=== PATIENT | male | born 1940 | race Caucasian/White ===

== ENCOUNTER 2017-08-27 09:30 | Inpatient (IN) | payer MEDICARE, BC ==
[2017-08-27 10:04] LABS: ABSOLUTE BASOPHILS # (AUTO) 0.1 10^3/uL (0.0-0.2); ABSOLUTE LYMPHOCYTES (AUTO) 0.5 10^3/uL (0.5-4.7); ABSOLUTE MONOCYTES (AUTO) 1.2 10^3/uL (0.1-1.4); ABSOLUTE NEUT (AUTO) 5.6 10^3/uL (1.7-8.2); BASOPHILS % (AUTO) 1.2 % (0-2); EOSINOPHILS % (AUTO) 0.1 % (0-6); HEMATOCRIT 35.8 % (37.9-51.0); HEMOGLOBIN 10.8 g/dL (13.5-17.0); LYMPHOCYTES % (AUTO) 6.9 % (13-45); MEAN CORPUSCULAR HEMOGLOBIN 24.8 pg (27.0-33.4); MEAN CORPUSCULAR HGB CONC 30.3 g/dL (32.0-36.0); MEAN CORPUSCULAR VOLUME 82 fl (80-97); MONOCYTES % (AUTO) 15.8 % (3-13); PLATELET COUNT 333 10^3/uL (150-450); RED BLOOD COUNT 4.37 10^6/uL (4.35-5.55); RED CELL DISTRIBUTION WIDTH 16.1 % (11.5-14.0); TOTAL CELLS COUNTED % (AUTO) 100 %; WHITE BLOOD COUNT 7.4 10^3/uL (4.0-10.5)
--- NOTE | 2017-08-27 10:07 | ER Document Report ---
ED General - General Stated Complaint: BREATHING PROBLEMS Time Seen by Provider: 08/27/17 09:41 Mode of Arrival: Medic Information source: Patient, Emergency Med Personnel TRAVEL OUTSIDE OF THE [place] IN LAST 30 DAYS: No - HPI Patient complains to provider of: Shortness of breath Onset: This morning Onset/Duration: Sudden Quality of pain: No pain Associated symptoms: Nonproductive cough Exacerbated by: Movement, Walking, Coughing Relieved by: Other - Oxygen Similar symptoms previously: No Recently seen / treated by doctor: No Notes: She states he woke up this morning in his usual state of health and then noticed that he was short of breath worse with ambulation. Patient's called 911 when the firefighters arrived patient's pulse ox was 62% on room air. He did come up to 99% on 100% nonrebreather. Patient denies pain. Medics did call in in route to the hospital. I did talk with them. They stated they gave the patient 3 albuterol to Atrovent and her 25 mg of Solu-Medrol with marked improvement. - Related Data Allergies/Adverse Reactions: No Known Allergies Allergy (Unverified 08/27/17 09:46) Past Medical History - General Information source: Patient, Relative - His is an RN - Social History Smoking Status: Former Smoker Cigarette use (# per day): No Chew tobacco use (# tins/day): No Smoking Education Provided: No Frequency of alcohol use: None Drug Abuse: None Lives with: Family Family History: Reviewed & Not Pertinent Patient has suicidal ideation: No Patient has homicidal ideation: No - Past Medical History Cardiac Medical History: Reports: Hx Hypertension Pulmonary Medical History: Reports: Hx COPD EENT Medical History: Reports: None Neurological Medical History: Reports: None Renal/ Medical History: Reports: Hx Renal Insufficiency Malignancy Medical History: Reports None GI Medical History: Reports: None Musculoskeltal Medical History: Reports None Psychiatric Medical History: Reports: None Past Surgical History: Reports: Hx Abdominal Surgery - Patient has a large scar in his RLQ he cannot recall what for. states, Other - states AAA few years ago Review of Systems - Review of Systems Constitutional: Fever, Weakness EENT: No symptoms reported Cardiovascular: No symptoms reported Respiratory: Cough, Short of breath, Wheezing Gastrointestinal: No symptoms reported Genitourinary: No symptoms reported Male Genitourinary: No symptoms reported Musculoskeletal: No symptoms reported Skin: No symptoms reported Hematologic/Lymphatic: No symptoms reported Neurological/Psychological: No symptoms reported Physical Exam - Vital signs Vitals: Resp Pulse Ox 19 91 L 08/27/17 09:37 08/27/17 09:37 - Notes Notes: PHYSICAL EXAMINATION: GENERAL: Well-appearing, well-nourished and in no acute distress-with some conversational dyspnea HEAD: Atraumatic, normocephalic. EYES: Pupils equal round and reactive to light, extraocular movements intact, sclera anicteric, conjunctiva are normal. ENT: Nares patent, oropharynx clear without exudates. Moist mucous membranes. Edentulous. NECK: Normal range of motion, supple without lymphadenopathy LUNGS: Breath sounds clear to auscultation bilaterally and equal. No wheezes rales or rhonchi. HEART: Regular rate and rhythm without murmurs ABDOMEN: Soft, nontender, nondistended abdomen. No guarding, no rebound. No masses appreciated. Musculoskeletal: Normal range of motion, no pitting or edema. No cyanosis. NEUROLOGICAL: Cranial nerves grossly intact. Normal speech, normal gait. Normal sensory, motor exams PSYCH: Normal mood, normal affect. SKIN: Warm, Dry, normal turgor, no rashes or lesions noted. Course - Re-evaluation Re-evalutation: 08/27/17 10:54 Patient's did present to the emergency department with patient's medications. He is on antihypertensives including clonidine and metoprolol and he takes an aspirin. Patient's states that he always has renal insufficiency. She states they could never used IV dye for CTs due to this. She states patient was a little bit confused yesterday and then he had "full lungs" last night and he awoke this morning with weakness inability to get out of bed cough and shortness of breath. She had a history of a abdominal aortic aneurysm that was surgically fixed. The incision on his right lower quadrant is due to complications of the surgery. Patient does not have a history of DVT or PE he does not use inhalers although he has a history of COPD. Patient has not seen a physician in at least one year probably longer as per the . Mikel medeiros automotive paint technician is going to have the audio visual secretary call over to the last physician he went to try and get some labs and paperwork faxed over. 08/27/17 10:57 Dr. Lyn the radiologists stated pt. has westermark sign and is questioning PE on the right. She has chronic renal insufficiency with a creatinine of 2. I will order VQ scan. 08/27/17 11:02 08/27/17 14:35 The radiologist. She states high probability VQ scan with clots in the posterior right upper lobe and right lower lobe most likely. 08/27/17 14:46pt. has returned from V/Q and he is doing well. He is 96% room air. Lungs sound scant wheezing only. Receive the paperwork for the patient's primary medical doctor, sure how useful would be as it was over a year ago. I did talk to Dr. Marcum and he is admitting the patient to IMCU - Vital Signs Vital signs: Temp Pulse Resp BP Pulse Ox 99.9 F 17 151/62 H 95 08/27/17 09:46 08/27/17 12:01 08/27/17 12:01 08/27/17 12:01 - Laboratory Result Diagrams: 08/27/17 09:45 08/27/17 09:45 Laboratory results interpreted by me: 08/27/17 08/27/17 08/27/17 09:45 09:45 09:45 Hgb 10.8 L Hct 35.8 L MCH 24.8 L MCHC 30.3 L RDW 16.1 H Lymphocytes % 6.9 L Monocytes % 15.8 H APTT 44.5 H Potassium 5.3 H Chloride 95 L BUN 22 H Creatinine 2.11 H Est GFR ( Amer) 37 L Est GFR (Non-Af Amer) 31 L Glucose 149 H POC Glucose Calcium 8.2 L AST 15 L NT-Pro-B Natriuret Pep 08/27/17 08/27/17 09:45 11:21 Hgb Hct MCH MCHC RDW Lymphocytes % Monocytes % APTT Potassium Chloride BUN Creatinine Est GFR ( Amer) Est GFR (Non-Af Amer) Glucose POC Glucose 130 H Calcium AST NT-Pro-B Natriuret Pep 8780 H - Diagnostic Test Radiology reviewed: Image reviewed, Reports reviewed Radiology results interpreted by me: 08/27/17 14:44 CXR: westermark sign r - EKG Interpretation by Me EKG shows normal: Sinus rhythm [place]/QRS: RBBB Critical Care Note - Critical Care Note Total time excluding time spent on procedures (mins): 45 Comments: 45 minutes of critical care time spent in direct contact evaluating and reevaluating the patient, treating symptoms, reviewing labs and studies and speaking with family and consultants excluding any procedures Discharge - Discharge Clinical Impression: Pulmonary embolism, Anemia, COPD (chronic obstructive pulmonary disease), Chronic renal insufficiency Condition: Good Disposition: ADMITTED INPATIENT Admitting Provider: Hospitalist - Dr. Marcum Unit Admitted: [facility]
[2017-08-27 10:11] LABS: INTERNATIONAL RATION (INR) 0.94; PROTHROMBIN TIME 13.3 SEC (11.4-15.4)
[2017-08-27 10:12] LABS: PARTIAL THROMBOPLASTIN TIME 44.5 SEC (23.5-35.8)
--- NOTE | 2017-08-27 10:14 | RADIOLOGY REPORT (SQ) ---
EXAM DESCRIPTION: CHEST SINGLE VIEW COMPLETED DATE/TIME: 08/27/2017 10:02 am REASON FOR STUDY: hypoxia COMPARISON: None. EXAM PARAMETERS: NUMBER OF VIEWS: One view. TECHNIQUE: Single frontal radiographic view of the chest acquired. RADIATION DOSE: NA LIMITATIONS: Portable film, all rotated towards the WHEELER position FINDINGS: LUNGS AND PLEURA: Overall decrease in pulmonary vascularity to the right lung compared to the left. Although this could be artifact from portable technique, this could represent a plaster ma rked spine on the right with decreased pulmonary vascularity related to pulmonary embolus. No acute infiltrates. No pleural effusion. No pneumothorax. MEDIASTINUM AND HILAR STRUCTURES: No masses. Contour normal. HEART AND VASCULAR STRUCTURES: Mild cardiomegaly BONES: No acute findings. HARDWARE: None in the chest. OTHER: No other significant finding. IMPRESSION: No acute infiltrates. Decrease right lung pulmonary vascularity, question acute pulmonary embolus to the right side Results discussed with Dr. Stark TECHNICAL DOCUMENTATION: JOB ID: [id number] [employer]- All Rights Reserved
[2017-08-27 10:24] LABS: ALANINE AMINOTRANSFERASE 21 U/L (21-72); ALBUMIN 4.2 g/dL (3.5-5.0); ALKALINE PHOSPHATASE 63 U/L (38-126); ANION GAP 12 (5-19); ASPARTATE AMINO TRANSFERASE 15 U/L (17-59); BILIRUBIN,DIRECT 0.3 mg/dL (0.0-0.4); BILIRUBIN,TOTAL 0.4 mg/dL (0.2-1.3); BLOOD UREA NITROGEN 22 mg/dL (7-20); CALCIUM 8.2 mg/dL (8.4-10.2); CARBON DIOXIDE 30 mmol/L (22-30); CHLORIDE 95 mmol/L (98-107); GLUCOSE 149 mg/dL (75-110); POTASSIUM 5.3 mmol/L (3.6-5.0); SODIUM 137.3 mmol/L (137-145); TOTAL PROTEIN 7.4 g/dL (6.3-8.2)
[2017-08-27] MEDS ORDERED: IPRATROPIUM/ALBUTEROL 0.5-2.5 MG/3 ML AMPUL NEB ONE (10:30)
[2017-08-27 10:42] LABS: TROPONIN I 0.06 ng/mL
[2017-08-27 11:23] LABS: A TYPE INFLUENZA AG NEGATIVE (NEGATIVE); B INFLUENZA AG NEGATIVE (NEGATIVE)
--- NOTE | 2017-08-27 11:56 | RADIOLOGY REPORT (SQ) ---
EXAM DESCRIPTION: CT HEAD WITHOUT COMPLETED DATE/TIME: 08/27/2017 11:32 am REASON FOR STUDY: ms change COMPARISON: None. TECHNIQUE: Axial images acquired through the brain without intravenous contrast. Images reviewed wi th bone, brain and subdural windows. Images stored on PACS. All CT scanners at this facility use dose modulation, iterative reconstruction, and/or weight based d osing when appropriate to reduce radiation dose to as low as reasonably achievable (ALARA). [facility]: Dose Right [facility]: CareDose [facility]: Dose Right [facility]: Teradose 4D [facility]: [email or web address] RADIATION DOSE: CT Rad equipment meets quality standard of care and radiation dose reduction techniq ues were employed. CTDIvol: 64.6 mGy. DLP: 1809 mGy-cm. mGy. LIMITATIONS: Study is limited somewhat due to motion artifact. FINDINGS: VENTRICLES: Prominent. CEREBRUM: No masses. No hemorrhage. No midline shift. Areas of low density in the white matter mos t likely due to chronic micro-vascular ischemic change. No evidence for acute infarction. CEREBELLUM: No masses. No hemorrhage. No alteration of density. No evidence for acute infarction. EXTRAAXIAL SPACES: Mild age-related involutional change. No fluid collections. No masses. ORBITS AND GLOBE: No intra- or extraconal masses. Normal contour of globe without masses. CALVARIUM: No fracture. PARANASAL SINUSES: There is opacification of the left maxillary antra and an adjacent ethmoid air dawson l. SOFT TISSUES: No mass or hematoma. OTHER: No other significant finding. IMPRESSION: MILD CHRONIC CHANGES OF ATROPHY AND MICROVASCULAR ISCHEMIA. NO ACUTE intracranial PROCE SS. Sinus disease as noted above. EVIDENCE OF ACUTE STROKE: NO. TECHNICAL DOCUMENTATION: JOB ID: [id number] Quality ID # [id number]: Final reports with documentation of one or more dose reduction techniques (e.g., Au tomated exposure control, adjustment of the mA and/or kV according to patient size, use of iterative reconstruction technique) 2010 [employer]- All Rights Reserved
--- NOTE | 2017-08-27 14:41 | RADIOLOGY REPORT (SQ) ---
EXAM DESCRIPTION: NM LUNG VENT/PERF SCAN COMPLETED DATE/TIME: 08/27/2017 2:08 pm REASON FOR STUDY: hypoxic/abn CXR/CRI COMPARISON: AP chest 08/27/2017 RADIONUCLIDE AND DOSE: 5.4 millicuries TC-99m MAA Intravenous 32.6 millicuries TC-99m DTPA Inhaled aerosol After the ventilation portion of the study, patient was injected with 5.4 mCi of technetium 99 M mebr ofenin instead at MAA. An anterior chest and abdomen image was obtained, demonstrating diffuse liver activity. TECHNIQUE: Eight views of the lungs acquired post ventilation of DTPA aerosol. Eight matching views of the lungs acquired following injection of MAA. LIMITATIONS: None. FINDINGS: VENTILATION: There is clumping of MAA in the central airways, and patchy aeration bilatera lly which correlates with clinical history of obstructive lung disease. PERFUSION: Post MAA perfusion images demonstrate decreased perfusion in the right lower lobe, particu larly along the superior segment and posterior basal segments. Small defect in the right upper lobe laterally. Findings are highly suspicious for right-sided pulmonary emboli. Findings discussed with Dr. Stark OTHER: No other significant finding. IMPRESSION: High probability study for right-sided pulmonary emboli. Right upper and lower lobe per fusion defects are present TECHNICAL DOCUMENTATION: JOB ID: [id number] [employer]- All Rights Reserved
[2017-08-27] MEDS ORDERED: NORMAL SALINE 1000 ML 1,000 ML IV ONE (14:49)
[2017-08-27] MEDS ORDERED: ENOXAPARIN SODIUM INJ 100 MG/1 ML DISP.SYRIN SUBCUT SCH (15:00)
[2017-08-27] MEDS ORDERED: ONDANSETRON HCL INJ/PF 4 MG/2 ML SDV IV PRN (15:37)
[2017-08-27] MEDS ORDERED: ONDANSETRON 4 MG TAB.RAPDIS PO PRN (15:37)
[2017-08-27] MEDS ORDERED: ACETAMINOPHEN 325 MG TABLET PO PRN (15:37)
[2017-08-27 15:53] LABS: APPEARANCE,URINE CLEAR; BILIRUBIN,URINE NEGATIVE (NEGATIVE); COLOR,URINE YELLOW; GLUCOSE, URINE NEGATIVE (NEGATIVE); KETONES,URINE NEGATIVE (NEGATIVE); LEUKOCYTE ESTERASE,URINE MODERATE (NEGATIVE); NITRITE,URINE NEGATIVE (NEGATIVE); PROTEIN,URINE 30 mg/dL (NEGATIVE); URINE SPECIFIC GRAVITY 1.008; UROBILINOGEN,URINE NEGATIVE mg/dL (<2.0)
[2017-08-27] MEDS ORDERED: HEPARIN SOD (PORCINE) 1,000 UNIT/ML 10 ML VIAL IV ONE (16:00)
--- NOTE | 2017-08-27 16:10 | PDOC H&P ---
History of Present Illness Admission Date/PCP: 08/27/17 15:09 Patient complains of: Shortness of breath and confusion History of Present Illness: RASHI MC JR is a 76 year old male who has not yet established primary care in the area who presents with symptoms of shortness of breath and confusion. 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 She reports that he had a restless night and then woke up this morning I was unable to get out of bed because of generalized weakness. She noted that he was dusky colored and appeared to be cyanotic. The firemen arrived first and at that time they checked an oxygen saturation and by report it is 62%. They placed him on oxygen and by the time EMS arrived his oxygen saturations were in the normal area on 2 L nasal cannula. Patient also had some wheezing then. Patient however denied have any chest pain. He denies any cough but has noticed some wheezing. He denies any lower extremity edema. Denies any orthopnea or PND. The patient had a VQ scan that showed high probability for pulmonary embolism. The patient is not very active according to the although he does drive he sits in a chair most days and most of the day. Patient is admitted for treatment of a pulmonary embolism. Past Medical History Cardiac Medical History: Reports: Hyperlipidema, Hypertension, Peripheral Vascular Disease - History of aortic aneurysm rupture and repair Pulmonary Medical History: Reports: Chronic Obstructive Pulmonary Disease (COPD) EENT Medical History: Reports: None Neurological Medical History: Reports: Other - Right foot drop after abdominal aortic aneurysm repair Endocrine Medical History: Reports: None Renal/ Medical History: Reports: Chronic Kidney Disease Malignancy Medical History: Reports: None GI Medical History: Reports: None Musculoskeltal Medical History: Reports: None Psychiatric Medical History: Reports: None Hematology: Reports: None Infectious Medical History: Reports: None Past Surgical History Past Surgical History: Reports: Other - states AAA few years ago Social History Information Source: Patient Lives with: Spouse/Significant other Smoking Status: Former Smoker Frequency of Alcohol Use: None Hx Recreational Drug Use: No Drugs: None - Advance Directive Resuscitation Status: Full Code Surrogate healthcare decision maker:: Family History Family History: Hypertension. denies: CAD, DM Parental Family History Reviewed: Yes Children Family History Reviewed: No Sibling(s) Family History Reviewed.: No Medication/Allergy Home Medications: Clonidine HCl [Catapres 0.1 mg Tablet] 0.1 mg PO Q12 08/27/17 Hydralazine HCl [Apresoline 50 mg Tablet] 50 mg PO Q8 08/27/17 Metoprolol Tartrate [Lopressor 50 mg Tablet] 75 mg PO Q12 08/27/17 Nifedipine [Nifedipine ER] 30 mg PO DAILY 08/27/17 Pravastatin Sodium [Pravachol] 20 mg PO QHS 08/27/17 Allergies/Adverse Reactions: No Known Allergies Allergy (Unverified 08/27/17 09:46) Review of Systems Constitutional: ABSENT: chills, fever(s), headache(s), weight gain, weight loss Eyes: ABSENT: visual disturbances Ears: ABSENT: hearing changes Cardiovascular: PRESENT: dyspnea on exertion. ABSENT: chest pain, edema, orthropnea, palpitations Respiratory: PRESENT: cough, dyspnea. ABSENT: hemoptysis, sputum Gastrointestinal: ABSENT: abdominal pain, constipation, diarrhea, hematemesis, hematochezia, nausea, vomiting Genitourinary: ABSENT: dysuria, hematuria Musculoskeletal: ABSENT: joint swelling Integumentary: ABSENT: rash, wounds Neurological: PRESENT: other - Right-sided foot drop Psychiatric: ABSENT: anxiety, depression Endocrine: ABSENT: cold intolerance, heat intolerance, polydipsia, polyuria Hematologic/Lymphatic: ABSENT: easy bleeding, easy bruising Physical Exam Vital Signs: Temp Pulse Resp BP Pulse Ox 99.9 F 17 151/62 H 95 08/27/17 09:46 08/27/17 12:01 08/27/17 12:01 08/27/17 12:01 General appearance: PRESENT: no acute distress, well-developed, well-nourished Head exam: PRESENT: atraumatic, normocephalic Eye exam: PRESENT: conjunctiva pink, EOMI, PERRLA. ABSENT: scleral icterus Ear exam: PRESENT: normal external ear exam Mouth exam: PRESENT: moist, tongue midline Neck exam: ABSENT: carotid bruit, JVD, lymphadenopathy, thyromegaly Respiratory exam: PRESENT: clear to auscultation annelise. ABSENT: rales, rhonchi, wheezes Cardiovascular exam: PRESENT: RRR. ABSENT: diastolic murmur, rubs, systolic murmur Vascular exam: PRESENT: normal capillary refill GI/Abdominal exam: PRESENT: normal bowel sounds, soft. ABSENT: distended, guarding, mass, organolmegaly, rebound, tenderness Rectal exam: PRESENT: deferred Extremities exam: ABSENT: calf tenderness, clubbing, pedal edema Neurological exam: PRESENT: alert, awake, oriented to person, oriented to place , oriented to time, oriented to situation, CN II-XII grossly intact, motor sensory deficit - Right foot drop Psychiatric exam: PRESENT: appropriate affect Skin exam: PRESENT: dry, intact, warm. ABSENT: cyanosis, rash Results Laboratory Results: 08/27/17 15:27 Urine Color YELLOW Urine Appearance CLEAR Urine pH 6.0 Ur Specific [place] 1.008 Urine Protein 30 H Urine Glucose (UA) NEGATIVE Urine Ketones NEGATIVE Urine Blood SMALL H Urine Nitrite NEGATIVE Ur Leukocyte Esterase MODERATE H Urine WBC (Auto) 17 Urine RBC (Auto) 5 Impressions: Chest X-Ray 08/27/17 09:42 IMPRESSION: No acute infiltrates. Decrease right lung pulmonary vascularity, question acute pulmonary embolus to the right side Results discussed with Dr. Stark Lung Scan-VQ NM 08/27/17 11:01 IMPRESSION: High probability study for right-sided pulmonary emboli. Right upper and lower lobe perfusion defects are present Head CT 08/27/17 11:20 IMPRESSION: MILD CHRONIC CHANGES OF ATROPHY AND MICROVASCULAR ISCHEMIA. NO ACUTE intracranial PROCESS. Sinus disease as noted above. EVIDENCE OF ACUTE STROKE: NO. Assessment & Plan - Diagnosis (1) Pulmonary embolism Is this a current diagnosis for this admission?: Yes Plan: The patient reports that he would not be able to afford one of the new oral anticoagulation and request to be put on Coumadin. We will place the patient on a heparin drip while we titrate his Coumadin dose. The patient did have significant hypoxia initially but is doing well now on 2 L nasal cannula. The patient has no obvious source. He does not have any obvious swelling in his legs but he is relatively inactive. No signs or symptoms of any type of malignancy. (2) COPD (chronic obstructive pulmonary disease) Is this a current diagnosis for this admission?: Yes Plan: We will give nebulizers as needed. (3) Anemia Is this a current diagnosis for this admission?: Yes (4) Chronic renal insufficiency Is this a current diagnosis for this admission?: Yes Plan: Patient has stage III chronic renal failure. No evidence for volume overload at this time. (5) Foot drop, right Is this a current diagnosis for this admission?: Yes Plan: This is secondary to a history of abdominal aortic aneurysm rupture requiring emergent surgical repair. This is been stable. - Time Time Spent: 50 to 70 Minutes - Inpatient Certification Medical Necessity: Need Close Monitoring Due to Risk of Patient Decompensation - Plan Summary Plan Summary: We will admit to [facility] as a regular admission as it will take greater than 2 midnights to titrate his Coumadin.
[2017-08-27 16:15] LABS: HEMOGLOBIN 10.8 g/dL (13.5-17.0); MEAN CORPUSCULAR VOLUME 81 fl (80-97); PLATELET COUNT 270 10^3/uL (150-450); RED BLOOD COUNT 4.34 10^6/uL (4.35-5.55); RED CELL DISTRIBUTION WIDTH 15.9 % (11.5-14.0); WHITE BLOOD COUNT 5.9 10^3/uL (4.0-10.5)
[2017-08-27 16:19] LABS: INTERNATIONAL RATION (INR) 0.97; PROTHROMBIN TIME 13.6 SEC (11.4-15.4)
[2017-08-27 16:20] LABS: PARTIAL THROMBOPLASTIN TIME 41.2 SEC (23.5-35.8)
[2017-08-27 16:46] LABS: ABSOLUTE LYMPHOCYTES# (MANUAL) 0.1 10^3/uL (0.5-4.7); ABSOLUTE MONOCYTES # (MANUAL) 0.2 10^3/uL (0.1-1.4); ABSOLUTE NEUTROPHILS# (MANUAL) 5.5 10^3/uL (1.7-8.2); BASOPHILS % (MANUAL) 1 % (0-2); EOSINOPHILS % (MANUAL) 0 % (0-6); LYMPHOCYTES % (MANUAL) 2 % (13-45); MONOCYTES % (MANUAL) 3 % (3-13); SEGMENTED NEUTROPHILS % (MAN) 94 % (42-78); TOTAL CELLS COUNTED 100
[2017-08-27 16:48] LABS: ANISOCYTOSIS 1+; HYPOCHROMASIA 2+; PLATELET COMMENT ADEQUATE; PLATELET LARGE PRESENT; POIKILOCYTOSIS SLIGHT; POLYCHROMASIA 1+; STOMATOCYTES SLIGHT
[2017-08-27 16:52] LABS: CREATINE KINASE MB 1.63 ng/mL (<4.55); TROPONIN I 0.053 ng/mL
[2017-08-27] MEDS: HEPARIN SODIUM,PORCINE/D5W 25,000 UNIT/250 ML RTUINJ IV PRN (17:24)
[2017-08-27] MEDS ORDERED: INFLUENZA ADLT QUAD (36MOS+) 2017-18 VAC 0.5 ML SYR IM PRN (20:27)
[2017-08-27] MEDS ORDERED: FAMOTIDINE 20 MG TABLET PO SCH (22:00)
[2017-08-27 22:40] LABS: CREATINE KINASE MB 2.33 ng/mL (<4.55)
[2017-08-27 22:44] LABS: TROPONIN I 0.041 ng/mL
[2017-08-28] MEDS ORDERED: LORAZEPAM INJ 2 MG/1 ML VIAL ONE (00:52)
[2017-08-28 00:59] LABS: ARTERIAL BLOOD BASE EXCESS 4.4 mmol/L; ARTERIAL BLOOD FIO2 2L; ARTERIAL BLOOD H2CO3 2.11 mmol/L (1.05-1.35); ARTERIAL BLOOD HCO3 32.8 mmol/L (20-26); ARTERIAL BLOOD O2 SATURATION 93.8 % (94-98); ARTERIAL BLOOD PH 7.29 (7.35-7.45); ARTERIAL BLOOD TOTAL CO2 34.9 mmol/L (23-27)
[2017-08-28] MEDS ORDERED: LORAZEPAM INJ 2 MG/1 ML VIAL IM PRN (01:19)
[2017-08-28] MEDS ORDERED: LORAZEPAM INJ 2 MG/1 ML VIAL IM ONE (01:30)
[2017-08-28 01:39] LABS: CREATINE KINASE MB 2.91 ng/mL (<4.55)
[2017-08-28 01:43] LABS: TROPONIN I 0.048 ng/mL
[2017-08-28 01:46] LABS: INTERNATIONAL RATION (INR) 0.92
[2017-08-28 01:47] LABS: PARTIAL THROMBOPLASTIN TIME 42.7 SEC (23.5-35.8)
--- NOTE | 2017-08-28 02:34 | RADIOLOGY REPORT (SQ) ---
EXAM DESCRIPTION: CT HEAD WITHOUT CLINICAL HISTORY: 76 years Male, ams COMPARISON: 08/27/2017. TECHNIQUE: No contrast. This exam was performed according to our departmental dose-optimization program, which includes automated exposure control, adjustment of the mA and/or kV according to patient size and/or use of iterative reconstruction technique. Two FINDINGS: Mild cerebral volume loss, minimal white matter microangiopathy, and atherosclerosis. 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 Soft tissue density occlusion of the left maxillary and a few left ethmoid air cells. No hemorrhage or infarct. No mass, mass effect, or midline shift. Extra-axial structures appear otherwise grossly intact. IMPRESSION: No significant interval change.
--- NOTE | 2017-08-28 02:50 | RADIOLOGY REPORT (SQ) ---
EXAM DESCRIPTION: ABDOMEN 2 VIEWS CLINICAL HISTORY: 76 years, Male, ams COMPARISON: None. NUMBER OF VIEWS:4 LIMITATIONS: None. FINDINGS: Nonspecific gaseous distention of the transverse and right colon with cecum measuring 8.7 cm in diameter. Paucity of bowel gas otherwise. Aortobiiliac graft. Mild osteoarthritis. IMPRESSION: Nonspecific gaseous dilation of the proximal colon.
[2017-08-28] MEDS: WARFARIN SODIUM 5 MG TABLET PO SCH ×2 (04:38→22:45)
[2017-08-28] MEDS: CLONIDINE HCL 0.1 MG TABLET PO SCH ×3 (04:38→22:45)
[2017-08-28] MEDS: METOPROLOL TARTRATE 50 MG TABLET PO SCH ×3 (04:38→22:45)
[2017-08-28] MEDS: HYDRALAZINE HCL 50 MG TABLET PO SCH ×4 (04:38→22:45)
[2017-08-28] MEDS: FAMOTIDINE 20 MG TABLET PO SCH ×2 (04:38→18:15)
[2017-08-28] MEDS: ATORVASTATIN CALCIUM 10 MG TABLET PO SCH ×2 (04:38→22:45)
[2017-08-28 05:56] LABS: HEMATOCRIT 33.2 % (37.9-51.0); HEMOGLOBIN 10.3 g/dL (13.5-17.0); MEAN CORPUSCULAR VOLUME 80 fl (80-97); PLATELET COUNT 279 10^3/uL (150-450); RED BLOOD COUNT 4.12 10^6/uL (4.35-5.55); RED CELL DISTRIBUTION WIDTH 16.1 % (11.5-14.0); WHITE BLOOD COUNT 9.5 10^3/uL (4.0-10.5)
[2017-08-28 06:27] LABS: ANION GAP 8 (5-19); BLOOD UREA NITROGEN 32 mg/dL (7-20); CALCIUM 8.1 mg/dL (8.4-10.2); CARBON DIOXIDE 29 mmol/L (22-30); CHLORIDE 102 mmol/L (98-107); GLUCOSE 128 mg/dL (75-110); SODIUM 138.5 mmol/L (137-145)
[2017-08-28 06:38] LABS: CREATINE KINASE MB 3.82 ng/mL (<4.55); TROPONIN I 0.058 ng/mL
[2017-08-28 07:01] LABS: POTASSIUM 6.4 mmol/L (3.6-5.0)
[2017-08-28 07:13] LABS: ARTERIAL BLOOD BASE EXCESS 5.2 mmol/L; ARTERIAL BLOOD H2CO3 2.23 mmol/L (1.05-1.35); ARTERIAL BLOOD HCO3 33.8 mmol/L (20-26); ARTERIAL BLOOD O2 SATURATION 90.5 % (94-98); ARTERIAL BLOOD PH 7.28 (7.35-7.45); ARTERIAL BLOOD PO2 68.4 mmHg (80-100)
[2017-08-28] MEDS: HEPARIN SOD (PORCINE) 1,000 UNIT/ML 10 ML VIAL IV PRN ×2 (07:15→16:21)
[2017-08-28 07:19] LABS: ARTERIAL BLOOD FIO2 2L
[2017-08-28] MEDS ORDERED: SODIUM POLYSTYRENE SULFONATE 15 GM/60 ML PO ONE (07:23)
[2017-08-28] MEDS: IPRATROPIUM/ALBUTEROL 0.5-2.5 MG/3 ML AMPUL NEB PRN (09:42)
--- NOTE | 2017-08-28 10:03 | PDOC PROGRESS REPORT ---
Subjective Progress Note for:: 08/28/17 Subjective:: Patient is slightly confused this morning. Reason For Visit: PULMONARY EMBOLUS Physical Exam Vital Signs: Temp Pulse Resp BP Pulse Ox 99.6 F 89 13 153/69 H 99 08/28/17 08:07 08/28/17 08:07 08/28/17 08:07 08/28/17 08:07 08/28/17 08:07 Intake & Output 08/27/17 08/28/17 08/29/17 06:59 06:59 06:59 Intake Total 320 Output Total 550 Balance -230 Weight 94.5 kg General appearance: PRESENT: no acute distress Eye exam: PRESENT: conjunctiva pink. ABSENT: scleral icterus Mouth exam: PRESENT: moist, tongue midline Neck exam: ABSENT: JVD Respiratory exam: PRESENT: rhonchi. ABSENT: rales, wheezes Cardiovascular exam: PRESENT: RRR. ABSENT: diastolic murmur, rubs, systolic murmur GI/Abdominal exam: PRESENT: normal bowel sounds, soft. ABSENT: distended, guarding, mass, organolmegaly, rebound, tenderness Extremities exam: ABSENT: calf tenderness, clubbing, pedal edema Neurological exam: PRESENT: alert, awake, oriented to person, oriented to place , oriented to time, oriented to situation, CN II-XII grossly intact. ABSENT: motor sensory deficit Psychiatric exam: PRESENT: agitated Skin exam: PRESENT: dry, intact, warm. ABSENT: cyanosis, rash Results Laboratory Results: 08/28/17 05:47 08/28/17 05:47 08/27/17 08/27/17 08/28/17 15:27 16:00 00:45 WBC 5.9 RBC 4.34 L Hgb 10.8 L Hct 35.0 L MCV 81 MCH 25.0 L MCHC 31.0 L RDW 15.9 H Plt Count 270 Seg Neutrophils % Not Reportable Lymphocytes % Not Reportable Monocytes % Not Reportable Eosinophils % Not Reportable Basophils % Not Reportable Absolute Neutrophils Not Reportable Absolute Lymphocytes Not Reportable Absolute Monocytes Not Reportable Absolute Eosinophils Not Reportable Absolute Basophils Not Reportable Carbonic Acid 2.11 H HCO3/H2CO3 Ratio 15:1 ABG pH 7.29 L ABG pCO2 70.0 H* ABG pO2 79.0 L ABG HCO3 32.8 H ABG O2 Saturation 93.8 L ABG Base Excess 4.4 FiO2 2L Sodium Potassium Chloride Carbon Dioxide Anion Gap BUN Creatinine Est GFR ( Amer) Est GFR (Non-Af Amer) Glucose Calcium Urine Color YELLOW Urine Appearance CLEAR Urine pH 6.0 Ur Specific [place] 1.008 Urine Protein 30 H Urine Glucose (UA) NEGATIVE Urine Ketones NEGATIVE Urine Blood SMALL H Urine Nitrite NEGATIVE Ur Leukocyte Esterase MODERATE H Urine WBC (Auto) 17 Urine RBC (Auto) 5 08/28/17 08/28/17 08/28/17 05:47 05:47 06:30 WBC 9.5 RBC 4.12 L Hgb 10.3 L Hct 33.2 L MCV 80 MCH 25.0 L MCHC 31.0 L RDW 16.1 H Plt Count 279 Seg Neutrophils % Lymphocytes % Monocytes % Eosinophils % Basophils % Absolute Neutrophils Absolute Lymphocytes Absolute Monocytes Absolute Eosinophils Absolute Basophils Carbonic Acid 2.23 H HCO3/H2CO3 Ratio 15:1 ABG pH 7.28 L ABG pCO2 74.0 H* ABG pO2 68.4 L ABG HCO3 33.8 H ABG O2 Saturation 90.5 L ABG Base Excess 5.2 FiO2 2L Sodium 138.5 Potassium 6.4 H* D Chloride 102 Carbon Dioxide 29 Anion Gap 8 BUN 32 H Creatinine 2.03 H Est GFR ( Amer) 39 L Est GFR (Non-Af Amer) 32 L Glucose 128 H Calcium 8.1 L Urine Color Urine Appearance Urine pH Ur Specific [place] Urine Protein Urine Glucose (UA) Urine Ketones Urine Blood Urine Nitrite Ur Leukocyte Esterase Urine WBC (Auto) Urine RBC (Auto) 08/27/17 08/27/17 08/27/17 16:00 16:00 22:00 Creatine Kinase 63 108 CK-MB (CK-2) 1.63 Troponin I 0.053 08/27/17 08/28/17 08/28/17 22:00 00:56 00:56 Creatine Kinase 135 CK-MB (CK-2) 2.33 2.91 Troponin I 0.041 0.048 08/28/17 08/28/17 05:47 05:47 Creatine Kinase 195 H CK-MB (CK-2) 3.82 Troponin I 0.058 Impressions: Chest X-Ray 08/27/17 09:42 IMPRESSION: No acute infiltrates. Decrease right lung pulmonary vascularity, question acute pulmonary embolus to the right side Results discussed with Dr. Stark Lung Scan-VQ NM 08/27/17 11:01 IMPRESSION: High probability study for right-sided pulmonary emboli. Right upper and lower lobe perfusion defects are present Head CT 08/28/17 00:00 IMPRESSION: No significant interval change. Abdomen X-Ray 08/28/17 00:44 IMPRESSION: Nonspecific gaseous dilation of the proximal colon. Assessment & Plan - Diagnosis (1) Pulmonary embolism Is this a current diagnosis for this admission?: Yes Plan: The patient reports that he would not be able to afford one of the new oral anticoagulation and request to be put on Coumadin. Continue on a heparin drip while we titrate his Coumadin dose. The patient did have significant hypoxia initially but is on BiPAP. The patient has no obvious source of clot. He does not have any obvious swelling in his legs but he is relatively inactive. No signs or symptoms of any type of malignancy. (2) COPD (chronic obstructive pulmonary disease) Is this a current diagnosis for this admission?: Yes Plan: We will give nebulizers as needed. He currently is on BiPAP. (3) Anemia Is this a current diagnosis for this admission?: Yes (4) Chronic renal insufficiency Is this a current diagnosis for this admission?: Yes Plan: Patient has stage III chronic renal failure. No evidence for volume overload at this time. (5) Foot drop, right Is this a current diagnosis for this admission?: Yes Plan: This is secondary to a history of abdominal aortic aneurysm rupture requiring emergent surgical repair. This is stable. - Time Time Spent with patient: 25-34 minutes - Inpatient Certification Medical Necessity: Need Close Monitoring Due to Risk of Patient Decompensation
--- NOTE | 2017-08-28 10:24 | EKG REPORT ---
SEVERITY:- ABNORMAL ECG - SINUS RHYTHM RIGHT BUNDLE BRANCH BLOCK : Confirmed by: Padmini Reynolds 28-Aug-2017 10:24:01
[2017-08-28] MEDS: NIFEDIPINE 30 MG TAB.ER.24 PO SCH (10:40)
[2017-08-28] MEDS: HEPARIN SODIUM,PORCINE/D5W 25,000 UNIT/250 ML RTUINJ IV PRN (12:03)
[2017-08-28 13:02] LABS: CREATINE KINASE MB 4.25 ng/mL (<4.55)
[2017-08-28 13:06] LABS: TROPONIN I 0.067 ng/mL
[2017-08-28] MEDS ORDERED: ALPRAZOLAM 0.5 MG TABLET PO PRN (17:41)
[2017-08-28 18:30] LABS: APPEARANCE,URINE SLIGHTLY-CLOUDY; BILIRUBIN,URINE NEGATIVE (NEGATIVE); COLOR,URINE YELLOW; GLUCOSE, URINE NEGATIVE (NEGATIVE); KETONES,URINE NEGATIVE (NEGATIVE); LEUKOCYTE ESTERASE,URINE MODERATE (NEGATIVE); NITRITE,URINE NEGATIVE (NEGATIVE); PROTEIN,URINE 100 mg/dL (NEGATIVE); URINE SPECIFIC GRAVITY 1.015; UROBILINOGEN,URINE NEGATIVE mg/dL (<2.0)
[2017-08-28 19:15] LABS: CREATINE KINASE MB 4.67 ng/mL (<4.55); TROPONIN I 0.067 ng/mL
[2017-08-29] MEDS: HYDRALAZINE HCL 50 MG TABLET PO SCH ×3 (06:03→22:37)
[2017-08-29 07:11] LABS: ANION GAP 6 (5-19); BLOOD UREA NITROGEN 40 mg/dL (7-20); CALCIUM 8.1 mg/dL (8.4-10.2); CARBON DIOXIDE 33 mmol/L (22-30); CHLORIDE 98 mmol/L (98-107); GLUCOSE 119 mg/dL (75-110); POTASSIUM 5.6 mmol/L (3.6-5.0); SODIUM 137.3 mmol/L (137-145)
[2017-08-29] MEDS: IPRATROPIUM/ALBUTEROL 0.5-2.5 MG/3 ML AMPUL NEB PRN (08:07)
[2017-08-29] MEDS: HEPARIN SODIUM,PORCINE/D5W 25,000 UNIT/250 ML RTUINJ IV PRN ×2 (09:11→23:42)
[2017-08-29] MEDS: NIFEDIPINE 30 MG TAB.ER.24 PO SCH (09:16)
[2017-08-29] MEDS: METOPROLOL TARTRATE 50 MG TABLET PO SCH ×2 (09:16→22:37)
[2017-08-29] MEDS: CLONIDINE HCL 0.1 MG TABLET PO SCH ×2 (09:17→22:37)
--- NOTE | 2017-08-29 11:02 | PDOC PROGRESS REPORT ---
Subjective Progress Note for:: 08/29/17 Subjective:: Patient is slightly confused this morning. Reason For Visit: PULMONARY EMBOLUS Physical Exam Vital Signs: Temp Pulse Resp BP Pulse Ox 98.3 F 75 14 138/51 H 91 L 08/29/17 07:49 08/29/17 08:07 08/29/17 08:07 08/29/17 07:49 08/29/17 08:07 Intake & Output 08/28/17 08/29/17 08/30/17 06:59 06:59 06:59 Intake Total 320 1367 Output Total 550 300 Balance -230 1067 Weight 94.5 kg 94.6 kg General appearance: PRESENT: no acute distress Eye exam: PRESENT: conjunctiva pink. ABSENT: scleral icterus Mouth exam: PRESENT: moist, tongue midline Neck exam: ABSENT: JVD Respiratory exam: PRESENT: clear to auscultation annelise. ABSENT: rales, rhonchi, wheezes Cardiovascular exam: PRESENT: RRR. ABSENT: diastolic murmur, rubs, systolic murmur Extremities exam: ABSENT: calf tenderness, clubbing, pedal edema Neurological exam: PRESENT: altered, awake, oriented to person, oriented to place, CN II-XII grossly intact. ABSENT: oriented to time, oriented to situation, motor sensory deficit Psychiatric exam: PRESENT: flat affect Skin exam: PRESENT: dry, intact, warm. ABSENT: cyanosis, rash Results Laboratory Results: 08/28/17 05:47 08/29/17 06:32 08/28/17 08/28/17 08/29/17 11:57 11:57 06:32 Sodium 137.3 Potassium 5.6 H Chloride 98 Carbon Dioxide 33 H Anion Gap 6 BUN 40 H Creatinine 2.01 H Est GFR ( Amer) 39 L Est GFR (Non-Af Amer) 33 L Glucose 119 H Calcium 8.1 L Urine Color YELLOW Urine Appearance SLIGHTLY-CLOUDY Urine pH 6.0 Ur Specific [place] 1.015 Urine Protein 100 H Urine Glucose (UA) NEGATIVE Urine Ketones NEGATIVE Urine Blood SMALL H Urine Nitrite NEGATIVE Ur Leukocyte Esterase MODERATE H Urine WBC (Auto) 38 Urine RBC (Auto) 7 Stool Occult Blood POSITIVE 08/27/17 08/27/17 08/27/17 16:00 16:00 22:00 Creatine Kinase 63 108 CK-MB (CK-2) 1.63 Troponin I 0.053 08/27/17 08/28/17 08/28/17 22:00 00:56 00:56 Creatine Kinase 135 CK-MB (CK-2) 2.33 2.91 Troponin I 0.041 0.048 08/28/17 08/28/17 08/28/17 05:47 05:47 12:25 Creatine Kinase 195 H 229 H CK-MB (CK-2) 3.82 Troponin I 0.058 08/28/17 08/28/17 08/28/17 12:25 17:55 17:55 Creatine Kinase 296 H CK-MB (CK-2) 4.25 4.67 H Troponin I 0.067 0.067 Impressions: Chest X-Ray 08/27/17 09:42 IMPRESSION: No acute infiltrates. Decrease right lung pulmonary vascularity, question acute pulmonary embolus to the right side Results discussed with Dr. Stark Lung Scan-VQ NM 08/27/17 11:01 IMPRESSION: High probability study for right-sided pulmonary emboli. Right upper and lower lobe perfusion defects are present Head CT 08/28/17 00:00 IMPRESSION: No significant interval change. Abdomen X-Ray 08/28/17 00:44 IMPRESSION: Nonspecific gaseous dilation of the proximal colon. Assessment & Plan - Diagnosis (1) Pulmonary embolism Is this a current diagnosis for this admission?: Yes Plan: The patient reports that he would not be able to afford one of the new oral anticoagulation and request to be put on Coumadin. Continue on a heparin drip while we titrate his Coumadin dose. The patient did have significant hypoxia initially but is on BiPAP. The patient has no obvious source of clot. He does not have any obvious swelling in his legs but he is relatively inactive. No signs or symptoms of any type of malignancy. (2) COPD (chronic obstructive pulmonary disease) Is this a current diagnosis for this admission?: Yes Plan: We will give nebulizers as needed. He currently is on BiPAP. (3) Anemia Is this a current diagnosis for this admission?: Yes (4) Chronic renal insufficiency Is this a current diagnosis for this admission?: Yes Plan: Patient has stage III chronic renal failure. No evidence for volume overload at this time. (5) Foot drop, right Is this a current diagnosis for this admission?: Yes Plan: This is secondary to a history of abdominal aortic aneurysm rupture requiring emergent surgical repair. This is stable. (6) Hyperkalemia Is this a current diagnosis for this admission?: Yes - Time Time Spent with patient: 25-34 minutes
[2017-08-29 14:14] LABS: ARTERIAL BLOOD BASE EXCESS 9.2 mmol/L; ARTERIAL BLOOD H2CO3 2.29 mmol/L (1.05-1.35); ARTERIAL BLOOD HCO3 37.6 mmol/L (20-26); ARTERIAL BLOOD O2 SATURATION 96.6 % (94-98); ARTERIAL BLOOD PH 7.31 (7.35-7.45); ARTERIAL BLOOD PO2 98.7 mmHg (80-100)
[2017-08-29 14:15] LABS: ARTERIAL BLOOD FIO2 35%
[2017-08-29 14:16] LABS: ARTERIAL BLOOD PCO2 76.1 mmHg (35-45)
[2017-08-29 17:08] LABS: PROTHROMBIN TIME 13.9 SEC (11.4-15.4)
[2017-08-29] MEDS: FAMOTIDINE 20 MG TABLET PO SCH (17:08)
[2017-08-29] MEDS: ATORVASTATIN CALCIUM 10 MG TABLET PO SCH (22:37)
[2017-08-29] MEDS: WARFARIN SODIUM 5 MG TABLET PO SCH (22:37)
[2017-08-30] MEDS: HYDRALAZINE HCL 50 MG TABLET PO SCH ×3 (06:27→21:12)
[2017-08-30 07:15] LABS: HEMATOCRIT 30.5 % (37.9-51.0); HEMOGLOBIN 9.2 g/dL (13.5-17.0); MEAN CORPUSCULAR HEMOGLOBIN 24.7 pg (27.0-33.4); MEAN CORPUSCULAR HGB CONC 30.3 g/dL (32.0-36.0); MEAN CORPUSCULAR VOLUME 82 fl (80-97); PLATELET COUNT 287 10^3/uL (150-450); RED BLOOD COUNT 3.73 10^6/uL (4.35-5.55); RED CELL DISTRIBUTION WIDTH 16.3 % (11.5-14.0)
[2017-08-30 07:20] LABS: APPEARANCE,URINE SLIGHTLY-CLOUDY; BILIRUBIN,URINE NEGATIVE (NEGATIVE); COLOR,URINE YELLOW; GLUCOSE, URINE NEGATIVE (NEGATIVE); KETONES,URINE NEGATIVE (NEGATIVE); LEUKOCYTE ESTERASE,URINE MODERATE (NEGATIVE); NITRITE,URINE NEGATIVE (NEGATIVE); PROTEIN,URINE NEGATIVE (NEGATIVE); URINE SPECIFIC GRAVITY 1.018; UROBILINOGEN,URINE NEGATIVE mg/dL (<2.0)
[2017-08-30 07:25] LABS: INTERNATIONAL RATION (INR) 0.97; PROTHROMBIN TIME 13.6 SEC (11.4-15.4)
[2017-08-30 07:31] LABS: ANION GAP 9 (5-19); BLOOD UREA NITROGEN 47 mg/dL (7-20); CALCIUM 8.1 mg/dL (8.4-10.2); CARBON DIOXIDE 32 mmol/L (22-30); CHLORIDE 97 mmol/L (98-107); GLUCOSE 100 mg/dL (75-110); POTASSIUM 5.1 mmol/L (3.6-5.0); SODIUM 137.6 mmol/L (137-145)
[2017-08-30] MEDS: NIFEDIPINE 30 MG TAB.ER.24 PO SCH (10:22)
[2017-08-30] MEDS: METOPROLOL TARTRATE 50 MG TABLET PO SCH ×2 (10:22→21:11)
[2017-08-30] MEDS: CLONIDINE HCL 0.1 MG TABLET PO SCH ×2 (10:22→21:12)
--- NOTE | 2017-08-30 12:34 | PDOC PROGRESS REPORT ---
Subjective Progress Note for:: 08/30/17 Subjective:: Patient is less confused. He is on BiPAP. Reason For Visit: PULMONARY EMBOLUS Physical Exam Vital Signs: Temp Pulse Resp BP Pulse Ox 98.3 F 60 10 L 113/50 L 96 08/30/17 04:15 08/30/17 08:18 08/30/17 08:18 08/30/17 07:19 08/30/17 08:18 Intake & Output 08/29/17 08/30/17 08/31/17 06:59 06:59 06:59 Intake Total 1367 1901 Output Total 300 400 Balance 1067 1501 Weight 94.6 kg 94.8 kg General appearance: PRESENT: no acute distress Head exam: PRESENT: atraumatic, normocephalic Eye exam: PRESENT: conjunctiva pink, EOMI, PERRLA. ABSENT: scleral icterus Neck exam: ABSENT: JVD Respiratory exam: PRESENT: clear to auscultation annelise. ABSENT: rales, rhonchi, wheezes Cardiovascular exam: PRESENT: RRR. ABSENT: diastolic murmur, rubs, systolic murmur GI/Abdominal exam: PRESENT: normal bowel sounds, soft. ABSENT: distended, guarding, mass, organolmegaly, rebound, tenderness Extremities exam: ABSENT: calf tenderness, clubbing, pedal edema Neurological exam: PRESENT: alert, awake, oriented to person, oriented to place , CN II-XII grossly intact. ABSENT: oriented to time, oriented to situation, motor sensory deficit Psychiatric exam: PRESENT: appropriate affect Skin exam: PRESENT: dry, intact, warm. ABSENT: cyanosis, rash Results Laboratory Results: 08/30/17 06:30 08/30/17 06:30 08/29/17 08/30/17 08/30/17 13:35 06:30 06:30 WBC 8.0 RBC 3.73 L Hgb 9.2 L Hct 30.5 L MCV 82 MCH 24.7 L MCHC 30.3 L RDW 16.3 H Plt Count 287 Carbonic Acid 2.29 H HCO3/H2CO3 Ratio 16:1 ABG pH 7.31 L ABG pCO2 76.1 H* ABG pO2 98.7 ABG HCO3 37.6 H ABG O2 Saturation 96.6 ABG Base Excess 9.2 FiO2 35% Sodium 137.6 Potassium 5.1 H Chloride 97 L Carbon Dioxide 32 H Anion Gap 9 BUN 47 H Creatinine 2.24 H Est GFR ( Amer) 35 L Est GFR (Non-Af Amer) 29 L Glucose 100 Calcium 8.1 L Urine Color Urine Appearance Urine pH Ur Specific [place] Urine Protein Urine Glucose (UA) Urine Ketones Urine Blood Urine Nitrite Ur Leukocyte Esterase Urine WBC (Auto) Urine RBC (Auto) 08/30/17 07:00 WBC RBC Hgb Hct MCV MCH MCHC RDW Plt Count Carbonic Acid HCO3/H2CO3 Ratio ABG pH ABG pCO2 ABG pO2 ABG HCO3 ABG O2 Saturation ABG Base Excess FiO2 Sodium Potassium Chloride Carbon Dioxide Anion Gap BUN Creatinine Est GFR ( Amer) Est GFR (Non-Af Amer) Glucose Calcium Urine Color YELLOW Urine Appearance SLIGHTLY-CLOUDY Urine pH 5.0 Ur Specific [place] 1.018 Urine Protein NEGATIVE Urine Glucose (UA) NEGATIVE Urine Ketones NEGATIVE Urine Blood NEGATIVE Urine Nitrite NEGATIVE Ur Leukocyte Esterase MODERATE H Urine WBC (Auto) 24 Urine RBC (Auto) 2 08/27/17 08/27/17 08/27/17 16:00 16:00 22:00 Creatine Kinase 63 108 CK-MB (CK-2) 1.63 Troponin I 0.053 08/27/17 08/28/17 08/28/17 22:00 00:56 00:56 Creatine Kinase 135 CK-MB (CK-2) 2.33 2.91 Troponin I 0.041 0.048 08/28/17 08/28/17 08/28/17 05:47 05:47 12:25 Creatine Kinase 195 H 229 H CK-MB (CK-2) 3.82 Troponin I 0.058 08/28/17 08/28/17 08/28/17 12:25 17:55 17:55 Creatine Kinase 296 H CK-MB (CK-2) 4.25 4.67 H Troponin I 0.067 0.067 Impressions: Chest X-Ray 08/27/17 09:42 IMPRESSION: No acute infiltrates. Decrease right lung pulmonary vascularity, question acute pulmonary embolus to the right side Results discussed with Dr. Stark Lung Scan-VQ NM 08/27/17 11:01 IMPRESSION: High probability study for right-sided pulmonary emboli. Right upper and lower lobe perfusion defects are present Head CT 08/28/17 00:00 IMPRESSION: No significant interval change. Abdomen X-Ray 08/28/17 00:44 IMPRESSION: Nonspecific gaseous dilation of the proximal colon. Assessment & Plan - Diagnosis (1) Pulmonary embolism Is this a current diagnosis for this admission?: Yes Plan: The patient reports that he would not be able to afford one of the new oral anticoagulation and request to be put on Coumadin. Continue on a heparin drip while we titrate his Coumadin dose. The patient did have significant hypoxia initially but is on BiPAP. The patient has no obvious source of clot. He does not have any obvious swelling in his legs but he is relatively inactive. No signs or symptoms of any type of malignancy. We will plan on discharge to home when INR is at goal between 2 and 3. The has asked that we consult pulmonary medicine. (2) COPD (chronic obstructive pulmonary disease) Is this a current diagnosis for this admission?: Yes Plan: We will give nebulizers as needed. He currently is on BiPAP. (3) Anemia Is this a current diagnosis for this admission?: Yes (4) Chronic renal insufficiency Is this a current diagnosis for this admission?: Yes Plan: Patient has stage III chronic renal failure. No evidence for volume overload at this time. (5) Foot drop, right Is this a current diagnosis for this admission?: Yes Plan: This is secondary to a history of abdominal aortic aneurysm rupture requiring emergent surgical repair. This is stable. (6) Hyperkalemia Is this a current diagnosis for this admission?: Yes Plan: Secondary to chronic renal failure. Will start scheduled Kayexalate. - Time Time Spent with patient: 25-34 minutes - Inpatient Certification Medical Necessity: Need Close Monitoring Due to Risk of Patient Decompensation
[2017-08-30] MEDS: HEPARIN SODIUM,PORCINE/D5W 25,000 UNIT/250 ML RTUINJ IV PRN (14:49)
[2017-08-30] MEDS: FAMOTIDINE 20 MG TABLET PO SCH (17:19)
[2017-08-30] MEDS: ATORVASTATIN CALCIUM 10 MG TABLET PO SCH (21:10)
[2017-08-30] MEDS: WARFARIN SODIUM 5 MG TABLET PO SCH (21:12)
[2017-08-31 04:49] LABS: APPEARANCE,URINE CLEAR; BILIRUBIN,URINE NEGATIVE (NEGATIVE); COLOR,URINE YELLOW; GLUCOSE, URINE NEGATIVE (NEGATIVE); KETONES,URINE NEGATIVE (NEGATIVE); LEUKOCYTE ESTERASE,URINE LARGE (NEGATIVE); NITRITE,URINE NEGATIVE (NEGATIVE); PROTEIN,URINE NEGATIVE (NEGATIVE); URINE SPECIFIC GRAVITY 1.013; UROBILINOGEN,URINE NEGATIVE mg/dL (<2.0)
[2017-08-31 05:03] LABS: ABSOLUTE BASOPHILS # (AUTO) 0.1 10^3/uL (0.0-0.2); ABSOLUTE LYMPHOCYTES (AUTO) 0.4 10^3/uL (0.5-4.7); ABSOLUTE MONOCYTES (AUTO) 1.2 10^3/uL (0.1-1.4); ABSOLUTE NEUT (AUTO) 5.5 10^3/uL (1.7-8.2); BASOPHILS % (AUTO) 0.7 % (0-2); EOSINOPHILS % (AUTO) 0.3 % (0-6); HEMATOCRIT 28.1 % (37.9-51.0); HEMOGLOBIN 8.7 g/dL (13.5-17.0); LYMPHOCYTES % (AUTO) 5.1 % (13-45); MEAN CORPUSCULAR VOLUME 81 fl (80-97); MONOCYTES % (AUTO) 16.8 % (3-13); PLATELET COUNT 257 10^3/uL (150-450); RED BLOOD COUNT 3.49 10^6/uL (4.35-5.55); RED CELL DISTRIBUTION WIDTH 15.9 % (11.5-14.0); SEGMENTED NEUTROPHILS % (AUTO) 77.1 % (42-78); TOTAL CELLS COUNTED % (AUTO) 100 %; WHITE BLOOD COUNT 7.1 10^3/uL (4.0-10.5)
[2017-08-31 05:20] LABS: ANION GAP 7 (5-19); BLOOD UREA NITROGEN 53 mg/dL (7-20); CALCIUM 7.8 mg/dL (8.4-10.2); CARBON DIOXIDE 34 mmol/L (22-30); CHLORIDE 95 mmol/L (98-107); GLUCOSE 107 mg/dL (75-110); POTASSIUM 5.4 mmol/L (3.6-5.0); SODIUM 135.8 mmol/L (137-145)
[2017-08-31] MEDS: HYDRALAZINE HCL 50 MG TABLET PO SCH ×3 (06:55→21:50)
[2017-08-31] MEDS: HEPARIN SODIUM,PORCINE/D5W 25,000 UNIT/250 ML RTUINJ IV PRN (07:37)
[2017-08-31 08:58] LABS: INTERNATIONAL RATION (INR) 0.97; PROTHROMBIN TIME 13.6 SEC (11.4-15.4)
[2017-08-31] MEDS: CLONIDINE HCL 0.1 MG TABLET PO SCH ×2 (11:08→21:49)
[2017-08-31] MEDS: NIFEDIPINE 30 MG TAB.ER.24 PO SCH (11:09)
[2017-08-31] MEDS: METOPROLOL TARTRATE 50 MG TABLET PO SCH ×2 (11:09→21:49)
[2017-08-31 13:33] LABS: ARTERIAL BLOOD BASE EXCESS 8.3 mmol/L; ARTERIAL BLOOD H2CO3 2.32 mmol/L (1.05-1.35); ARTERIAL BLOOD HCO3 36.6 mmol/L (20-26); ARTERIAL BLOOD O2 SATURATION 96.3 % (94-98); ARTERIAL BLOOD PO2 96.1 mmHg (80-100)
[2017-08-31 13:38] LABS: ARTERIAL BLOOD FIO2 5L
[2017-08-31 16:57] LABS: ARTERIAL BLOOD BASE EXCESS 7.6 mmol/L; ARTERIAL BLOOD FIO2 35%; ARTERIAL BLOOD H2CO3 1.99 mmol/L (1.05-1.35); ARTERIAL BLOOD HCO3 34.8 mmol/L (20-26); ARTERIAL BLOOD O2 SATURATION 94.1 % (94-98); ARTERIAL BLOOD PH 7.34 (7.35-7.45); ARTERIAL BLOOD PO2 76.6 mmHg (80-100); ARTERIAL BLOOD TOTAL CO2 36.8 mmol/L (23-27)
--- NOTE | 2017-08-31 17:02 | PDOC PROGRESS REPORT ---
Subjective Progress Note for:: 08/31/17 Subjective:: no complaints. His is at bedside. She says that he is not himself. He is usually "sharp" mentally. Reason For Visit: RASHI MC JR is a 76 year old male who has not yet established primary care in the area who presented with symptoms of shortness of breath and confusion. 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 She reported that he had a restless night and then woke up on the morning of admission and was unable to get out of bed because of generalized weakness. She noted that he was dusky colored and appeared to be cyanotic. The firemen arrived first and at that time they checked an oxygen saturation and by report it is 62%. They placed him on oxygen and by the time EMS arrived his oxygen saturations were in the normal area on 2 L nasal cannula. Patient also had some wheezing then. Patient denied any chest pain. He denied any cough but noticed some wheezing. He denied any lower extremity edema, orthopnea or PND. The patient had a VQ scan that showed high probability for pulmonary embolism. The patient is not very active according to the . Although he does drive, he sits in a chair most days and most of the day. Patient is admitted for treatment of a pulmonary embolism. Physical Exam Vital Signs: Temp Pulse Resp BP Pulse Ox 98.5 F 83 20 141/69 H 97 08/31/17 11:25 08/31/17 11:25 08/31/17 11:25 08/31/17 11:25 08/31/17 11:25 Intake & Output 08/30/17 08/31/17 09/01/17 06:59 06:59 06:59 Intake Total 1901 1483 237 Output Total 400 575 100 Balance 1501 908 137 Weight 94.8 kg 93.7 kg General appearance: PRESENT: no acute distress, well-developed, well-nourished Head exam: PRESENT: atraumatic, normocephalic Eye exam: PRESENT: EOMI, PERRLA Neck exam: PRESENT: full ROM. ABSENT: JVD Respiratory exam: PRESENT: clear to auscultation annelise, unlabored. ABSENT: accessory muscle use Cardiovascular exam: PRESENT: RRR. ABSENT: diastolic murmur, rubs, systolic murmur GI/Abdominal exam: PRESENT: normal bowel sounds, soft. ABSENT: distended, guarding, mass, organolmegaly, rebound, tenderness Neurological exam: PRESENT: alert, awake, oriented to person, oriented to place , oriented to time, oriented to situation, CN II-XII grossly intact. ABSENT: motor sensory deficit Results Laboratory Results: 08/31/17 04:25 08/31/17 04:25 08/31/17 08/31/17 08/31/17 04:15 04:25 04:25 WBC 7.1 RBC 3.49 L Hgb 8.7 L Hct 28.1 L MCV 81 MCH 25.0 L MCHC 31.0 L RDW 15.9 H Plt Count 257 Seg Neutrophils % 77.1 Lymphocytes % 5.1 L Monocytes % 16.8 H Eosinophils % 0.3 Basophils % 0.7 Absolute Neutrophils 5.5 Absolute Lymphocytes 0.4 L Absolute Monocytes 1.2 Absolute Eosinophils 0.0 Absolute Basophils 0.1 Carbonic Acid HCO3/H2CO3 Ratio ABG pH ABG pCO2 ABG pO2 ABG HCO3 ABG O2 Saturation ABG Base Excess FiO2 Sodium 135.8 L Potassium 5.4 H Chloride 95 L Carbon Dioxide 34 H Anion Gap 7 BUN 53 H Creatinine 2.15 H Est GFR ( Amer) 37 L Est GFR (Non-Af Amer) 30 L Glucose 107 Calcium 7.8 L Urine Color YELLOW Urine Appearance CLEAR Urine pH 6.0 Ur Specific [place] 1.013 Urine Protein NEGATIVE Urine Glucose (UA) NEGATIVE Urine Ketones NEGATIVE Urine Blood NEGATIVE Urine Nitrite NEGATIVE Ur Leukocyte Esterase LARGE H Urine WBC (Auto) 21 Urine RBC (Auto) 1 08/31/17 13:15 WBC RBC Hgb Hct MCV MCH MCHC RDW Plt Count Seg Neutrophils % Lymphocytes % Monocytes % Eosinophils % Basophils % Absolute Neutrophils Absolute Lymphocytes Absolute Monocytes Absolute Eosinophils Absolute Basophils Carbonic Acid 2.32 H HCO3/H2CO3 Ratio 15:1 ABG pH 7.30 L ABG pCO2 77.0 H* ABG pO2 96.1 ABG HCO3 36.6 H ABG O2 Saturation 96.3 ABG Base Excess 8.3 FiO2 5L Sodium Potassium Chloride Carbon Dioxide Anion Gap BUN Creatinine Est GFR ( Amer) Est GFR (Non-Af Amer) Glucose Calcium Urine Color Urine Appearance Urine pH Ur Specific [place] Urine Protein Urine Glucose (UA) Urine Ketones Urine Blood Urine Nitrite Ur Leukocyte Esterase Urine WBC (Auto) Urine RBC (Auto) 08/27/17 08/27/17 08/27/17 16:00 16:00 22:00 Creatine Kinase 63 108 CK-MB (CK-2) 1.63 Troponin I 0.053 08/27/17 08/28/17 08/28/17 22:00 00:56 00:56 Creatine Kinase 135 CK-MB (CK-2) 2.33 2.91 Troponin I 0.041 0.048 08/28/17 08/28/17 08/28/17 05:47 05:47 12:25 Creatine Kinase 195 H 229 H CK-MB (CK-2) 3.82 Troponin I 0.058 08/28/17 08/28/17 08/28/17 12:25 17:55 17:55 Creatine Kinase 296 H CK-MB (CK-2) 4.25 4.67 H Troponin I 0.067 0.067 Impressions: Chest X-Ray 08/27/17 09:42 IMPRESSION: No acute infiltrates. Decrease right lung pulmonary vascularity, question acute pulmonary embolus to the right side Results discussed with Dr. Stark Lung Scan-VQ NM 08/27/17 11:01 IMPRESSION: High probability study for right-sided pulmonary emboli. Right upper and lower lobe perfusion defects are present Head CT 08/28/17 00:00 IMPRESSION: No significant interval change. Abdomen X-Ray 08/28/17 00:44 IMPRESSION: Nonspecific gaseous dilation of the proximal colon. Assessment & Plan - Diagnosis (1) Pulmonary embolism Qualifiers: Pulmonary embolism type: other Chronicity: acute Acute cor pulmonale presence: without acute cor pulmonale Qualified Code(s): I26.99 - Other pulmonary embolism without acute cor pulmonale Is this a current diagnosis for this admission?: Yes Plan: Continue IV heparin with transition to warfarin. Check echocardiogram. (2) Acute respiratory failure Qualifiers: Respiratory failure complication: hypoxia and hypercapnia Qualified Code(s) : J96.01 - Acute respiratory failure with hypoxia; J96.02 - Acute respiratory failure with hypercapnia; J96.02 - Acute respiratory failure with hypercapnia; J96.02 - Acute respiratory failure with hypercapnia Is this a current diagnosis for this admission?: Yes Plan: Continue oxygen and BiPAP. Appreciate pulmonary consult. (3) COPD (chronic obstructive pulmonary disease) Qualifiers: COPD type: COPD with acute exacerbation Qualified Code(s): J44.1 - Chronic obstructive pulmonary disease with (acute) exacerbation Is this a current diagnosis for this admission?: Yes Plan: Continue oxygen, BiPAP, and nebs. Add prednisone 40 mg daily. (4) Hypertension Qualifiers: Hypertension type: essential hypertension Qualified Code(s): I10 - Essential (primary) hypertension Is this a current diagnosis for this admission?: Yes Plan: Blood pressure well controlled. Continue current medications. (5) Chronic kidney disease, stage III (moderate) Is this a current diagnosis for this admission?: Yes Plan: Continue to monitor. Renal function is stable. (6) Anemia Qualifiers: Anemia type: unspecified type Qualified Code(s): D64.9 - Anemia, unspecified Is this a current diagnosis for this admission?: Yes Plan: Hemoglobin dropped 10.8-8.7 over 4 days. Stool was occult blood positive 2017. Check iron studies. Repeat CBC in a.m. repeat occult blood test. - Time Time Spent with patient: 25-34 minutes Medications reviewed and adjusted accordingly: Yes Anticipated discharge: Home - Inpatient Certification Medical Necessity: Failure to Improve With Outpatient Therapy, Significant Comorbidiites Make Outpatient Treatment Too Risky, Need Close Monitoring Due to Risk of Patient Decompensation
[2017-08-31] MEDS ORDERED: PREDNISONE 20 MG TABLET PO ONE (17:30)
[2017-08-31] MEDS: FAMOTIDINE 20 MG TABLET PO SCH (17:49)
[2017-08-31 18:30] LABS: IRON(TIBC) 11.7 ug/dL (49-181)
[2017-08-31 19:36] LABS: FOLATE 7.61 ng/mL (>2.76)
[2017-08-31] MEDS: IPRATROPIUM/ALBUTEROL 0.5-2.5 MG/3 ML AMPUL NEB SCH (19:47)
[2017-08-31] MEDS: ATORVASTATIN CALCIUM 10 MG TABLET PO SCH (21:47)
[2017-08-31] MEDS: QUETIAPINE FUMARATE 25 MG TABLET PO SCH (21:48)
[2017-08-31] MEDS: WARFARIN SODIUM 5 MG TABLET PO SCH (21:48)
[2017-09-01] MEDS: HEPARIN SODIUM,PORCINE/D5W 25,000 UNIT/250 ML RTUINJ IV PRN ×2 (01:56→18:46)
[2017-09-01] MEDS: IPRATROPIUM/ALBUTEROL 0.5-2.5 MG/3 ML AMPUL NEB SCH ×4 (02:05→19:36)
[2017-09-01 05:13] LABS: HEMATOCRIT 26.5 % (37.9-51.0); HEMOGLOBIN 8.3 g/dL (13.5-17.0); MEAN CORPUSCULAR HEMOGLOBIN 25.2 pg (27.0-33.4); MEAN CORPUSCULAR HGB CONC 31.4 g/dL (32.0-36.0); MEAN CORPUSCULAR VOLUME 80 fl (80-97); PLATELET COUNT 247 10^3/uL (150-450); RED CELL DISTRIBUTION WIDTH 15.9 % (11.5-14.0)
[2017-09-01] MEDS: HYDRALAZINE HCL 50 MG TABLET PO SCH ×3 (07:33→21:26)
[2017-09-01 08:35] LABS: INTERNATIONAL RATION (INR) 1.18; PROTHROMBIN TIME 15.8 SEC (11.4-15.4)
[2017-09-01] MEDS: NIFEDIPINE 30 MG TAB.ER.24 PO SCH (09:00)
[2017-09-01] MEDS: PREDNISONE 20 MG TABLET PO SCH (09:00)
[2017-09-01] MEDS: METOPROLOL TARTRATE 50 MG TABLET PO SCH ×2 (09:00→21:26)
[2017-09-01] MEDS: CLONIDINE HCL 0.1 MG TABLET PO SCH ×2 (09:01→21:26)
--- NOTE | 2017-09-01 15:04 | PDOC PROGRESS REPORT ---
Subjective Progress Note for:: 09/01/17 Subjective:: He is feeling better today. According to his , his mentation has improved. Reason For Visit: PULMONARY EMBOLUS Physical Exam Vital Signs: Temp Pulse Resp BP Pulse Ox 98.2 F 63 16 127/61 H 95 09/01/17 12:06 09/01/17 13:35 09/01/17 13:35 09/01/17 12:06 09/01/17 13:35 Pulse Oximeter Continuous Start: 08/31/17 12: 23 Freq: RTQ4 Status: Active Document 09/01/17 13:35 [facility] (Rec: 09/01/17 13:44 [facility] [email or web address]) Pulse Oximetry Assessment Oxygen Saturation (92-100) 95 Oxygen Flow Rate (L/min) 5 Oxygen Delivery Method Nasal Cannula Fraction of Inspired Oxygen (FIO2) 40 Equipment Usage Equipment in Use Continuous SpO2 Machine # N 11 Intake & Output 08/31/17 09/01/17 09/02/17 06:59 06:59 06:59 Intake Total 1483 810 437 Output Total 575 920 500 Balance 908 -110 -63 Weight 93.7 kg 95.5 kg General appearance: PRESENT: no acute distress, obese Head exam: PRESENT: atraumatic, normocephalic Eye exam: PRESENT: EOMI, PERRLA Respiratory exam: PRESENT: prolonged expiratory phas, unlabored, wheezes Cardiovascular exam: PRESENT: RRR. ABSENT: diastolic murmur, rubs, systolic murmur GI/Abdominal exam: PRESENT: normal bowel sounds, soft. ABSENT: distended, guarding, mass, organolmegaly, rebound, tenderness Neurological exam: PRESENT: alert, awake, oriented to person, oriented to place , oriented to time, oriented to situation, CN II-XII grossly intact. ABSENT: motor sensory deficit Psychiatric exam: PRESENT: appropriate affect, normal mood. ABSENT: homicidal ideation, suicidal ideation Results Laboratory Results: 09/01/17 04:17 08/31/17 04:25 08/31/17 08/31/17 08/31/17 16:40 17:55 17:55 WBC RBC Hgb Hct MCV MCH MCHC RDW Plt Count Retic Count (auto) 1.40 Absolute Retic 0.050 Carbonic Acid 1.99 H HCO3/H2CO3 Ratio 17:1 ABG pH 7.34 L ABG pCO2 66.0 H ABG pO2 76.6 L ABG HCO3 34.8 H ABG O2 Saturation 94.1 ABG Base Excess 7.6 FiO2 35% Iron 11.7 L TIBC 361 % Saturation 3 Ferritin 66.00 Vitamin B12 204.0 L Folate 7.61 09/01/17 04:17 WBC 4.0 RBC 3.30 L Hgb 8.3 L Hct 26.5 L MCV 80 MCH 25.2 L MCHC 31.4 L RDW 15.9 H Plt Count 247 Retic Count (auto) Absolute Retic Carbonic Acid HCO3/H2CO3 Ratio ABG pH ABG pCO2 ABG pO2 ABG HCO3 ABG O2 Saturation ABG Base Excess FiO2 Iron TIBC % Saturation Ferritin Vitamin B12 Folate 08/27/17 08/27/17 08/27/17 16:00 16:00 22:00 Creatine Kinase 63 108 CK-MB (CK-2) 1.63 Troponin I 0.053 08/27/17 08/28/17 08/28/17 22:00 00:56 00:56 Creatine Kinase 135 CK-MB (CK-2) 2.33 2.91 Troponin I 0.041 0.048 08/28/17 08/28/17 08/28/17 05:47 05:47 12:25 Creatine Kinase 195 H 229 H CK-MB (CK-2) 3.82 Troponin I 0.058 08/28/17 08/28/17 08/28/17 12:25 17:55 17:55 Creatine Kinase 296 H CK-MB (CK-2) 4.25 4.67 H Troponin I 0.067 0.067 Impressions: Chest X-Ray 08/27/17 09:42 IMPRESSION: No acute infiltrates. Decrease right lung pulmonary vascularity, question acute pulmonary embolus to the right side Results discussed with Dr. Stark Lung Scan-VQ NM 08/27/17 11:01 IMPRESSION: High probability study for right-sided pulmonary emboli. Right upper and lower lobe perfusion defects are present Head CT 08/28/17 00:00 IMPRESSION: No significant interval change. Abdomen X-Ray 08/28/17 00:44 IMPRESSION: Nonspecific gaseous dilation of the proximal colon. Assessment & Plan - Diagnosis (1) Pulmonary embolism Qualifiers: Pulmonary embolism type: other Chronicity: acute Acute cor pulmonale presence: without acute cor pulmonale Qualified Code(s): I26.99 - Other pulmonary embolism without acute cor pulmonale Is this a current diagnosis for this admission?: Yes Plan: Continue IV heparin. I will transition to warfarin after the issue of his iron deficiency anemia, and "occult blood positive" stool is resolved. (2) Acute respiratory failure Qualifiers: Respiratory failure complication: hypoxia and hypercapnia Qualified Code(s) : J96.01 - Acute respiratory failure with hypoxia; J96.02 - Acute respiratory failure with hypercapnia; J96.02 - Acute respiratory failure with hypercapnia; J96.02 - Acute respiratory failure with hypercapnia Is this a current diagnosis for this admission?: Yes Plan: Continue prednisone, oxygen and BiPAP. Appreciate pulmonary consult. (3) COPD (chronic obstructive pulmonary disease) Qualifiers: COPD type: COPD with acute exacerbation Qualified Code(s): J44.1 - Chronic obstructive pulmonary disease with (acute) exacerbation Is this a current diagnosis for this admission?: Yes Plan: Continue oxygen, BiPAP, nebs, and prednisone 40 mg daily. (4) Hypertension Qualifiers: Hypertension type: essential hypertension Qualified Code(s): I10 - Essential (primary) hypertension Is this a current diagnosis for this admission?: Yes Plan: Blood pressure well controlled. Continue current medications. (5) Chronic kidney disease, stage III (moderate) Is this a current diagnosis for this admission?: Yes Plan: Continue to monitor. Renal function is stable. (6) Anemia Qualifiers: Anemia type: iron deficiency Is this a current diagnosis for this admission?: Yes Plan: Hemoglobin dropped 10.8-8.7 over 4 days. Stool was occult blood positive 2017. Start supplemental iron, as well as B12 since he had a mildly low B12 level as well. - Time Time Spent with patient: 15-24 minutes Anticipated discharge: Home - Inpatient Certification Medical Necessity: Significant Comorbidiites Make Outpatient Treatment Too Risky , Need for Nebulizer Therapy and Monitoring of Response
[2017-09-01 17:04] LABS: ARTERIAL BLOOD BASE EXCESS 7.2 mmol/L; ARTERIAL BLOOD H2CO3 1.94 mmol/L (1.05-1.35); ARTERIAL BLOOD HCO3 34.3 mmol/L (20-26); ARTERIAL BLOOD O2 SATURATION 92.2 % (94-98); ARTERIAL BLOOD PCO2 64.6 mmHg (35-45); ARTERIAL BLOOD PH 7.34 (7.35-7.45); ARTERIAL BLOOD PO2 68.6 mmHg (80-100); ARTERIAL BLOOD TOTAL CO2 36.3 mmol/L (23-27)
[2017-09-01 17:06] LABS: ARTERIAL BLOOD FIO2 6L
[2017-09-01 17:18] LABS: ANION GAP 9 (5-19); BLOOD UREA NITROGEN 49 mg/dL (7-20); CALCIUM 8.4 mg/dL (8.4-10.2); CARBON DIOXIDE 32 mmol/L (22-30); CHLORIDE 95 mmol/L (98-107); GLUCOSE 164 mg/dL (75-110); SODIUM 136.3 mmol/L (137-145)
[2017-09-01 17:31] LABS: POTASSIUM 6.4 mmol/L (3.6-5.0)
[2017-09-01] MEDS: FAMOTIDINE 20 MG TABLET PO SCH (17:51)
[2017-09-01] MEDS: SODIUM POLYSTYRENE SULFONATE 15 GM/60 ML PO SCH (18:22)
[2017-09-01] MEDS: QUETIAPINE FUMARATE 25 MG TABLET PO SCH (21:26)
[2017-09-01] MEDS: ATORVASTATIN CALCIUM 10 MG TABLET PO SCH (21:26)
[2017-09-02] MEDS: SODIUM POLYSTYRENE SULFONATE 15 GM/60 ML PO SCH
[2017-09-02] MEDS: IPRATROPIUM/ALBUTEROL 0.5-2.5 MG/3 ML AMPUL NEB SCH ×4 (02:24→19:48)
[2017-09-02 04:05] LABS: APPEARANCE,URINE CLEAR; BILIRUBIN,URINE NEGATIVE (NEGATIVE); COLOR,URINE STRAW; GLUCOSE, URINE NEGATIVE (NEGATIVE); KETONES,URINE NEGATIVE (NEGATIVE); LEUKOCYTE ESTERASE,URINE MODERATE (NEGATIVE); NITRITE,URINE NEGATIVE (NEGATIVE); PROTEIN,URINE NEGATIVE (NEGATIVE); URINE SPECIFIC GRAVITY 1.008; UROBILINOGEN,URINE NEGATIVE mg/dL (<2.0)
[2017-09-02 06:47] LABS: ANION GAP 7 (5-19); BLOOD UREA NITROGEN 44 mg/dL (7-20); CALCIUM 8.3 mg/dL (8.4-10.2); CARBON DIOXIDE 33 mmol/L (22-30); CHLORIDE 98 mmol/L (98-107); GLUCOSE 96 mg/dL (75-110); SODIUM 137.5 mmol/L (137-145)
[2017-09-02] MEDS: HYDRALAZINE HCL 50 MG TABLET PO SCH ×3 (07:14→22:00)
[2017-09-02 07:19] LABS: POTASSIUM 5.5 mmol/L (3.6-5.0)
[2017-09-02] MEDS: HEPARIN SODIUM,PORCINE/D5W 25,000 UNIT/250 ML RTUINJ IV PRN (08:43)
--- NOTE | 2017-09-02 09:51 | XCELERA REPORT ---
[address] [address] Transthoracic Echocardiogram Report Name: RASHI MC JR Age: 76 yrs Gender: Male : 1940 Patient Status: Inpatient Patient Location: [address] [place] [address] Study Date: 09/01/2017 02:18 PM Height: 71 in Weight: 206 lb BSA: 2.1 m2 Procedure: A complete two-dimensional transthoracic echocardiogram was performed (2D, M-mode, spectral and color flow Doppler). The study was technically adequate with some images being suboptimal in quality. Reason For Study: Pulmonary embolism Ordering Physician: SOFI BAKRER Performed By: Myra Ramos Interpretation Summary The left ventricular ejection fraction is normal. There is mild concentric left ventricular hypertrophy. Doppler measurements suggest pseudonormalized left ventricular relaxation, which is associated with grade II/IV or mild to moderate diastolic dysfunction The left ventricle is grossly normal size. Wall motion cannot be accurately commented on, but no definite regional wall motion abnormalities noted. The right ventricle is mild to moderately dilated. The right ventricular systolic function is normal. The left atrium is mildly dilated. The right atrium is mildly dilated. There is no mitral valve stenosis. There is a trace amount of mitral regurgitation There is no aortic valve stenosis No aortic regurgitation is present. There is a trace to mild amount of tricuspid regurgitation Right ventricular systolic pressure is estimated to be elevated at 50- 60mmHg. There is moderate pulmonary hypertension by echo The inferior vena cava appeared normal and decreased < 50% with respiration (RAP 10-15 mmHg) Minimal pericardial effusion. MMode/2D Measurements & Calculations RVDd: 4.7 cm LVIDd: 4.3 cm FS: 38.7 % Ao root diam: 2.8 cm IVSd: 1.5 cm LVIDs: 2.7 cm EDV(Teich): 84.6 ml LVPWd: 1.5 cm ESV(Teich): 25.9 ml Ao root area: 6.2 cm2 EF(Teich): 69.3 % LA dimension: 3.9 cm Doppler Measurements & Calculations MV E max ting: MV P1/2t max ting: Ao V2 max: LV V1 max P.3 cm/sec 151.4 cm/sec 210.4 cm/sec 5.5 mmHg MV A max ting: MV P1/2t: 69.9 msec Ao max PG: LV V1 max: 59.2 cm/sec 17.7 mmHg 117.0 cm/sec MV E/A: 2.5 MVA(P1/2t): 3.1 cm2 MV dec slope: 634.6 cm/sec2 PA V2 max: TR max ting: 113.0 cm/sec 325.8 cm/sec PA max PG: TR max P.5 mmHg 5.1 mmHg Left Ventricle The left ventricle is grossly normal size. There is mild concentric left ventricular hypertrophy. The left ventricular ejection fraction is normal. Doppler measurements suggest pseudonormalized left ventricular relaxation, which is associated with grade II/IV or mild to moderate diastolic dysfunction. Wall motion cannot be accurately commented on, but no definite regional wall motion abnormalities noted. Right Ventricle The right ventricle is mild to moderately dilated. There is normal right ventricular wall thickness. The right ventricular systolic function is normal. Atria The right atrium is mildly dilated. The left atrium is mildly dilated. Interarterial septum not well visualized and not well dopplered. Cannot comment on ASD/PFO presence. Mitral Valve The mitral valve is grossly normal. There is no mitral valve stenosis. There is a trace amount of mitral regurgitation. Aortic Valve The aortic valve is not well visualized secondary to technical limitations. There is no aortic valve stenosis. No aortic regurgitation is present. Tricuspid Valve The tricuspid valve is not well visualized, but is grossly normal. There is no tricuspid stenosis. There is a trace to mild amount of tricuspid regurgitation. There is moderate pulmonary hypertension by echo. Right ventricular systolic pressure is estimated to be elevated at 50-60mmHg. Pulmonic Valve The pulmonic valve is not well visualized. Great Vessels The aortic root is not well visualized. The inferior vena cava appeared normal and decreased < 50% with respiration (RAP 10-15 mmHg). Effusions Minimal pericardial effusion. : SOFI BARKER > Padmini Reynolds
[2017-09-02] MEDS: PREDNISONE 20 MG TABLET PO SCH (10:39)
[2017-09-02] MEDS: CLONIDINE HCL 0.1 MG TABLET PO SCH ×2 (10:39→22:00)
[2017-09-02] MEDS: CYANOCOBALAMIN (VITAMIN B-12) 1,000 MCG TABLET PO SCH (10:40)
[2017-09-02] MEDS: IRON POLYSACCHARIDES COMPLEX 150 MG CAPSULE PO SCH (10:40)
[2017-09-02] MEDS: METOPROLOL TARTRATE 50 MG TABLET PO SCH ×2 (10:41→22:00)
[2017-09-02] MEDS: NIFEDIPINE 30 MG TAB.ER.24 PO SCH (10:41)
[2017-09-02] MEDS: LEVALBUTEROL HCL NEB 1.25 MG/3 ML AMPUL NEB PRN (12:31)
[2017-09-02 13:28] LABS: ARTERIAL BLOOD BASE EXCESS 9.1 mmol/L; ARTERIAL BLOOD FIO2 30%; ARTERIAL BLOOD H2CO3 1.87 mmol/L (1.05-1.35); ARTERIAL BLOOD HCO3 35.6 mmol/L (20-26); ARTERIAL BLOOD O2 SATURATION 97.6 % (94-98); ARTERIAL BLOOD PCO2 62.2 mmHg (35-45); ARTERIAL BLOOD PH 7.38 (7.35-7.45); ARTERIAL BLOOD PO2 106.3 mmHg (80-100); ARTERIAL BLOOD TOTAL CO2 37.5 mmol/L (23-27)
[2017-09-02] MEDS ORDERED: PEG 3350/NA SULF,BICARB,CL/KCL 4000 ML PO ONE (14:00)
--- NOTE | 2017-09-02 14:38 | PDOC PROGRESS REPORT ---
Subjective Progress Note for:: 09/02/17 Subjective:: Mentation has improved daily. Reason For Visit: PULMONARY EMBOLUS Physical Exam Vital Signs: Temp Pulse Resp BP Pulse Ox 97.8 F 70 18 119/48 L 97 09/02/17 12:00 09/02/17 14:00 09/02/17 14:00 09/02/17 12:00 09/02/17 14:00 Pulse Oximeter Continuous Start: 08/31/17 12: 23 Freq: RTQ4 Status: Active Document 09/02/17 13:00 [facility] (Rec: 09/02/17 14:08 [facility] [id number]) Pulse Oximetry Assessment Oxygen Saturation (92-100) 97 Oxygen Delivery Method Bi-pap Fraction of Inspired Oxygen (FIO2) 30 Equipment Usage Equipment in Use Continuous SpO2 Machine # 11 Intake & Output 09/01/17 09/02/17 09/03/17 06:59 06:59 06:59 Intake Total 810 1594 200 Output Total 920 1850 295 Balance -110 -256 -95 Weight 95.5 kg 95.2 kg 95.3 kg General appearance: PRESENT: no acute distress, well-developed, well-nourished Head exam: PRESENT: atraumatic, normocephalic Eye exam: PRESENT: EOMI, PERRLA Respiratory exam: PRESENT: unlabored, wheezes. ABSENT: accessory muscle use Cardiovascular exam: PRESENT: RRR. ABSENT: diastolic murmur, rubs, systolic murmur GI/Abdominal exam: PRESENT: normal bowel sounds, soft. ABSENT: distended, guarding, mass, organolmegaly, rebound, tenderness Extremities exam: PRESENT: full ROM. ABSENT: calf tenderness, clubbing, pedal edema Musculoskeletal exam: PRESENT: ambulatory Neurological exam: PRESENT: alert, awake, oriented to person, oriented to place , oriented to time, oriented to situation, CN II-XII grossly intact. ABSENT: motor sensory deficit Psychiatric exam: PRESENT: appropriate affect, normal mood. ABSENT: homicidal ideation, suicidal ideation Results Laboratory Results: 09/01/17 04:17 09/02/17 05:19 08/31/17 09/01/17 09/01/17 17:55 16:50 16:57 Carbonic Acid 1.94 H HCO3/H2CO3 Ratio 17:1 ABG pH 7.34 L ABG pCO2 64.6 H ABG pO2 68.6 L ABG HCO3 34.3 H ABG O2 Saturation 92.2 L ABG Base Excess 7.2 FiO2 6L Sodium 136.3 L Potassium 6.4 H* Chloride 95 L Carbon Dioxide 32 H Anion Gap 9 BUN 49 H Creatinine 2.02 H Est GFR ( Amer) 39 L Est GFR (Non-Af Amer) 32 L Glucose 164 H Calcium 8.4 Transferrin 246 Urine Color Urine Appearance Urine pH Ur Specific [place] Urine Protein Urine Glucose (UA) Urine Ketones Urine Blood Urine Nitrite Ur Leukocyte Esterase Urine WBC (Auto) Urine RBC (Auto) 09/02/17 09/02/17 09/02/17 03:30 05:19 12:35 Carbonic Acid 1.87 H HCO3/H2CO3 Ratio 19:1 ABG pH 7.38 ABG pCO2 62.2 H ABG pO2 106.3 H ABG HCO3 35.6 H ABG O2 Saturation 97.6 ABG Base Excess 9.1 FiO2 30% Sodium 137.5 Potassium 5.5 H Chloride 98 Carbon Dioxide 33 H Anion Gap 7 BUN 44 H Creatinine 1.91 H Est GFR ( Amer) 42 L Est GFR (Non-Af Amer) 35 L Glucose 96 Calcium 8.3 L Transferrin Urine Color STRAW Urine Appearance CLEAR Urine pH 8.0 Ur Specific [place] 1.008 Urine Protein NEGATIVE Urine Glucose (UA) NEGATIVE Urine Ketones NEGATIVE Urine Blood SMALL H Urine Nitrite NEGATIVE Ur Leukocyte Esterase MODERATE H Urine WBC (Auto) 4 Urine RBC (Auto) 1 08/27/17 08/27/17 08/27/17 16:00 16:00 22:00 Creatine Kinase 63 108 CK-MB (CK-2) 1.63 Troponin I 0.053 08/27/17 08/28/17 08/28/17 22:00 00:56 00:56 Creatine Kinase 135 CK-MB (CK-2) 2.33 2.91 Troponin I 0.041 0.048 08/28/17 08/28/17 08/28/17 05:47 05:47 12:25 Creatine Kinase 195 H 229 H CK-MB (CK-2) 3.82 Troponin I 0.058 08/28/17 08/28/17 08/28/17 12:25 17:55 17:55 Creatine Kinase 296 H CK-MB (CK-2) 4.25 4.67 H Troponin I 0.067 0.067 Impressions: Chest X-Ray 08/27/17 09:42 IMPRESSION: No acute infiltrates. Decrease right lung pulmonary vascularity, question acute pulmonary embolus to the right side Results discussed with Dr. Stark Lung Scan-VQ NM 08/27/17 11:01 IMPRESSION: High probability study for right-sided pulmonary emboli. Right upper and lower lobe perfusion defects are present Head CT 08/28/17 00:00 IMPRESSION: No significant interval change. Abdomen X-Ray 08/28/17 00:44 IMPRESSION: Nonspecific gaseous dilation of the proximal colon. Assessment & Plan - Diagnosis (1) Pulmonary embolism Qualifiers: Pulmonary embolism type: other Chronicity: acute Acute cor pulmonale presence: without acute cor pulmonale Qualified Code(s): I26.99 - Other pulmonary embolism without acute cor pulmonale Is this a current diagnosis for this admission?: Yes Plan: Continue IV heparin. I will transition to warfarin after the issue of his iron deficiency anemia, and "occult blood positive" stool is resolved. I have consulted Dr Yoon for endoscopy. Echo showed pulm hypertension. He has normal LVEF and size. He has mild diastolic dysfunction. (2) Acute respiratory failure Qualifiers: Respiratory failure complication: hypoxia and hypercapnia Qualified Code(s) : J96.01 - Acute respiratory failure with hypoxia; J96.02 - Acute respiratory failure with hypercapnia; J96.02 - Acute respiratory failure with hypercapnia; J96.02 - Acute respiratory failure with hypercapnia Is this a current diagnosis for this admission?: Yes Plan: Continue prednisone, oxygen and BiPAP. Appreciate pulmonary consult. (3) COPD (chronic obstructive pulmonary disease) Qualifiers: COPD type: COPD with acute exacerbation Qualified Code(s): J44.1 - Chronic obstructive pulmonary disease with (acute) exacerbation Is this a current diagnosis for this admission?: Yes Plan: Continue oxygen, BiPAP, nebs, and prednisone 40 mg daily. (4) Hypertension Qualifiers: Hypertension type: essential hypertension Qualified Code(s): I10 - Essential (primary) hypertension Is this a current diagnosis for this admission?: Yes Plan: Blood pressure well controlled. Continue current medications. (5) Chronic kidney disease, stage III (moderate) Is this a current diagnosis for this admission?: Yes Plan: Continue to monitor. Renal function is stable. (6) Anemia Qualifiers: Anemia type: iron deficiency Is this a current diagnosis for this admission?: Yes Plan: Hemoglobin dropped 10.8-8.7 over 4 days. Stool was occult blood positive 2017. Start supplemental iron, as well as B12 since he had a mildly low B12 level as well. Dr Yoon consulted for endoscopy. - Time Time Spent with patient: 15-24 minutes Medications reviewed and adjusted accordingly: Yes Anticipated discharge: Home - Inpatient Certification Based on my medical assessment, after consideration of the patient's comorbidities, presenting symptoms, or acuity I expect that the services needed warrant INPATIENT care.: Yes I certify that my determination is in accordance with my understanding of Medicare's requirements for reasonable and necessary INPATIENT services [42 CFR 412.3e].: Yes Medical Necessity: Need for Nebulizer Therapy and Monitoring of Response, Risk of Complication if Not Cared For in Hospital
[2017-09-02] MEDS ORDERED: SODIUM POLYSTYRENE SULFONATE 15 GM/60 ML PO ONE (15:15)
--- NOTE | 2017-09-02 15:20 | PDOC CONSULTATION ---
Consultation Consult Date: 09/02/17 Attending physician:: PINO LAFLEUR Consult reason:: Heme positive stool. Chronic anemia History of Present Illness Admission Date/PCP: 08/27/17 15:09 History of Present Illness: Patient was admitted through the hospitalist service. Has a pulmonary embolism that requires anticoagulation. Currently on heparin. Noted to have heme positive stools and hemoglobin has been trending down. Has not had previous GI evaluation. Patient denies any colorectal cancer screening in the past. He denies seeing any blood in his stools. Patient apparently has an abdominal aneurysm that has been stented in the past. Due to his worsening renal function he has not been able to get a CT scan or CT angiogram to determine if he has been having a leak. I have been asked to provide GI evaluation. He will need an EGD and colonoscopy prior to starting on long-term anticoagulation. Patient states appetite is normal. No weight loss Patient denies any nausea vomiting, there is no early satiety No family history of colorectal cancer. 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 Endocrine Medical History: Reports: None Renal/ Medical History: Reports: Chronic Kidney Disease Malignancy Medical History: Reports: None GI Medical History: Reports: None Musculoskeltal Medical History: Reports: None Psychiatric Medical History: Reports: None Denies: Depression Hematology: Reports: None Infectious Medical History: Reports: None Past Surgical History Past Surgical History: Reports: Other - states AAA few years ago Social History Lives with: Spouse/Significant other Smoking Status: Former Smoker Frequency of Alcohol Use: None Hx Recreational Drug Use: No Drugs: None - Advance Directive Resuscitation Status: Full Code Family History Family History: Hypertension. denies: CAD, DM Parental Family History Reviewed: Yes Children Family History Reviewed: Unknown Sibling(s) Family History Reviewed.: Unknown Medication/Allergy Home Medications: Clonidine HCl [Catapres 0.1 mg Tablet] 0.1 mg PO Q12 08/27/17 Hydralazine HCl [Apresoline 50 mg Tablet] 50 mg PO Q8 08/27/17 Metoprolol Tartrate [Lopressor 50 mg Tablet] 75 mg PO Q12 08/27/17 Nifedipine [Nifedipine ER] 30 mg PO DAILY 08/27/17 Pravastatin Sodium [Pravachol] 20 mg PO QHS 08/27/17 Allergies/Adverse Reactions: No Known Allergies Allergy (Unverified 08/27/17 09:46) Review of Systems Constitutional: ABSENT: fever(s), headache(s), night sweats, weakness Eyes: ABSENT: visual disturbances Ears: ABSENT: hearing changes Nose, Mouth, and Throat: ABSENT: mouth pain, sore throat Cardiovascular: ABSENT: edema, orthropnea Respiratory: ABSENT: dyspnea, hemoptysis Gastrointestinal: ABSENT: diarrhea, dysphagia, heartburn, melena Genitourinary: ABSENT: dysuria, hematuria Musculoskeletal: ABSENT: deformity Integumentary: ABSENT: lesions, pruritus Neurological: ABSENT: syncope, tingling, tremor(s), vertigo Endocrine: ABSENT: polydipsia, polyphagia, polyuria Hematologic/Lymphatic: ABSENT: easy bruising Physical Exam Vital Signs: Temp Pulse Resp BP Pulse Ox 97.8 F 70 18 119/48 L 97 09/02/17 12:00 09/02/17 14:00 09/02/17 14:00 09/02/17 12:00 09/02/17 14:00 Pulse Oximeter Continuous Start: 08/31/17 12: 23 Freq: RTQ4 Status: Active Document 09/02/17 13:00 [facility] (Rec: 09/02/17 14:08 [facility] [id number]) Pulse Oximetry Assessment Oxygen Saturation (92-100) 97 Oxygen Delivery Method Bi-pap Fraction of Inspired Oxygen (FIO2) 30 Equipment Usage Equipment in Use Continuous SpO2 Machine # 11 Intake & Output 09/01/17 09/02/17 09/03/17 06:59 06:59 06:59 Intake Total 810 1594 200 Output Total 920 1850 295 Balance -110 -256 -95 Weight 95.5 kg 95.2 kg 95.3 kg General appearance: PRESENT: no acute distress, well-developed, well-nourished Head exam: PRESENT: atraumatic, normocephalic Eye exam: PRESENT: EOMI, PERRLA. ABSENT: nystagmus, periorbital swelling, scleral icterus Mouth exam: PRESENT: moist Throat exam: ABSENT: tonsillar exudate, tonsillogmegaly Neck exam: ABSENT: meningismus, tenderness, thyromegaly Respiratory exam: PRESENT: symmetrical, unlabored. ABSENT: tachypnea Cardiovascular exam: PRESENT: RRR, +S1, +S2 GI/Abdominal exam: PRESENT: soft. ABSENT: rebound, rigid, tenderness Extremities exam: ABSENT: joint swelling Musculoskeletal exam: PRESENT: full ROM Neurological exam: PRESENT: alert, awake, oriented to time, oriented to situation, CN II-XII grossly intact Psychiatric exam: PRESENT: appropriate affect Focused psych exam: ABSENT: restlessness Skin exam: PRESENT: normal color. ABSENT: mottled, pallor, urticaria, vesicles Results Laboratory Results: 09/01/17 04:17 09/02/17 05:19 08/31/17 09/01/17 09/01/17 17:55 16:50 16:57 Carbonic Acid 1.94 H HCO3/H2CO3 Ratio 17:1 ABG pH 7.34 L ABG pCO2 64.6 H ABG pO2 68.6 L ABG HCO3 34.3 H ABG O2 Saturation 92.2 L ABG Base Excess 7.2 FiO2 6L Sodium 136.3 L Potassium 6.4 H* Chloride 95 L Carbon Dioxide 32 H Anion Gap 9 BUN 49 H Creatinine 2.02 H Est GFR ( Amer) 39 L Est GFR (Non-Af Amer) 32 L Glucose 164 H Calcium 8.4 Transferrin 246 Urine Color Urine Appearance Urine pH Ur Specific [place] Urine Protein Urine Glucose (UA) Urine Ketones Urine Blood Urine Nitrite Ur Leukocyte Esterase Urine WBC (Auto) Urine RBC (Auto) 09/02/17 09/02/17 09/02/17 03:30 05:19 12:35 Carbonic Acid 1.87 H HCO3/H2CO3 Ratio 19:1 ABG pH 7.38 ABG pCO2 62.2 H ABG pO2 106.3 H ABG HCO3 35.6 H ABG O2 Saturation 97.6 ABG Base Excess 9.1 FiO2 30% Sodium 137.5 Potassium 5.5 H Chloride 98 Carbon Dioxide 33 H Anion Gap 7 BUN 44 H Creatinine 1.91 H Est GFR ( Amer) 42 L Est GFR (Non-Af Amer) 35 L Glucose 96 Calcium 8.3 L Transferrin Urine Color STRAW Urine Appearance CLEAR Urine pH 8.0 Ur Specific [place] 1.008 Urine Protein NEGATIVE Urine Glucose (UA) NEGATIVE Urine Ketones NEGATIVE Urine Blood SMALL H Urine Nitrite NEGATIVE Ur Leukocyte Esterase MODERATE H Urine WBC (Auto) 4 Urine RBC (Auto) 1 08/27/17 08/27/17 08/27/17 16:00 16:00 22:00 Creatine Kinase 63 108 CK-MB (CK-2) 1.63 Troponin I 0.053 08/27/17 08/28/17 08/28/17 22:00 00:56 00:56 Creatine Kinase 135 CK-MB (CK-2) 2.33 2.91 Troponin I 0.041 0.048 08/28/17 08/28/17 08/28/17 05:47 05:47 12:25 Creatine Kinase 195 H 229 H CK-MB (CK-2) 3.82 Troponin I 0.058 08/28/17 08/28/17 08/28/17 12:25 17:55 17:55 Creatine Kinase 296 H CK-MB (CK-2) 4.25 4.67 H Troponin I 0.067 0.067 Impressions: Chest X-Ray 08/27/17 09:42 IMPRESSION: No acute infiltrates. Decrease right lung pulmonary vascularity, question acute pulmonary embolus to the right side Results discussed with Dr. Stark Lung Scan-[facility] 08/27/17 11:01 IMPRESSION: High probability study for right-sided pulmonary emboli. Right upper and lower lobe perfusion defects are present Head CT 08/28/17 00:00 IMPRESSION: No significant interval change. Abdomen X-Ray 08/28/17 00:44 IMPRESSION: Nonspecific gaseous dilation of the proximal colon. Assessment & Plan - Diagnosis (1) Occult blood in stools Plan: Patient needs long-term anticoagulation use. Noted to have heme positive stools. Could have potential bleeding lesion. We will need EGD and colonoscopy. He has not had a screening colonoscopy as well. Risk benefits alternatives of the procedure including risks of bleeding, perforation requiring surgery are explained to the patient in detail and informed consent was obtained. We will stop his heparin between 6 and 8 hours prior to his procedure. (2) Anemia Qualifiers: Anemia type: iron deficiency Is this a current diagnosis for this admission?: Yes Plan: May be due to underlying we will need to be worked up. GI workup in progress. Further recommendations to follow. - Time Time Spent: 50 to 70 Minutes
--- NOTE | 2017-09-02 15:49 | PDOC CONSULTATION ---
Consultation Consult Date: 08/31/17 Attending physician:: TOMMY MARRERO Consult reason:: New onset of dyspnea History of Present Illness Admission Date/PCP: 08/27/17 15:09 History of Present Illness: All information from hospital records and spouse as patient is significantly confused And lethargic at this time.76-year-old male presented at home to spouse with confusion and dyspnea first responders arrived he had a profoundly decreased SaO2 60% they apply 2 L oxygen and apparently his saturations normalized he had a cough that was nonproductive and there was no hemoptysis his PPD status is unknown he has had no history of chronic lung disease as a child or adolescent he admits to exposure to passive smoke as a child as well as an adult. He has not smoked in the last 8 years but smoked one half packs a day for 40 years. He denies excessive significant exposure to potential respiratory toxins. No pets no recent travel no reported angina-like chest pain sleeps on 2 pillows rare PND rare nocturnal cough no edema she has not witnessed any apneas but states that he is restless when he sleeps has nocturia 1-2 times per night and rarely demonstrates excessive daytime somnolence 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 Endocrine Medical History: Reports: None Renal/ Medical History: Reports: Chronic Kidney Disease Malignancy Medical History: Reports: None GI Medical History: Reports: None Musculoskeltal Medical History: Reports: None Skin Medical History: Denies: Eczema, Psoriasis Psychiatric Medical History: Reports: Dementia, Depression, General Anxiety Disorder Traumatic Medical History: Denies: Traumatic Brain Injury Hematology: Reports: None Denies: Sickle Cell Disease Infectious Medical History: Reports: None Denies: Hepatitis B, Hepatitis C Past Surgical History Past Surgical History: Reports: Other - states AAA few years ago Social History Information Source: Relative, [facility] Records Lives with: Spouse/Significant other Smoking Status: Former Smoker Cigarettes Packs Per Day: 2 Passive smoke exposure as: Both Frequency of Alcohol Use: None Hx Recreational Drug Use: No Drugs: None Hx Prescription Drug Abuse: No Do you have pets?: No Have you had any respiratory illnesses as a child?: No Have you been exposed to any sick contacts recently?: No Have you had any recent respiratory illnesses?: No Have you travelled outside of [place] in the past 12 months?: Yes - Advance Directive Resuscitation Status: Full Code Family History Family History: Hypertension. denies: CAD, DM Parental Family History Reviewed: Yes Children Family History Reviewed: Yes Sibling(s) Family History Reviewed.: Yes Medication/Allergy Home Medications: Clonidine HCl [Catapres 0.1 mg Tablet] 0.1 mg PO Q12 08/27/17 Hydralazine HCl [Apresoline 50 mg Tablet] 50 mg PO Q8 08/27/17 Metoprolol Tartrate [Lopressor 50 mg Tablet] 75 mg PO Q12 08/27/17 Nifedipine [Nifedipine ER] 30 mg PO DAILY 08/27/17 Pravastatin Sodium [Pravachol] 20 mg PO QHS 08/27/17 Allergies/Adverse Reactions: No Known Allergies Allergy (Unverified 08/27/17 09:46) Review of Systems ROS unobtainable: Other - info per spouse Constitutional: PRESENT: weakness. ABSENT: night sweats, weight gain, weight loss Ears: ABSENT: hearing changes Nose, Mouth, and Throat: ABSENT: mouth pain, sore throat Cardiovascular: PRESENT: dyspnea on exertion, orthropnea. ABSENT: palpitations Gastrointestinal: ABSENT: abdominal pain, diarrhea, dysphagia, heartburn, hematemesis, hematochezia, melena Genitourinary: ABSENT: hematuria Musculoskeletal: ABSENT: deformity, joint swelling Integumentary: ABSENT: pruritus, rash Neurological: PRESENT: abnormal gait, abnormal movements, abnormal speech, confusion Endocrine: ABSENT: menstrual abnormalities Hematologic/Lymphatic: ABSENT: easy bleeding, easy bruising Allergic/Immunologic: ABSENT: seasonal rhinorrhea Physical Exam Vital Signs: Temp Pulse Resp BP Pulse Ox 98.8 F 77 18 121/55 L 94 08/31/17 07:35 08/31/17 08:14 08/31/17 08:14 08/31/17 07:35 08/31/17 08:14 Intake & Output 08/30/17 08/31/17 09/01/17 06:59 06:59 06:59 Intake Total 1901 1483 Output Total 400 575 Balance 1501 908 Weight 94.8 kg 93.7 kg General appearance: PRESENT: no acute distress, disheveled, obese, severe distress, well-developed. ABSENT: cooperative, mild distress, morbidly obese Head exam: PRESENT: atraumatic, normocephalic Eye exam: PRESENT: conjunctiva pale, EOMI. ABSENT: conjunctival injection, conjunctiva pink, nystagmus, periorbital swelling, scleral icterus Mouth exam: PRESENT: dry mucosa, neck supple, tongue midline. ABSENT: laceration, moist Neck exam: ABSENT: carotid bruit, JVD, lymphadenopathy, thyromegaly, tracheal deviation, tracheostomy Respiratory exam: PRESENT: decreased breath sounds, prolonged expiratory phas, rales, rhonchi, symmetrical, unlabored, wheezes. ABSENT: accessory muscle use, chest wall tenderness, clear to auscultation annelise, retraction, stridor Cardiovascular exam: PRESENT: RRR, +S1, +S2 Pulses: PRESENT: normal radial pulses GI/Abdominal exam: PRESENT: diminished bowel sounds, soft Gentrourinary exam: PRESENT: indwelling catheter Extremities exam: ABSENT: clubbing, joint swelling Musculoskeletal exam: ABSENT: deformity, dislocation Neurological exam: PRESENT: oriented to place Skin exam: PRESENT: dry, warm Results Laboratory Results: 08/31/17 04:25 08/31/17 04:25 08/31/17 08/31/17 08/31/17 04:15 04:25 04:25 WBC 7.1 RBC 3.49 L Hgb 8.7 L Hct 28.1 L MCV 81 MCH 25.0 L MCHC 31.0 L RDW 15.9 H Plt Count 257 Seg Neutrophils % 77.1 Lymphocytes % 5.1 L Monocytes % 16.8 H Eosinophils % 0.3 Basophils % 0.7 Absolute Neutrophils 5.5 Absolute Lymphocytes 0.4 L Absolute Monocytes 1.2 Absolute Eosinophils 0.0 Absolute Basophils 0.1 Sodium 135.8 L Potassium 5.4 H Chloride 95 L Carbon Dioxide 34 H Anion Gap 7 BUN 53 H Creatinine 2.15 H Est GFR ( Amer) 37 L Est GFR (Non-Af Amer) 30 L Glucose 107 Calcium 7.8 L Urine Color YELLOW Urine Appearance CLEAR Urine pH 6.0 Ur Specific [place] 1.013 Urine Protein NEGATIVE Urine Glucose (UA) NEGATIVE Urine Ketones NEGATIVE Urine Blood NEGATIVE Urine Nitrite NEGATIVE Ur Leukocyte Esterase LARGE H Urine WBC (Auto) 21 Urine RBC (Auto) 1 01/08/27/17 08/27/17 16:00 16:00 22:00 Creatine Kinase 63 108 CK-MB (CK-2) 1.63 Troponin I 0.053 08/27/17 08/28/17 08/28/17 22:00 00:56 00:56 Creatine Kinase 135 CK-MB (CK-2) 2.33 2.91 Troponin I 0.041 0.048 08/28/17 08/28/17 08/28/17 05:47 05:47 12:25 Creatine Kinase 195 H 229 H CK-MB (CK-2) 3.82 Troponin I 0.058 08/28/17 08/28/17 08/28/17 12:25 17:55 17:55 Creatine Kinase 296 H CK-MB (CK-2) 4.25 4.67 H Troponin I 0.067 0.067 Impressions: Chest X-Ray 08/27/17 09:42 IMPRESSION: No acute infiltrates. Decrease right lung pulmonary vascularity, question acute pulmonary embolus to the right side Results discussed with Dr. Stark Lung Scan[facility] 08/27/17 11:01 IMPRESSION: High probability study for right-sided pulmonary emboli. Right upper and lower lobe perfusion defects are present Head CT 08/28/17 00:00 IMPRESSION: No significant interval change. Abdomen X-Ray 08/28/17 00:44 IMPRESSION: Nonspecific gaseous dilation of the proximal colon. Assessment & Plan - Diagnosis (1) COPD (chronic obstructive pulmonary disease) Qualifiers: COPD type: COPD with acute exacerbation Qualified Code(s): J44.1 - Chronic obstructive pulmonary disease with (acute) exacerbation Is this a current diagnosis for this admission?: Yes Plan: Generic Name Dose Route Start Last Admin Trade Name Freq PRN Reason Stop Dose Admin Prednisone 40 mg 09/01/17 10:00 09/02/17 10:39 Deltasone 20 Mg Tablet PO 10/01/17 09:59 40 mg DAILY RUDY Albuterol/Ipratropium 3 ml 08/31/17 20:00 09/02/17 14:01 Duoneb 3 Ml Ampul NEB 09/30/17 19:59 3 ml RTQ6 RUDY Levalbuterol HCl 1.25 mg 09/02/17 11:21 09/02/17 12:31 Xopenex Neb 1.25 Mg/3 Ml Ampul NEB 10/02/17 11:20 1.25 mg RTQ4HP PRN Labs- All tests 24 hr 08/28/17 08/29/17 08/31/17 06:30 13:35 13:15 ABG pH 7.28 L 7.31 L 7.30 L ABG pCO2 74.0 H* 76.1 H* 77.0 H* ABG pO2 68.4 L 98.7 96.1 FiO2 2L 35% 5L (2) Chronic kidney disease, stage III (moderate) Is this a current diagnosis for this admission?: Yes Plan: Makes CTA prohibitive at this time (3) Hypertension Qualifiers: Hypertension type: essential hypertension Qualified Code(s): I10 - Essential (primary) hypertension Is this a current diagnosis for this admission?: Yes Plan: Stable at this time (4) Pulmonary embolism Qualifiers: Pulmonary embolism type: other Chronicity: acute Acute cor pulmonale presence: without acute cor pulmonale Qualified Code(s): I26.99 - Other pulmonary embolism without acute cor pulmonale Is this a current diagnosis for this admission?: Yes Plan: Anticoagulation in progress
[2017-09-02] MEDS: FAMOTIDINE 20 MG TABLET PO SCH (17:21)
[2017-09-02] MEDS ORDERED: SODIUM POLYSTYRENE SULFONATE 15 GM/60 ML PO SCH (22:00)
[2017-09-02] MEDS: ATORVASTATIN CALCIUM 10 MG TABLET PO SCH (22:00)
[2017-09-03] MEDS: HEPARIN SODIUM,PORCINE/D5W 25,000 UNIT/250 ML RTUINJ IV PRN (00:47)
[2017-09-03] MEDS: IPRATROPIUM/ALBUTEROL 0.5-2.5 MG/3 ML AMPUL NEB SCH ×3 (01:44→13:38)
[2017-09-03 05:19] LABS: HEMATOCRIT 27.6 % (37.9-51.0); HEMOGLOBIN 8.5 g/dL (13.5-17.0); MEAN CORPUSCULAR HEMOGLOBIN 24.5 pg (27.0-33.4); MEAN CORPUSCULAR HGB CONC 30.9 g/dL (32.0-36.0); MEAN CORPUSCULAR VOLUME 79 fl (80-97); PLATELET COUNT 273 10^3/uL (150-450); RED BLOOD COUNT 3.49 10^6/uL (4.35-5.55); RED CELL DISTRIBUTION WIDTH 15.6 % (11.5-14.0); WHITE BLOOD COUNT 6.1 10^3/uL (4.0-10.5)
[2017-09-03 05:43] LABS: ANION GAP 6 (5-19); BLOOD UREA NITROGEN 35 mg/dL (7-20); CALCIUM 7.9 mg/dL (8.4-10.2); CARBON DIOXIDE 37 mmol/L (22-30); CHLORIDE 98 mmol/L (98-107); GLUCOSE 100 mg/dL (75-110); SODIUM 140.6 mmol/L (137-145)
[2017-09-03 05:50] LABS: POTASSIUM 4.1 mmol/L (3.6-5.0)
[2017-09-03] MEDS: HYDRALAZINE HCL 50 MG TABLET PO SCH ×3 (06:03→22:26)
[2017-09-03 10:38] LABS: INTERNATIONAL RATION (INR) 1.42; PROTHROMBIN TIME 18.2 SEC (11.4-15.4)
[2017-09-03] MEDS ORDERED: ONDANSETRON HCL INJ/PF 4 MG/2 ML SDV ONE (11:21)
[2017-09-03] MEDS ORDERED: NALOXONE HCL INJ/PF 0.4 MG/1 ML SDV ONE (11:21)
[2017-09-03] MEDS ORDERED: DIPHENHYDRAMINE HCL 50 MG/ML VIAL ONE (11:21)
[2017-09-03] MEDS ORDERED: MIDAZOLAM 2 MG/2 ML INJ ONE (11:22)
[2017-09-03] MEDS ORDERED: GLUCAGON,HUMAN RECOMB 1 MG INJ ONE (11:23)
[2017-09-03] MEDS ORDERED: FLUMAZENIL INJ 0.5 MG/5 ML VIAL ONE (11:23)
[2017-09-03] MEDS ORDERED: EPINEPHRINE INJ 1 MG/10 ML DISP.SYRIN ONE (11:23)
[2017-09-03] MEDS: MIDAZOLAM 2 MG/2 ML INJ ONE ×3 (12:06→12:14)
[2017-09-03] MEDS: FENTANYL CITRATE INJ/PF 100 MCG/2 ML AMPUL ONE ×2 (12:08→12:12)
--- NOTE | 2017-09-03 12:48 | Operative Report ---
Operative Report DATE OF SURGERY: 09/03/17 Operative Report: The risks, benefits and alternatives of the procedure including risks of bleeding, perforation requiring surgery are explained to the patient in detail and informed consent is obtained. Patient is taken to the endoscopy suite and placed in the left, lateral decubital position. Timeout was called. Conscious sedation medications are provided. A rectal examination is done which did not reveal any masses, tears or fissures. An Olympus videoscope was inserted into the patient's rectum. The scope was then carefully advanced all the way to the cecum. The cecum was identified by the usual anatomical landmarks including the ileocecal valve as well as the appendiceal office. Photodocumentation is obtained. Prep is reasonably good. The scope was then sequentially pulled back via the various segments of the colon including the ascending colon, hepatic flexure, transverse colon, splenic flexure, descending colon finding the rectosigmoid portions of the colon. Retroflexion maneuvers performed. There are some areas where there is some liquid fecal material these areas were irrigated and suction. The risks benefits and alternatives of the procedure explained to the patient in detail and informed consent is obtained.A GIF Olympus video scope was inserted into the patient's mouth and hypopharynx, the esophagus is identified intubated and insufflated, the scope was then advanced through the esophagus stomach and duodenum, retroflexion maneuver is done ,the esophagus stomach and first and second portions of the duodenum examined PREOPERATIVE DIAGNOSIS: Heme positive stool POSTOPERATIVE DIAGNOSIS: A total of 4 polyps: One in the cecum was removed via snare polypectomy, one in the ascending colon that was ablated in situ, another the hepatic flexure that was removed via snare polypectomy and the last in the transverse colon is also removed via snare polypectomy. Diverticulosis. Internal hemorrhoids. Esophageal nodule status post biopsy. Mayen's esophagus. Gastritis status post biopsy rule out Helicobacter pylori OPERATION: Colonoscopy with snare polypectomy. EGD with biopsy SURGEON: PINO LAFLEUR ANESTHESIA: Moderate Sedation - 4 mg of Versed, 50 mics of fentanyl. Conscious sedation monitoring time 30 minutes. TISSUE REMOVED OR ALTERED: As noted above. COMPLICATIONS: None. ESTIMATED BLOOD LOSS: None. INTRAOPERATIVE FINDINGS: As noted above. PROCEDURE: Patient tolerated procedure well. No immediate postprocedure comp occasions are noted. Resume regular diet. Resume regular activity level. We will wait on pathology. Likely 3-5 year surveillance. May need ablation if patient biopsy does come back showing Mayen's esophagus. Keep on heparin for right now. We will be started at 1800 hrs. Likely could be on long-term anticoagulation with Coumadin in the next 1-2 days.
--- NOTE | 2017-09-03 14:14 | PROGRESS NOTE E ---
Progress Note NAME: RASHI MC : 1940 AGE: 76Y DATE: 09/03/2017 ROOM: 309 SUBJECTIVE: The patient has just returned from endoscopy. The patient states that he feels tremendously better in comparison to yesterday. He denies any nausea, vomiting, diarrhea. No dizziness, chest pain, just shortness of breath which he feels is his baseline. Patient has been afebrile, blood pressure has been in a good range. The patient denies any melena or hematochezia, and the patient does not voice any other concerns at this time. REVIEW OF SYSTEMS: The rest of the review of systems is negative. MEDICATIONS: Medications have been reviewed. OBJECTIVE: GENERAL: The patient is a 76-year-old male who is awake, alert, and oriented to person, place, time, and situation. He is verbal, conversational, does not appear to be in any acute distress. VITAL SIGNS: As follows: Temperature is 98.0, pulse 83, respirations 19, blood pressure 140/46, oxygen saturation is 100% on 3 L nasal cannula. SKIN: Warm and dry. No rash, not diaphoretic. HEENT: Pupils are equal, round, and reactive to light and accommodation. Conjunctiva is pink. There is no evidence of JVP. CARDIOVASCULAR: Heart is regular. There is no murmur or rub. CHEST: The patient does have some expiratory wheezes noted in upper lung craig. ABDOMEN: Soft, nontender, nondistended. EXTREMITIES: No clubbing, cyanosis, edema. PSYCHIATRIC: Appropriate affect. Pleasant mood. DIAGNOSTICS: Lab values are as follows. Hematology obtained on 09/03/2017: WBCs are 6.1, hemoglobin is 8.5, hematocrit is 27.6, platelet count is 273,000. Chemistry obtained on 09/03/2017: Sodium is 140, potassium 4.1, chloride is 98, carbon dioxide 37, BUN 35, creatinine is 1.59, glucose 100, calcium is 7.9. IMPRESSION AND PLAN: 1. PULMONARY EMBOLISM. Will resume the patient's IV heparin. The patient has been cleared to start Coumadin within the next 24 to 48 hours as per Gastroenterology as the patient did not have any evidence of overt stigmata. Most likely the patient's anemias are B12 and iron deficiency in etiology. Will follow. 2. ACUTE ON CHRONIC HYPOXEMIC RESPIRATORY FAILURE. Will continue prednisone, oxygen and follow. 3. CHRONIC OBSTRUCTIVE PULMONARY DISEASE EXACERBATION. The patient appears to be much improved. Will transition to oral steroids. 4. HYPERTENSION. The patient's blood pressure has been in an excellent range. I am concerned as the patient is on 3 different debby agents. I did discuss this with the patient and given his daytime sleepiness will wean the patient from clonidine. 5. IRON DEFICIENCY AND B12 DEFICIENCY ANEMIA. The patient may have some GI losses; however, nothing was found on endoscopy. Will repeat CBC in the a.m. If this remains relatively stable will proceed with resuming Coumadin in the morning. 6. CHRONIC KIDNEY DISEASE, STAGE 3. The patient's creatinine appears to be at baseline. DISPOSITION: THE PATIENT IS A FULL CODE. Pending the patient's symptomatology and diagnostic findings, will re-evaluate in the a.m. Time spent on this followup, including assessment/plan, physical examination, patient education, review of systems and family meeting, is 35 minutes. DICTATING PHYSICIAN: GONZÁLEZ PRIETO [id number] [id number] ID: [id number] JOB#: [id number] ACCT: [id number] cc: > MTDD
[2017-09-03] MEDS ORDERED: PREDNISONE 20 MG TABLET PO ONE (14:15)
[2017-09-03] MEDS: NIFEDIPINE 30 MG TAB.ER.24 PO SCH (14:26)
[2017-09-03] MEDS: CYANOCOBALAMIN (VITAMIN B-12) 1,000 MCG TABLET PO SCH (14:27)
[2017-09-03] MEDS: METOPROLOL TARTRATE 50 MG TABLET PO SCH ×2 (14:27→22:26)
[2017-09-03] MEDS: IRON POLYSACCHARIDES COMPLEX 150 MG CAPSULE PO SCH (14:28)
[2017-09-03] MEDS: FAMOTIDINE 20 MG TABLET PO SCH (17:01)
[2017-09-03] MEDS: ATORVASTATIN CALCIUM 10 MG TABLET PO SCH (22:26)
[2017-09-04 05:36] LABS: HEMOGLOBIN 8.9 g/dL (13.5-17.0); MEAN CORPUSCULAR HEMOGLOBIN 24.7 pg (27.0-33.4); MEAN CORPUSCULAR HGB CONC 30.7 g/dL (32.0-36.0); MEAN CORPUSCULAR VOLUME 80 fl (80-97); PLATELET COUNT 302 10^3/uL (150-450); RED BLOOD COUNT 3.61 10^6/uL (4.35-5.55); RED CELL DISTRIBUTION WIDTH 15.7 % (11.5-14.0); WHITE BLOOD COUNT 7.6 10^3/uL (4.0-10.5)
[2017-09-04 05:56] LABS: ANION GAP 7 (5-19); BLOOD UREA NITROGEN 34 mg/dL (7-20); CALCIUM 8.6 mg/dL (8.4-10.2); CARBON DIOXIDE 34 mmol/L (22-30); CHLORIDE 101 mmol/L (98-107); GLUCOSE 100 mg/dL (75-110); IRON 31.3 ug/dL (49-181); POTASSIUM 5.3 mmol/L (3.6-5.0); SODIUM 142.3 mmol/L (137-145)
[2017-09-04] MEDS: HYDRALAZINE HCL 50 MG TABLET PO SCH ×3 (06:24→21:34)
[2017-09-04 09:48] LABS: INTERNATIONAL RATION (INR) 1.15; PROTHROMBIN TIME 15.5 SEC (11.4-15.4)
[2017-09-04] MEDS: NIFEDIPINE 30 MG TAB.ER.24 PO SCH (10:31)
[2017-09-04] MEDS: METOPROLOL TARTRATE 50 MG TABLET PO SCH ×2 (10:32→21:34)
[2017-09-04] MEDS: CYANOCOBALAMIN (VITAMIN B-12) 1,000 MCG TABLET PO SCH (10:32)
[2017-09-04] MEDS: PREDNISONE 20 MG TABLET PO SCH (10:32)
[2017-09-04] MEDS: IRON POLYSACCHARIDES COMPLEX 150 MG CAPSULE PO SCH (10:32)
[2017-09-04] MEDS ORDERED: ENOXAPARIN SODIUM INJ 100 MG/1 ML DISP.SYRIN SUBCUT ONE (11:00)
--- NOTE | 2017-09-04 14:59 | PROGRESS NOTE E ---
Progress Note NAME: RASHI MC : 1940 AGE: 76Y DATE: 09/04/2017 ROOM: 309 SUBJECTIVE: The patient is currently lying in bed. The patient states that he is feeling even better in comparison to yesterday. The patient states he feels almost back to his old self. He denies any nausea, vomiting, diarrhea. No dizziness, chest pain. No fevers, chills. The patient has been afebrile. His blood pressures have been in a good range. The patient denies any melena, hematochezia, and the patient does not voice any other concerns at this time. REVIEW OF SYSTEMS: Rest of review of systems is negative. MEDICATIONS: Medications have been reviewed. OBJECTIVE: GENERAL: The patient is a 76-year-old male who is awake, alert and oriented to person, place, time and situation. He is verbal and conversational and does not appear to be in any acute distress. VITAL SIGNS FOLLOWS: Temperature is 98.5. Pulse 84. Respirations 20. Blood pressure is 131/44. Oxygen saturation 97% on 5 L nasal cannula. SKIN: Warm and dry. No rash. He is not diaphoretic. HEENT: Pupils equal, round and reactive to light and accommodation. Conjunctivae are pink. NECK: There is no evidence of JVD. CARDIOVASCULAR SYSTEM: Heart is regular. No rub. CHEST: Some fine expiratory wheezes. Symmetrical. Unlabored. ABDOMEN: Soft. Nontender. Nondistended. BACK: No CVA tenderness or sacral edema. EXTREMITIES: No clubbing, cyanosis, edema. PSYCHIATRIC: Appropriate affect. Pleasant mood. DIAGNOSTICS: Lab values are as follows. Hematology obtained on 09/04/2017: WBCs are 7.6; hemoglobin is 8.9; hematocrit is 29.0; platelet count is 302,000. Chemistry obtained on 09/04/2017: Sodium is 142, potassium 5.3, chloride is 101, carbon dioxide 34. BUN 34, creatinine is 1.69, glucose is 100. Calcium is 8.6. Magnesium is 1.8. Iron is 31.3. IMPRESSION AND PLAN: 1. PULMONARY EMBOLISM. The patient will be started on weight-dosed Lovenox. Will have the patient reweighed and will also start Coumadin this evening. Will obtain hemoglobin and INR in the a.m. Feel most likely the patient's anemia is related to B12 and iron deficiency probably from dietary etiology. Will follow. 2. [id number]-AW-[id number] HYPOXEMIC RESPIRATORY FAILURE. Will wean the patient's prednisone and oxygen and follow. 3. CHRONIC OBSTRUCTIVE PULMONARY DISEASE EXACERBATION. The patient overall feels much improved. 4. HYPERTENSION. The patient has had excellent blood pressure control since stopping his clonidine. 5. CHRONIC KIDNEY DISEASE STAGE 3. The patient's creatinine appears to be at baseline. DISPOSITION: The patient is a FULL CODE. Pending patient's symptomatology and diagnostic findings, will reevaluate in the a.m. TIME SPENT: Time spent on this followup including assessment, plan, physical examination, patient education, review of records, family meeting is 25 minutes. DICTATING PHYSICIAN: GONZÁLEZ PRIETO NP [id number] PHY#: [id number] ID: [id number] JOB#: [id number] ACCT: [id number] cc: >
[2017-09-04] MEDS: LEVALBUTEROL HCL NEB 1.25 MG/3 ML AMPUL NEB PRN (16:30)
[2017-09-04] MEDS: FAMOTIDINE 20 MG TABLET PO SCH (17:25)
[2017-09-04] MEDS: ENOXAPARIN SODIUM INJ 100 MG/1 ML DISP.SYRIN SUBCUT SCH (21:34)
[2017-09-04] MEDS: ATORVASTATIN CALCIUM 10 MG TABLET PO SCH (21:34)
[2017-09-05] MEDS: HYDRALAZINE HCL 50 MG TABLET PO SCH ×3 (05:48→22:36)
[2017-09-05 06:35] LABS: INTERNATIONAL RATION (INR) 1.02; PROTHROMBIN TIME 14.1 SEC (11.4-15.4)
[2017-09-05 06:49] LABS: ANION GAP 6 (5-19); BLOOD UREA NITROGEN 35 mg/dL (7-20); CARBON DIOXIDE 32 mmol/L (22-30); CHLORIDE 100 mmol/L (98-107); GLUCOSE 76 mg/dL (75-110); POTASSIUM 5.2 mmol/L (3.6-5.0); SODIUM 138.2 mmol/L (137-145)
[2017-09-05] MEDS: LEVALBUTEROL HCL NEB 1.25 MG/3 ML AMPUL NEB PRN (09:18)
[2017-09-05] MEDS: IRON POLYSACCHARIDES COMPLEX 150 MG CAPSULE PO SCH (09:34)
[2017-09-05] MEDS: PREDNISONE 20 MG TABLET PO SCH (09:34)
[2017-09-05] MEDS: CYANOCOBALAMIN (VITAMIN B-12) 1,000 MCG TABLET PO SCH (09:34)
[2017-09-05] MEDS: NIFEDIPINE 30 MG TAB.ER.24 PO SCH (09:34)
[2017-09-05] MEDS: METOPROLOL TARTRATE 50 MG TABLET PO SCH ×2 (09:35→22:36)
[2017-09-05] MEDS: ENOXAPARIN SODIUM INJ 100 MG/1 ML DISP.SYRIN SUBCUT SCH ×2 (09:35→22:36)
--- NOTE | 2017-09-05 14:34 | PROGRESS NOTE E ---
Progress Note NAME: RASHI MC : 1940 AGE: 76Y DATE: 09/05/2017 ROOM: 309 SUBJECTIVE: The patient is currently lying in bed. His is present at the bedside, active in the patient's care. Denies any nausea, vomiting, diarrhea. The patient did participate in therapy; however, he was quite short of breath. The patient is now oxygenating on 5L nasal cannula. The patient was not on oxygen upon admission. The patient appears to have improvement in his wheezing, but no shortness of breath while at rest. Patient denies any melena or hematochezia. No nausea, vomiting or diarrhea. No dizziness, chest pain. No fevers or chills. Patient has been afebrile. His blood pressures have been in a good range, and the patient does not voice any other concerns at this time. REVIEW OF SYSTEMS: The rest of the review of systems is negative. MEDICATIONS: Reviewed. OBJECTIVE: GENERAL: The patient is a 76-year-old male, who is awake, alert and oriented to person, place, time and situation. He is verbal and conversational. Does not appear to be in any acute distress. VITAL SIGNS: Temperature is 98.0, pulse 61, respirations 20, blood pressure is 124/55. Oxygen saturation is 94% on 4L nasal cannula. SKIN: Warm and dry. No rashes. He is not diaphoretic. HEENT: Pupils are reactive. No evidence of JVP. Mucous membranes are moist. CVS: Heart is regular. There is no rub. CHEST: Diminished, symmetrical, unlabored. Wheezing has improved. ABDOMEN: Soft, nontender, nondistended. EXTREMITIES: No clubbing, cyanosis, edema. PSYCHIATRIC: Appropriate affect, pleasant mood. DIAGNOSTICS: Lab values are as follows: Hematology obtained on 09/04/2017: WBC are 7.6, hemoglobin 7.9, hematocrit 39.0, platelet count 302,000. Chemistry obtained on 09/05/2017: Sodium is 138, potassium 5.2, chloride is 100, carbon dioxide 32, BUN 35, creatinine 1.62. Glucose 76, calcium is 9.0. IMPRESSION AND PLAN: 1. Pulmonary emboli. The patient has been started on weight dose Lovenox and had no evidence of rebleed. The patient's CBC actually improved. Will continue Lovenox and start the patient on Coumadin this evening, and repeat INR in the a.m. The patient's anemia most likely is related to B12 and iron deficiency, probably from dietary etiology. Will follow. 2. Acute on chronic hypoxemic respiratory failure. Will wean the patient's prednisone again and aggressively wean oxygen with pulmonary toilet and follow. 3. Chronic obstructive pulmonary disease. The patient overall feels much improved. 4. Hypertension. The patient has had excellent blood pressure control since stopping the clonidine. 5. Chronic kidney disease, stage III to IV. The patient's creatinine appears to be at baseline. DISPOSITION: The patient is a FULL CODE. Pending patient's symptomatology and diagnostic findings, we will reevaluate in the a.m. Time spent on this followup, including assessment, plan, physical examination, patient education, review of records and family meeting is 35 minutes. DICTATING PHYSICIAN: GONZÁLEZ PRIETO NP [id number] PHY#: [id number] ID: [id number] JOB#: [id number] ACCT: [id number] cc: >
[2017-09-05] MEDS: FAMOTIDINE 20 MG TABLET PO SCH (17:34)
[2017-09-05] MEDS: ATORVASTATIN CALCIUM 10 MG TABLET PO SCH (22:36)
[2017-09-05] MEDS: WARFARIN SODIUM 7.5 MG TABLET PO SCH (22:36)
[2017-09-06 04:58] LABS: HEMATOCRIT 30.2 % (37.9-51.0); HEMOGLOBIN 9.1 g/dL (13.5-17.0); MEAN CORPUSCULAR HEMOGLOBIN 24.2 pg (27.0-33.4); MEAN CORPUSCULAR HGB CONC 30.3 g/dL (32.0-36.0); MEAN CORPUSCULAR VOLUME 80 fl (80-97); PLATELET COUNT 345 10^3/uL (150-450); RED BLOOD COUNT 3.77 10^6/uL (4.35-5.55); RED CELL DISTRIBUTION WIDTH 16.2 % (11.5-14.0); WHITE BLOOD COUNT 9.2 10^3/uL (4.0-10.5)
[2017-09-06 05:01] LABS: INTERNATIONAL RATION (INR) 0.97; PROTHROMBIN TIME 13.6 SEC (11.4-15.4)
[2017-09-06 05:13] LABS: ANION GAP 9 (5-19); BLOOD UREA NITROGEN 33 mg/dL (7-20); CALCIUM 9.3 mg/dL (8.4-10.2); CARBON DIOXIDE 29 mmol/L (22-30); CHLORIDE 100 mmol/L (98-107); GLUCOSE 81 mg/dL (75-110); POTASSIUM 5.5 mmol/L (3.6-5.0); SODIUM 137.5 mmol/L (137-145)
[2017-09-06] MEDS: HYDRALAZINE HCL 50 MG TABLET PO SCH ×3 (05:28→21:57)
[2017-09-06] MEDS: ENOXAPARIN SODIUM INJ 100 MG/1 ML DISP.SYRIN SUBCUT SCH ×2 (10:39→21:57)
[2017-09-06] MEDS: IRON POLYSACCHARIDES COMPLEX 150 MG CAPSULE PO SCH (10:39)
[2017-09-06] MEDS: METOPROLOL TARTRATE 50 MG TABLET PO SCH ×2 (10:39→21:56)
[2017-09-06] MEDS: PREDNISONE 20 MG TABLET PO SCH (10:40)
[2017-09-06] MEDS: CYANOCOBALAMIN (VITAMIN B-12) 1,000 MCG TABLET PO SCH (10:40)
[2017-09-06] MEDS: NIFEDIPINE 30 MG TAB.ER.24 PO SCH (10:40)
--- NOTE | 2017-09-06 11:46 | PDOC PROGRESS REPORT ---
Subjective Progress Note for:: 09/06/17 Subjective:: The patient is resting in his bed and states that he feels quite well this morning. He states he has not felt this good in a long time. He denies fever chills. He has had no further episodes of chest pain. He is not short of breath. He is requiring oxygen however. He does not have a cough. No nausea, vomiting or diarrhea. He is tolerating his diet and has had no abdominal pain. No urinary complaints. Reason For Visit: PULMONARY EMBOLUS Physical Exam Vital Signs: Temp Pulse Resp BP Pulse Ox 97.6 F 71 20 149/62 H 95 09/06/17 08:05 09/06/17 08:05 09/06/17 08:05 09/06/17 08:05 09/06/17 09:52 Pulse Oximeter Continuous Start: 08/31/17 12: 23 Freq: RTQ4 Status: Complete Document 09/03/17 07:56 HCR (Rec: 09/03/17 10:38 HCR [email or web address]) Pulse Oximetry Assessment Equipment Usage Equipment Discontinued Continuous SpO2 Machine # 11 Intake & Output 09/05/17 09/06/17 09/07/17 06:59 06:59 06:59 Intake Total 2079 1357 Output Total 1275 2100 Balance 804 -743 General appearance: PRESENT: no acute distress, well-developed, well-nourished, other - He is receiving oxygen via nasal cannula Head exam: PRESENT: atraumatic, normocephalic Mouth exam: PRESENT: moist, tongue midline Respiratory exam: PRESENT: clear to auscultation annelise. ABSENT: rales, rhonchi, wheezes Cardiovascular exam: PRESENT: RRR. ABSENT: diastolic murmur, rubs, systolic murmur GI/Abdominal exam: PRESENT: normal bowel sounds, soft. ABSENT: distended, guarding, mass, organolmegaly, rebound, tenderness Rectal exam: PRESENT: deferred Extremities exam: PRESENT: full ROM. ABSENT: calf tenderness, clubbing, pedal edema Neurological exam: PRESENT: alert, awake, oriented to person, oriented to place , oriented to time, oriented to situation, CN II-XII grossly intact. ABSENT: motor sensory deficit Psychiatric exam: PRESENT: appropriate affect, normal mood. ABSENT: homicidal ideation, suicidal ideation Skin exam: PRESENT: dry, intact, warm. ABSENT: cyanosis, rash Results Laboratory Results: 09/06/17 04:34 09/06/17 04:34 09/06/17 09/06/17 04:34 04:34 WBC 9.2 RBC 3.77 L Hgb 9.1 L Hct 30.2 L MCV 80 MCH 24.2 L MCHC 30.3 L RDW 16.2 H Plt Count 345 Sodium 137.5 Potassium 5.5 H Chloride 100 Carbon Dioxide 29 Anion Gap 9 BUN 33 H Creatinine 1.59 H Est GFR ( Amer) 52 L Est GFR (Non-Af Amer) 43 L Glucose 81 Calcium 9.3 Magnesium 1.5 L 08/27/17 08/27/17 08/27/17 16:00 16:00 22:00 Creatine Kinase 63 108 CK-MB (CK-2) 1.63 Troponin I 0.053 08/27/17 08/28/17 08/28/17 22:00 00:56 00:56 Creatine Kinase 135 CK-MB (CK-2) 2.33 2.91 Troponin I 0.041 0.048 08/28/17 08/28/17 08/28/17 05:47 05:47 12:25 Creatine Kinase 195 H 229 H CK-MB (CK-2) 3.82 Troponin I 0.058 08/28/17 08/28/17 08/28/17 12:25 17:55 17:55 Creatine Kinase 296 H CK-MB (CK-2) 4.25 4.67 H Troponin I 0.067 0.067 Impressions: Chest X-Ray 08/27/17 09:42 IMPRESSION: No acute infiltrates. Decrease right lung pulmonary vascularity, question acute pulmonary embolus to the right side Results discussed with Dr. Stark Lung Scan-[facility] 08/27/17 11:01 IMPRESSION: High probability study for right-sided pulmonary emboli. Right upper and lower lobe perfusion defects are present Head CT 08/28/17 00:00 IMPRESSION: No significant interval change. Abdomen X-Ray 08/28/17 00:44 IMPRESSION: Nonspecific gaseous dilation of the proximal colon. Assessment & Plan - Diagnosis (1) Acute respiratory failure with hypoxia Is this a current diagnosis for this admission?: Yes Plan: Secondary to pulmonary embolus. Currently he is on Lovenox while his INR is getting therapeutic. His Coumadin was just started yesterday. (2) Pulmonary embolism Qualifiers: Pulmonary embolism type: other Chronicity: acute Acute cor pulmonale presence: without acute cor pulmonale Qualified Code(s): I26.99 - Other pulmonary embolism without acute cor pulmonale Is this a current diagnosis for this admission?: Yes Plan: He is currently being bridged with Lovenox and has been started on Coumadin. (3) Occult blood in stools Is this a current diagnosis for this admission?: Yes Plan: He was evaluated by GI prior to starting anticoagulation. He had a colonoscopy and endoscopy performed. He had evidence of Mayen's esophagus as well as gastritis. He had multiple colon polyps which were removed. He will follow-up with Dr. Yoon as an outpatient (4) Acute on chronic renal failure Qualifiers: Chronic kidney disease stage: stage 3 (moderate) Is this a current diagnosis for this admission?: Yes Plan: I believe he is back to his baseline at this point. (5) COPD (chronic obstructive pulmonary disease) Qualifiers: COPD type: COPD with acute exacerbation Qualified Code(s): J44.1 - Chronic obstructive pulmonary disease with (acute) exacerbation Is this a current diagnosis for this admission?: Yes Plan: No evidence of exacerbation (6) Hypertension Qualifiers: Hypertension type: essential hypertension Qualified Code(s): I10 - Essential (primary) hypertension Is this a current diagnosis for this admission?: Yes Plan: Continue current regimen (7) Anemia Qualifiers: Anemia type: iron deficiency Is this a current diagnosis for this admission?: Yes Plan: He will follow-up with gastroenterology as an outpatient. His hemoglobin is stable (8) Hyperkalemia Is this a current diagnosis for this admission?: Yes Plan: Likely secondary to acute renal failure. Resolved. - Time Time Spent with patient: 25-34 minutes - Inpatient Certification Medical Necessity: Other - Inpatient hospitalization remains necessary. Overall the patient is greatly improved. We would like to wean him off of oxygen prior to going home. Timing of disposition will be determined by his clinical course. Also I would like to keep him in the hospital for another day to make sure he does not develop any bleeding issues.
--- NOTE | 2017-09-06 13:16 | PDOC PROGRESS REPORT ---
Subjective Progress Note for:: 09/06/17 Subjective:: I was called by Dr Grover today, patient had undergone EGD and colonoscopy late last week has Mayen's esophagus with a focus of HGD( high grade dysplasia) patient also had colonoscopy with multiple polyps removed no malignancy patient will need surveillance in 3 years for his polyps however he will need ablation and repeat biopsies are some point pathology has confirmed with 2 pathologists will speak with patient he could get it done while he is here, Reason For Visit: PULMONARY EMBOLUS Physical Exam Vital Signs: Temp Pulse Resp BP Pulse Ox 97.6 F 71 20 149/62 H 95 09/06/17 08:05 09/06/17 08:05 09/06/17 08:05 09/06/17 08:05 09/06/17 09:52 Pulse Oximeter Continuous Start: 08/31/17 12: 23 Freq: RTQ4 Status: Complete Document 09/03/17 07:56 HCR (Rec: 09/03/17 10:38 HCR [email or web address]) Pulse Oximetry Assessment Equipment Usage Equipment Discontinued Continuous SpO2 Machine # 11 Intake & Output 09/05/17 09/06/17 09/07/17 06:59 06:59 06:59 Intake Total 2079 1357 Output Total 1275 2100 Balance 804 -743 General appearance: PRESENT: no acute distress, well-developed, well-nourished Head exam: PRESENT: atraumatic, normocephalic Eye exam: PRESENT: EOMI, PERRLA. ABSENT: nystagmus, periorbital swelling, scleral icterus Mouth exam: PRESENT: moist, neck supple Throat exam: ABSENT: tonsillar exudate, tonsillogmegaly Neck exam: ABSENT: meningismus, tenderness, thyromegaly Respiratory exam: PRESENT: symmetrical, unlabored. ABSENT: tachypnea, wheezes Cardiovascular exam: PRESENT: RRR, +S1, +S2 GI/Abdominal exam: PRESENT: soft. ABSENT: rebound, rigid, tenderness Extremities exam: ABSENT: joint swelling, pedal edema Musculoskeletal exam: PRESENT: full ROM Neurological exam: PRESENT: alert, awake, oriented to time, oriented to situation, CN II-XII grossly intact Skin exam: PRESENT: normal color. ABSENT: mottled, pallor, urticaria, vesicles Results Laboratory Results: 09/06/17 04:34 09/06/17 04:34 09/06/17 09/06/17 04:34 04:34 WBC 9.2 RBC 3.77 L Hgb 9.1 L Hct 30.2 L MCV 80 MCH 24.2 L MCHC 30.3 L RDW 16.2 H Plt Count 345 Sodium 137.5 Potassium 5.5 H Chloride 100 Carbon Dioxide 29 Anion Gap 9 BUN 33 H Creatinine 1.59 H Est GFR ( Amer) 52 L Est GFR (Non-Af Amer) 43 L Glucose 81 Calcium 9.3 Magnesium 1.5 L 08/27/17 08/27/17 08/27/17 16:00 16:00 22:00 Creatine Kinase 63 108 CK-MB (CK-2) 1.63 Troponin I 0.053 08/27/17 08/28/17 08/28/17 22:00 00:56 00:56 Creatine Kinase 135 CK-MB (CK-2) 2.33 2.91 Troponin I 0.041 0.048 08/28/17 08/28/17 08/28/17 05:47 05:47 12:25 Creatine Kinase 195 H 229 H CK-MB (CK-2) 3.82 Troponin I 0.058 08/28/17 08/28/17 08/28/17 12:25 17:55 17:55 Creatine Kinase 296 H CK-MB (CK-2) 4.25 4.67 H Troponin I 0.067 0.067 Impressions: Chest X-Ray 08/27/17 09:42 IMPRESSION: No acute infiltrates. Decrease right lung pulmonary vascularity, question acute pulmonary embolus to the right side Results discussed with Dr. Stark Lung Scan[facility] 08/27/17 11:01 IMPRESSION: High probability study for right-sided pulmonary emboli. Right upper and lower lobe perfusion defects are present Head CT 08/28/17 00:00 IMPRESSION: No significant interval change. Abdomen X-Ray 08/28/17 00:44 IMPRESSION: Nonspecific gaseous dilation of the proximal colon. 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
[2017-09-06 15:01] LABS: APPEARANCE,URINE SLIGHTLY-CLOUDY; BILIRUBIN,URINE NEGATIVE (NEGATIVE); COLOR,URINE YELLOW; GLUCOSE, URINE NEGATIVE (NEGATIVE); KETONES,URINE NEGATIVE (NEGATIVE); LEUKOCYTE ESTERASE,URINE MODERATE (NEGATIVE); NITRITE,URINE NEGATIVE (NEGATIVE); PROTEIN,URINE NEGATIVE (NEGATIVE); URINE SPECIFIC GRAVITY 1.011; UROBILINOGEN,URINE NEGATIVE mg/dL (<2.0)
[2017-09-06] MEDS: FAMOTIDINE 20 MG TABLET PO SCH (17:31)
[2017-09-06] MEDS: WARFARIN SODIUM 7.5 MG TABLET PO SCH (21:56)
[2017-09-06] MEDS: ATORVASTATIN CALCIUM 10 MG TABLET PO SCH (21:56)
[2017-09-07 05:03] LABS: INTERNATIONAL RATION (INR) 1.07; PROTHROMBIN TIME 14.7 SEC (11.4-15.4)
[2017-09-07 05:14] LABS: ANION GAP 9 (5-19); BLOOD UREA NITROGEN 30 mg/dL (7-20); CALCIUM 8.7 mg/dL (8.4-10.2); CARBON DIOXIDE 33 mmol/L (22-30); CHLORIDE 99 mmol/L (98-107); GLUCOSE 78 mg/dL (75-110); POTASSIUM 5.6 mmol/L (3.6-5.0); SODIUM 141.1 mmol/L (137-145)
[2017-09-07] MEDS: HYDRALAZINE HCL 50 MG TABLET PO SCH ×3 (05:32→21:56)
[2017-09-07] MEDS: PREDNISONE 20 MG TABLET PO SCH (10:09)
[2017-09-07] MEDS: METOPROLOL TARTRATE 50 MG TABLET PO SCH ×2 (10:09→21:56)
[2017-09-07] MEDS: NIFEDIPINE 30 MG TAB.ER.24 PO SCH (10:10)
[2017-09-07] MEDS: ENOXAPARIN SODIUM INJ 100 MG/1 ML DISP.SYRIN SUBCUT SCH ×2 (10:11→21:57)
[2017-09-07] MEDS: CYANOCOBALAMIN (VITAMIN B-12) 1,000 MCG TABLET PO SCH (10:11)
[2017-09-07] MEDS: IRON POLYSACCHARIDES COMPLEX 150 MG CAPSULE PO SCH (10:11)
--- NOTE | 2017-09-07 11:39 | PDOC DISCHARGE SUMMARY ---
General - Admit/Disc Date/PCP Admission Date/Primary Care Provider: 08/27/17 15:09 filing machine operator is being assigned discharge Mix Crusher Operator: Dr. Yoon Tire Maker: Dr. Hathaway Discharge Date: 09/07/17 - Discharge Diagnosis (1) Acute respiratory failure with hypoxia Is this a current diagnosis for this admission?: Yes Summary: Secondary to pulmonary embolism. His oxygen levels have not improved and he is being set up with oxygen therapy as an outpatient. According to the patient's he has had multiple hospitalizations for respiratory failure and apparently has been borderline hypoxic for some time. (2) Pulmonary embolism Is this a current diagnosis for this admission?: Yes Summary: Heme positive stool and his due to his concerns for bleeding he has been started on Coumadin. He will be discharged home with a Lovenox bridge. He will need to follow-up with his new primary care provider at the end of the week , preferably September 10 to have his INR rechecked. (3) Occult blood in stools Is this a current diagnosis for this admission?: Yes Summary: He had an upper and lower endoscopy performed. He was found to have evidence of Mayen's esophagus and the recommendation is for an ablation to be performed. GI o perform the ablation during this hospitalization however the patient wants to do it as an outpatient. We are going to set him up with an appointment with Dr. Yoon next week (4) Acute on chronic renal failure Is this a current diagnosis for this admission?: Yes Summary: Somewhat improved. He will follow-up with his new primary care provider next week. (5) COPD (chronic obstructive pulmonary disease) Is this a current diagnosis for this admission?: Yes Summary: The patient has been borderline hypoxic for quite some time. His need for oxygen at this point is more likely due to progression of his COPD rather than his pulmonary embolus. He will be set up with oxygen therapy at discharge and we will have him follow-up with Dr. Hathaway as an outpatient. (6) Hypertension Is this a current diagnosis for this admission?: Yes Summary: Stable (7) Anemia Is this a current diagnosis for this admission?: Yes Summary: Likely due to slow GI blood losses. (8) Hyperkalemia Is this a current diagnosis for this admission?: Yes Summary: His level is still above normal. Due to the fact that we are discharging him from the hospital today at his insistence, I will give him a dose of Kayexalate prior to discharge. - Additional Information Resuscitation Status: Full Code Discharge Diet: Regular Discharge Activity: Activity As Tolerated, Balance Activity w/Rest, Slowly Increase Activity Prescriptions: Warfarin Sodium [Coumadin 7.5 mg Tablet] 7.5 mg PO QHS #30 tablet Cyanocobalamin (Vitamin B-12) [Vitamin B-12 1000 mcg Tablet] 1,000 mcg PO DAILY #30 tablet Enoxaparin Sodium [Lovenox Inj 100 mg/1 ml Disp.syrin] 95 mg SUBCUT Q12 #14 disp.syrin Iron Polysaccharides Complex [Nu-Iron 150 Capsule] 150 mg PO DAILY #30 capsule Metoprolol Tartrate [Lopressor 50 mg Tablet] 100 mg PO Q12 #60 tablet Prednisone [Deltasone 20 mg Tablet] 20 mg PO DAILY #3 tablet Home Medications: Hydralazine HCl [Apresoline 50 mg Tablet] 50 mg PO Q8 08/27/17 Nifedipine [Nifedipine ER] 30 mg PO DAILY 08/27/17 Pravastatin Sodium [Pravachol] 20 mg PO QHS 08/27/17 Cyanocobalamin (Vitamin B-12) [Vitamin B-12 1000 mcg Tablet] 1,000 mcg PO DAILY #30 tablet 09/07/17 Enoxaparin Sodium [Lovenox Inj 100 mg/1 ml Disp.syrin] 95 mg SUBCUT Q12 #14 disp.syrin 09/07/17 Famotidine [Pepcid 20 mg Tablet] 20 mg PO QPM tablet 09/07/17 Iron Polysaccharides Complex [Nu-Iron 150 Capsule] 150 mg PO DAILY #30 capsule 09/07/17 Metoprolol Tartrate [Lopressor 50 mg Tablet] 100 mg PO Q12 #60 tablet 09/07/17 Prednisone [Deltasone 20 mg Tablet] 20 mg PO DAILY #3 tablet 09/07/17 Warfarin Sodium [Coumadin 7.5 mg Tablet] 7.5 mg PO QHS #30 tablet 09/07/17 History of Present Illness History of Present Illness: RASHI MC JR is a 76 year old male who presented to the emergency room with shortness of breath. Hospital Course Hospital Course: The patient is a 76-year-old male who is not yet established primary care in this area. He presented to the emergency room with increased shortness of breath. His is a retired nurse and takes excellent care of him at home but he is not very compliant with his medical doctors. At the time of admission the patient was quite hypoxic with O2 saturations of 62%. He arrived in the emergency room via EMS. The patient did have a VQ scan which revealed a high probability for pulmonary embolism. He was found to have a microcytic anemia and his stool tested positive for occult blood. Due to the need for anticoagulation for his pulmonary embolism the GI service was consulted. He underwent a colonoscopy and endoscopy during this hospitalization. He had 4 polyps removed from his colon. He also was noted to have diverticulosis and internal hemorrhoids. He had an esophageal nodule that was biopsied and evidence of Mayen's esophagitis. I was notified by the GI service yesterday that the patient needs to have an ablation for his Mayen's esophagitis and offered to do it during this hospitalization. I have discussed this at length with the patient and his and he does not want to have this done in the hospital and he states that he will follow-up with Dr. Yoon as an outpatient for the procedure. On the day of discharge the patient's INR is not yet therapeutic. He will be sent home with a Lovenox bridge which his can administer at home. Our discharge planners will set him up with a new primary care provider. I would like for him to have an INR on September 09, 2017 with a follow-up appointment next week. Of note he was also seen by pulmonology who thinks that he may have underlying obstructive sleep apnea. We are making him an appointment to follow-up with Dr. Hathaway as well. At this point maximum hospital benefit has been reached. The patient will be discharged home today in stable condition. Physical Exam Vital Signs: Temp Pulse Resp BP Pulse Ox 98.2 F 69 19 155/71 H 91 L 09/07/17 08:12 09/07/17 08:12 09/07/17 08:12 09/07/17 08:12 09/07/17 08:12 Pulse Oximeter Continuous Start: 08/31/17 12: 23 Freq: RTQ4 Status: Complete Document 09/03/17 07:56 HCR (Rec: 09/03/17 10:38 HCR [email or web address]) Pulse Oximetry Assessment Equipment Usage Equipment Discontinued Continuous SpO2 Machine # 11 Intake & Output 09/06/17 09/07/17 09/08/17 06:59 06:59 06:59 Intake Total 1357 1467 Output Total 2100 1500 Balance -743 -33 General appearance: PRESENT: no acute distress, well-developed, well-nourished Head exam: PRESENT: atraumatic, normocephalic Mouth exam: PRESENT: moist, tongue midline Respiratory exam: PRESENT: clear to auscultation annelise, decreased breath sounds Cardiovascular exam: PRESENT: RRR. ABSENT: diastolic murmur, rubs, systolic murmur GI/Abdominal exam: PRESENT: normal bowel sounds, soft. ABSENT: distended, guarding, mass, organolmegaly, rebound, tenderness Rectal exam: PRESENT: deferred Extremities exam: PRESENT: full ROM. ABSENT: calf tenderness, clubbing, pedal edema Neurological exam: PRESENT: alert, awake, oriented to person, oriented to place , oriented to time, oriented to situation, CN II-XII grossly intact. ABSENT: motor sensory deficit Psychiatric exam: PRESENT: appropriate affect, normal mood. ABSENT: homicidal ideation, suicidal ideation Skin exam: PRESENT: dry, intact, warm. ABSENT: cyanosis, rash Results Laboratory Results: 09/06/17 04:34 09/07/17 04:13 09/06/17 09/07/17 14:15 04:13 Sodium 141.1 Potassium 5.6 H Chloride 99 Carbon Dioxide 33 H Anion Gap 9 BUN 30 H Creatinine 1.75 H Est GFR ( Amer) 46 L Est GFR (Non-Af Amer) 38 L Glucose 78 Calcium 8.7 Magnesium 1.6 Urine Color YELLOW Urine Appearance SLIGHTLY-CLOUDY Urine pH 8.0 Ur Specific [place] 1.011 Urine Protein NEGATIVE Urine Glucose (UA) NEGATIVE Urine Ketones NEGATIVE Urine Blood NEGATIVE Urine Nitrite NEGATIVE Ur Leukocyte Esterase MODERATE H Urine WBC (Auto) 24 Urine RBC (Auto) 3 08/27/17 08/27/17 08/27/17 16:00 16:00 22:00 Creatine Kinase 63 108 CK-MB (CK-2) 1.63 Troponin I 0.053 08/27/17 08/28/17 08/28/17 22:00 00:56 00:56 Creatine Kinase 135 CK-MB (CK-2) 2.33 2.91 Troponin I 0.041 0.048 08/28/17 08/28/17 08/28/17 05:47 05:47 12:25 Creatine Kinase 195 H 229 H CK-MB (CK-2) 3.82 Troponin I 0.058 08/28/17 08/28/17 08/28/17 12:25 17:55 17:55 Creatine Kinase 296 H CK-MB (CK-2) 4.25 4.67 H Troponin I 0.067 0.067 Impressions: Chest X-Ray 08/27/17 09:42 IMPRESSION: No acute infiltrates. Decrease right lung pulmonary vascularity, question acute pulmonary embolus to the right side Results discussed with Dr. Stark Lung Scan-VQ NM 08/27/17 11:01 IMPRESSION: High probability study for right-sided pulmonary emboli. Right upper and lower lobe perfusion defects are present Head CT 08/28/17 00:00 IMPRESSION: No significant interval change. Abdomen X-Ray 08/28/17 00:44 IMPRESSION: Nonspecific gaseous dilation of the proximal colon. Qualifiers PATEINT BEING DISCHARGED WITH ANY OF THE FOLLOWING DIAGNOSIS?: No Plan Discharge Plan: He will be discharged home today in stable condition as soon as oxygen therapy point has been set up an appropriate outpatient follow-up. Time Spent: Greater than 30 Minutes
[2017-09-07] MEDS ORDERED: SODIUM POLYSTYRENE SULFONATE 15 GM/60 ML PO ONE (12:00)
--- NOTE | 2017-09-07 13:11 | PDOC PROGRESS REPORT ---
Subjective Progress Note for:: 09/07/17 Subjective:: I am much better now Reason For Visit: PULMONARY EMBOLUS Physical Exam Vital Signs: Temp Pulse Resp BP Pulse Ox 98.2 F 57 L 19 155/71 H 92 09/07/17 08:12 09/07/17 11:44 09/07/17 08:12 09/07/17 08:12 09/07/17 11:44 Pulse Oximeter Continuous Start: 08/31/17 12: 23 Freq: RTQ4 Status: Complete Document 09/03/17 07:56 HCR (Rec: 09/03/17 10:38 HCR [email or web address]) Pulse Oximetry Assessment Equipment Usage Equipment Discontinued Continuous SpO2 Machine # 11 Intake & Output 09/06/17 09/07/17 09/08/17 06:59 06:59 06:59 Intake Total 1357 1467 Output Total 2100 1500 Balance -743 -33 General appearance: PRESENT: no acute distress, cooperative, disheveled, well- developed, well-nourished. ABSENT: mild distress, morbidly obese, severe distress Head exam: PRESENT: atraumatic, normocephalic Eye exam: PRESENT: conjunctiva pale, EOMI. ABSENT: nystagmus Mouth exam: PRESENT: dry mucosa, neck supple, tongue midline Neck exam: ABSENT: carotid bruit, JVD, lymphadenopathy, thyromegaly, tracheal deviation, tracheostomy Respiratory exam: PRESENT: decreased breath sounds, prolonged expiratory phas, rales, rhonchi, symmetrical, unlabored. ABSENT: accessory muscle use, chest wall tenderness, clear to auscultation annelise, crackles, retraction, stridor, tachypnea Cardiovascular exam: PRESENT: RRR, +S1, +S2 Pulses: PRESENT: normal radial pulses GI/Abdominal exam: PRESENT: diminished bowel sounds, soft Extremities exam: ABSENT: clubbing, joint swelling Musculoskeletal exam: ABSENT: deformity, dislocation Neurological exam: PRESENT: awake, oriented to person, oriented to place Skin exam: PRESENT: dry, warm Results Laboratory Results: 09/06/17 04:34 09/07/17 04:13 09/06/17 09/07/17 14:15 04:13 Sodium 141.1 Potassium 5.6 H Chloride 99 Carbon Dioxide 33 H Anion Gap 9 BUN 30 H Creatinine 1.75 H Est GFR ( Amer) 46 L Est GFR (Non-Af Amer) 38 L Glucose 78 Calcium 8.7 Magnesium 1.6 Urine Color YELLOW Urine Appearance SLIGHTLY-CLOUDY Urine pH 8.0 Ur Specific [place] 1.011 Urine Protein NEGATIVE Urine Glucose (UA) NEGATIVE Urine Ketones NEGATIVE Urine Blood NEGATIVE Urine Nitrite NEGATIVE Ur Leukocyte Esterase MODERATE H Urine WBC (Auto) 24 Urine RBC (Auto) 3 08/27/17 08/27/17 08/27/17 16:00 16:00 22:00 Creatine Kinase 63 108 CK-MB (CK-2) 1.63 Troponin I 0.053 08/27/17 08/28/17 08/28/17 22:00 00:56 00:56 Creatine Kinase 135 CK-MB (CK-2) 2.33 2.91 Troponin I 0.041 0.048 08/28/17 08/28/17 08/28/17 05:47 05:47 12:25 Creatine Kinase 195 H 229 H CK-MB (CK-2) 3.82 Troponin I 0.058 08/28/17 08/28/17 08/28/17 12:25 17:55 17:55 Creatine Kinase 296 H CK-MB (CK-2) 4.25 4.67 H Troponin I 0.067 0.067 Impressions: Chest X-Ray 08/27/17 09:42 IMPRESSION: No acute infiltrates. Decrease right lung pulmonary vascularity, question acute pulmonary embolus to the right side Results discussed with Dr. Stark Lung Scan-VQ NM 08/27/17 11:01 IMPRESSION: High probability study for right-sided pulmonary emboli. Right upper and lower lobe perfusion defects are present Head CT 08/28/17 00:00 IMPRESSION: No significant interval change. Abdomen X-Ray 08/28/17 00:44 IMPRESSION: Nonspecific gaseous dilation of the proximal colon. Assessment & Plan - Diagnosis (1) COPD (chronic obstructive pulmonary disease) Qualifiers: COPD type: COPD with acute exacerbation Qualified Code(s): J44.1 - Chronic obstructive pulmonary disease with (acute) exacerbation Is this a current diagnosis for this admission?: Yes Plan: The above patient has failed BiPAP. This patient would benefit from noninvasive mechanical ventilation via the trilogy AVAPS/AE and faster responding AVAPS rates. The trilogy is able to provide a target tidal volume and also adjusting the EPAP pressures to maintain a patent airway as well as an oral backup rate this machine will help improve PaCO2 levels. The severity of the patient's condition will lead to future hospitalizations and readmissions as well as life-threatening situations without the use of this device trilogy home vent needed for hypercapnic respiratory failure. [facility] or [facility] [place] to follow for trilogy set up. (2) Chronic kidney disease, stage III (moderate) Is this a current diagnosis for this admission?: Yes (3) Hypertension Qualifiers: Hypertension type: essential hypertension Qualified Code(s): I10 - Essential (primary) hypertension Is this a current diagnosis for this admission?: Yes Plan: Stable at this time (4) Pulmonary embolism Qualifiers: Pulmonary embolism type: other Chronicity: acute Acute cor pulmonale presence: without acute cor pulmonale Qualified Code(s): I26.99 - Other pulmonary embolism without acute cor pulmonale Is this a current diagnosis for this admission?: Yes
--- NOTE | 2017-09-07 13:17 | PDOC PROGRESS REPORT ---
Subjective Progress Note for:: 09/01/17 Subjective:: Very lethargic and confused Reason For Visit: PULMONARY EMBOLUS Physical Exam Vital Signs: Temp Pulse Resp BP Pulse Ox 97.8 F 70 18 119/48 L 97 09/02/17 12:00 09/02/17 14:00 09/02/17 14:00 09/02/17 12:00 09/02/17 14:00 Pulse Oximeter Continuous Start: 08/31/17 12: 23 Freq: RTQ4 Status: Active Document 09/02/17 13:00 [facility] (Rec: 09/02/17 14:08 J [email or web address]) Pulse Oximetry Assessment Oxygen Saturation (92-100) 97 Oxygen Delivery Method Bi-pap Fraction of Inspired Oxygen (FIO2) 30 Equipment Usage Equipment in Use Continuous SpO2 Machine # 11 Intake & Output 09/01/17 09/02/17 09/03/17 06:59 06:59 06:59 Intake Total 810 1594 200 Output Total 920 1850 295 Balance -110 -256 -95 Weight 95.5 kg 95.2 kg 95.3 kg General appearance: PRESENT: no acute distress, disheveled, well-developed. ABSENT: cooperative, mild distress, morbidly obese, obese, severe distress Head exam: PRESENT: atraumatic, normocephalic Eye exam: PRESENT: conjunctiva pale, EOMI. ABSENT: conjunctival injection, conjunctiva pink Mouth exam: PRESENT: dry mucosa, neck supple, tongue midline Neck exam: ABSENT: carotid bruit, JVD, lymphadenopathy, thyromegaly, tracheal deviation, tracheostomy Respiratory exam: PRESENT: crackles, decreased breath sounds, prolonged expiratory phas, rhonchi, symmetrical. ABSENT: accessory muscle use, chest wall tenderness, clear to auscultation annelise, rales, retraction, stridor Cardiovascular exam: PRESENT: RRR, +S1, +S2 Pulses: PRESENT: normal radial pulses GI/Abdominal exam: PRESENT: diminished bowel sounds, soft Extremities exam: PRESENT: clubbing. ABSENT: joint swelling Musculoskeletal exam: ABSENT: ambulatory, deformity, dislocation Neurological exam: PRESENT: awake, oriented to person, oriented to place Skin exam: PRESENT: dry, warm Results Laboratory Results: 09/01/17 04:17 09/02/17 05:19 08/31/17 09/01/17 09/01/17 17:55 16:50 16:57 Carbonic Acid 1.94 H HCO3/H2CO3 Ratio 17:1 ABG pH 7.34 L ABG pCO2 64.6 H ABG pO2 68.6 L ABG HCO3 34.3 H ABG O2 Saturation 92.2 L ABG Base Excess 7.2 FiO2 6L Sodium 136.3 L Potassium 6.4 H* Chloride 95 L Carbon Dioxide 32 H Anion Gap 9 BUN 49 H Creatinine 2.02 H Est GFR ( Amer) 39 L Est GFR (Non-Af Amer) 32 L Glucose 164 H Calcium 8.4 Transferrin 246 Urine Color Urine Appearance Urine pH Ur Specific [place] Urine Protein Urine Glucose (UA) Urine Ketones Urine Blood Urine Nitrite Ur Leukocyte Esterase Urine WBC (Auto) Urine RBC (Auto) 09/02/17 09/02/17 09/02/17 03:30 05:19 12:35 Carbonic Acid 1.87 H HCO3/H2CO3 Ratio 19:1 ABG pH 7.38 ABG pCO2 62.2 H ABG pO2 106.3 H ABG HCO3 35.6 H ABG O2 Saturation 97.6 ABG Base Excess 9.1 FiO2 30% Sodium 137.5 Potassium 5.5 H Chloride 98 Carbon Dioxide 33 H Anion Gap 7 BUN 44 H Creatinine 1.91 H Est GFR ( Amer) 42 L Est GFR (Non-Af Amer) 35 L Glucose 96 Calcium 8.3 L Transferrin Urine Color STRAW Urine Appearance CLEAR Urine pH 8.0 Ur Specific [place] 1.008 Urine Protein NEGATIVE Urine Glucose (UA) NEGATIVE Urine Ketones NEGATIVE Urine Blood SMALL H Urine Nitrite NEGATIVE Ur Leukocyte Esterase MODERATE H Urine WBC (Auto) 4 Urine RBC (Auto) 1 08/27/17 08/27/17 08/27/17 16:00 16:00 22:00 Creatine Kinase 63 108 CK-MB (CK-2) 1.63 Troponin I 0.053 08/27/17 08/28/17 08/28/17 22:00 00:56 00:56 Creatine Kinase 135 CK-MB (CK-2) 2.33 2.91 Troponin I 0.041 0.048 08/28/17 08/28/17 08/28/17 05:47 05:47 12:25 Creatine Kinase 195 H 229 H CK-MB (CK-2) 3.82 Troponin I 0.058 08/28/17 08/28/17 08/28/17 12:25 17:55 17:55 Creatine Kinase 296 H CK-MB (CK-2) 4.25 4.67 H Troponin I 0.067 0.067 Impressions: Chest X-Ray 08/27/17 09:42 IMPRESSION: No acute infiltrates. Decrease right lung pulmonary vascularity, question acute pulmonary embolus to the right side Results discussed with Dr. Stark Lung Scan-VQ NM 08/27/17 11:01 IMPRESSION: High probability study for right-sided pulmonary emboli. Right upper and lower lobe perfusion defects are present Head CT 08/28/17 00:00 IMPRESSION: No significant interval change. Abdomen X-Ray 08/28/17 00:44 IMPRESSION: Nonspecific gaseous dilation of the proximal colon. Assessment & Plan - Diagnosis (1) COPD (chronic obstructive pulmonary disease) Qualifiers: COPD type: COPD with acute exacerbation Qualified Code(s): J44.1 - Chronic obstructive pulmonary disease with (acute) exacerbation Is this a current diagnosis for this admission?: Yes Plan: Unchanged (2) Chronic kidney disease, stage III (moderate) Is this a current diagnosis for this admission?: Yes Plan: Makes CTA prohibitive at this time (3) Hypertension Qualifiers: Hypertension type: essential hypertension Qualified Code(s): I10 - Essential (primary) hypertension Is this a current diagnosis for this admission?: Yes Plan: Stable at this time (4) Pulmonary embolism Qualifiers: Pulmonary embolism type: other Chronicity: acute Acute cor pulmonale presence: without acute cor pulmonale Qualified Code(s): I26.99 - Other pulmonary embolism without acute cor pulmonale Is this a current diagnosis for this admission?: Yes Plan: Anticoagulation in progress
--- NOTE | 2017-09-07 13:46 | PDOC PROGRESS REPORT ---
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 would benefit from ablation patient does not want to have procedure done while he is an inpatient spoke to him about procedure, time it takes, goals to achieve and it would hold up his discharge patient refuses and wants to do as an outpatient he was made aware of the need to withhold his anticoagulation and at risk for further clots and potential embolism states does not want to proceed is not present for discussion Reason For Visit: PULMONARY EMBOLUS Physical Exam Vital Signs: Temp Pulse Resp BP Pulse Ox 98.2 F 57 L 19 155/71 H 92 09/07/17 08:12 09/07/17 11:44 09/07/17 08:12 09/07/17 08:12 09/07/17 11:44 Pulse Oximeter Continuous Start: 08/31/17 12: 23 Freq: RTQ4 Status: Complete Document 09/03/17 07:56 HCR (Rec: 09/03/17 10:38 HCR [email or web address]) Pulse Oximetry Assessment Equipment Usage Equipment Discontinued Continuous SpO2 Machine # 11 Intake & Output 09/06/17 09/07/17 09/08/17 06:59 06:59 06:59 Intake Total 1357 1467 Output Total 2100 1500 Balance -743 -33 General appearance: PRESENT: no acute distress, well-developed, well-nourished Head exam: PRESENT: atraumatic, normocephalic Eye exam: PRESENT: EOMI, PERRLA. ABSENT: nystagmus, periorbital swelling, scleral icterus Mouth exam: PRESENT: moist, neck supple Throat exam: ABSENT: tonsillar exudate, tonsillogmegaly Neck exam: ABSENT: meningismus, tenderness, thyromegaly Respiratory exam: PRESENT: symmetrical, unlabored. ABSENT: tachypnea, wheezes Cardiovascular exam: PRESENT: RRR, +S1, +S2 GI/Abdominal exam: PRESENT: soft. ABSENT: rebound, rigid, tenderness Extremities exam: ABSENT: joint swelling Neurological exam: PRESENT: alert, oriented to time, oriented to situation, CN II-XII grossly intact Psychiatric exam: PRESENT: appropriate affect Focused psych exam: ABSENT: restlessness Skin exam: PRESENT: normal color. ABSENT: mottled, pallor, petechiae, urticaria , vesicles Results Laboratory Results: 09/06/17 04:34 09/07/17 04:13 09/06/17 09/07/17 14:15 04:13 Sodium 141.1 Potassium 5.6 H Chloride 99 Carbon Dioxide 33 H Anion Gap 9 BUN 30 H Creatinine 1.75 H Est GFR ( Amer) 46 L Est GFR (Non-Af Amer) 38 L Glucose 78 Calcium 8.7 Magnesium 1.6 Urine Color YELLOW Urine Appearance SLIGHTLY-CLOUDY Urine pH 8.0 Ur Specific [place] 1.011 Urine Protein NEGATIVE Urine Glucose (UA) NEGATIVE Urine Ketones NEGATIVE Urine Blood NEGATIVE Urine Nitrite NEGATIVE Ur Leukocyte Esterase MODERATE H Urine WBC (Auto) 24 Urine RBC (Auto) 3 08/27/17 08/27/17 08/27/17 16:00 16:00 22:00 Creatine Kinase 63 108 CK-MB (CK-2) 1.63 Troponin I 0.053 08/27/17 08/28/17 08/28/17 22:00 00:56 00:56 Creatine Kinase 135 CK-MB (CK-2) 2.33 2.91 Troponin I 0.041 0.048 08/28/17 08/28/17 08/28/17 05:47 05:47 12:25 Creatine Kinase 195 H 229 H CK-MB (CK-2) 3.82 Troponin I 0.058 08/28/17 08/28/17 08/28/17 12:25 17:55 17:55 Creatine Kinase 296 H CK-MB (CK-2) 4.25 4.67 H Troponin I 0.067 0.067 Impressions: Chest X-Ray 08/27/17 09:42 IMPRESSION: No acute infiltrates. Decrease right lung pulmonary vascularity, question acute pulmonary embolus to the right side Results discussed with Dr. Stark Lung Scan-VQ MD 08/27/17 11:01 IMPRESSION: High probability study for right-sided pulmonary emboli. Right upper and lower lobe perfusion defects are present Head CT 08/28/17 00:00 IMPRESSION: No significant interval change. Abdomen X-Ray 08/28/17 00:44 IMPRESSION: Nonspecific gaseous dilation of the proximal colon. Assessment & Plan - Diagnosis (1) Occult blood in stools Is this a current diagnosis for this admission?: Yes (2) Anemia Qualifiers: Anemia type: iron deficiency Is this a current diagnosis for this admission?: Yes (3) Adenomatous colon polyp Plan: surveillance in 3 years, sooner if having problems (4) Mayen's esophagus with dysplasia Plan: needs ablation with HALO, if progresses then possible surgical esophagectomy which is high risk and ? if candidate with present medical issues Risks of progression to esophageal cancer explained ablation procedure explained would not hold up his discharge patient not willing to proceed and wants to do it as an outpatient risk of further embolism explained since anticoagulation will need to be discontinued on a temporary basis patient prefers to wait not present for discussion
--- NOTE | 2017-09-07 13:51 | PDOC PROGRESS REPORT ---
Subjective Progress Note for:: 09/02/17 Subjective:: Feeling a little better Reason For Visit: PULMONARY EMBOLUS Physical Exam Vital Signs: Temp Pulse Resp BP Pulse Ox 97.8 F 70 18 119/48 L 97 09/02/17 12:00 09/02/17 14:00 09/02/17 14:00 09/02/17 12:00 09/02/17 14:00 Pulse Oximeter Continuous Start: 08/31/17 12: 23 Freq: RTQ4 Status: Active Document 09/02/17 13:00 JDR (Rec: 09/02/17 14:08 JDR [email or web address]) Pulse Oximetry Assessment Oxygen Saturation (92-100) 97 Oxygen Delivery Method Bi-pap Fraction of Inspired Oxygen (FIO2) 30 Equipment Usage Equipment in Use Continuous SpO2 Machine # 11 Intake & Output 09/01/17 09/02/17 09/03/17 06:59 06:59 06:59 Intake Total 810 1594 200 Output Total 920 1850 295 Balance -110 -256 -95 Weight 95.5 kg 95.2 kg 95.3 kg General appearance: PRESENT: no acute distress, disheveled, well-developed. ABSENT: mild distress, morbidly obese, severe distress Head exam: PRESENT: atraumatic, normocephalic Eye exam: PRESENT: conjunctiva pale, EOMI. ABSENT: nystagmus Mouth exam: PRESENT: dry mucosa, neck supple, tongue midline Neck exam: ABSENT: carotid bruit, JVD, lymphadenopathy, thyromegaly, tracheal deviation, tracheostomy Respiratory exam: PRESENT: decreased breath sounds, prolonged expiratory phas, rales, rhonchi, symmetrical, unlabored. ABSENT: accessory muscle use, chest wall tenderness, clear to auscultation annelise, crackles, retraction, stridor, tachypnea Cardiovascular exam: PRESENT: RRR, +S1, +S2 Pulses: PRESENT: normal radial pulses GI/Abdominal exam: PRESENT: diminished bowel sounds, soft Extremities exam: ABSENT: calf tenderness, clubbing, joint swelling Musculoskeletal exam: ABSENT: deformity, dislocation Neurological exam: PRESENT: awake Psychiatric exam: PRESENT: flat affect Skin exam: PRESENT: dry, warm Results Laboratory Results: 09/01/17 04:17 09/02/17 05:19 08/31/17 09/01/17 09/01/17 17:55 16:50 16:57 Carbonic Acid 1.94 H HCO3/H2CO3 Ratio 17:1 ABG pH 7.34 L ABG pCO2 64.6 H ABG pO2 68.6 L ABG HCO3 34.3 H ABG O2 Saturation 92.2 L ABG Base Excess 7.2 FiO2 6L Sodium 136.3 L Potassium 6.4 H* Chloride 95 L Carbon Dioxide 32 H Anion Gap 9 BUN 49 H Creatinine 2.02 H Est GFR ( Amer) 39 L Est GFR (Non-Af Amer) 32 L Glucose 164 H Calcium 8.4 Transferrin 246 Urine Color Urine Appearance Urine pH Ur Specific [place] Urine Protein Urine Glucose (UA) Urine Ketones Urine Blood Urine Nitrite Ur Leukocyte Esterase Urine WBC (Auto) Urine RBC (Auto) 09/02/17 09/02/17 09/02/17 03:30 05:19 12:35 Carbonic Acid 1.87 H HCO3/H2CO3 Ratio 19:1 ABG pH 7.38 ABG pCO2 62.2 H ABG pO2 106.3 H ABG HCO3 35.6 H ABG O2 Saturation 97.6 ABG Base Excess 9.1 FiO2 30% Sodium 137.5 Potassium 5.5 H Chloride 98 Carbon Dioxide 33 H Anion Gap 7 BUN 44 H Creatinine 1.91 H Est GFR ( Amer) 42 L Est GFR (Non-Af Amer) 35 L Glucose 96 Calcium 8.3 L Transferrin Urine Color STRAW Urine Appearance CLEAR Urine pH 8.0 Ur Specific [place] 1.008 Urine Protein NEGATIVE Urine Glucose (UA) NEGATIVE Urine Ketones NEGATIVE Urine Blood SMALL H Urine Nitrite NEGATIVE Ur Leukocyte Esterase MODERATE H Urine WBC (Auto) 4 Urine RBC (Auto) 1 08/27/17 08/27/17 08/27/17 16:00 16:00 22:00 Creatine Kinase 63 108 CK-MB (CK-2) 1.63 Troponin I 0.053 08/27/17 08/28/17 08/28/17 22:00 00:56 00:56 Creatine Kinase 135 CK-MB (CK-2) 2.33 2.91 Troponin I 0.041 0.048 08/28/17 08/28/17 08/28/17 05:47 05:47 12:25 Creatine Kinase 195 H 229 H CK-MB (CK-2) 3.82 Troponin I 0.058 08/28/17 08/28/1718 12:25 17:55 17:55 Creatine Kinase 296 H CK-MB (CK-2) 4.25 4.67 H Troponin I 0.067 0.067 Impressions: Chest X-Ray 08/27/17 09:42 IMPRESSION: No acute infiltrates. Decrease right lung pulmonary vascularity, question acute pulmonary embolus to the right side Results discussed with Dr. Stark Lung Scan-VQ NM 08/27/17 11:01 IMPRESSION: High probability study for right-sided pulmonary emboli. Right upper and lower lobe perfusion defects are present Head CT 08/28/17 00:00 IMPRESSION: No significant interval change. Abdomen X-Ray 08/28/17 00:44 IMPRESSION: Nonspecific gaseous dilation of the proximal colon. Assessment & Plan - Diagnosis (1) COPD (chronic obstructive pulmonary disease) Qualifiers: COPD type: COPD with acute exacerbation Qualified Code(s): J44.1 - Chronic obstructive pulmonary disease with (acute) exacerbation Is this a current diagnosis for this admission?: Yes Plan: Continues to improve (2) Chronic kidney disease, stage III (moderate) Is this a current diagnosis for this admission?: Yes Plan: Makes CTA prohibitive at this time (3) Hypertension Qualifiers: Hypertension type: essential hypertension Qualified Code(s): I10 - Essential (primary) hypertension Is this a current diagnosis for this admission?: Yes Plan: Stable at this time (4) Pulmonary embolism Qualifiers: Pulmonary embolism type: other Chronicity: acute Acute cor pulmonale presence: without acute cor pulmonale Qualified Code(s): I26.99 - Other pulmonary embolism without acute cor pulmonale Is this a current diagnosis for this admission?: Yes Plan: not Anticoagulated high probability V/Q
[2017-09-07] MEDS: LEVALBUTEROL HCL NEB 1.25 MG/3 ML AMPUL NEB PRN (14:29)
[2017-09-07] MEDS ORDERED: DEXTROSE 50%-WATER 25 GM/50 ML DISP.SYRIN IV PRN ×2 (16:06)
[2017-09-07] MEDS ORDERED: DEXTROSE 40% GEL 15 GM TUBE PO PRN ×2 (16:06)
[2017-09-07] MEDS ORDERED: GLUCAGON,HUMAN RECOMB 1 MG INJ SUBCUT PRN (16:06)
[2017-09-07] MEDS: FAMOTIDINE 20 MG TABLET PO SCH (17:40)
[2017-09-07] MEDS: ATORVASTATIN CALCIUM 10 MG TABLET PO SCH (21:56)
[2017-09-07] MEDS: WARFARIN SODIUM 7.5 MG TABLET PO SCH (21:56)
[2017-09-08] MEDS: HYDRALAZINE HCL 50 MG TABLET PO SCH ×3 (05:03→22:49)
[2017-09-08] MEDS: NIFEDIPINE 30 MG TAB.ER.24 PO SCH (09:22)
[2017-09-08] MEDS: CYANOCOBALAMIN (VITAMIN B-12) 1,000 MCG TABLET PO SCH (09:25)
[2017-09-08] MEDS: IRON POLYSACCHARIDES COMPLEX 150 MG CAPSULE PO SCH (09:25)
[2017-09-08] MEDS: METOPROLOL TARTRATE 50 MG TABLET PO SCH ×2 (09:25→22:49)
[2017-09-08] MEDS: PREDNISONE 20 MG TABLET PO SCH (09:25)
[2017-09-08] MEDS ORDERED: ONDANSETRON HCL INJ/PF 4 MG/2 ML SDV ONE (10:09)
[2017-09-08] MEDS ORDERED: DIPHENHYDRAMINE HCL 50 MG/ML VIAL ONE (10:09)
[2017-09-08] MEDS ORDERED: NALOXONE HCL INJ/PF 0.4 MG/1 ML SDV ONE (10:10)
[2017-09-08] MEDS ORDERED: FLUMAZENIL INJ 0.5 MG/5 ML VIAL ONE (10:11)
[2017-09-08] MEDS ORDERED: GLUCAGON,HUMAN RECOMB 1 MG INJ ONE (10:11)
[2017-09-08] MEDS ORDERED: EPINEPHRINE INJ 1 MG/10 ML DISP.SYRIN ONE (10:11)
[2017-09-08] MEDS: MIDAZOLAM 2 MG/2 ML INJ ONE ×2 (11:12→11:18)
[2017-09-08] MEDS: FENTANYL CITRATE INJ/PF 100 MCG/2 ML AMPUL ONE ×2 (11:14→11:16)
--- NOTE | 2017-09-08 11:47 | Operative Report ---
Operative Report DATE OF SURGERY: 09/08/17 PREOPERATIVE DIAGNOSIS: Mayen's esophagus POSTOPERATIVE DIAGNOSIS: Mayen's esophagus, area of biopsy there was previously done shows a focus of high-grade dysplasia. Patient had ablation done of the area. There is a residual small ulcer at the site of biopsy does not actively bleeding. OPERATION: Colonoscopy with snare polypectomy. EGD with biopsy SURGEON: PINO LAFLEUR ANESTHESIA: Moderate Sedation - 3 mg of Versed, 50 mics of fentanyl. Conscious sedation monitoring time 30 minutes. TISSUE REMOVED OR ALTERED: As noted above. COMPLICATIONS: None. ESTIMATED BLOOD LOSS: None. INTRAOPERATIVE FINDINGS: As noted above. PROCEDURE: Patient tolerated procedure well. No immediate postprocedure complications are noted. Patient is sent back to his room in good condition. Resume regular diet Resume previous activity level Watch for any bleeding since patient is receiving Coumadin Keep on PPI. Even as an outpatient in the absence of symptoms. We will need follow-up EGD in 4-6 months to reevaluate the area perhaps repeat ablation needs to be done Patient is instructed to call if any symptoms of dysphagia or difficulty swallowing. Instructions were provided to the .
[2017-09-08] MEDS: ENOXAPARIN SODIUM INJ 100 MG/1 ML DISP.SYRIN SUBCUT SCH ×2 (12:33→22:49)
--- NOTE | 2017-09-08 15:28 | PROGRESS NOTE E ---
Progress Note NAME: RASHI MC : 1940 AGE: 76Y DATE: 09/08/2017 ROOM: 309 SUBJECTIVE: This patient was seen and evaluated on rounds this morning. He is laying in bed quietly with no complaints. He is awaiting further evaluation of his GI symptoms. In fact, there is a colonoscopy as well as EGD planned today. This was supposed to have been done as outpatient, but it appears patient decided to wait and have this done. He otherwise denies any complaints. OBJECTIVE: GENERAL: Fairly *comfortable gentleman in no distress. He is awake, alert, oriented x3. VITAL SIGNS: A blood pressure of 121/76, pulse of 66. He is afebrile. HEENT: Head is normocephalic and atraumatic. LUNGS: Clear to auscultation HEART: S1, S2. Regular rate and rhythm. ABDOMEN: Soft, nontender with normoactive bowel sounds. There is no organomegaly. EXTREMITIES: No edema. CENTRAL NERVOUS SYSTEM: Exam is grossly intact. Patient is awake, alert, and oriented to name and place. DIAGNOSTIC DATA: White count of 9.2, H and H of 9.1 and 30.2. Sodium is 141, potassium is 5.6, creatinine of 1.7, BUN of 30, CO2 of 33. INR of 1.07. ASSESSMENT AND PLAN: 1. 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 Patient is status post EGD today. He did have a snare polypectomy with colonoscopy done today as well as EGD with biopsy. Results will be followed. 2. ACUTE RESPIRATORY FAILURE WITH HYPOXIA SECONDARY TO PULMONARY EMBOLISM. Patient had been on Lovenox as well as Coumadin and it appears, from what I understand, the wants this to be continued. This will be restarted today. 3. PULMONARY EMBOLISM. Currently on Lovenox and Coumadin. 4. ACUTE ON CHRONIC RENAL FAILURE, SOMEWHAT IMPROVED. Follow up with PCP. 5. COPD WITH CHRONIC RESPIRATORY FAILURE. He is going to be discharged home with oxygen. 6. HYPERTENSION, BENIGN, ESSENTIAL, UNSTABLE. 7. ANEMIA, LIKELY DUE TO OCCULT GI LOSS. Hemoglobin is stable. 8. HYPERKALEMIA. Although his kidney function is abnormal, it is unclear that that will explain his persistent hyperkalemia. I reviewed his medications and I really did not see anything that may cause this. At this point, I will go ahead and give him another dose of Kayexalate and will recheck in a.m. 9. Patient will be monitored. It appears the plan now is to continue Lovenox bridge with Coumadin until it is therapeutic, and so he will need to stay in the hospital, especially after having his snare polypectomy today. DICTATING PHYSICIAN: COTY JORGE M.D. [id number] PHY#: [id number] ID: [id number] JOB#: [id number] ACCT: [id number] cc: > MTDD
[2017-09-08] MEDS ORDERED: SODIUM POLYSTYRENE SULFONATE 15 GM/60 ML PO ONE (16:00)
[2017-09-08] MEDS: FAMOTIDINE 20 MG TABLET PO SCH (17:30)
[2017-09-08] MEDS: WARFARIN SODIUM 7.5 MG TABLET PO SCH (22:49)
[2017-09-08] MEDS: ATORVASTATIN CALCIUM 10 MG TABLET PO SCH (22:49)
[2017-09-08] MEDS: ZOLPIDEM TARTRATE 5 MG TABLET PO SCH (23:09)
[2017-09-09 05:13] LABS: HEMATOCRIT 31.7 % (37.9-51.0); HEMOGLOBIN 9.7 g/dL (13.5-17.0); MEAN CORPUSCULAR HEMOGLOBIN 24.2 pg (27.0-33.4); MEAN CORPUSCULAR HGB CONC 30.5 g/dL (32.0-36.0); MEAN CORPUSCULAR VOLUME 80 fl (80-97); PLATELET COUNT 335 10^3/uL (150-450); RED BLOOD COUNT 3.99 10^6/uL (4.35-5.55); WHITE BLOOD COUNT 10.8 10^3/uL (4.0-10.5)
[2017-09-09 05:17] LABS: ANION GAP 6 (5-19); BLOOD UREA NITROGEN 39 mg/dL (7-20); CALCIUM 8.4 mg/dL (8.4-10.2); CARBON DIOXIDE 33 mmol/L (22-30); CHLORIDE 101 mmol/L (98-107); GLUCOSE 85 mg/dL (75-110); POTASSIUM 4.1 mmol/L (3.6-5.0); SODIUM 140.4 mmol/L (137-145)
[2017-09-09 05:32] LABS: ABSOLUTE LYMPHOCYTES# (MANUAL) 0.8 10^3/uL (0.5-4.7); ABSOLUTE NEUTROPHILS# (MANUAL) 9.1 10^3/uL (1.7-8.2); ANISOCYTOSIS 1+; BASOPHILS % (MANUAL) 0 % (0-2); EOSINOPHILS % (MANUAL) 0 % (0-6); LYMPHOCYTES % (MANUAL) 7 % (13-45); MONOCYTES % (MANUAL) 9 % (3-13); PLATELET COMMENT ADEQUATE; SEGMENTED NEUTROPHILS % (MAN) 84 % (42-78); TOTAL CELLS COUNTED 100; TOXIC VACUOLATION PRESENT
[2017-09-09] MEDS: HYDRALAZINE HCL 50 MG TABLET PO SCH ×3 (05:52→21:14)
[2017-09-09 08:58] LABS: INTERNATIONAL RATION (INR) 1.53; PROTHROMBIN TIME 19.3 SEC (11.4-15.4)
[2017-09-09 09:00] LABS: PARTIAL THROMBOPLASTIN TIME 48.5 SEC (23.5-35.8)
[2017-09-09] MEDS: CYANOCOBALAMIN (VITAMIN B-12) 1,000 MCG TABLET PO SCH (10:41)
[2017-09-09] MEDS: IRON POLYSACCHARIDES COMPLEX 150 MG CAPSULE PO SCH (10:41)
[2017-09-09] MEDS: METOPROLOL TARTRATE 50 MG TABLET PO SCH ×2 (10:42→21:14)
[2017-09-09] MEDS: NIFEDIPINE 30 MG TAB.ER.24 PO SCH (10:42)
[2017-09-09] MEDS: ENOXAPARIN SODIUM INJ 100 MG/1 ML DISP.SYRIN SUBCUT SCH ×2 (10:43→21:14)
[2017-09-09] MEDS: PREDNISONE 20 MG TABLET PO SCH (10:43)
--- NOTE | 2017-09-09 12:56 | PDOC PROGRESS REPORT ---
Subjective Progress Note for:: 09/09/17 Subjective:: patient underwent EGD yesterday with ablation the site at which the biopsy was taken to show the high grade dysplasia is now slightly ulcerated, the rest of the Mayen's treated I had spoken to the patient's at some point as outpatient will need follow with repeat ablation he can resume his anticoagulation to goal will need PPI on discharge, carafate can be started, if needed , can give for about 1 week at best Reason For Visit: PULMONARY EMBOLUS Physical Exam Vital Signs: Temp Pulse Resp BP Pulse Ox 97.7 F 70 12 135/65 H 91 L 09/09/17 12:31 09/09/17 12:31 09/09/17 12:31 09/09/17 12:31 09/09/17 12:31 Pulse Oximeter Continuous Start: 08/31/17 12: 23 Freq: RTQ4 Status: Complete Document 09/03/17 07:56 HCR (Rec: 09/03/17 10:38 HCR [email or web address]) Pulse Oximetry Assessment Equipment Usage Equipment Discontinued Continuous SpO2 Machine # 11 Intake & Output 09/08/17 09/09/17 09/10/17 06:59 06:59 06:59 Intake Total 1051 959 Output Total 1350 625 Balance -299 334 General appearance: PRESENT: no acute distress, well-developed, well-nourished Head exam: PRESENT: atraumatic, normocephalic Eye exam: PRESENT: EOMI, PERRLA. ABSENT: nystagmus, periorbital swelling, scleral icterus Mouth exam: PRESENT: moist, neck supple Throat exam: ABSENT: tonsillar exudate, tonsillogmegaly Neck exam: ABSENT: meningismus, tenderness, thyromegaly Respiratory exam: PRESENT: symmetrical, unlabored. ABSENT: tachypnea, wheezes Cardiovascular exam: PRESENT: RRR, +S1, +S2 GI/Abdominal exam: PRESENT: soft. ABSENT: rebound, rigid, tenderness Extremities exam: ABSENT: joint swelling Musculoskeletal exam: PRESENT: full ROM Neurological exam: PRESENT: alert, awake, oriented to situation, CN II-XII grossly intact Skin exam: PRESENT: normal color. ABSENT: mottled, pallor, petechiae, urticaria , vesicles Results Laboratory Results: 09/09/17 04:20 09/09/17 04:20 09/08/17 09/09/17 09/09/17 20:30 04:20 04:20 WBC 10.8 H RBC 3.99 L Hgb 9.7 L Hct 31.7 L MCV 80 MCH 24.2 L MCHC 30.5 L RDW 16.0 H Plt Count 335 Seg Neutrophils % Not Reportable Lymphocytes % Not Reportable Monocytes % Not Reportable Eosinophils % Not Reportable Basophils % Not Reportable Absolute Neutrophils Not Reportable Absolute Lymphocytes Not Reportable Absolute Monocytes Not Reportable Absolute Eosinophils Not Reportable Absolute Basophils Not Reportable Sodium 140.4 Potassium 4.1 Chloride 101 Carbon Dioxide 33 H Anion Gap 6 BUN 39 H Creatinine 1.80 H Est GFR ( Amer) 45 L Est GFR (Non-Af Amer) 37 L Glucose 85 Calcium 8.4 Stool Occult Blood NEGATIVE 08/27/17 08/27/17 08/27/17 16:00 16:00 22:00 Creatine Kinase 63 108 CK-MB (CK-2) 1.63 Troponin I 0.053 08/27/17 08/28/17 08/28/17 22:00 00:56 00:56 Creatine Kinase 135 CK-MB (CK-2) 2.33 2.91 Troponin I 0.041 0.048 08/28/17 08/28/17 08/28/17 05:47 05:47 12:25 Creatine Kinase 195 H 229 H CK-MB (CK-2) 3.82 Troponin I 0.058 08/28/17 08/28/17 08/28/17 12:25 17:55 17:55 Creatine Kinase 296 H CK-MB (CK-2) 4.25 4.67 H Troponin I 0.067 0.067 Impressions: Chest X-Ray 08/27/17 09:42 IMPRESSION: No acute infiltrates. Decrease right lung pulmonary vascularity, question acute pulmonary embolus to the right side Results discussed with Dr. Stark Lung Scan-VQ [place] 08/27/17 11:01 IMPRESSION: High probability study for right-sided pulmonary emboli. Right upper and lower lobe perfusion defects are present Head CT 08/28/17 00:00 IMPRESSION: No significant interval change. Abdomen X-Ray 08/28/17 00:44 IMPRESSION: Nonspecific gaseous dilation of the proximal colon. Assessment & Plan - Diagnosis (1) Occult blood in stools Is this a current diagnosis for this admission?: Yes (2) Anemia Qualifiers: Anemia type: iron deficiency Is this a current diagnosis for this admission?: Yes (4) Mayen's esophagus with dysplasia Plan: follow up EGD with repeat biopsy at previous site of HGD and to assess for need of further treatment since an ulcerated area cannot be ablated due to increased risk of bleeding, will allow area to heal and reassess at next EGD - Time Time Spent with patient: 15-24 minutes
--- NOTE | 2017-09-09 16:06 | PDOC PROGRESS REPORT ---
Subjective Progress Note for:: 09/09/17 Subjective:: Patient had EGD and colonoscopy done on September 08 which showed Mayen's esophagus and some areas of dysplasia. He also had a snare polypectomy with colonoscopy done today. There was no area of active bleeding. Patient reports feeling better today. His is by his bedside and we discussed his anticoagulation regimen. The who will be preferred if he could get on the newer anticoagulants however there is a cost issue and at this point I have involved the home health care case manager to see what we can do and see if the medications can be procured free of charge. If this is still then patient will be discharged on 1 of his medications otherwise will continue with the current Coumadin plan. Reason For Visit: PULMONARY EMBOLUS Physical Exam Vital Signs: Temp Pulse Resp BP Pulse Ox 97.7 F 70 12 135/65 H 91 L 09/09/17 12:31 09/09/17 12:31 09/09/17 12:31 09/09/17 12:31 09/09/17 12:31 Pulse Oximeter Continuous Start: 08/31/17 12: 23 Freq: RTQ4 Status: Complete Document 09/03/17 07:56 HCR (Rec: 09/03/17 10:38 HCR [email or web address]) Pulse Oximetry Assessment Equipment Usage Equipment Discontinued Continuous SpO2 Machine # 11 Intake & Output 09/08/17 09/09/17 09/10/17 06:59 06:59 06:59 Intake Total 1051 959 237 Output Total 1350 625 200 Balance -299 334 37 General appearance: PRESENT: no acute distress, well-developed, well-nourished Head exam: PRESENT: atraumatic, normocephalic Eye exam: PRESENT: conjunctiva pink, EOMI, PERRLA. ABSENT: scleral icterus Ear exam: PRESENT: normal external ear exam Mouth exam: PRESENT: moist, tongue midline Neck exam: ABSENT: carotid bruit, JVD, lymphadenopathy, thyromegaly Respiratory exam: PRESENT: clear to auscultation annelise. ABSENT: rales, rhonchi, wheezes Cardiovascular exam: PRESENT: RRR. ABSENT: diastolic murmur, rubs, systolic murmur Pulses: PRESENT: normal dorsalis pedis pul Vascular exam: PRESENT: normal capillary refill GI/Abdominal exam: PRESENT: normal bowel sounds, soft. ABSENT: distended, guarding, mass, organolmegaly, rebound, tenderness Rectal exam: PRESENT: deferred Extremities exam: PRESENT: full ROM. ABSENT: calf tenderness, clubbing, pedal edema Neurological exam: PRESENT: alert, awake, oriented to person, oriented to place , oriented to time, oriented to situation, CN II-XII grossly intact. ABSENT: motor sensory deficit Psychiatric exam: PRESENT: appropriate affect, normal mood. ABSENT: homicidal ideation, suicidal ideation Skin exam: PRESENT: dry, intact, warm. ABSENT: cyanosis, rash Results Laboratory Results: 09/09/17 04:20 09/09/17 04:20 09/08/17 09/09/17 09/09/17 20:30 04:20 04:20 WBC 10.8 H RBC 3.99 L Hgb 9.7 L Hct 31.7 L MCV 80 MCH 24.2 L MCHC 30.5 L RDW 16.0 H Plt Count 335 Seg Neutrophils % Not Reportable Lymphocytes % Not Reportable Monocytes % Not Reportable Eosinophils % Not Reportable Basophils % Not Reportable Absolute Neutrophils Not Reportable Absolute Lymphocytes Not Reportable Absolute Monocytes Not Reportable Absolute Eosinophils Not Reportable Absolute Basophils Not Reportable Sodium 140.4 Potassium 4.1 Chloride 101 Carbon Dioxide 33 H Anion Gap 6 BUN 39 H Creatinine 1.80 H Est GFR ( Amer) 45 L Est GFR (Non-Af Amer) 37 L Glucose 85 Calcium 8.4 Stool Occult Blood NEGATIVE 08/27/17 08/27/17 08/27/17 16:00 16:00 22:00 Creatine Kinase 63 108 CK-MB (CK-2) 1.63 Troponin I 0.053 08/27/17 08/28/17 08/28/17 22:00 00:56 00:56 Creatine Kinase 135 CK-MB (CK-2) 2.33 2.91 Troponin I 0.041 0.048 08/28/17 08/28/17 08/28/17 05:47 05:47 12:25 Creatine Kinase 195 H 229 H CK-MB (CK-2) 3.82 Troponin I 0.058 08/28/17 08/28/17 08/28/17 12:25 17:55 17:55 Creatine Kinase 296 H CK-MB (CK-2) 4.25 4.67 H Troponin I 0.067 0.067 Impressions: Chest X-Ray 08/27/17 09:42 IMPRESSION: No acute infiltrates. Decrease right lung pulmonary vascularity, question acute pulmonary embolus to the right side Results discussed with Dr. Stark Lung Scan-VQ [place] 08/27/17 11:01 IMPRESSION: High probability study for right-sided pulmonary emboli. Right upper and lower lobe perfusion defects are present Head CT 08/28/17 00:00 IMPRESSION: No significant interval change. Abdomen X-Ray 08/28/17 00:44 IMPRESSION: Nonspecific gaseous dilation of the proximal colon. Assessment & Plan - Time Time Spent with patient: 25-34 minutes Medications reviewed and adjusted accordingly: Yes Anticipated discharge: Home Within: within 48 hours - Inpatient Certification Medical Necessity: Need Close Monitoring Due to Risk of Patient Decompensation - Plan Summary Plan Summary: Assessment and plan This is currently being treated during this admission. 1. Acute respiratory failure with hypoxia secondary to pulmonary embolism. He will be discharged home on oxygen. 2. Pulmonary embolism currently on Lovenox and Coumadin. INR is 1.53 today. See plans above regarding anticoagulation. 3. 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 Acute on chronic kidney disease improved. Follow-up with PCP. 5. COPD with chronic respiratory failure for home oxygen on discharge #6 hypertension benign essential, stable 7. Anemia likely due to chronic blood loss. Hemoglobin is stable 8. Hyperkalemia
[2017-09-09] MEDS: FAMOTIDINE 20 MG TABLET PO SCH (17:23)
[2017-09-09] MEDS: WARFARIN SODIUM 7.5 MG TABLET PO SCH (21:14)
[2017-09-09] MEDS: ATORVASTATIN CALCIUM 10 MG TABLET PO SCH (21:14)
[2017-09-09] MEDS: ZOLPIDEM TARTRATE 5 MG TABLET PO SCH (21:14)
[2017-09-10 05:12] LABS: INTERNATIONAL RATION (INR) 1.66; PROTHROMBIN TIME 20.6 SEC (11.4-15.4)
[2017-09-10 05:13] LABS: PARTIAL THROMBOPLASTIN TIME 67.7 SEC (23.5-35.8)
[2017-09-10] MEDS: HYDRALAZINE HCL 50 MG TABLET PO SCH ×2 (06:58→13:57)
[2017-09-10] MEDS: ENOXAPARIN SODIUM INJ 100 MG/1 ML DISP.SYRIN SUBCUT SCH (09:46)
[2017-09-10] MEDS: IRON POLYSACCHARIDES COMPLEX 150 MG CAPSULE PO SCH (09:51)
[2017-09-10] MEDS: PREDNISONE 20 MG TABLET PO SCH (09:52)
[2017-09-10] MEDS: CYANOCOBALAMIN (VITAMIN B-12) 1,000 MCG TABLET PO SCH (09:52)
[2017-09-10] MEDS: METOPROLOL TARTRATE 50 MG TABLET PO SCH (09:52)
[2017-09-10] MEDS: NIFEDIPINE 30 MG TAB.ER.24 PO SCH (09:56)
[2017-09-10 16:43] VITALS: BP 136/60
[2017-09-10] MEDS: FAMOTIDINE 20 MG TABLET PO SCH (17:36)
[2017-09-10] MEDS ORDERED: APIXABAN 5 MG TABLET PO SCH (18:00)
[2017-09-10] MEDS ORDERED: METOPROLOL TARTRATE 100 MG TABLET PO SCH (22:00)
--- NOTE | 2017-09-12 08:19 | PDOC DISCHARGE SUMMARY ---
General - Admit/Disc Date/PCP Admission Date/Primary Care Provider: 08/27/17 15:09 Discharge Date: 09/10/17 - Discharge Diagnosis (1) Pulmonary embolism Is this a current diagnosis for this admission?: Yes (2) Acute respiratory failure with hypoxia Is this a current diagnosis for this admission?: Yes (3) Mayen's esophagus with dysplasia Is this a current diagnosis for this admission?: Yes (4) COPD (chronic obstructive pulmonary disease) Is this a current diagnosis for this admission?: Yes (5) Hypertension Is this a current diagnosis for this admission?: Yes (6) Anemia Is this a current diagnosis for this admission?: Yes (7) Occult blood in stools Is this a current diagnosis for this admission?: Yes - Additional Information Resuscitation Status: Full Code Discharge Diet: Regular Discharge Activity: Activity As Tolerated, Balance Activity w/Rest, Slowly Increase Activity Prescriptions: Apixaban [Eliquis] 5 mg PO Q12 #60 tablet Apixaban [Eliquis 5 mg Tablet] 10 mg PO BID #14 tablet Cyanocobalamin (Vitamin B-12) [Vitamin B-12 1000 mcg Tablet] 1,000 mcg PO DAILY #30 tablet Enoxaparin Sodium [Lovenox Inj 100 mg/1 ml Disp.syrin] 95 mg SUBCUT Q12 #14 disp.syrin Iron Polysaccharides Complex [Nu-Iron 150 Capsule] 150 mg PO DAILY #30 capsule Metoprolol Tartrate [Lopressor 50 mg Tablet] 100 mg PO Q12 #60 tablet Prednisone [Deltasone 20 mg Tablet] 20 mg PO DAILY #3 tablet Home Medications: Hydralazine HCl [Apresoline 50 mg Tablet] 50 mg PO Q8 08/27/17 Nifedipine [Nifedipine ER] 30 mg PO DAILY 08/27/17 Pravastatin Sodium [Pravachol] 20 mg PO QHS 08/27/17 Cyanocobalamin (Vitamin B-12) [Vitamin B-12 1000 mcg Tablet] 1,000 mcg PO DAILY #30 tablet 09/07/17 Enoxaparin Sodium [Lovenox Inj 100 mg/1 ml Disp.syrin] 95 mg SUBCUT Q12 #14 disp.syrin 09/07/17 Famotidine [Pepcid 20 mg Tablet] 20 mg PO QPM tablet 09/07/17 Iron Polysaccharides Complex [Nu-Iron 150 Capsule] 150 mg PO DAILY #30 capsule 09/07/17 Metoprolol Tartrate [Lopressor 50 mg Tablet] 100 mg PO Q12 #60 tablet 09/07/17 Prednisone [Deltasone 20 mg Tablet] 20 mg PO DAILY #3 tablet 09/07/17 Apixaban [Eliquis 5 mg Tablet] 10 mg PO BID #14 tablet 09/10/17 Apixaban [Eliquis] 5 mg PO Q12 #60 tablet 09/10/17 Metoprolol Tartrate [Lopressor 100 mg Tablet] 100 mg PO Q12 tablet 09/10/17 History of Present Illness History of Present Illness: RASHI MC JR is a 76 year old male who presented to the hospital with shortness of breath Hospital Course Hospital Course: Please see the Discharge Summary dictated on 09/07. Patient subsequently had EGD done which showed a Barretts esophagus with high grade dysplasia. Biopsy was performed. Colonoscopy showed a polyp and he had snare polypectomy done. He is to follow up with GI in 4-6months for further evaluation and management. Patient was being treated with Lovenox and Coumadin however we were able to procure Eliquis for him at minimal cost so he was switched over to Eliquis and discharged home on this as well as on Oxygen. Physical Exam Vital Signs: Temp Pulse Resp BP Pulse Ox 98.2 F 59 L 12 136/60 H 92 09/10/17 16:34 09/10/17 16:34 09/10/17 16:34 09/10/17 16:34 09/10/17 16:34 Pulse Oximeter Continuous Start: 08/31/17 12: 23 Freq: RTQ4 Status: Complete Document 09/03/17 07:56 HCR (Rec: 09/03/17 10:38 HCR [email or web address]) Pulse Oximetry Assessment Equipment Usage Equipment Discontinued Continuous SpO2 Machine # 11 Intake & Output 09/09/17 09/10/17 09/11/17 06:59 06:59 06:59 Intake Total 959 987 237 Output Total 489 550 300 Balance 334 437 -63 General appearance: PRESENT: no acute distress, well-developed Head exam: PRESENT: atraumatic, normocephalic Eye exam: PRESENT: conjunctiva pink, EOMI, PERRLA. ABSENT: scleral icterus Ear exam: PRESENT: normal external ear exam Mouth exam: PRESENT: moist, tongue midline Neck exam: ABSENT: carotid bruit, JVD, lymphadenopathy, thyromegaly Respiratory exam: PRESENT: clear to auscultation annelise. ABSENT: rales, rhonchi, wheezes Cardiovascular exam: PRESENT: RRR. ABSENT: diastolic murmur, rubs, systolic murmur Pulses: PRESENT: normal dorsalis pedis pul Vascular exam: PRESENT: normal capillary refill GI/Abdominal exam: PRESENT: normal bowel sounds, soft. ABSENT: distended, guarding, mass, organolmegaly, rebound, tenderness Rectal exam: PRESENT: deferred Extremities exam: PRESENT: full ROM. ABSENT: calf tenderness, clubbing, pedal edema Neurological exam: PRESENT: alert, awake, oriented to person, oriented to place , oriented to time, oriented to situation, CN II-XII grossly intact. ABSENT: motor sensory deficit Psychiatric exam: PRESENT: appropriate affect, normal mood. ABSENT: homicidal ideation, suicidal ideation Skin exam: PRESENT: dry, intact, warm. ABSENT: cyanosis, rash Results Laboratory Results: 09/09/17 04:20 09/09/17 04:20 09/06/17 14:15 Clean Catch Midstream Urine Culture - Final Proteus Mirabilis Enterococcus Faecalis(Group D) 08/27/17 08/27/17 08/27/17 16:00 16:00 22:00 Creatine Kinase 63 108 CK-MB (CK-2) 1.63 Troponin I 0.053 08/27/17 08/28/17 08/28/17 22:00 00:56 00:56 Creatine Kinase 135 CK-MB (CK-2) 2.33 2.91 Troponin I 0.041 0.048 08/28/17 08/28/17 08/28/17 05:47 05:47 12:25 Creatine Kinase 195 H 229 H CK-MB (CK-2) 3.82 Troponin I 0.058 08/28/17 08/28/17 08/28/17 12:25 17:55 17:55 Creatine Kinase 296 H CK-MB (CK-2) 4.25 4.67 H Troponin I 0.067 0.067 Impressions: Chest X-Ray 08/27/17 09:42 IMPRESSION: No acute infiltrates. Decrease right lung pulmonary vascularity, question acute pulmonary embolus to the right side Results discussed with Dr. Stark Lung Scan-VQ NM 08/27/17 11:01 IMPRESSION: High probability study for right-sided pulmonary emboli. Right upper and lower lobe perfusion defects are present Head CT 08/28/17 00:00 IMPRESSION: No significant interval change. Abdomen X-Ray 08/28/17 00:44 IMPRESSION: Nonspecific gaseous dilation of the proximal colon. Qualifiers PATEINT BEING DISCHARGED WITH ANY OF THE FOLLOWING DIAGNOSIS?: No Plan Discharge Plan: Home with Oxygen. Educated on Anticoagulant side and adverse effects. Time Spent: Greater than 30 Minutes
--- NOTE | 2017-10-02 18:56 | PDOC PROGRESS REPORT ---
Subjective Progress Note for:: 09/06/17 Subjective:: Feeling better Reason For Visit: PULMONARY EMBOLUS Physical Exam Vital Signs: Temp Pulse Resp BP Pulse Ox 97.6 F 66 12 122/57 L 91 L 09/09/17 09:43 09/09/17 09:43 09/09/17 09:43 09/09/17 09:43 09/09/17 09:43 Pulse Oximeter Continuous Start: 08/31/17 12: 23 Freq: RTQ4 Status: Complete Document 09/03/17 07:56 HCR (Rec: 09/03/17 10:38 HCR [email or web address]) Pulse Oximetry Assessment Equipment Usage Equipment Discontinued Continuous SpO2 Machine # 11 Intake & Output 09/08/17 09/09/17 09/10/17 06:59 06:59 06:59 Intake Total 1051 959 Output Total 1350 625 Balance -299 334 General appearance: PRESENT: no acute distress, cooperative, disheveled, well- developed Head exam: PRESENT: atraumatic, normocephalic Eye exam: PRESENT: conjunctiva pale, EOMI. ABSENT: nystagmus, periorbital swelling, scleral icterus Mouth exam: PRESENT: dry mucosa, neck supple, tongue midline Neck exam: ABSENT: carotid bruit, JVD, lymphadenopathy, thyromegaly, tracheal deviation, tracheostomy Respiratory exam: PRESENT: decreased breath sounds, prolonged expiratory phas, rhonchi, unlabored. ABSENT: rales, retraction, stridor, symmetrical, tachypnea , wheezes Cardiovascular exam: PRESENT: RRR, +S1, +S2 Pulses: PRESENT: normal radial pulses GI/Abdominal exam: PRESENT: diminished bowel sounds, soft Extremities exam: ABSENT: calf tenderness, clubbing Musculoskeletal exam: ABSENT: deformity, dislocation Neurological exam: PRESENT: awake Skin exam: PRESENT: dry, warm Results Laboratory Results: 09/09/17 04:20 09/09/17 04:20 09/08/17 09/09/17 09/09/17 20:30 04:20 04:20 WBC 10.8 H RBC 3.99 L Hgb 9.7 L Hct 31.7 L MCV 80 MCH 24.2 L MCHC 30.5 L RDW 16.0 H Plt Count 335 Seg Neutrophils % Not Reportable Lymphocytes % Not Reportable Monocytes % Not Reportable Eosinophils % Not Reportable Basophils % Not Reportable Absolute Neutrophils Not Reportable Absolute Lymphocytes Not Reportable Absolute Monocytes Not Reportable Absolute Eosinophils Not Reportable Absolute Basophils Not Reportable Sodium 140.4 Potassium 4.1 Chloride 101 Carbon Dioxide 33 H Anion Gap 6 BUN 39 H Creatinine 1.80 H Est GFR ( Amer) 45 L Est GFR (Non-Af Amer) 37 L Glucose 85 Calcium 8.4 Stool Occult Blood NEGATIVE 08/27/17 08/27/17 08/27/17 16:00 16:00 22:00 Creatine Kinase 63 108 CK-MB (CK-2) 1.63 Troponin I 0.053 08/27/17 08/28/17 08/28/17 22:00 00:56 00:56 Creatine Kinase 135 CK-MB (CK-2) 2.33 2.91 Troponin I 0.041 0.048 08/28/17 08/28/17 08/28/17 05:47 05:47 12:25 Creatine Kinase 195 H 229 H CK-MB (CK-2) 3.82 Troponin I 0.058 08/28/17 08/28/17 08/28/17 12:25 17:55 17:55 Creatine Kinase 296 H CK-MB (CK-2) 4.25 4.67 H Troponin I 0.067 0.067 Impressions: Chest X-Ray 08/27/17 09:42 IMPRESSION: No acute infiltrates. Decrease right lung pulmonary vascularity, question acute pulmonary embolus to the right side Results discussed with Dr. Stark Lung Scan-VQ NM 08/27/17 11:01 IMPRESSION: High probability study for right-sided pulmonary emboli. Right upper and lower lobe perfusion defects are present Head CT 08/28/17 00:00 IMPRESSION: No significant interval change. Abdomen X-Ray 08/28/17 00:44 IMPRESSION: Nonspecific gaseous dilation of the proximal colon. Assessment & Plan - Diagnosis (1) COPD (chronic obstructive pulmonary disease) Qualifiers: COPD type: COPD with acute exacerbation Qualified Code(s): J44.1 - Chronic obstructive pulmonary disease with (acute) exacerbation Is this a current diagnosis for this admission?: Yes Plan: Continues to improve (2) Chronic kidney disease, stage III (moderate) Is this a current diagnosis for this admission?: Yes Plan: Makes CTA prohibitive at this time (3) Hypertension Qualifiers: Hypertension type: essential hypertension Qualified Code(s): I10 - Essential (primary) hypertension Is this a current diagnosis for this admission?: Yes Plan: Stable at this time (4) Pulmonary embolism Qualifiers: Pulmonary embolism type: other Chronicity: acute Acute cor pulmonale presence: without acute cor pulmonale Qualified Code(s): I26.99 - Other pulmonary embolism without acute cor pulmonale Is this a current diagnosis for this admission?: Yes Plan: not Anticoagulated high probability V/Q
--- NOTE | 2017-10-02 18:58 | PDOC PROGRESS REPORT ---
Subjective Progress Note for:: 09/09/17 Subjective:: ok now Reason For Visit: PULMONARY EMBOLUS Physical Exam Vital Signs: Temp Pulse Resp BP Pulse Ox 97.6 F 66 12 122/57 L 91 L 09/09/17 09:43 09/09/17 09:43 09/09/17 09:43 09/09/17 09:43 09/09/17 09:43 Pulse Oximeter Continuous Start: 08/31/17 12: 23 Freq: RTQ4 Status: Complete Document 09/03/17 07:56 HCR (Rec: 09/03/17 10:38 HCR [email or web address]) Pulse Oximetry Assessment Equipment Usage Equipment Discontinued Continuous SpO2 Machine # 11 Intake & Output 09/08/17 09/09/17 09/10/17 06:59 06:59 06:59 Intake Total 1051 959 Output Total 1350 625 Balance -299 334 General appearance: PRESENT: no acute distress, cooperative, disheveled. ABSENT : mild distress, severe distress, well-developed Head exam: PRESENT: atraumatic, normocephalic Eye exam: PRESENT: conjunctiva pale, EOMI. ABSENT: nystagmus, periorbital swelling, scleral icterus Mouth exam: PRESENT: dry mucosa, neck supple, tongue midline Neck exam: ABSENT: carotid bruit, JVD, lymphadenopathy, thyromegaly, tracheal deviation, tracheostomy Respiratory exam: PRESENT: decreased breath sounds, prolonged expiratory phas, rhonchi, symmetrical, unlabored. ABSENT: rales, retraction, stridor, tachypnea Cardiovascular exam: PRESENT: RRR, +S1, +S2 Pulses: PRESENT: normal radial pulses GI/Abdominal exam: PRESENT: diminished bowel sounds, soft Extremities exam: ABSENT: calf tenderness, clubbing Musculoskeletal exam: ABSENT: deformity, dislocation Neurological exam: PRESENT: awake Skin exam: PRESENT: dry, warm Results Laboratory Results: 09/09/17 04:20 09/09/17 04:20 09/08/17 09/09/17 09/09/17 20:30 04:20 04:20 WBC 10.8 H RBC 3.99 L Hgb 9.7 L Hct 31.7 L MCV 80 MCH 24.2 L MCHC 30.5 L RDW 16.0 H Plt Count 335 Seg Neutrophils % Not Reportable Lymphocytes % Not Reportable Monocytes % Not Reportable Eosinophils % Not Reportable Basophils % Not Reportable Absolute Neutrophils Not Reportable Absolute Lymphocytes Not Reportable Absolute Monocytes Not Reportable Absolute Eosinophils Not Reportable Absolute Basophils Not Reportable Sodium 140.4 Potassium 4.1 Chloride 101 Carbon Dioxide 33 H Anion Gap 6 BUN 39 H Creatinine 1.80 H Est GFR ( Amer) 45 L Est GFR (Non-Af Amer) 37 L Glucose 85 Calcium 8.4 Stool Occult Blood NEGATIVE 08/27/17 08/27/17 08/27/17 16:00 16:00 22:00 Creatine Kinase 63 108 CK-MB (CK-2) 1.63 Troponin I 0.053 08/27/17 08/28/17 08/28/17 22:00 00:56 00:56 Creatine Kinase 135 CK-MB (CK-2) 2.33 2.91 Troponin I 0.041 0.048 08/28/17 08/28/17 08/28/17 05:47 05:47 12:25 Creatine Kinase 195 H 229 H CK-MB (CK-2) 3.82 Troponin I 0.058 08/28/17 08/28/17 08/28/17 12:25 17:55 17:55 Creatine Kinase 296 H CK-MB (CK-2) 4.25 4.67 H Troponin I 0.067 0.067 Impressions: Chest X-Ray 08/27/17 09:42 IMPRESSION: No acute infiltrates. Decrease right lung pulmonary vascularity, question acute pulmonary embolus to the right side Results discussed with Dr. Stark Lung Scan-VQ NM 08/27/17 11:01 IMPRESSION: High probability study for right-sided pulmonary emboli. Right upper and lower lobe perfusion defects are present Head CT 08/28/17 00:00 IMPRESSION: No significant interval change. Abdomen X-Ray 08/28/17 00:44 IMPRESSION: Nonspecific gaseous dilation of the proximal colon. Assessment & Plan - Diagnosis (1) COPD (chronic obstructive pulmonary disease) Qualifiers: COPD type: COPD with acute exacerbation Qualified Code(s): J44.1 - Chronic obstructive pulmonary disease with (acute) exacerbation Is this a current diagnosis for this admission?: Yes Plan: Continues to improve (2) Chronic kidney disease, stage III (moderate) Is this a current diagnosis for this admission?: Yes Plan: Makes CTA prohibitive at this time (3) Hypertension Qualifiers: Hypertension type: essential hypertension Qualified Code(s): I10 - Essential (primary) hypertension Is this a current diagnosis for this admission?: Yes Plan: Stable at this time (4) Pulmonary embolism Qualifiers: Pulmonary embolism type: other Chronicity: acute Acute cor pulmonale presence: without acute cor pulmonale Qualified Code(s): I26.99 - Other pulmonary embolism without acute cor pulmonale Is this a current diagnosis for this admission?: Yes Plan: high probability V/Q
== END 2017-09-10 18:52 | disposition home or self-care (01) | DRG 175 ==
LOC: ER 09:30 → EH 15:09 → 3N 18:59
PROVIDERS: ADMIT Internal Medicine; ATTEND Internal Medicine
PROC: 0D5K8ZZ Destruction of Ascending Colon, Via Natural or Artificial Opening Endoscopic (ICD-10-PCS; 2017-09-03)
PROC: 0DD58ZX Extraction of Esophagus, Via Natural or Artificial Opening Endoscopic, Diagnostic (ICD-10-PCS; 2017-09-03)
PROC: 0DD68ZX Extraction of Stomach, Via Natural or Artificial Opening Endoscopic, Diagnostic (ICD-10-PCS; 2017-09-03)
PROC: 0DBH8ZX Excision of Cecum, Via Natural or Artificial Opening Endoscopic, Diagnostic (ICD-10-PCS; principal; 2017-09-03 12:00)
PROC: 0DBL8ZX Excision of Transverse Colon, Via Natural or Artificial Opening Endoscopic, Diagnostic (ICD-10-PCS; 2017-09-03 12:00)
PROC: 0D558ZZ Destruction of Esophagus, Via Natural or Artificial Opening Endoscopic (ICD-10-PCS; 2017-09-07)
DX: I26.99 Other pulmonary embolism without acute cor pulmonale (principal); J96.21 Acute and chronic respiratory failure with hypoxia; J96.22 Acute and chronic respiratory failure with hypercapnia; J44.1 Chronic obstructive pulmonary disease with (acute) exacerbation; N17.9 Acute kidney failure, unspecified; K63.5 Polyp of colon; K57.30 Diverticulosis of large intestine without perforation or abscess without bleeding; K64.8 Other hemorrhoids; K22.711 Barrett's esophagus with high grade dysplasia; E87.5 Hyperkalemia; K29.70 Gastritis, unspecified, without bleeding; D64.9 Anemia, unspecified; I12.9 Hypertensive chronic kidney disease with stage 1 through stage 4 chronic kidney disease, or unspecified chronic kidney disease; N18.3 Chronic kidney disease, stage 3 (moderate); D50.9 Iron deficiency anemia, unspecified; M21.371 Foot drop, right foot; F41.1 Generalized anxiety disorder; Z87.891 Personal history of nicotine dependence
CPT/HCPCS: 36415; 36600; 43239; 43270; 45385; 70450; 71045; 74019; 78582; 80048; 80053; 81001; 82272; 82550; 82553; 82607; 82728; 82746; 82803; 82962; 83540; 83550; 83735; 83880; 84466; 84484; 85025; 85027; 85045; 85610; 85730; 87040; 87086; 87088; 87186; 87804; 88305; 88342; 93005; 93010; 93306; 94640; 94660; 94667; 94762; 94799; 99291; A9540; A9567; G8978-GP; G8979-GP; J0171; J1200; J1610; J1644; J1650; J2060; J2250; J2310; J2405; J3010; J3490; J7030; J7512; J7620; Q9969; S0119

== ENCOUNTER → 2017-09-24 | Outpatient (CLI) | payer MEDICARE, BC ==
[2017-09-24 12:57] LABS: ANION GAP 10 (5-19); BLOOD UREA NITROGEN 17 mg/dL (7-20); CALCIUM 8.5 mg/dL (8.4-10.2); CARBON DIOXIDE 29 mmol/L (22-30); CHLORIDE 99 mmol/L (98-107); GLUCOSE 93 mg/dL (75-110); POTASSIUM 5.5 mmol/L (3.6-5.0); SODIUM 137.8 mmol/L (137-145)
== END ==
LOC: OD 11:49
PROVIDERS: ATTEND Family Medicine
DX: E87.5 Hyperkalemia (principal)
CPT/HCPCS: 36415; 80048

== ENCOUNTER 2017-10-21 10:20 | Inpatient (IN) | payer MEDICARE, BC ==
[2017-10-21] MEDS ORDERED: HYDROCODONE/ACETAMINOPHEN 5-325 MG TABLET PO ONE (10:38)
--- NOTE | 2017-10-21 10:41 | ER Document Report ---
ED Medical Screen (RME) - General Chief Complaint: Fall Stated Complaint: FALL/ANKLE PAIN Time Seen by Provider: 10/21/17 10:34 Mode of Arrival: Wheelchair Information source: Patient, Relative Notes: 77-year-old male history of PEs on Eliquis with right-sided foot drop presents after rolling out of bed injuring himself. Patient notes left ankle pain from fall, bilateral edema, and hypoxemia. pt on 2L nc at home, satting now 885 , admits ot generalized weakness I have greeted and performed a rapid initial assessment of this patient. A comprehensive ED assessment and evaluation of the patient, analysis of test results and completion of the medical decision making process will be conducted by additional ED providers. PHYSICAL EXAMINATION: GENERAL: elderly male mild distress HEAD: Atraumatic, normocephalic. EYES: Pupils equal round extraocular movements intact, conjunctiva are normal. ENT: Nares patent NECK: Normal range of motion LUNGS: on O2 Musculoskeletal: tenderness on palpation left ankle NEUROLOGICAL: Normal speech PSYCH: Normal mood, normal affect. SKIN: bilateral peripheral edema . TRAVEL OUTSIDE OF THE [place] IN LAST 30 DAYS: No - Related Data Allergies/Adverse Reactions: No Known Allergies Allergy (Verified 10/21/17 10:36) Past Medical History - Past Medical History Cardiac Medical History: Reports: Hx Hypercholesterolemia, Hx Hypertension, Hx Peripheral Vascular Disease - History of aortic aneurysm rupture and repair Pulmonary Medical History: Reports: Hx COPD Neurological Medical History: Denies: Hx Seizures Renal/ Medical History: Reports: Hx Renal Insufficiency. Denies: Hx Peritoneal Dialysis Skin Medical History: Denies Hx Eczema, Denies Hx Psoriasis Psychiatric Medical History: Reports: Hx Dementia, Hx Depression Traumatic Medical History: Denies: Hx Traumatic Brain Injury Past Surgical History: Reports: Hx Abdominal Surgery - Patient has a large scar in his RLQ he cannot recall what for. states, Other - states AAA few years ago - Immunizations History of Influenza Vaccine for 05/2017 - 10/2017 Season: No Physical Exam - Vital signs Vitals: Temp Pulse Resp BP Pulse Ox 98.2 F 63 21 H 134/71 H 88 L 10/21/17 10:28 10/21/17 10:28 10/21/17 10:28 10/21/17 10:28 10/21/17 10:28 Course - Vital Signs Vital signs: Temp Pulse Resp BP Pulse Ox 98.2 F 63 21 H 134/71 H 88 L 10/21/17 10:28 10/21/17 10:28 10/21/17 10:28 10/21/17 10:28 10/21/17 10:28
--- NOTE | 2017-10-21 11:24 | RADIOLOGY REPORT (SQ) ---
EXAM DESCRIPTION: ANKLE LEFT COMPLETE COMPLETED DATE/TIME: 10/21/2017 11:14 am REASON FOR STUDY: fall COMPARISON: None. NUMBER OF VIEWS: Three views. TECHNIQUE: AP, lateral, and oblique radiographic images acquired of the left ankle. LIMITATIONS: None. FINDINGS: MINERALIZATION: Normal. BONES: No acute fracture or dislocation. No worrisome bone lesions. JOINTS: No effusions. SOFT TISSUES: Lateral soft tissue swelling. No foreign body. OTHER: No other significant finding. IMPRESSION: SOFT TISSUE SWELLING. NO ACUTE BONY FINDINGS. TECHNICAL DOCUMENTATION: JOB ID: [id number] [employer]- All Rights Reserved Reading location - IP/workstation name: [email or web address]
--- NOTE | 2017-10-21 11:25 | RADIOLOGY REPORT (SQ) ---
EXAM DESCRIPTION: CHEST SINGLE VIEW COMPLETED DATE/TIME: 10/21/2017 11:14 am REASON FOR STUDY: peripheral edema, hypoxemia COMPARISON: 08/27/2017. EXAM PARAMETERS: NUMBER OF VIEWS: One view. TECHNIQUE: Single frontal radiographic view of the chest acquired. RADIATION DOSE: NA LIMITATIONS: None. FINDINGS: LUNGS AND PLEURA: Patchy densities in the left lung with dense consolidation in the left m id lung. MEDIASTINUM AND HILAR STRUCTURES: No masses. Contour normal. HEART AND VASCULAR STRUCTURES: Heart normal in size. Normal vasculature. BONES: No acute findings. HARDWARE: None in the chest. OTHER: No other significant finding. IMPRESSION: DENSE CONSOLIDATION IN THE LEFT MID LUNG, MOST LIKELY DUE TO PNEUMONIA. CANNOT COMPLETE LY EXCLUDE POSSIBLE UNDERLYING MASS, ALTHOUGH NO MASS PRESENT ON THE PRIOR CHEST X-RAY. TECHNICAL DOCUMENTATION: JOB ID: [id number] [employer]- All Rights Reserved Reading location - IP/workstation name: [email or web address]
[2017-10-21 12:46] LABS: VENOUS BLOOD HCO3 26.1 mmol/L (20-32); VENOUS BLOOD PCO2 56.9 mmHg (35-63); VENOUS BLOOD PH 7.28 (7.30-7.42)
[2017-10-21 12:57] LABS: HEMATOCRIT 29.1 % (37.9-51.0); HEMOGLOBIN 8.8 g/dL (13.5-17.0); MEAN CORPUSCULAR HEMOGLOBIN 23.8 pg (27.0-33.4); MEAN CORPUSCULAR HGB CONC 30.4 g/dL (32.0-36.0); MEAN CORPUSCULAR VOLUME 78 fl (80-97); PLATELET COUNT 283 10^3/uL (150-450); RED BLOOD COUNT 3.72 10^6/uL (4.35-5.55); RED CELL DISTRIBUTION WIDTH 17.4 % (11.5-14.0); WHITE BLOOD COUNT 9.6 10^3/uL (4.0-10.5)
[2017-10-21 13:05] LABS: ALANINE AMINOTRANSFERASE 26 U/L (21-72); ALBUMIN 3.7 g/dL (3.5-5.0); ALKALINE PHOSPHATASE 66 U/L (38-126); ANION GAP 11 (5-19); ASPARTATE AMINO TRANSFERASE 17 U/L (17-59); BILIRUBIN,DIRECT 0.5 mg/dL (0.0-0.4); BILIRUBIN,TOTAL 0.5 mg/dL (0.2-1.3); BLOOD UREA NITROGEN 30 mg/dL (7-20); CALCIUM 8.3 mg/dL (8.4-10.2); CARBON DIOXIDE 25 mmol/L (22-30); CHLORIDE 100 mmol/L (98-107); CREATINE KINASE 156 U/L (55-170); GLUCOSE 94 mg/dL (75-110); SODIUM 135.7 mmol/L (137-145)
[2017-10-21 13:13] LABS: CREATINE KINASE MB 2.17 ng/mL (<4.55); TROPONIN I 0.031 ng/mL
--- NOTE | 2017-10-21 13:25 | ER Document Report ---
ED General - General Chief Complaint: Fall Stated Complaint: FALL/ANKLE PAIN Time Seen by Provider: 10/21/17 10:34 Mode of Arrival: Wheelchair Notes: Med list: Pro Air inhaler, Eliquis 5 mg, D3 supplement, metoprolol 100 mg twice daily baby aspirin, clonidine 0.1 mg tablets twice daily,. Omeprazole, hydralazine 50 mg 3 times daily, nifedipine 30 mg pravastatin, Lipitor Patient is a 77-year-old male who presents emergency department the chief complaint of hypoxia. His states that he fell Wednesday morning and get out of bed and then admits to ankle pain progressing throughout the day. She states when she looked at his ankles she noticed that his ankles were swollen but is not normal for him. She states that his O2 sats at home have been in the 80s over the past week. She otherwise denies any productive cough but admits to shortness of breath. Denies any fevers or chills. Patient is on Eliquis for PE that was diagnosed in August of this year. Past medical history significant for pulmonary embolism on Eliquis, COPD on home 2 L, ruptured aortic aneurysm in 2007 with a associated right foot drop due to injury, previous sepsis, chronic kidney disease stage III, hypertension, hyperlipidemia Past surgical history significant for aortic aneurysm repair, previous surgical debridement of abscess Social history significant for former tobacco user, denies any alcohol or drug use. TRAVEL OUTSIDE OF THE [place] IN LAST 30 DAYS: No - Related Data Allergies/Adverse Reactions: No Known Allergies Allergy (Verified 10/21/17 10:36) Past Medical History - General Information source: Patient, Relative - Social History Smoking Status: Unknown if Ever Smoked Family History: Hypertension. denies: CAD, DM Patient has suicidal ideation: No Patient has homicidal ideation: No - Past Medical History Cardiac Medical History: Reports: Hx Hypercholesterolemia, Hx Hypertension, Hx Peripheral Vascular Disease - History of aortic aneurysm rupture and repair Pulmonary Medical History: Reports: Hx COPD Neurological Medical History: Denies: Hx Seizures Renal/ Medical History: Reports: Hx Renal Insufficiency. Denies: Hx Peritoneal Dialysis Skin Medical History: Denies Hx Eczema, Denies Hx Psoriasis Psychiatric Medical History: Reports: Hx Dementia, Hx Depression Traumatic Medical History: Denies: Hx Traumatic Brain Injury Past Surgical History: Reports: Hx Abdominal Surgery - Patient has a large scar in his RLQ he cannot recall what for. states, Hx Cardiac Surgery - AAA repair-(stent), Other - states AAA few years ago Review of Systems - Review of Systems Notes: REVIEW OF SYSTEMS: CONSTITUTIONAL : Denies fever, chills, or sweats. Denies recent illness. EENT: Denies eye, ear, throat, or mouth pain or symptoms. Denies nasal or sinus congestion or discharge. Denies throat, tongue, or mouth swelling or difficulty swallowing. CARDIOVASCULAR: Denies chest pain. Denies palpitations or racing or irregular heart beat. Denies ankle edema. RESPIRATORY: See hpi GASTROINTESTINAL: Denies abdominal pain or distention. Denies nausea, vomiting , or diarrhea. Denies blood in vomitus, stools, or per rectum. Denies black, tarry stools. Denies constipation. GENITOURINARY: Denies difficulty urinating, painful urination, burning, frequency, blood in urine, or discharge. FEMALE GENITOURINARY: Denies vaginal bleeding, heavy or abnormal periods, irregular periods. Denies vaginal discharge or odor. MUSCULOSKELETAL: left ankle pain with ambulation and swelling. Denies any muscle spasms, difficulty walking, extremity pain SKIN: Denies rash, lesions or sores. HEMATOLOGIC : Denies easy bruising or bleeding. LYMPHATIC: lower extremity edema. Denies swollen, enlarged glands. NEUROLOGICAL: Denies confusion or altered mental status. Denies passing out or loss of consciousness. Denies dizziness or lightheadedness. Denies headache. Denies weakness or paralysis or loss of use of either side. Denies problems with gait or speech. Denies sensory loss, numbness, or tingling. Denies seizures. PSYCHIATRIC: Denies anxiety or stress. Denies depression, suicidal ideation, or homicidal ideation. ALL OTHER SYSTEMS REVIEWED AND NEGATIVE. Dictation was performed using [employer] voice recognition software Physical Exam - Vital signs Vitals: Temp Pulse Resp BP Pulse Ox 98.2 F 63 21 H 134/71 H 88 L 10/21/17 10:28 10/21/17 10:28 10/21/17 10:28 10/21/17 10:10/21/17 10:28 - Notes Notes: PHYSICAL EXAM GENERAL: Alert, interacts well. HEAD: Normocephalic, atraumatic. EYES: Pupils equal, round, and reactive to light. Extraocular movements intact. ENT: Oral mucosa moist, tongue midline. NECK: Full range of motion. Supple. Trachea midline. LUNGS: Diffuse wheezes noted throughout without rales or rhonchi no respiratory distress. HEART: Regular rate and rhythm. No murmurs, gallops, or rubs. ABDOMEN: Soft, nondistended, nontender. No guarding, rebound, or rigidity.. Bowel sounds present in all 4 quadrants. EXTREMITIES: Moves all 4 extremities spontaneously. 1+ pitting edema bilateral lower extremities. Left lateral ankle swelling with mild ecchymosis. Full range of motion., radial and dorsalis pedis pulses 2/4 bilaterally. No cyanosis. NEUROLOGICAL: Alert and oriented x4. Normal speech. PSYCH: Normal affect, normal mood. SKIN: Warm, dry, normal turgor. No rashes or lesions noted. Course - Re-evaluation Re-evalutation: 10/21/17 14:17 patient is a 77-year-old male is hemodynamically stable, no acute distress and afebrile. Sats around 88-94% on home 2 L. Comes up when patient is reminded to breathe through his nose. Chest x-ray with concerns for developing pneumonia. Potassium is elevated at 6.0 and elevation in BNP. no EKG changes. potassium treated with kayexalate, albuterol, and calcium. Reviewed with Dr. Vyas who agrees to admit patient for pneumonia and will see in department. - Vital Signs Vital signs: Temp Pulse Resp BP Pulse Ox 98.2 F 63 25 H 111/47 L 92 10/21/17 10:28 10/21/17 10:28 10/21/17 17:00 10/21/17 15:02 10/21/17 17:00 - Laboratory Result Diagrams: 10/21/17 12:28 10/21/17 15:55 Laboratory results interpreted by me: 10/21/17 10/21/17 10/21/17 12:28 12:28 12:28 RBC 3.72 L Hgb 8.8 L Hct 29.1 L MCV 78 L MCH 23.8 L MCHC 30.4 L RDW 17.4 H Seg Neuts % (Manual) 83 H Lymphocytes % (Manual) 1 L Monocytes % (Manual) 14 H Abs Lymphs (Manual) 0.1 L VBG pH Sodium 135.7 L Potassium 6.0 H* BUN 30 H Creatinine 1.96 H Est GFR ( Amer) 41 L Est GFR (Non-Af Amer) 34 L Calcium 8.3 L Direct Bilirubin 0.5 H NT-Pro-B Natriuret Pep 11184 H 10/21/17 12:28 RBC Hgb Hct MCV MCH MCHC RDW Seg Neuts % (Manual) Lymphocytes % (Manual) Monocytes % (Manual) Abs Lymphs (Manual) VBG pH 7.28 L Sodium Potassium BUN Creatinine Est GFR ( Amer) Est GFR (Non-Af Amer) Calcium Direct Bilirubin NT-Pro-B Natriuret Pep - Diagnostic Test Radiology reviewed: Image reviewed, Reports reviewed - EKG Interpretation by Me EKG shows normal: Sinus rhythm Rate: Normal Rhythm: NSR When compared to previous EKG there are: No significant change Discharge - Discharge Clinical Impression: Chronic kidney disease, stage III (moderate), Ankle injury, Pneumonia Condition: Good Disposition: ADMITTED INPATIENT Admitting Provider: Vyas Unit Admitted: Telemetry
[2017-10-21 13:38] LABS: EOSINOPHILS % (MANUAL) 1 % (0-6); TOTAL CELLS COUNTED 100
[2017-10-21 13:46] LABS: ANISOCYTOSIS 1+; HYPOCHROMASIA SLIGHT; POLYCHROMASIA SLIGHT; TOXIC GRANULATION SLIGHT; TOXIC VACUOLATION PRESENT
[2017-10-21 13:47] LABS: SCHISTOCYTES SLIGHT
[2017-10-21] MEDS ORDERED: SODIUM POLYSTYRENE SULFONATE 15 GM/60 ML PO ONE (13:51)
[2017-10-21] MEDS ORDERED: ALBUTEROL SULFATE 0.083% NEB 2.5 MG/3 ML AMPUL NEB ONE (13:51)
[2017-10-21 13:53] LABS: ABSOLUTE LYMPHOCYTES# (MANUAL) 0.1 10^3/uL (0.5-4.7); ABSOLUTE MONOCYTES # (MANUAL) 1.3 10^3/uL (0.1-1.4); BASOPHILS % (MANUAL) 1 % (0-2); LYMPHOCYTES % (MANUAL) 1 % (13-45); MONOCYTES % (MANUAL) 14 % (3-13); SEGMENTED NEUTROPHILS % (MAN) 83 % (42-78)
[2017-10-21] MEDS ORDERED: SORBITOL 70% SOLUTION 30 ML UDC PO ONE (13:53)
[2017-10-21 13:54] LABS: OVALOCYTES SLIGHT; POIKILOCYTOSIS SLIGHT; STOMATOCYTES SLIGHT
[2017-10-21 13:55] LABS: PLATELET COMMENT ADEQUATE
--- NOTE | 2017-10-21 13:58 | EKG REPORT ---
SEVERITY:- ABNORMAL ECG - SINUS RHYTHM RIGHT BUNDLE BRANCH BLOCK : Confirmed by: Jace Johns MD 21-Oct-2017 13:57:13
[2017-10-21] MEDS ORDERED: 1/2 NORMAL SALINE 500 ML IV ONE (14:16)
--- NOTE | 2017-10-21 14:44 | RADIOLOGY REPORT (SQ) ---
EXAM DESCRIPTION: CT CHEST WITHOUT COMPLETED DATE/TIME: 10/21/2017 2:25 pm REASON FOR STUDY: left lobar infiltrate COMPARISON: Radiograph 10/21/2017, 08/27/2017 TECHNIQUE: CT scan performed of the chest without intravenous contrast. Images reviewed with lung, soft tissue and bone windows. Reconstructed coronal and sagittal MPR images reviewed. All images st ored on PACS. All CT scanners at this facility use dose modulation, iterative reconstruction, and/or weight based d osing when appropriate to reduce radiation dose to as low as reasonably achievable (ALARA). [facility]: Dose Right [facility]: CareDose [facility]: Dose Right [facility]: Teradose 4D [facility]: Smart HeadMix RADIATION DOSE: CT Rad equipment meets quality standard of care and radiation dose reduction techniq ues were employed. CTDIvol: 15.7 mGy. DLP: 641 mGy-cm. mGy. LIMITATIONS: No technical limitations. FINDINGS: LUNGS AND PLEURA: Centrilobular emphysematous changes are present in the upper lobes predo minantly. There is a small left pleural effusion. There is a band of atelectasis seen in the left u pper lobe. Dense infiltrate is present in the lingula. A less well-defined small area of infiltrate is seen in the left lower lobe laterally on image 38. Limited area posterior consolidation versus a telectasis is present in the left lower lobe posteriorly. Ground-glass infiltrates are present in th e superior aspect of the right lower lobe posteriorly. HILAR AND MEDIASTINAL STRUCTURES: There are some nonspecific mediastinal nodes likely reactive. HEART AND VASCULAR STRUCTURES: No aneurysm. No pericardial effusion. UPPER ABDOMEN: An aortic stent is present. THYROID AND OTHER SOFT TISSUES: No masses. No adenopathy. BONES: No significant finding. HARDWARE: None in the chest. OTHER: No other significant findings. IMPRESSION: 1. Multicentric pneumonia on the left, most prominently involving the anterior left upp er lobe and lingula, but also involving the left lower lobe. Follow-up after treatment. 2. Small left pleural effusion. 3. Centrilobular emphysematous changes. 4. Linear atelectasis in the left upper lobe. TECHNICAL DOCUMENTATION: JOB ID: [id number] Quality ID # [id number]: Final reports with documentation of one or more dose reduction techniques (e.g., Au tomated exposure control, adjustment of the mA and/or kV according to patient size, use of iterative reconstruction technique) 2010 [employer]- All Rights Reserved Reading location - IP/workstation name: [email or web address]
[2017-10-21] MEDS ORDERED: CEFEPIME 2 GM/D5W RTU 2 GM/50 ML RTUPB IV ONE ×2 (15:39→19:30)
[2017-10-21] MEDS ORDERED: LEVOFLOXACIN 750 MG/D5W RTU 750 MG/150 ML RTUPB IV ONE (15:39)
[2017-10-21] MEDS ORDERED: CALCIUM GLUCONATE 1000 MG/10 ML INJ IV ONE (16:27)
[2017-10-21 16:48] LABS: CREATINE KINASE MB 2.11 ng/mL (<4.55)
[2017-10-21 16:56] LABS: TROPONIN I 0.039 ng/mL
[2017-10-21 18:17] LABS: ALANINE AMINOTRANSFERASE 19 U/L (21-72); ALBUMIN 3.8 g/dL (3.5-5.0); ALKALINE PHOSPHATASE 64 U/L (38-126); ANION GAP 11 (5-19); ASPARTATE AMINO TRANSFERASE 17 U/L (17-59); BILIRUBIN,DIRECT 0.2 mg/dL (0.0-0.4); BILIRUBIN,TOTAL 0.4 mg/dL (0.2-1.3); BLOOD UREA NITROGEN 31 mg/dL (7-20); CALCIUM 8.6 mg/dL (8.4-10.2); CARBON DIOXIDE 29 mmol/L (22-30); CHLORIDE 98 mmol/L (98-107); GLUCOSE 144 mg/dL (75-110); POTASSIUM 5.1 mmol/L (3.6-5.0); SODIUM 137.9 mmol/L (137-145); TOTAL PROTEIN 6.9 g/dL (6.3-8.2)
[2017-10-21] MEDS: IPRATROPIUM/ALBUTEROL 0.5-2.5 MG/3 ML AMPUL NEB SCH (19:32)
--- NOTE | 2017-10-21 20:22 | PDOC H&P ---
History of Present Illness Admission Date/PCP: KENIA MAJOR MD Patient complains of: Fall complaining of left ankle pain and hypoxia History of Present Illness: RASHI MC JR is a 77 year old male This is a 77-year-old male recently came to the practice who from the [place] and recently admitting in the hospital for the pulmonary embolism and Mayen esophagus and patient seen by Dr. Hathaway and Dr. Yoon and a discharge for the last month pretty much came to the emergency department because of the patient' s fall from the bed and patient was complaining of left ankle painIn the emergency department patient's left ankle with some soft tissue swelling but no fracture but patient was not hypoxic with 88% on 2 L nasal cannula which patient usually run at home 2 L about 90% and other than that patient does not have any symptoms but the patient's chest x-ray is questionable mass with a CT of the chest so the multifocal pneumoniaAnd the patient NT BNP was elevated Patient's potassium is also 6.0 and patient's creatinine is 1.96 patient used to see a nephrology at [facility] and currently have appointment to see her Dr. Martin next week Patient's currently denied any cough no congestion's no chest pain Patient's denied any short of breath Past Medical History Cardiac Medical History: Reports: Hyperlipidema, Hypertension, Peripheral Vascular Disease - History of aortic aneurysm rupture and repair Pulmonary Medical History: Reports: Chronic Obstructive Pulmonary Disease (COPD) Neurological Medical History: Denies: Seizures Renal/ Medical History: Reports: Chronic Kidney Disease GI Medical History: Reports: Gastroesophageal Reflux Disease Musculoskeletal History Note: Patient had a right foot drop status post AAA repair Skin Medical History: Denies: Eczema, Psoriasis Psychiatric Medical History: Reports: Dementia, Depression Traumatic Medical History: Denies: Traumatic Brain Injury Hematology: Denies: Sickle Cell Disease Past Surgical History Past Surgical History: Reports: Vascular Surgery, Other - states AAA few years ago Social History Smoking Status: Unknown if Ever Smoked Frequency of Alcohol Use: None Hx Recreational Drug Use: No Drugs: None Hx Prescription Drug Abuse: No Family History Family History: Hypertension. denies: CAD, DM Parental Family History Reviewed: Yes Children Family History Reviewed: Yes Sibling(s) Family History Reviewed.: Yes Medication/Allergy Home Medications: Hydralazine HCl [Apresoline 50 mg Tablet] 50 mg PO Q8 08/27/17 Nifedipine [Nifedipine ER] 30 mg PO DAILY 08/27/17 Pravastatin Sodium [Pravachol] 20 mg PO QHS 08/27/17 Cyanocobalamin (Vitamin B-12) [Vitamin B-12 1000 mcg Tablet] 1,000 mcg PO DAILY #30 tablet 09/07/17 Enoxaparin Sodium [Lovenox Inj 100 mg/1 ml Disp.syrin] 95 mg SUBCUT Q12 #14 disp.syrin 09/07/17 Famotidine [Pepcid 20 mg Tablet] 20 mg PO QPM tablet 09/07/17 Iron Polysaccharides Complex [Nu-Iron 150 Capsule] 150 mg PO DAILY #30 capsule 09/07/17 Metoprolol Tartrate [Lopressor 50 mg Tablet] 100 mg PO Q12 #60 tablet 09/07/17 Prednisone [Deltasone 20 mg Tablet] 20 mg PO DAILY #3 tablet 09/07/17 Apixaban [Eliquis 5 mg Tablet] 10 mg PO BID #14 tablet 09/10/17 Apixaban [Eliquis] 5 mg PO Q12 #60 tablet 09/10/17 Metoprolol Tartrate [Lopressor 100 mg Tablet] 100 mg PO Q12 tablet 09/10/17 Allergies/Adverse Reactions: No Known Allergies Allergy (Verified 10/21/17 10:36) Review of Systems Constitutional: PRESENT: weakness. ABSENT: chills, fever(s), headache(s), weight gain, weight loss Eyes: ABSENT: visual disturbances Ears: ABSENT: hearing changes Cardiovascular: ABSENT: chest pain, dyspnea on exertion, edema, orthropnea, palpitations Respiratory: ABSENT: cough, hemoptysis Gastrointestinal: ABSENT: abdominal pain, constipation, diarrhea, hematemesis, hematochezia, nausea, vomiting Genitourinary: ABSENT: dysuria, hematuria Musculoskeletal: ABSENT: joint swelling Integumentary: ABSENT: rash, wounds Neurological: ABSENT: abnormal gait, abnormal speech, confusion, dizziness, focal weakness, syncope Psychiatric: ABSENT: anxiety, depression, homidical ideation, suicidal ideation Endocrine: ABSENT: cold intolerance, heat intolerance, menstrual abnormalities, polydipsia, polyuria Hematologic/Lymphatic: ABSENT: easy bleeding, easy bruising, lymphadenopathy Physical Exam Vital Signs: Temp Pulse Resp BP Pulse Ox 98.2 F 63 17 136/58 H 91 L 10/21/17 10:28 10/21/17 10:28 10/21/17 14:37 10/21/17 14:37 10/21/17 14:37 Intake & Output 10/20/17 10/21/17 10/22/17 06:59 06:59 06:59 Weight 96 kg General appearance: PRESENT: no acute distress, well-developed, well-nourished Head exam: PRESENT: atraumatic, normocephalic Eye exam: PRESENT: conjunctiva pink, EOMI, PERRLA. ABSENT: scleral icterus Ear exam: PRESENT: normal external ear exam Mouth exam: PRESENT: moist, tongue midline Neck exam: PRESENT: full ROM. ABSENT: carotid bruit, JVD, lymphadenopathy, thyromegaly Respiratory exam: PRESENT: clear to auscultation annelise Cardiovascular exam: PRESENT: RRR. ABSENT: diastolic murmur, rubs, systolic murmur Pulses: PRESENT: normal dorsalis pedis pul, +2 pedal pulses bilateral Vascular exam: PRESENT: normal capillary refill GI/Abdominal exam: PRESENT: normal bowel sounds, soft. ABSENT: distended, guarding, mass, organolmegaly, rebound, tenderness Rectal exam: PRESENT: deferred Extremities exam: PRESENT: pedal edema Additional comments: Right-sided foot drop Neurological exam: PRESENT: alert, awake, oriented to person, oriented to place , oriented to time, oriented to situation. ABSENT: motor sensory deficit Psychiatric exam: PRESENT: appropriate affect, normal mood. ABSENT: homicidal ideation, suicidal ideation Skin exam: PRESENT: dry, intact, warm. ABSENT: cyanosis, rash Results Laboratory Results: 10/21/17 12:28 10/21/17 12:28 10/21/17 10/21/17 10/21/17 12:28 12:28 12:28 WBC 9.6 RBC 3.72 L Hgb 8.8 L Hct 29.1 L MCV 78 L MCH 23.8 L MCHC 30.4 L RDW 17.4 H Plt Count 283 Seg Neutrophils % Not Reportable Lymphocytes % Not Reportable Monocytes % Not Reportable Eosinophils % Not Reportable Basophils % Not Reportable Absolute Neutrophils Not Reportable Absolute Lymphocytes Not Reportable Absolute Monocytes Not Reportable Absolute Eosinophils Not Reportable Absolute Basophils Not Reportable VBG pH 7.28 L VBG pCO2 56.9 VBG HCO3 26.1 VBG Base Excess -1.0 Sodium 135.7 L Potassium 6.0 H* Chloride 100 Carbon Dioxide 25 Anion Gap 11 BUN 30 H Creatinine 1.96 H Est GFR ( Amer) 41 L Est GFR (Non-Af Amer) 34 L Glucose 94 Lactic Acid Calcium 8.3 L Total Bilirubin 0.5 AST 17 ALT 26 Alkaline Phosphatase 66 Total Protein 7.0 Albumin 3.7 10/21/17 14:50 WBC RBC Hgb Hct MCV MCH MCHC RDW Plt Count Seg Neutrophils % Lymphocytes % Monocytes % Eosinophils % Basophils % Absolute Neutrophils Absolute Lymphocytes Absolute Monocytes Absolute Eosinophils Absolute Basophils VBG pH VBG pCO2 VBG HCO3 VBG Base Excess Sodium Potassium Chloride Carbon Dioxide Anion Gap BUN Creatinine Est GFR ( Amer) Est GFR (Non-Af Amer) Glucose Lactic Acid 1.0 Calcium Total Bilirubin AST ALT Alkaline Phosphatase Total Protein Albumin 10/21/17 10/21/17 12:28 12:28 Creatine Kinase 156 CK-MB (CK-2) 2.17 Troponin I 0.031 NT-Pro-B Natriuret Pep 45812 H Impressions: Ankle X-Ray 10/21/17 10:37 IMPRESSION: SOFT TISSUE SWELLING. NO ACUTE BONY FINDINGS. Chest X-Ray 10/21/17 10:37 IMPRESSION: DENSE CONSOLIDATION IN THE LEFT MID LUNG, MOST LIKELY DUE TO PNEUMONIA. CANNOT COMPLETELY EXCLUDE POSSIBLE UNDERLYING MASS, ALTHOUGH NO MASS PRESENT ON THE PRIOR CHEST X-RAY. Chest CT 10/21/17 14:09 IMPRESSION: 1. Multicentric pneumonia on the left, most prominently involving the anterior left upper lobe and lingula, but also involving the left lower lobe. Follow-up after treatment. 2. Small left pleural effusion. 3. Centrilobular emphysematous changes. 4. Linear atelectasis in the left upper lobe. Assessment & Plan - Diagnosis (1) Multifocal pneumonia Is this a current diagnosis for this admission?: Yes Plan: Start the patient on IV cefepime and Levaquin (2) Acute on chronic renal failure Qualifiers: Chronic kidney disease stage: stage 3 (moderate) Is this a current diagnosis for this admission?: Yes Plan: We will check the ultrasound of the kidney and a check the urine culture and consult the nephrology while the patient have appointment to see her Dr. Martin next week (3) Acute respiratory failure with hypoxia Is this a current diagnosis for this admission?: Yes Plan: Due to the most likely the pneumonia (4) Mayen's esophagus with dysplasia Is this a current diagnosis for this admission?: Yes Plan: Patient have a recently endoscopy done by Dr. Yoon currently on a PPI (5) COPD (chronic obstructive pulmonary disease) Qualifiers: COPD type: COPD with acute exacerbation Qualified Code(s): J44.1 - Chronic obstructive pulmonary disease with (acute) exacerbation Is this a current diagnosis for this admission?: Yes Plan: Continues to nebulizer treatment (6) Foot drop, right Is this a current diagnosis for this admission?: Yes Plan: This post AAA surgery (7) Hyperkalemia Is this a current diagnosis for this admission?: Yes Plan: Given some Kayexalate and repeat the potassium loss potassium diet (8) Hypertension Qualifiers: Hypertension type: essential hypertension Qualified Code(s): I10 - Essential (primary) hypertension Is this a current diagnosis for this admission?: Yes Plan: Currently stable (9) Pulmonary embolism Qualifiers: Pulmonary embolism type: other Chronicity: acute Acute cor pulmonale presence: without acute cor pulmonale Qualified Code(s): I26.99 - Other pulmonary embolism without acute cor pulmonale Is this a current diagnosis for this admission?: Yes Plan: Continues to Eliquis (10) Abdominal aortic aneurysm Qualifiers: Presence of rupture: without rupture Qualified Code(s): I71.4 - Abdominal aortic aneurysm, without rupture Plan: s/p repair (11) Elevated brain natriuretic peptide (BNP) level Is this a current diagnosis for this admission?: Yes Plan: Rule out underlying diastolic congestive heart failure due to the chronic kidney disease will order the echocardiogram - Time Time Spent: 30 to 50 Minutes Medications reviewed and adjusted accordingly: Yes Anticipated discharge: Home - Inpatient Certification Medical Necessity: Need Close Monitoring Due to Risk of Patient Decompensation, Need for IV Antibiotics Post Hospital Care: D/C Medical Billing Associate Documentation - Plan Summary Plan Summary: Admit the patient in the IMCU start the patient on IV antibiotic order the echocardiogram consult the nephrology and continues to monitor the patient
[2017-10-21] MEDS: FUROSEMIDE INJ/PF 20 MG/2 ML SDV IV SCH (20:24)
[2017-10-21] MEDS ORDERED: HEPARIN SOD (PORCINE) 5,000 UNIT/ML 1 ML SYRINGE SUBCUT SCH (22:00)
[2017-10-21] MEDS: DOCUSATE SODIUM 100 MG CAPSULE PO SCH (22:00)
[2017-10-21] MEDS ORDERED: CEFEPIME 1 GM/D5W RTU 1 GM/50 ML RTUPB IV SCH (22:00)
[2017-10-21] MEDS: HYDRALAZINE HCL 50 MG TABLET PO SCH (22:00)
[2017-10-21] MEDS: METOPROLOL TARTRATE 100 MG TABLET PO SCH (22:24)
[2017-10-21] MEDS: APIXABAN 5 MG TABLET PO SCH (22:25)
[2017-10-21 23:01] LABS: CREATINE KINASE MB 2.22 ng/mL (<4.55); TROPONIN I 0.033 ng/mL
[2017-10-22 05:03] LABS: HEMATOCRIT 26.7 % (37.9-51.0); HEMOGLOBIN 8.1 g/dL (13.5-17.0); MEAN CORPUSCULAR HEMOGLOBIN 24.1 pg (27.0-33.4); MEAN CORPUSCULAR HGB CONC 30.5 g/dL (32.0-36.0); MEAN CORPUSCULAR VOLUME 79 fl (80-97); PLATELET COUNT 295 10^3/uL (150-450); RED BLOOD COUNT 3.38 10^6/uL (4.35-5.55); RED CELL DISTRIBUTION WIDTH 17.1 % (11.5-14.0)
[2017-10-22 05:25] LABS: ANION GAP 10 (5-19); BLOOD UREA NITROGEN 33 mg/dL (7-20); CALCIUM 8.2 mg/dL (8.4-10.2); CARBON DIOXIDE 30 mmol/L (22-30); CHLORIDE 99 mmol/L (98-107); GLUCOSE 98 mg/dL (75-110); POTASSIUM 5.1 mmol/L (3.6-5.0); SODIUM 139.1 mmol/L (137-145)
[2017-10-22 05:31] LABS: CREATINE KINASE MB 2.04 ng/mL (<4.55)
[2017-10-22 05:35] LABS: TROPONIN I 0.049 ng/mL
[2017-10-22 05:46] LABS: ABSOLUTE LYMPHOCYTES# (MANUAL) 0.5 10^3/uL (0.5-4.7); ABSOLUTE MONOCYTES # (MANUAL) 1.2 10^3/uL (0.1-1.4); ABSOLUTE NEUTROPHILS# (MANUAL) 7.3 10^3/uL (1.7-8.2); BAND NEUTROPHILS % (MANUAL) 9 % (3-5); BASOPHILS % (MANUAL) 0 % (0-2); EOSINOPHILS % (MANUAL) 0 % (0-6); LYMPHOCYTES % (MANUAL) 6 % (13-45); MONOCYTES % (MANUAL) 13 % (3-13); TOTAL CELLS COUNTED 100
[2017-10-22 05:47] LABS: PLATELET COMMENT ADEQUATE
[2017-10-22] MEDS: HYDRALAZINE HCL 50 MG TABLET PO SCH ×3 (05:48→23:19)
[2017-10-22] MEDS: LANSOPRAZOLE 30 MG TAB.RAP.DR PO SCH (05:48)
[2017-10-22 05:49] LABS: ANISOCYTOSIS 1+; HYPOCHROMASIA 1+; POIKILOCYTOSIS 1+; STOMATOCYTES 1+
[2017-10-22] MEDS: CEFEPIME 1 GM/D5W RTU 1 GM/50 ML RTUPB IV SCH ×2 (05:49→20:58)
[2017-10-22 05:54] LABS: SEGMENTED NEUTROPHILS % (MAN) 72 % (42-78)
[2017-10-22] MEDS: IPRATROPIUM/ALBUTEROL 0.5-2.5 MG/3 ML AMPUL NEB SCH ×3 (08:40→19:54)
[2017-10-22 10:11] LABS: ARTERIAL BLOOD BASE EXCESS 3.6 mmol/L; ARTERIAL BLOOD H2CO3 2.21 mmol/L (1.05-1.35); ARTERIAL BLOOD HCO3 32.3 mmol/L (20-26); ARTERIAL BLOOD O2 SATURATION 93.3 % (94-98); ARTERIAL BLOOD PH 7.26 (7.35-7.45); ARTERIAL BLOOD PO2 78.7 mmHg (80-100); ARTERIAL BLOOD TOTAL CO2 34.6 mmol/L (23-27)
[2017-10-22 10:12] LABS: ARTERIAL BLOOD FIO2 3L
[2017-10-22 10:14] LABS: ARTERIAL BLOOD PCO2 73.4 mmHg (35-45)
[2017-10-22] MEDS: METOPROLOL TARTRATE 100 MG TABLET PO SCH ×2 (10:34→23:19)
[2017-10-22] MEDS: APIXABAN 5 MG TABLET PO SCH (10:35)
[2017-10-22] MEDS: DOCUSATE SODIUM 100 MG CAPSULE PO SCH ×2 (10:35→23:18)
[2017-10-22] MEDS: LEVOFLOXACIN 250 MG/D5W RTU 250 MG/50 ML RTUPB IV SCH (10:35)
--- NOTE | 2017-10-22 11:36 | PDOC PROGRESS REPORT ---
Subjective Progress Note for:: 10/22/17 Subjective:: Patient is currently doing fair Patient's denied any chest pain any shortness of the breath As per discussed with Dr. Hathaway's presents to possible pneumonia Echocardiogram done in the last month will get the report Reason For Visit: PNEUMONIA,HYPOXIA Physical Exam Vital Signs: Temp Pulse Resp BP Pulse Ox 98.7 F 83 18 156/95 H 96 10/21/17 22:28 10/22/17 08:40 10/22/17 08:40 10/22/17 08:01 10/22/17 08:40 Intake & Output 10/21/17 10/22/17 10/23/17 06:59 06:59 06:59 Output Total 150 Balance -150 General appearance: PRESENT: no acute distress, well-developed, well-nourished Head exam: PRESENT: atraumatic, normocephalic Eye exam: PRESENT: conjunctiva pink, EOMI, PERRLA. ABSENT: scleral icterus Ear exam: PRESENT: normal external ear exam Mouth exam: PRESENT: moist, tongue midline Neck exam: PRESENT: full ROM. ABSENT: carotid bruit, JVD, lymphadenopathy, thyromegaly Respiratory exam: PRESENT: decreased breath sounds Cardiovascular exam: PRESENT: RRR. ABSENT: diastolic murmur, rubs, systolic murmur Pulses: PRESENT: normal dorsalis pedis pul, +2 pedal pulses bilateral Vascular exam: PRESENT: normal capillary refill GI/Abdominal exam: PRESENT: normal bowel sounds, soft. ABSENT: distended, guarding, mass, organolmegaly, rebound, tenderness Rectal exam: PRESENT: deferred Extremities exam: ABSENT: pedal edema Additional comments: Right-sided foot drop Neurological exam: PRESENT: alert, awake, oriented to person, oriented to place. ABSENT: motor sensory deficit Psychiatric exam: PRESENT: appropriate affect, normal mood. ABSENT: homicidal ideation, suicidal ideation Skin exam: PRESENT: dry, intact, warm. ABSENT: cyanosis, rash Results Laboratory Results: 10/22/17 04:40 10/22/17 04:40 10/21/17 10/22/17 10/22/17 15:55 04:40 04:40 WBC 9.0 RBC 3.38 L Hgb 8.1 L Hct 26.7 L MCV 79 L MCH 24.1 L MCHC 30.5 L RDW 17.1 H Plt Count 295 Seg Neutrophils % Not Reportable Lymphocytes % Not Reportable Monocytes % Not Reportable Eosinophils % Not Reportable Basophils % Not Reportable Absolute Neutrophils Not Reportable Absolute Lymphocytes Not Reportable Absolute Monocytes Not Reportable Absolute Eosinophils Not Reportable Absolute Basophils Not Reportable Carbonic Acid HCO3/H2CO3 Ratio ABG pH ABG pCO2 ABG pO2 ABG HCO3 ABG O2 Saturation ABG Base Excess FiO2 Sodium 137.9 139.1 Potassium 5.1 H 5.1 H Chloride 98 99 Carbon Dioxide 29 30 Anion Gap 11 10 BUN 31 H 33 H Creatinine 2.07 H 2.01 H Est GFR ( Amer) 38 L 39 L Est GFR (Non-Af Amer) 31 L 33 L Glucose 144 H 98 Calcium 8.6 8.2 L Magnesium 2.8 H Total Bilirubin 0.4 AST 17 ALT 19 L Alkaline Phosphatase 64 Total Protein 6.9 Albumin 3.8 10/22/17 09:47 WBC RBC Hgb Hct MCV MCH MCHC RDW Plt Count Seg Neutrophils % Lymphocytes % Monocytes % Eosinophils % Basophils % Absolute Neutrophils Absolute Lymphocytes Absolute Monocytes Absolute Eosinophils Absolute Basophils Carbonic Acid 2.21 H HCO3/H2CO3 Ratio 14:1 ABG pH 7.26 L ABG pCO2 73.4 H* ABG pO2 78.7 L ABG HCO3 32.3 H ABG O2 Saturation 93.3 L ABG Base Excess 3.6 FiO2 3L Sodium Potassium Chloride Carbon Dioxide Anion Gap BUN Creatinine Est GFR ( Amer) Est GFR (Non-Af Amer) Glucose Calcium Magnesium Total Bilirubin AST ALT Alkaline Phosphatase Total Protein Albumin 10/21/17 10/21/17 10/21/17 15:55 15:55 22:24 Creatine Kinase 138 155 CK-MB (CK-2) 2.11 Troponin I 0.039 NT-Pro-B Natriuret Pep 10/21/17 10/22/17 10/22/17 22:24 04:40 04:40 Creatine Kinase 163 CK-MB (CK-2) 2.22 2.04 Troponin I 0.033 0.049 NT-Pro-B Natriuret Pep 10/22/17 04:40 Creatine Kinase CK-MB (CK-2) Troponin I NT-Pro-B Natriuret Pep 9840 H Impressions: Ankle X-Ray 10/21/17 10:37 IMPRESSION: SOFT TISSUE SWELLING. NO ACUTE BONY FINDINGS. Chest X-Ray 10/21/17 10:37 IMPRESSION: DENSE CONSOLIDATION IN THE LEFT MID LUNG, MOST LIKELY DUE TO PNEUMONIA. CANNOT COMPLETELY EXCLUDE POSSIBLE UNDERLYING MASS, ALTHOUGH NO MASS PRESENT ON THE PRIOR CHEST X-RAY. Chest CT 10/21/17 14:09 IMPRESSION: 1. Multicentric pneumonia on the left, most prominently involving the anterior left upper lobe and lingula, but also involving the left lower lobe. Follow-up after treatment. 2. Small left pleural effusion. 3. Centrilobular emphysematous changes. 4. Linear atelectasis in the left upper lobe. Assessment & Plan - Diagnosis (1) Multifocal pneumonia Is this a current diagnosis for this admission?: Yes Plan: Start the patient on IV cefepime and Levaquin (2) Acute on chronic renal failure Qualifiers: Chronic kidney disease stage: stage 3 (moderate) Is this a current diagnosis for this admission?: Yes Plan: Since potassium is five-point when we give her 1 more dose of Kayexalate (3) Acute respiratory failure with hypoxia Is this a current diagnosis for this admission?: Yes Plan: Due to the most likely the pneumoniaAnd follow with the Dr. Hathaway (4) Mayen's esophagus with dysplasia Is this a current diagnosis for this admission?: Yes Plan: Patient have a recently endoscopy done by Dr. Yoon currently on a PPI (5) COPD (chronic obstructive pulmonary disease) Qualifiers: COPD type: COPD with acute exacerbation Qualified Code(s): J44.1 - Chronic obstructive pulmonary disease with (acute) exacerbation Is this a current diagnosis for this admission?: Yes Plan: Continues to nebulizer treatment (6) Foot drop, right Is this a current diagnosis for this admission?: Yes Plan: This post AAA surgery (7) Hyperkalemia Is this a current diagnosis for this admission?: Yes Plan: 1 dose of Kayexalate (8) Hypertension Qualifiers: Hypertension type: essential hypertension Qualified Code(s): I10 - Essential (primary) hypertension Is this a current diagnosis for this admission?: Yes Plan: Currently stable (9) Pulmonary embolism Qualifiers: Pulmonary embolism type: other Chronicity: acute Acute cor pulmonale presence: without acute cor pulmonale Qualified Code(s): I26.99 - Other pulmonary embolism without acute cor pulmonale Is this a current diagnosis for this admission?: Yes Plan: Continues to Eliquis (10) Abdominal aortic aneurysm Qualifiers: Presence of rupture: without rupture Qualified Code(s): I71.4 - Abdominal aortic aneurysm, without rupture Plan: s/p repair (11) Elevated brain natriuretic peptide (BNP) level Is this a current diagnosis for this admission?: Yes Plan: Get the echo report - Time Time Spent with patient: 15-24 minutes Medications reviewed and adjusted accordingly: Yes Anticipated discharge: Home Within: Other - Inpatient Certification Medical Necessity: Need Close Monitoring Due to Risk of Patient Decompensation, Need for IV Antibiotics Post Hospital Care: D/C Tack Cleaner Documentation - Plan Summary Plan Summary: IV antibiotics continues to follow with the Dr. Hathaway
[2017-10-22] MEDS ORDERED: SODIUM POLYSTYRENE SULFONATE 15 GM/60 ML PO ONE (14:00)
--- NOTE | 2017-10-22 14:09 | PDOC CONSULTATION ---
Consultation Consult Date: 10/22/17 Consult reason:: hyperkalemia/ckd History of Present Illness Admission Date/PCP: 10/21/17 15:54 KENIA VYAS MD History of Present Illness: RASHI MC JR is a 77 year old male with history of CKD, hypertension, and hyperkalemia. He recently came switched to Dr. Vyas's practice from a practice in [place]. A month ago he was admitted into the hospital for the pulmonary embolism and Mayen esophagus. Patient was seen by Dr. Hathaway and Dr. Yoon and a discharge on anticoagulation therapy and oxygen. He came to the emergency department yesterday because of the patient fell from the bed while sleeping. He was complaining of left ankle pain. An x-ray was done and showed no fracture. In the ER the patient had an O2 sat of 88% on 2 L nasal cannula which patient usually run at home 2 L about 90%. Other than that patient does not have any symptoms but the patient's chest x-ray does have a questionable mass. A CT of the chest shows multifocal pneumonia and the patient NT BNP was elevated Patient's potassium is also 6.0 and patient's creatinine is 1.96 patient used to see a nephrology at [place] and currently have appointment to be seen in Dr. Martin office next week Patient's currently denied any cough no congestion's no chest pain Patient's denied any short of breath, fevers or chills. Past Medical History Cardiac Medical History: Reports: Hyperlipidemia, Peripheral Vascular Disease - History of aortic aneurysm rupture and repair Pulmonary Medical History: Reports: Chronic Obstructive Pulmonary Disease (COPD) Neurological Medical History: Denies: Seizures GI Medical History: Reports: Gastroesophageal Reflux Disease Skin Medical History: Denies: Eczema, Psoriasis Psychiatric Medical History: Reports: Dementia, Depression Traumatic Medical History: Denies: Traumatic Brain Injury Past Surgical History Past Surgical History: Reports: Vascular Surgery, Other - states AAA few years ago Social History Smoking Status: Unknown if Ever Smoked Frequency of Alcohol Use: None Hx Recreational Drug Use: No Drugs: None Hx Prescription Drug Abuse: No Family History Parental Family History Reviewed: No Children Family History Reviewed: NA Sibling(s) Family History Reviewed.: NA Medication/Allergy Home Medications: Apixaban [Eliquis 5 mg Tablet] 5 mg PO Q12 10/21/17 Hydralazine HCl [Apresoline 50 mg Tablet] 50 mg PO Q8 10/21/17 Metoprolol Tartrate [Lopressor 100 mg Tablet] 100 mg PO Q12 10/21/17 Pravastatin Sodium [Pravachol] 20 mg PO DAILY 10/21/17 Allergies/Adverse Reactions: No Known Allergies Allergy (Verified 10/21/17 10:36) Review of Systems Constitutional: ABSENT: chills, fever(s), weakness Nose, Mouth, and Throat: ABSENT: headache(s) Cardiovascular: PRESENT: edema. ABSENT: chest pain, dyspnea on exertion, orthropnea, palpitations Respiratory: ABSENT: cough, dyspnea, sputum Gastrointestinal: ABSENT: abdominal pain, constipation, diarrhea, nausea, vomiting Genitourinary: ABSENT: difficulty urinating, dysuria, hematuria Musculoskeletal: PRESENT: joint swelling. ABSENT: muscle weakness Neurological: ABSENT: confusion, dizziness, numbness, weakness Psychiatric: ABSENT: anxiety, depression Physical Exam Vital Signs: Temp Pulse Resp BP Pulse Ox 98.7 F 83 18 156/95 H 96 10/21/17 22:28 10/22/17 08:40 10/22/17 08:40 10/22/17 08:01 10/22/17 08:40 Intake & Output 10/21/17 10/22/17 10/23/17 06:59 06:59 06:59 Output Total 150 Balance -150 General appearance: PRESENT: no acute distress, well-developed, well-nourished Eye exam: PRESENT: PERRLA. ABSENT: scleral icterus Mouth exam: PRESENT: moist, neck supple Neck exam: PRESENT: full ROM. ABSENT: JVD Respiratory exam: PRESENT: clear to auscultation annelise, rhonchi. ABSENT: crackles , rales, wheezes Cardiovascular exam: PRESENT: RRR, +S1, +S2 GI/Abdominal exam: PRESENT: normal bowel sounds, soft. ABSENT: ascites, guarding, renal bruit, tenderness Extremities exam: PRESENT: pedal edema, +1 edema. ABSENT: tenderness Musculoskeletal exam: ABSENT: deformity, full ROM, normal inspection, tenderness Neurological exam: PRESENT: alert, awake, oriented to person, oriented to place , oriented to time, oriented to situation Skin exam: PRESENT: dry, intact, warm. ABSENT: cyanosis Results Laboratory Results: 10/22/17 04:40 10/22/17 04:40 03/10/22/17 10/22/17 15:55 04:40 04:40 WBC 9.0 RBC 3.38 L Hgb 8.1 L Hct 26.7 L MCV 79 L MCH 24.1 L MCHC 30.5 L RDW 17.1 H Plt Count 295 Seg Neutrophils % Not Reportable Lymphocytes % Not Reportable Monocytes % Not Reportable Eosinophils % Not Reportable Basophils % Not Reportable Absolute Neutrophils Not Reportable Absolute Lymphocytes Not Reportable Absolute Monocytes Not Reportable Absolute Eosinophils Not Reportable Absolute Basophils Not Reportable Carbonic Acid HCO3/H2CO3 Ratio ABG pH ABG pCO2 ABG pO2 ABG HCO3 ABG O2 Saturation ABG Base Excess FiO2 Sodium 137.9 139.1 Potassium 5.1 H 5.1 H Chloride 98 99 Carbon Dioxide 29 30 Anion Gap 11 10 BUN 31 H 33 H Creatinine 2.07 H 2.01 H Est GFR ( Amer) 38 L 39 L Est GFR (Non-Af Amer) 31 L 33 L Glucose 144 H 98 Calcium 8.6 8.2 L Magnesium 2.8 H Total Bilirubin 0.4 AST 17 ALT 19 L Alkaline Phosphatase 64 Total Protein 6.9 Albumin 3.8 10/22/17 09:47 WBC RBC Hgb Hct MCV MCH MCHC RDW Plt Count Seg Neutrophils % Lymphocytes % Monocytes % Eosinophils % Basophils % Absolute Neutrophils Absolute Lymphocytes Absolute Monocytes Absolute Eosinophils Absolute Basophils Carbonic Acid 2.21 H HCO3/H2CO3 Ratio 14:1 ABG pH 7.26 L ABG pCO2 73.4 H* ABG pO2 78.7 L ABG HCO3 32.3 H ABG O2 Saturation 93.3 L ABG Base Excess 3.6 FiO2 3L Sodium Potassium Chloride Carbon Dioxide Anion Gap BUN Creatinine Est GFR ( Amer) Est GFR (Non-Af Amer) Glucose Calcium Magnesium Total Bilirubin AST ALT Alkaline Phosphatase Total Protein Albumin 10/21/17 10/21/17 10/21/17 15:55 15:55 22:24 Creatine Kinase 138 155 CK-MB (CK-2) 2.11 Troponin I 0.039 NT-Pro-B Natriuret Pep 10/21/17 10/22/17 10/22/17 22:24 04:40 04:40 Creatine Kinase 163 CK-MB (CK-2) 2.22 2.04 Troponin I 0.033 0.049 NT-Pro-B Natriuret Pep 10/22/17 04:40 Creatine Kinase CK-MB (CK-2) Troponin I NT-Pro-B Natriuret Pep 9840 H Impressions: Ankle X-Ray 10/21/17 10:37 IMPRESSION: SOFT TISSUE SWELLING. NO ACUTE BONY FINDINGS. Chest X-Ray 10/21/17 10:37 IMPRESSION: DENSE CONSOLIDATION IN THE LEFT MID LUNG, MOST LIKELY DUE TO PNEUMONIA. CANNOT COMPLETELY EXCLUDE POSSIBLE UNDERLYING MASS, ALTHOUGH NO MASS PRESENT ON THE PRIOR CHEST X-RAY. Chest CT 10/21/17 14:09 IMPRESSION: 1. Multicentric pneumonia on the left, most prominently involving the anterior left upper lobe and lingula, but also involving the left lower lobe. Follow-up after treatment. 2. Small left pleural effusion. 3. Centrilobular emphysematous changes. 4. Linear atelectasis in the left upper lobe. Assessment & Plan - Diagnosis (1) Multifocal pneumonia Is this a current diagnosis for this admission?: Yes Plan: currently on levofloxcin and cefepime (2) Acute on chronic renal failure Qualifiers: Chronic kidney disease stage: stage 3 (moderate) Is this a current diagnosis for this admission?: Yes Plan: unknown baseline, according to the about two years ago he was CKD 2 and then did not have it checked until 6 months ago. Since then it has been elevated up. Underlining kidney disease is from hypertension. Currently other factors affecting it are pneumonia and antibiotic use, along with the extra fluid that he is retaining. Will look to order an ultrasound, continue on current lasix dose and follow up with labs. (3) Chronic kidney disease, stage III (moderate) Plan: unknown baseline, according to the about two years ago he was CKD 2 and then did not have it checked until 6 months ago. Since then it has been elevated up. Underlining kidney disease is from hypertension. Currently other factors affecting it are pneumonia and antibiotic use, along with the extra fluid that he is retaining. (4) Hyperkalemia Is this a current diagnosis for this admission?: Yes Plan: metoprolol could be adding to the elevation of the potassium. Discussed with him and his about being on a low potassium diet. Will bring him a low potassium diet packet from Dr. Martin' office. Recommend switching from metoprolol if potassium remains elevated over the weekend. (5) Anemia Qualifiers: Anemia type: iron deficiency Plan: will look to order anemia labs (6) COPD (chronic obstructive pulmonary disease) Qualifiers: COPD type: COPD with acute exacerbation Qualified Code(s): J44.1 - Chronic obstructive pulmonary disease with (acute) exacerbation Is this a current diagnosis for this admission?: Yes Plan: currently oxygen, awaiting pulmonologies consultation (7) Hypertension Qualifiers: Hypertension type: essential hypertension Qualified Code(s): I10 - Essential (primary) hypertension Is this a current diagnosis for this admission?: Yes Plan: looks to be mostly controlled (8) Pulmonary embolism Qualifiers: Pulmonary embolism type: other Chronicity: acute Acute cor pulmonale presence: without acute cor pulmonale Qualified Code(s): I26.99 - Other pulmonary embolism without acute cor pulmonale Is this a current diagnosis for this admission?: Yes Plan: currently on anticoagulation therapy. (9) Mayen's esophagus with dysplasia Is this a current diagnosis for this admission?: Yes Plan: on PPI - Notes Notes: Patients case and care plan was discussed with Dr. Martin
[2017-10-22] MEDS: FUROSEMIDE INJ/PF 20 MG/2 ML SDV IV SCH (20:58)
[2017-10-22] MEDS: ATORVASTATIN CALCIUM 10 MG TABLET PO SCH (23:19)
[2017-10-23] MEDS: APIXABAN 5 MG TABLET PO SCH ×3 (00:30→21:51)
[2017-10-23] MEDS: LANSOPRAZOLE 30 MG TAB.RAP.DR PO SCH (05:53)
[2017-10-23] MEDS: CEFEPIME 1 GM/D5W RTU 1 GM/50 ML RTUPB IV SCH ×2 (05:53→17:16)
[2017-10-23] MEDS: HYDRALAZINE HCL 50 MG TABLET PO SCH ×3 (05:53→21:51)
[2017-10-23 06:08] LABS: HEMATOCRIT 25.2 % (37.9-51.0); MEAN CORPUSCULAR HEMOGLOBIN 24.1 pg (27.0-33.4); MEAN CORPUSCULAR HGB CONC 30.8 g/dL (32.0-36.0); MEAN CORPUSCULAR VOLUME 78 fl (80-97); PLATELET COUNT 296 10^3/uL (150-450); RED BLOOD COUNT 3.22 10^6/uL (4.35-5.55); RED CELL DISTRIBUTION WIDTH 17.1 % (11.5-14.0); WHITE BLOOD COUNT 7.7 10^3/uL (4.0-10.5)
[2017-10-23 06:33] LABS: ANION GAP 9 (5-19); BLOOD UREA NITROGEN 35 mg/dL (7-20); CALCIUM 8.3 mg/dL (8.4-10.2); CARBON DIOXIDE 34 mmol/L (22-30); CHLORIDE 96 mmol/L (98-107); GLUCOSE 102 mg/dL (75-110); POTASSIUM 4.8 mmol/L (3.6-5.0)
[2017-10-23 06:36] LABS: ABSOLUTE LYMPHOCYTES# (MANUAL) 0.8 10^3/uL (0.5-4.7); ABSOLUTE MONOCYTES # (MANUAL) 0.6 10^3/uL (0.1-1.4); BAND NEUTROPHILS % (MANUAL) 4 % (3-5); BASOPHILS % (MANUAL) 0 % (0-2); EOSINOPHILS % (MANUAL) 3 % (0-6); SEGMENTED NEUTROPHILS % (MAN) 74 % (42-78); TOTAL CELLS COUNTED 100
[2017-10-23 06:37] LABS: ANISOCYTOSIS 1+; LYMPHOCYTES % (MANUAL) 8 % (13-45); MONOCYTES % (MANUAL) 11 % (3-13); POLYCHROMASIA SLIGHT; TOXIC GRANULATION SLIGHT; TOXIC VACUOLATION PRESENT
[2017-10-23 07:01] LABS: HEMOGLOBIN 7.8 g/dL (13.5-17.0)
[2017-10-23 07:05] LABS: PLATELET COMMENT ADEQUATE
[2017-10-23] MEDS: IPRATROPIUM/ALBUTEROL 0.5-2.5 MG/3 ML AMPUL NEB SCH ×3 (07:48→20:00)
--- NOTE | 2017-10-23 07:50 | RADIOLOGY REPORT (SQ) ---
EXAM DESCRIPTION: U/S RETROPERITON (RENAL/AORTA) CLINICAL HISTORY: 77 years, Male, Acute on chronic renal failure COMPARISON: None. LIMITATIONS: None. FINDINGS: 10.3 cm right kidney with a 5.3 cm likely benign cyst not definitively characterized. 8.0 cm left kidney is mildly echogenic suggesting chronic medical renal disease. Bilateral urinary jet flow not visualized, nonspecific. Urinary bladder is otherwise unremarkable. IMPRESSION: No acute findings.
--- NOTE | 2017-10-23 08:55 | RADIOLOGY REPORT (SQ) ---
EXAM DESCRIPTION: CHEST SINGLE VIEW COMPLETED DATE/TIME: 10/23/2017 7:57 am REASON FOR STUDY: resp failure COMPARISON: 10/21/2017 NUMBER OF VIEWS: One view. TECHNIQUE: Single frontal radiographic image of the chest acquired. LIMITATIONS: None. FINDINGS: LUNGS AND PLEURA: Left upper and lower lobe pneumonia with improved aeration. No large ef fusions. MEDIASTINUM AND HEART: Stable heart size and mediastinal structures. BONY STRUCTURES: No acute findings. HARDWARE: None. OTHER: No other significant finding. IMPRESSION: Improving pneumonia. TECHNICAL DOCUMENTATION: JOB ID: [id number] Reading location - IP/workstation name: [email or web address]
[2017-10-23] MEDS: METOPROLOL TARTRATE 100 MG TABLET PO SCH ×2 (10:37→21:51)
[2017-10-23] MEDS: DOCUSATE SODIUM 100 MG CAPSULE PO SCH ×2 (10:37→21:51)
[2017-10-23] MEDS: LEVOFLOXACIN 250 MG/D5W RTU 250 MG/50 ML RTUPB IV SCH (10:37)
[2017-10-23 10:44] LABS: ARTERIAL BLOOD BASE EXCESS 6.3 mmol/L; ARTERIAL BLOOD H2CO3 1.83 mmol/L (1.05-1.35); ARTERIAL BLOOD O2 SATURATION 79.2 % (94-98); ARTERIAL BLOOD PCO2 60.8 mmHg (35-45); ARTERIAL BLOOD PH 7.35 (7.35-7.45); ARTERIAL BLOOD PO2 46.5 mmHg (80-100); ARTERIAL BLOOD TOTAL CO2 34.8 mmol/L (23-27)
[2017-10-23 10:45] LABS: ARTERIAL BLOOD FIO2 36%
[2017-10-23] MEDS ORDERED: NORMAL SALINE 250 ML IV PRN ×2 (15:14)
--- NOTE | 2017-10-23 15:14 | PDOC PROGRESS REPORT ---
Subjective Progress Note for:: 10/23/17 Subjective:: Patient denied any chest pain. There is persistent difficulty with breathing and need for nasal cannula supplemental oxygen support. No fever or chills. No nausea, vomiting, abdominal pain, or constipation. Reason For Visit: PNEUMONIA,HYPOXIA Physical Exam Vital Signs: Temp Pulse Resp BP Pulse Ox 98.5 F 64 18 123/47 L 93 10/23/17 11:14 10/23/17 14:05 10/23/17 14:05 10/23/17 11:14 10/23/17 14:05 Intake & Output 10/22/17 10/23/17 10/24/17 06:59 06:59 06:59 Intake Total 1000 Output Total 150 650 Balance -150 350 Weight 95.6 kg General appearance: PRESENT: mild distress Head exam: PRESENT: atraumatic, normocephalic Eye exam: PRESENT: conjunctiva pink, EOMI, PERRLA. ABSENT: scleral icterus Mouth exam: PRESENT: moist Respiratory exam: PRESENT: clear to auscultation annelise, decreased breath sounds - at lung bases Cardiovascular exam: PRESENT: RRR. ABSENT: diastolic murmur, rubs, systolic murmur GI/Abdominal exam: PRESENT: normal bowel sounds, soft. ABSENT: distended, guarding, mass, organolmegaly, rebound, tenderness Extremities exam: ABSENT: pedal edema Musculoskeletal exam: PRESENT: normal inspection Neurological exam: PRESENT: alert, awake, oriented to person, oriented to place , oriented to time, oriented to situation, CN II-XII grossly intact. ABSENT: motor sensory deficit Psychiatric exam: PRESENT: appropriate affect, normal mood. ABSENT: homicidal ideation, suicidal ideation Skin exam: PRESENT: dry, intact, warm. ABSENT: cyanosis, rash Results Laboratory Results: 10/23/17 05:00 10/23/17 05:00 10/23/17 10/23/17 10/23/17 05:00 05:00 10:16 WBC 7.7 RBC 3.22 L Hgb 7.8 L Hct 25.2 L MCV 78 L MCH 24.1 L MCHC 30.8 L RDW 17.1 H Plt Count 296 Seg Neutrophils % Not Reportable Lymphocytes % Not Reportable Monocytes % Not Reportable Eosinophils % Not Reportable Basophils % Not Reportable Absolute Neutrophils Not Reportable Absolute Lymphocytes Not Reportable Absolute Monocytes Not Reportable Absolute Eosinophils Not Reportable Absolute Basophils Not Reportable Carbonic Acid 1.83 H HCO3/H2CO3 Ratio 18:1 ABG pH 7.35 ABG pCO2 60.8 H ABG pO2 46.5 L ABG HCO3 33.0 H ABG O2 Saturation 79.2 L ABG Base Excess 6.3 FiO2 36% Sodium 139.0 Potassium 4.8 Chloride 96 L Carbon Dioxide 34 H Anion Gap 9 BUN 35 H Creatinine 2.00 H Est GFR ( Amer) 40 L Est GFR (Non-Af Amer) 33 L Glucose 102 Calcium 8.3 L Magnesium 2.6 H 10/21/17 18:44 Clean Catch Midstream Urine Culture - Final Mixed Urogenital Charmaine 10/21/17 10/21/17 10/21/17 15:55 15:55 22:24 Creatine Kinase 138 155 CK-MB (CK-2) 2.11 Troponin I 0.039 NT-Pro-B Natriuret Pep 10/21/17 10/22/17 10/22/17 22:24 04:40 04:40 Creatine Kinase 163 CK-MB (CK-2) 2.22 2.04 Troponin I 0.033 0.049 NT-Pro-B Natriuret Pep 10/22/17 10/23/17 04:40 05:00 Creatine Kinase CK-MB (CK-2) Troponin I NT-Pro-B Natriuret Pep 9840 H 8240 H Impressions: Ankle X-Ray 10/21/17 10:37 IMPRESSION: SOFT TISSUE SWELLING. NO ACUTE BONY FINDINGS. Chest CT 10/21/17 14:09 IMPRESSION: 1. Multicentric pneumonia on the left, most prominently involving the anterior left upper lobe and lingula, but also involving the left lower lobe. Follow-up after treatment. 2. Small left pleural effusion. 3. Centrilobular emphysematous changes. 4. Linear atelectasis in the left upper lobe. Renal Ultrasound 10/22/17 13:15 IMPRESSION: No acute findings. Chest X-Ray 10/23/17 06:00 IMPRESSION: Improving pneumonia. Assessment & Plan - Diagnosis (1) Lobar pneumonia, unspecified organism Is this a current diagnosis for this admission?: Yes Plan: Continue IV Cefepime and Levofloxacin coverage. See covering attending physician orders. (2) Acute and chronic respiratory failure with hypercapnia Is this a current diagnosis for this admission?: Yes Plan: See covering attending physician orders. Patient will remain on BiPAP support while sleeping. (3) Acute and chronic respiratory failure with hypoxia Is this a current diagnosis for this admission?: Yes Plan: Patient will remain on supplemental oxygen support. (4) COPD (chronic obstructive pulmonary disease) Qualifiers: COPD type: COPD with acute exacerbation Qualified Code(s): J44.1 - Chronic obstructive pulmonary disease with (acute) exacerbation Is this a current diagnosis for this admission?: Yes Plan: See covering attending physician orders. (5) Anemia of chronic disease Is this a current diagnosis for this admission?: Yes Plan: See covering attending physician orders. - Time Time Spent with patient: 25-34 minutes Medications reviewed and adjusted accordingly: Yes Anticipated discharge: SNF Within: Other - Inpatient Certification Based on my medical assessment, after consideration of the patient's comorbidities, presenting symptoms, or acuity I expect that the services needed warrant INPATIENT care.: Yes I certify that my determination is in accordance with my understanding of Medicare's requirements for reasonable and necessary INPATIENT services [42 CFR 412.3e].: Yes Medical Necessity: Need Close Monitoring Due to Risk of Patient Decompensation, Need For IV Fluids, Need For Continuous Telemetry Monitoring, Need for Nebulizer Therapy and Monitoring of Response, Need for IV Antibiotics, Risk of Complication if Not Cared For in Hospital Post Hospital Care: D/C Cutter Grind Tool Technician Documentation - Plan Summary Plan Summary: See covering attending physician orders.
[2017-10-23] MEDS: ATORVASTATIN CALCIUM 10 MG TABLET PO SCH (21:51)
[2017-10-24 02:29] LABS: ABSOLUTE EOSINOPHILS # (AUTO) 0.1 10^3/uL (0.0-0.6); ABSOLUTE LYMPHOCYTES (AUTO) 0.4 10^3/uL (0.5-4.7); ABSOLUTE MONOCYTES (AUTO) 1.2 10^3/uL (0.1-1.4); ABSOLUTE NEUT (AUTO) 5.9 10^3/uL (1.7-8.2); BASOPHILS % (AUTO) 0.1 % (0-2); EOSINOPHILS % (AUTO) 1.3 % (0-6); HEMATOCRIT 28.8 % (37.9-51.0); HEMOGLOBIN 9.1 g/dL (13.5-17.0); LYMPHOCYTES % (AUTO) 5.7 % (13-45); MEAN CORPUSCULAR HGB CONC 31.7 g/dL (32.0-36.0); MEAN CORPUSCULAR VOLUME 79 fl (80-97); PLATELET COUNT 311 10^3/uL (150-450); RED BLOOD COUNT 3.65 10^6/uL (4.35-5.55); RED CELL DISTRIBUTION WIDTH 16.6 % (11.5-14.0); SEGMENTED NEUTROPHILS % (AUTO) 76.9 % (42-78); TOTAL CELLS COUNTED % (AUTO) 100 %; WHITE BLOOD COUNT 7.7 10^3/uL (4.0-10.5)
[2017-10-24 03:07] LABS: ALANINE AMINOTRANSFERASE 31 U/L (21-72); ALBUMIN 3.1 g/dL (3.5-5.0); ALKALINE PHOSPHATASE 64 U/L (38-126); ANION GAP 10 (5-19); ASPARTATE AMINO TRANSFERASE 42 U/L (17-59); BILIRUBIN,DIRECT 0.3 mg/dL (0.0-0.4); BILIRUBIN,TOTAL 0.7 mg/dL (0.2-1.3); BLOOD UREA NITROGEN 37 mg/dL (7-20); CALCIUM 8.2 mg/dL (8.4-10.2); CARBON DIOXIDE 31 mmol/L (22-30); CHLORIDE 99 mmol/L (98-107); GLUCOSE 98 mg/dL (75-110); POTASSIUM 4.7 mmol/L (3.6-5.0); SODIUM 139.7 mmol/L (137-145); TOTAL PROTEIN 5.7 g/dL (6.3-8.2)
[2017-10-24] MEDS: LANSOPRAZOLE 30 MG TAB.RAP.DR PO SCH (06:18)
[2017-10-24] MEDS: HYDRALAZINE HCL 50 MG TABLET PO SCH ×3 (06:18→22:32)
[2017-10-24] MEDS: CEFEPIME 1 GM/D5W RTU 1 GM/50 ML RTUPB IV SCH ×2 (06:18→18:23)
[2017-10-24] MEDS: IPRATROPIUM/ALBUTEROL 0.5-2.5 MG/3 ML AMPUL NEB SCH ×3 (07:40→20:26)
[2017-10-24] MEDS: LEVOFLOXACIN 250 MG/D5W RTU 250 MG/50 ML RTUPB IV SCH (10:23)
[2017-10-24] MEDS: DOCUSATE SODIUM 100 MG CAPSULE PO SCH ×2 (10:23→22:35)
[2017-10-24] MEDS: METOPROLOL TARTRATE 100 MG TABLET PO SCH ×2 (10:23→22:33)
[2017-10-24] MEDS: APIXABAN 5 MG TABLET PO SCH ×2 (10:23→22:34)
--- NOTE | 2017-10-24 16:11 | PDOC PROGRESS REPORT ---
Subjective Progress Note for:: 10/24/17 Subjective:: Patient denied any chest pain. Remain on oxygen supplementation. No fever or chills. No nausea, vomiting, abdominal pain, or constipation. Reason For Visit: PNEUMONIA,HYPOXIA Physical Exam Vital Signs: Temp Pulse Resp BP Pulse Ox 98.2 F 99 18 130/61 H 97 10/24/17 11:24 10/24/17 14:05 10/24/17 14:05 10/24/17 11:24 10/24/17 14:05 Intake & Output 10/23/17 10/24/17 10/25/17 06:59 06:59 06:59 Intake Total 1000 1575 Output Total 650 750 Balance 350 825 Weight 95.6 kg 94.3 kg Physical Exam: General appearance: PRESENT: mild distress Head exam: PRESENT: atraumatic, normocephalic Eye exam: PRESENT: conjunctiva pink, EOMI, PERRLA. ABSENT: scleral icterus Mouth exam: PRESENT: moist Respiratory exam: PRESENT: clear to auscultation annelise, decreased breath sounds - at lung bases Cardiovascular exam: PRESENT: RRR. ABSENT: diastolic murmur, rubs, systolic murmur GI/Abdominal exam: PRESENT: normal bowel sounds, soft. ABSENT: distended, guarding, mass, organomegaly, rebound, tenderness Extremities exam: ABSENT: pedal edema Musculoskeletal exam: PRESENT: normal inspection Neurological exam: PRESENT: alert, awake, oriented to person, oriented to place , oriented to time, oriented to situation, CN II-XII grossly intact. ABSENT: motor sensory deficit Psychiatric exam: PRESENT: appropriate affect, normal mood. ABSENT: homicidal ideation, suicidal ideation Skin exam: PRESENT: dry, intact, warm. ABSENT: cyanosis, rash Results Laboratory Results: 10/24/17 02:16 10/24/17 02:16 10/23/17 10/24/17 10/24/17 15:52 02:16 02:16 WBC RBC Hgb Hct MCV MCH MCHC RDW Plt Count Seg Neutrophils % Lymphocytes % Monocytes % Eosinophils % Basophils % Absolute Neutrophils Absolute Lymphocytes Absolute Monocytes Absolute Eosinophils Absolute Basophils Sodium 139.7 Potassium 4.7 Chloride 99 Carbon Dioxide 31 H Anion Gap 10 BUN 37 H Creatinine 1.81 H Est GFR ( Amer) 44 L Est GFR (Non-Af Amer) 37 L Glucose 98 Calcium 8.2 L Magnesium 2.4 H Total Bilirubin 0.7 AST 42 ALT 31 Alkaline Phosphatase 64 Total Protein 5.7 L Albumin 3.1 L Blood Type A POSITIVE Antibody Screen NEGATIVE 10/24/17 02:16 WBC 7.7 RBC 3.65 L Hgb 9.1 L Hct 28.8 L MCV 79 L MCH 25.0 L MCHC 31.7 L RDW 16.6 H Plt Count 311 Seg Neutrophils % 76.9 Lymphocytes % 5.7 L Monocytes % 16.0 H Eosinophils % 1.3 Basophils % 0.1 Absolute Neutrophils 5.9 Absolute Lymphocytes 0.4 L Absolute Monocytes 1.2 Absolute Eosinophils 0.1 Absolute Basophils 0.0 Sodium Potassium Chloride Carbon Dioxide Anion Gap BUN Creatinine Est GFR ( Amer) Est GFR (Non-Af Amer) Glucose Calcium Magnesium Total Bilirubin AST ALT Alkaline Phosphatase Total Protein Albumin Blood Type Antibody Screen 10/21/17 18:44 Clean Catch Midstream Urine Culture - Final Mixed Urogenital Charmaine 10/21/17 10/21/17 10/21/17 15:55 15:55 22:24 Creatine Kinase 138 155 CK-MB (CK-2) 2.11 Troponin I 0.039 NT-Pro-B Natriuret Pep 10/21/17 10/22/17 10/22/17 22:24 04:40 04:40 Creatine Kinase 163 CK-MB (CK-2) 2.22 2.04 Troponin I 0.033 0.049 NT-Pro-B Natriuret Pep 10/22/17 10/23/17 10/24/17 04:40 05:00 02:16 Creatine Kinase CK-MB (CK-2) Troponin I NT-Pro-B Natriuret Pep 9840 H 8240 H 6040 H Impressions: Ankle X-Ray 10/21/17 10:37 IMPRESSION: SOFT TISSUE SWELLING. NO ACUTE BONY FINDINGS. Chest CT 10/21/17 14:09 IMPRESSION: 1. Multicentric pneumonia on the left, most prominently involving the anterior left upper lobe and lingula, but also involving the left lower lobe. Follow-up after treatment. 2. Small left pleural effusion. 3. Centrilobular emphysematous changes. 4. Linear atelectasis in the left upper lobe. Renal Ultrasound 10/22/17 13:15 IMPRESSION: No acute findings. Chest X-Ray 10/23/17 06:00 IMPRESSION: Improving pneumonia. Assessment & Plan - Diagnosis (1) Lobar pneumonia, unspecified organism Is this a current diagnosis for this admission?: Yes (2) Acute and chronic respiratory failure with hypercapnia Is this a current diagnosis for this admission?: Yes (3) Acute and chronic respiratory failure with hypoxia Is this a current diagnosis for this admission?: Yes (4) COPD (chronic obstructive pulmonary disease) Qualifiers: COPD type: COPD with acute exacerbation Qualified Code(s): J44.1 - Chronic obstructive pulmonary disease with (acute) exacerbation Is this a current diagnosis for this admission?: Yes (5) Anemia of chronic disease Is this a current diagnosis for this admission?: Yes - Time Time Spent with patient: 25-34 minutes Medications reviewed and adjusted accordingly: Yes Anticipated discharge: SNF - short term rehabilitation - Inpatient Certification Based on my medical assessment, after consideration of the patient's comorbidities, presenting symptoms, or acuity I expect that the services needed warrant INPATIENT care.: Yes I certify that my determination is in accordance with my understanding of Medicare's requirements for reasonable and necessary INPATIENT services [42 CFR 412.3e].: Yes Medical Necessity: Need Close Monitoring Due to Risk of Patient Decompensation, Need For Continuous Telemetry Monitoring, Need for Nebulizer Therapy and Monitoring of Response, Risk of Complication if Not Cared For in Hospital Post Hospital Care: D/C or Transfer Summary - Plan Summary Plan Summary: Continue current medication management. Possible benefit from short term rehabilitation.
[2017-10-24] MEDS: ATORVASTATIN CALCIUM 10 MG TABLET PO SCH (22:33)
[2017-10-25] MEDS: LANSOPRAZOLE 30 MG TAB.RAP.DR PO SCH (06:20)
[2017-10-25] MEDS: HYDRALAZINE HCL 50 MG TABLET PO SCH ×3 (06:20→22:30)
[2017-10-25] MEDS: CEFEPIME 1 GM/D5W RTU 1 GM/50 ML RTUPB IV SCH ×2 (06:21→17:03)
[2017-10-25] MEDS: IPRATROPIUM/ALBUTEROL 0.5-2.5 MG/3 ML AMPUL NEB SCH ×3 (08:17→19:56)
[2017-10-25] MEDS: METOPROLOL TARTRATE 100 MG TABLET PO SCH ×2 (10:05→22:29)
[2017-10-25] MEDS: APIXABAN 5 MG TABLET PO SCH ×2 (10:05→22:30)
[2017-10-25] MEDS: DOCUSATE SODIUM 100 MG CAPSULE PO SCH ×2 (10:06→22:30)
[2017-10-25] MEDS: LEVOFLOXACIN 250 MG/D5W RTU 250 MG/50 ML RTUPB IV SCH (10:07)
--- NOTE | 2017-10-25 13:50 | PDOC PROGRESS REPORT ---
Subjective Progress Note for:: 10/25/17 Subjective:: Patient is currently doing same patients did not use the BiPAP last night and patient little bit more confused this morning Patient otherwise denied any chest pain denied any shortness of the breath Patient's is on the bedside discussed with the patient's current conditions Reason For Visit: PNEUMONIA,HYPOXIA Physical Exam Vital Signs: Temp Pulse Resp BP Pulse Ox 98.3 F 70 17 142/58 H 92 10/25/17 11:24 10/25/17 11:24 10/25/17 11:24 10/25/17 11:24 10/25/17 11:24 Intake & Output 10/24/17 10/25/17 10/26/17 06:59 06:59 06:59 Intake Total 1575 1042 Output Total 750 1150 Balance 825 -108 Weight 94.3 kg 94.3 kg General appearance: PRESENT: no acute distress Eye exam: PRESENT: PERRLA Mouth exam: PRESENT: neck supple Respiratory exam: PRESENT: decreased breath sounds Cardiovascular exam: PRESENT: +S1, +S2 GI/Abdominal exam: PRESENT: normal bowel sounds, soft Neurological exam: PRESENT: alert, awake, oriented to person Psychiatric exam: PRESENT: anxious Results Laboratory Results: 10/24/17 02:16 10/24/17 02:16 10/21/17 10/21/17 10/21/17 15:55 15:55 22:24 Creatine Kinase 138 155 CK-MB (CK-2) 2.11 Troponin I 0.039 NT-Pro-B Natriuret Pep 10/21/17 10/22/17 10/22/17 22:24 04:40 04:40 Creatine Kinase 163 CK-MB (CK-2) 2.22 2.04 Troponin I 0.033 0.049 NT-Pro-B Natriuret Pep 10/22/17 10/23/17 10/24/17 04:40 05:00 02:16 Creatine Kinase CK-MB (CK-2) Troponin I NT-Pro-B Natriuret Pep 9840 H 8240 H 6040 H Impressions: Ankle X-Ray 10/21/17 10:37 IMPRESSION: SOFT TISSUE SWELLING. NO ACUTE BONY FINDINGS. Chest CT 10/21/17 14:09 IMPRESSION: 1. Multicentric pneumonia on the left, most prominently involving the anterior left upper lobe and lingula, but also involving the left lower lobe. Follow-up after treatment. 2. Small left pleural effusion. 3. Centrilobular emphysematous changes. 4. Linear atelectasis in the left upper lobe. Renal Ultrasound 10/22/17 13:15 IMPRESSION: No acute findings. Chest X-Ray 10/23/17 06:00 IMPRESSION: Improving pneumonia. Assessment & Plan - Diagnosis (1) Multifocal pneumonia Is this a current diagnosis for this admission?: Yes Plan: Start the patient on IV cefepime and Levaquin (2) Acute on chronic renal failure Qualifiers: Chronic kidney disease stage: stage 3 (moderate) Is this a current diagnosis for this admission?: Yes Plan: Since potassium is five-point when we give her 1 more dose of Kayexalate (3) Acute respiratory failure with hypoxia Is this a current diagnosis for this admission?: Yes Plan: Due to the most likely the pneumoniaAnd follow with the Dr. Hathaway (4) Mayen's esophagus with dysplasia Is this a current diagnosis for this admission?: Yes Plan: Patient have a recently endoscopy done by Dr. Yoon currently on a PPI (5) COPD (chronic obstructive pulmonary disease) Qualifiers: COPD type: COPD with acute exacerbation Qualified Code(s): J44.1 - Chronic obstructive pulmonary disease with (acute) exacerbation Is this a current diagnosis for this admission?: Yes Plan: Continues to nebulizer treatment (6) Foot drop, right Is this a current diagnosis for this admission?: Yes (7) Hyperkalemia Is this a current diagnosis for this admission?: Yes (8) Hypertension Qualifiers: Hypertension type: essential hypertension Qualified Code(s): I10 - Essential (primary) hypertension Is this a current diagnosis for this admission?: Yes Plan: Currently stable (9) Pulmonary embolism Qualifiers: Pulmonary embolism type: other Chronicity: acute Acute cor pulmonale presence: without acute cor pulmonale Qualified Code(s): I26.99 - Other pulmonary embolism without acute cor pulmonale Is this a current diagnosis for this admission?: Yes Plan: Continues to Eliquis (10) Abdominal aortic aneurysm Qualifiers: Presence of rupture: without rupture Qualified Code(s): I71.4 - Abdominal aortic aneurysm, without rupture (11) Elevated brain natriuretic peptide (BNP) level Is this a current diagnosis for this admission?: Yes Plan: Patient echocardiogram so some diastolic dysfunctions - Time Time Spent with patient: 15-24 minutes Medications reviewed and adjusted accordingly: Yes Anticipated discharge: Other Within: Other - Inpatient Certification Medical Necessity: Need Close Monitoring Due to Risk of Patient Decompensation, Need for IV Antibiotics Post Hospital Care: D/C Residential Plumber Documentation - Plan Summary Plan Summary: Continues to current medications discussed with the regarding the patient' s current condition with the multiple comorbidity
[2017-10-25 13:51] LABS: ARTERIAL BLOOD BASE EXCESS 4.9 mmol/L; ARTERIAL BLOOD HCO3 30.5 mmol/L (20-26); ARTERIAL BLOOD O2 SATURATION 95.1 % (94-98); ARTERIAL BLOOD PCO2 49.9 mmHg (35-45); ARTERIAL BLOOD PO2 75.9 mmHg (80-100)
[2017-10-25 13:52] LABS: ARTERIAL BLOOD FIO2 35%
--- NOTE | 2017-10-25 15:10 | RADIOLOGY REPORT (SQ) ---
EXAM DESCRIPTION: CHEST PA/LAT COMPLETED DATE/TIME: 10/25/2017 2:59 pm REASON FOR STUDY: Pneumonia COMPARISON: 09/25/2017 09/23/2017 EXAM PARAMETERS: NUMBER OF VIEWS: two views TECHNIQUE: Digital Frontal and Lateral radiographic views of the chest acquired. RADIATION DOSE: NA LIMITATIONS: none FINDINGS: LUNGS AND PLEURA: Persistent infiltrates is seen the left mid lung. There is not appear t o be significant change compared to the study of 10/23/2017 PE MEDIASTINUM AND HILAR STRUCTURES: No masses or contour abnormalities. HEART AND VASCULAR STRUCTURES: Heart size is borderline. No evidence of failure. BONES: No acute findings. HARDWARE: None in the chest. OTHER: No other significant finding. IMPRESSION: Borderline cardiomegaly without failure. Persist pneumonia in the left lung with no sig nificant interval change. TECHNICAL DOCUMENTATION: JOB ID: [id number] [email or web address] Rights Reserved Reading location - IP/workstation name: [email or web address]
[2017-10-25] MEDS: ATORVASTATIN CALCIUM 10 MG TABLET PO SCH (22:30)
[2017-10-26 05:38] LABS: ABSOLUTE RETICS # 0.057 10^6/uL (0.028-0.122); HEMOGLOBIN 9.2 g/dL (13.5-17.0); MEAN CORPUSCULAR HEMOGLOBIN 24.6 pg (27.0-33.4); MEAN CORPUSCULAR HGB CONC 30.8 g/dL (32.0-36.0); MEAN CORPUSCULAR VOLUME 80 fl (80-97); PLATELET COUNT 368 10^3/uL (150-450); RED BLOOD COUNT 3.76 10^6/uL (4.35-5.55); RED CELL DISTRIBUTION WIDTH 17.4 % (11.5-14.0); RETICULOCYTE COUNT (AUTO) 1.51 % (0.66-2.85); WHITE BLOOD COUNT 7.3 10^3/uL (4.0-10.5)
[2017-10-26 06:16] LABS: ANION GAP 9 (5-19); BLOOD UREA NITROGEN 35 mg/dL (7-20); CALCIUM 8.6 mg/dL (8.4-10.2); CARBON DIOXIDE 31 mmol/L (22-30); CHLORIDE 102 mmol/L (98-107); GLUCOSE 87 mg/dL (75-110); POTASSIUM 5.2 mmol/L (3.6-5.0); SODIUM 141.6 mmol/L (137-145)
[2017-10-26 06:17] LABS: ABSOLUTE LYMPHOCYTES# (MANUAL) 0.8 10^3/uL (0.5-4.7); ABSOLUTE MONOCYTES # (MANUAL) 0.9 10^3/uL (0.1-1.4); ABSOLUTE NEUTROPHILS# (MANUAL) 5.4 10^3/uL (1.7-8.2); BAND NEUTROPHILS % (MANUAL) 6 % (3-5); BASOPHILS % (MANUAL) 2 % (0-2); EOSINOPHILS % (MANUAL) 1 % (0-6); LYMPHOCYTES % (MANUAL) 11 % (13-45); MONOCYTES % (MANUAL) 12 % (3-13); SEGMENTED NEUTROPHILS % (MAN) 68 % (42-78); TOTAL CELLS COUNTED 100
[2017-10-26 06:20] LABS: ANISOCYTOSIS 1+; OVALOCYTES SLIGHT; POIKILOCYTOSIS SLIGHT
[2017-10-26 06:21] LABS: PLATELET COMMENT ADEQUATE; PLATELET LARGE PRESENT
[2017-10-26] MEDS: LANSOPRAZOLE 30 MG TAB.RAP.DR PO SCH (06:25)
[2017-10-26] MEDS: CEFEPIME 1 GM/D5W RTU 1 GM/50 ML RTUPB IV SCH ×2 (06:25→18:21)
[2017-10-26] MEDS: HYDRALAZINE HCL 50 MG TABLET PO SCH ×3 (06:25→21:35)
[2017-10-26 07:23] LABS: FOLATE 8.55 ng/mL (>2.76)
[2017-10-26] MEDS: IPRATROPIUM/ALBUTEROL 0.5-2.5 MG/3 ML AMPUL NEB SCH ×3 (08:53→19:40)
[2017-10-26] MEDS ORDERED: SODIUM POLYSTYRENE SULFONATE 15 GM/60 ML PO ONE (09:00)
[2017-10-26] MEDS: LEVOFLOXACIN 250 MG TABLET PO SCH (10:36)
[2017-10-26] MEDS: APIXABAN 5 MG TABLET PO SCH ×2 (10:36→21:35)
[2017-10-26] MEDS: DOCUSATE SODIUM 100 MG CAPSULE PO SCH ×2 (10:37→21:34)
[2017-10-26] MEDS: CYANOCOBALAMIN (VITAMIN B-12) INJ 1000 MCG/1 ML VIAL IM SCH (10:37)
[2017-10-26] MEDS: GUAIFENESIN 600 MG TABLET.SA PO SCH ×2 (10:37→21:35)
[2017-10-26] MEDS: METOPROLOL TARTRATE 100 MG TABLET PO SCH ×2 (10:37→21:35)
--- NOTE | 2017-10-26 10:37 | PDOC PROGRESS REPORT ---
Subjective Progress Note for:: 10/26/17 Subjective:: Patient is feeling much better this morning more alert awake And use the BiPAP last night No chest pain no shortness of breath Reason For Visit: PNEUMONIA,HYPOXIA Physical Exam Vital Signs: Temp Pulse Resp BP Pulse Ox 97.6 F 76 18 127/49 H 92 10/26/17 07:30 10/26/17 07:30 10/26/17 07:30 10/26/17 07:30 10/26/17 07:30 Pulse Oximeter Continuous Start: 10/25/17 13: 03 Freq: RTQ4 Status: Active Document 10/26/17 04:25 SFL (Rec: 10/26/17 05:35 SFL [email or web address]) Pulse Oximetry Assessment Oxygen Saturation (92-100) 92 Oxygen Delivery Method AVAP Fraction of Inspired Oxygen (FIO2) 30 Equipment Usage Equipment in Use Continuous SpO2 Machine # 3 Intake & Output 10/25/17 10/26/17 10/27/17 06:59 06:59 06:59 Intake Total 1042 162 Output Total 1150 300 Balance -108 -138 Weight 94.3 kg 91.9 kg General appearance: PRESENT: no acute distress, well-developed, well-nourished Head exam: PRESENT: atraumatic, normocephalic Eye exam: PRESENT: conjunctiva pink, EOMI, PERRLA. ABSENT: scleral icterus Ear exam: PRESENT: normal external ear exam Mouth exam: PRESENT: moist, tongue midline Neck exam: PRESENT: full ROM. ABSENT: carotid bruit, JVD, lymphadenopathy, thyromegaly Respiratory exam: PRESENT: clear to auscultation annelise Cardiovascular exam: PRESENT: RRR. ABSENT: diastolic murmur, rubs, systolic murmur Pulses: PRESENT: normal dorsalis pedis pul, +2 pedal pulses bilateral Vascular exam: PRESENT: normal capillary refill GI/Abdominal exam: PRESENT: normal bowel sounds, soft. ABSENT: distended, guarding, mass, organolmegaly, rebound, tenderness Rectal exam: PRESENT: deferred Extremities exam: ABSENT: pedal edema Neurological exam: PRESENT: alert, awake, oriented to person, oriented to place , oriented to time, oriented to situation. ABSENT: motor sensory deficit Psychiatric exam: PRESENT: appropriate affect, normal mood. ABSENT: homicidal ideation, suicidal ideation Skin exam: PRESENT: dry, intact, warm. ABSENT: cyanosis, rash Results Laboratory Results: 10/26/17 05:14 10/26/17 05:14 10/25/17 10/26/17 10/26/17 13:37 05:14 05:14 WBC 7.3 RBC 3.76 L Hgb 9.2 L Hct 30.0 L MCV 80 MCH 24.6 L MCHC 30.8 L RDW 17.4 H Plt Count 368 Seg Neutrophils % Not Reportable Lymphocytes % Not Reportable Monocytes % Not Reportable Eosinophils % Not Reportable Basophils % Not Reportable Absolute Neutrophils Not Reportable Absolute Lymphocytes Not Reportable Absolute Monocytes Not Reportable Absolute Eosinophils Not Reportable Absolute Basophils Not Reportable Retic Count (auto) 1.51 Absolute Retic 0.057 Carbonic Acid 1.50 H HCO3/H2CO3 Ratio 20:1 ABG pH 7.40 ABG pCO2 49.9 H ABG pO2 75.9 L ABG HCO3 30.5 H ABG O2 Saturation 95.1 ABG Base Excess 4.9 FiO2 35% Sodium 141.6 Potassium 5.2 H Chloride 102 Carbon Dioxide 31 H Anion Gap 9 BUN 35 H Creatinine 1.61 H Est GFR ( Amer) 51 L Est GFR (Non-Af Amer) 42 L Glucose 87 Calcium 8.6 Iron 17.0 L TIBC 291 % Saturation 6 Ferritin 151.00 Vitamin B12 208.0 L Folate 8.55 TSH 10/26/17 05:14 WBC RBC Hgb Hct MCV MCH MCHC RDW Plt Count Seg Neutrophils % Lymphocytes % Monocytes % Eosinophils % Basophils % Absolute Neutrophils Absolute Lymphocytes Absolute Monocytes Absolute Eosinophils Absolute Basophils Retic Count (auto) Absolute Retic Carbonic Acid HCO3/H2CO3 Ratio ABG pH ABG pCO2 ABG pO2 ABG HCO3 ABG O2 Saturation ABG Base Excess FiO2 Sodium Potassium Chloride Carbon Dioxide Anion Gap BUN Creatinine Est GFR ( Amer) Est GFR (Non-Af Amer) Glucose Calcium Iron TIBC % Saturation Ferritin Vitamin B12 Folate TSH 1.46 10/21/17 10/21/17 10/21/17 15:55 15:55 22:24 Creatine Kinase 138 155 CK-MB (CK-2) 2.11 Troponin I 0.039 NT-Pro-B Natriuret Pep 10/21/17 10/22/17 10/22/17 22:24 04:40 04:40 Creatine Kinase 163 CK-MB (CK-2) 2.22 2.04 Troponin I 0.033 0.049 NT-Pro-B Natriuret Pep 10/22/17 10/23/17 10/24/17 04:40 05:00 02:16 Creatine Kinase CK-MB (CK-2) Troponin I NT-Pro-B Natriuret Pep 9840 H 8240 H 6040 H Impressions: Ankle X-Ray 10/21/17 10:37 IMPRESSION: SOFT TISSUE SWELLING. NO ACUTE BONY FINDINGS. Chest CT 10/21/17 14:09 IMPRESSION: 1. Multicentric pneumonia on the left, most prominently involving the anterior left upper lobe and lingula, but also involving the left lower lobe. Follow-up after treatment. 2. Small left pleural effusion. 3. Centrilobular emphysematous changes. 4. Linear atelectasis in the left upper lobe. Renal Ultrasound 10/22/17 13:15 IMPRESSION: No acute findings. Chest X-Ray 10/25/17 00:00 IMPRESSION: Borderline cardiomegaly without failure. Persist pneumonia in the left lung with no significant interval change. Assessment & Plan - Diagnosis (1) Multifocal pneumonia Is this a current diagnosis for this admission?: Yes Plan: Start the patient on IV cefepime and Levaquin (2) Acute on chronic renal failure Qualifiers: Chronic kidney disease stage: stage 3 (moderate) Is this a current diagnosis for this admission?: Yes Plan: Since potassium is five-point when we give her 1 more dose of Kayexalate (3) Acute respiratory failure with hypoxia Is this a current diagnosis for this admission?: Yes Plan: Due to the most likely the pneumoniaAnd follow with the Dr. Hathaway (4) Mayen's esophagus with dysplasia Is this a current diagnosis for this admission?: Yes Plan: Patient have a recently endoscopy done by Dr. Yoon currently on a PPI (5) COPD (chronic obstructive pulmonary disease) Qualifiers: COPD type: COPD with acute exacerbation Qualified Code(s): J44.1 - Chronic obstructive pulmonary disease with (acute) exacerbation Is this a current diagnosis for this admission?: Yes Plan: Continues to nebulizer treatment (6) Foot drop, right Is this a current diagnosis for this admission?: Yes Plan: This post AAA surgery (7) Hyperkalemia Is this a current diagnosis for this admission?: Yes Plan: 1 dose of Kayexalate (8) Hypertension Qualifiers: Hypertension type: essential hypertension Qualified Code(s): I10 - Essential (primary) hypertension Is this a current diagnosis for this admission?: Yes Plan: Currently stable (9) Pulmonary embolism Qualifiers: Pulmonary embolism type: other Chronicity: acute Acute cor pulmonale presence: without acute cor pulmonale Qualified Code(s): I26.99 - Other pulmonary embolism without acute cor pulmonale Is this a current diagnosis for this admission?: Yes Plan: Continues to Eliquis (10) Abdominal aortic aneurysm Qualifiers: Presence of rupture: without rupture Qualified Code(s): I71.4 - Abdominal aortic aneurysm, without rupture Plan: s/p repair (11) Elevated brain natriuretic peptide (BNP) level Is this a current diagnosis for this admission?: Yes Plan: Currently all stable - Time Time Spent with patient: 15-24 minutes Medications reviewed and adjusted accordingly: Yes Anticipated discharge: Other Within: Other - Inpatient Certification Medical Necessity: Need Close Monitoring Due to Risk of Patient Decompensation, Need for IV Antibiotics Post Hospital Care: D/C Digital Account Director Documentation - Plan Summary Plan Summary: Give her 1 dose of Kayexalate continues to current medications
[2017-10-26] MEDS ORDERED: FERUMOXYTOL 510 MG in NORMAL SALINE 100 ML IV ONE (11:00)
--- NOTE | 2017-10-26 13:16 | PDOC PROGRESS REPORT ---
Subjective Progress Note for:: 10/26/17 Reason For Visit: patient seen today .He is doing better. Still coughing and has dyspnea with exertion. Denies any fever , chills, chest pains. Denies orthostasis. In bed all he time. labs and meds were reviewed with him. Physical Exam Vital Signs: Temp Pulse Resp BP Pulse Ox 97.8 F 73 18 132/53 H 90 L 10/26/17 11:31 10/26/17 11:31 10/26/17 11:31 10/26/17 11:31 10/26/17 12:00 Pulse Oximeter Continuous Start: 10/25/17 13: 03 Freq: RTQ4 Status: Active Document 10/26/17 12:00 CW (Rec: 10/26/17 12:32 CW [email or web address]) Pulse Oximetry Assessment Oxygen Saturation (92-100) 90 Oxygen Flow Rate (L/min) 2 Oxygen Delivery Method Nasal Cannula Equipment Usage Equipment in Use Continuous SpO2 Machine # 3 Intake & Output 10/25/17 10/26/17 10/27/17 06:59 06:59 06:59 Intake Total 1042 162 Output Total 1150 300 Balance -108 -138 Weight 94.3 kg 91.9 kg General appearance: PRESENT: no acute distress Respiratory exam: PRESENT: clear to auscultation annelise, crackles, decreased breath sounds, rhonchi - few scattered Cardiovascular exam: PRESENT: RRR, +S1, +S2 GI/Abdominal exam: PRESENT: normal bowel sounds, soft. ABSENT: ascites, guarding, renal bruit, tenderness Extremities exam: ABSENT: pedal edema Neurological exam: PRESENT: awake, oriented to person Psychiatric exam: PRESENT: appropriate affect Skin exam: ABSENT: erythema, mottled Results Laboratory Results: 10/26/17 05:14 10/26/17 05:14 10/25/17 10/26/17 10/26/17 13:37 05:14 05:14 WBC 7.3 RBC 3.76 L Hgb 9.2 L Hct 30.0 L MCV 80 MCH 24.6 L MCHC 30.8 L RDW 17.4 H Plt Count 368 Seg Neutrophils % Not Reportable Lymphocytes % Not Reportable Monocytes % Not Reportable Eosinophils % Not Reportable Basophils % Not Reportable Absolute Neutrophils Not Reportable Absolute Lymphocytes Not Reportable Absolute Monocytes Not Reportable Absolute Eosinophils Not Reportable Absolute Basophils Not Reportable Retic Count (auto) 1.51 Absolute Retic 0.057 Carbonic Acid 1.50 H HCO3/H2CO3 Ratio 20:1 ABG pH 7.40 ABG pCO2 49.9 H ABG pO2 75.9 L ABG HCO3 30.5 H ABG O2 Saturation 95.1 ABG Base Excess 4.9 FiO2 35% Sodium 141.6 Potassium 5.2 H Chloride 102 Carbon Dioxide 31 H Anion Gap 9 BUN 35 H Creatinine 1.61 H Est GFR ( Amer) 51 L Est GFR (Non-Af Amer) 42 L Glucose 87 Calcium 8.6 Iron 17.0 L TIBC 291 % Saturation 6 Ferritin 151.00 Vitamin B12 208.0 L Folate 8.55 TSH 10/26/17 05:14 WBC RBC Hgb Hct MCV MCH MCHC RDW Plt Count Seg Neutrophils % Lymphocytes % Monocytes % Eosinophils % Basophils % Absolute Neutrophils Absolute Lymphocytes Absolute Monocytes Absolute Eosinophils Absolute Basophils Retic Count (auto) Absolute Retic Carbonic Acid HCO3/H2CO3 Ratio ABG pH ABG pCO2 ABG pO2 ABG HCO3 ABG O2 Saturation ABG Base Excess FiO2 Sodium Potassium Chloride Carbon Dioxide Anion Gap BUN Creatinine Est GFR ( Amer) Est GFR (Non-Af Amer) Glucose Calcium Iron TIBC % Saturation Ferritin Vitamin B12 Folate TSH 1.46 10/21/17 10/21/17 10/21/17 15:55 15:55 22:24 Creatine Kinase 138 155 CK-MB (CK-2) 2.11 Troponin I 0.039 NT-Pro-B Natriuret Pep 10/21/17 10/22/17 10/22/17 22:24 04:40 04:40 Creatine Kinase 163 CK-MB (CK-2) 2.22 2.04 Troponin I 0.033 0.049 NT-Pro-B Natriuret Pep 10/22/17 10/23/17 10/24/17 04:40 05:00 02:16 Creatine Kinase CK-MB (CK-2) Troponin I NT-Pro-B Natriuret Pep 9840 H 8240 H 6040 H Impressions: Ankle X-Ray 10/21/17 10:37 IMPRESSION: SOFT TISSUE SWELLING. NO ACUTE BONY FINDINGS. Chest CT 10/21/17 14:09 IMPRESSION: 1. Multicentric pneumonia on the left, most prominently involving the anterior left upper lobe and lingula, but also involving the left lower lobe. Follow-up after treatment. 2. Small left pleural effusion. 3. Centrilobular emphysematous changes. 4. Linear atelectasis in the left upper lobe. Renal Ultrasound 10/22/17 13:15 IMPRESSION: No acute findings. Chest X-Ray 10/25/17 00:00 IMPRESSION: Borderline cardiomegaly without failure. Persist pneumonia in the left lung with no significant interval change. Assessment & Plan - Diagnosis (1) Acute and chronic respiratory failure with hypercapnia Is this a current diagnosis for this admission?: Yes Plan: Initial decompensation of kidney functions secondary to ATN from sepsis and possible dehydration. Now improving on current measures. (2) Chronic kidney disease, stage III (moderate) Plan: Stable now. (3) Multifocal pneumonia Is this a current diagnosis for this admission?: Yes Plan: On appropriate antibiotics. Suggest additional treatments including chest toiletting , mucomyst nebs and will order. (4) Acute on chronic renal failure Qualifiers: Chronic kidney disease stage: stage 3 (moderate) Is this a current diagnosis for this admission?: Yes (5) Iron deficiency anemia Plan: Order IV iron. Besides this he also has B12 def and replacements ordered. I believe both of these replacement is going to make him feel much better and speedier recovery. I discussed IV iron and its potential adverse effects including anaphylaxis and he is willing to proceed. He may need further eval of iron deficiency and could be done as OP. (7) Mayen's esophagus with dysplasia Is this a current diagnosis for this admission?: Yes Plan: b 12 replacements . (8) COPD (chronic obstructive pulmonary disease) Qualifiers: COPD type: COPD with acute exacerbation Qualified Code(s): J44.1 - Chronic obstructive pulmonary disease with (acute) exacerbation Is this a current diagnosis for this admission?: Yes Plan: Chronic Co2 retainer. Query other additional etiologies. ? Last Echo. (9) Hypertension Qualifiers: Hypertension type: essential hypertension Qualified Code(s): I10 - Essential (primary) hypertension Is this a current diagnosis for this admission?: Yes
[2017-10-26 14:03] LABS: APPEARANCE,URINE CLOUDY; BILIRUBIN,URINE NEGATIVE (NEGATIVE); COLOR,URINE YELLOW; GLUCOSE, URINE NEGATIVE (NEGATIVE); KETONES,URINE NEGATIVE (NEGATIVE); LEUKOCYTE ESTERASE,URINE MODERATE (NEGATIVE); NITRITE,URINE NEGATIVE (NEGATIVE); PROTEIN,URINE 100 mg/dL (NEGATIVE); URINE SPECIFIC GRAVITY 1.017; UROBILINOGEN,URINE NEGATIVE mg/dL (<2.0)
[2017-10-26] MEDS: ATORVASTATIN CALCIUM 10 MG TABLET PO SCH (21:35)
[2017-10-27] MEDS: LANSOPRAZOLE 30 MG TAB.RAP.DR PO SCH (05:25)
[2017-10-27] MEDS: HYDRALAZINE HCL 50 MG TABLET PO SCH ×3 (05:25→21:39)
[2017-10-27] MEDS: CEFEPIME 1 GM/D5W RTU 1 GM/50 ML RTUPB IV SCH ×2 (05:26→18:37)
[2017-10-27 07:08] LABS: TRANSFERRIN 189 mg/dL (200-370)
[2017-10-27 07:13] LABS: ABSOLUTE BASOPHILS # (AUTO) 0.1 10^3/uL (0.0-0.2); ABSOLUTE EOSINOPHILS # (AUTO) 0.2 10^3/uL (0.0-0.6); ABSOLUTE LYMPHOCYTES (AUTO) 0.4 10^3/uL (0.5-4.7); ABSOLUTE MONOCYTES (AUTO) 1.1 10^3/uL (0.1-1.4); ABSOLUTE NEUT (AUTO) 4.8 10^3/uL (1.7-8.2); BASOPHILS % (AUTO) 0.9 % (0-2); EOSINOPHILS % (AUTO) 2.9 % (0-6); HEMATOCRIT 29.7 % (37.9-51.0); HEMOGLOBIN 9.2 g/dL (13.5-17.0); LYMPHOCYTES % (AUTO) 6.5 % (13-45); MEAN CORPUSCULAR HEMOGLOBIN 24.6 pg (27.0-33.4); MEAN CORPUSCULAR VOLUME 79 fl (80-97); MONOCYTES % (AUTO) 16.4 % (3-13); PLATELET COUNT 339 10^3/uL (150-450); RED BLOOD COUNT 3.75 10^6/uL (4.35-5.55); RED CELL DISTRIBUTION WIDTH 17.4 % (11.5-14.0); SEGMENTED NEUTROPHILS % (AUTO) 73.3 % (42-78); TOTAL CELLS COUNTED % (AUTO) 100 %; WHITE BLOOD COUNT 6.5 10^3/uL (4.0-10.5)
[2017-10-27 07:42] LABS: ANION GAP 7 (5-19); BLOOD UREA NITROGEN 31 mg/dL (7-20); CALCIUM 8.5 mg/dL (8.4-10.2); CARBON DIOXIDE 31 mmol/L (22-30); CHLORIDE 100 mmol/L (98-107); GLUCOSE 89 mg/dL (75-110); POTASSIUM 5.1 mmol/L (3.6-5.0)
[2017-10-27] MEDS: IPRATROPIUM/ALBUTEROL 0.5-2.5 MG/3 ML AMPUL NEB SCH ×3 (07:51→20:07)
--- NOTE | 2017-10-27 08:51 | PDOC PROGRESS REPORT ---
Subjective Progress Note for:: 10/27/17 Subjective:: Patient is currently doing much better Patient's denied any chest pain denied any shortness of the breath No other events happens overnight Reason For Visit: PNEUMONIA,HYPOXIA Physical Exam Vital Signs: Temp Pulse Resp BP Pulse Ox 98.2 F 77 16 123/45 L 93 10/27/17 03:16 10/27/17 07:51 10/27/17 07:51 10/27/17 03:16 10/27/17 07:51 Pulse Oximeter Continuous Start: 10/25/17 13: 03 Freq: RTQ4 Status: Active Document 10/27/17 07:51 TPO (Rec: 10/27/17 08:07 TPO [email or web address]) Pulse Oximetry Assessment Oxygen Saturation (92-100) 93 Oxygen Flow Rate (L/min) 2 Oxygen Delivery Method Nasal Cannula Fraction of Inspired Oxygen (FIO2) 28 Equipment Usage Equipment Standby Continuous SpO2 Machine # 3 Intake & Output 10/26/17 10/27/17 10/28/17 06:59 06:59 06:59 Intake Total 162 991 Output Total 300 575 Balance -138 416 Weight 91.9 kg 96.5 kg General appearance: PRESENT: no acute distress, well-developed, well-nourished Head exam: PRESENT: atraumatic, normocephalic Eye exam: PRESENT: conjunctiva pink, EOMI, PERRLA. ABSENT: scleral icterus Ear exam: PRESENT: normal external ear exam Mouth exam: PRESENT: moist, tongue midline Neck exam: PRESENT: full ROM. ABSENT: carotid bruit, JVD, lymphadenopathy, thyromegaly Respiratory exam: PRESENT: clear to auscultation annelise Cardiovascular exam: PRESENT: RRR. ABSENT: diastolic murmur, rubs, systolic murmur Pulses: PRESENT: normal dorsalis pedis pul, +2 pedal pulses bilateral Vascular exam: PRESENT: normal capillary refill GI/Abdominal exam: PRESENT: normal bowel sounds, soft. ABSENT: distended, guarding, mass, organolmegaly, rebound, tenderness Rectal exam: PRESENT: deferred Extremities exam: ABSENT: pedal edema Neurological exam: PRESENT: alert, awake, oriented to person, oriented to place , oriented to time, oriented to situation. ABSENT: motor sensory deficit Psychiatric exam: PRESENT: appropriate affect, normal mood. ABSENT: homicidal ideation, suicidal ideation Skin exam: PRESENT: dry, intact, warm. ABSENT: cyanosis, rash Results Laboratory Results: 10/27/17 06:18 10/27/17 06:18 10/26/17 10/26/17 10/27/17 05:14 11:23 06:18 WBC RBC Hgb Hct MCV MCH MCHC RDW Plt Count Seg Neutrophils % Lymphocytes % Monocytes % Eosinophils % Basophils % Absolute Neutrophils Absolute Lymphocytes Absolute Monocytes Absolute Eosinophils Absolute Basophils Sodium 138.0 Potassium 5.1 H Chloride 100 Carbon Dioxide 31 H Anion Gap 7 BUN 31 H Creatinine 1.51 H Est GFR ( Amer) 55 L Est GFR (Non-Af Amer) 45 L Glucose 89 Calcium 8.5 Transferrin 189 L Urine Color YELLOW Urine Appearance CLOUDY Urine pH 6.0 Ur Specific [place] 1.017 Urine Protein 100 H Urine Glucose (UA) NEGATIVE Urine Ketones NEGATIVE Urine Blood SMALL H Urine Nitrite NEGATIVE Ur Leukocyte Esterase MODERATE H Urine WBC (Auto) 15 Urine RBC (Auto) 9 10/27/17 06:18 WBC 6.5 RBC 3.75 L Hgb 9.2 L Hct 29.7 L MCV 79 L MCH 24.6 L MCHC 31.0 L RDW 17.4 H Plt Count 339 Seg Neutrophils % 73.3 Lymphocytes % 6.5 L Monocytes % 16.4 H Eosinophils % 2.9 Basophils % 0.9 Absolute Neutrophils 4.8 Absolute Lymphocytes 0.4 L Absolute Monocytes 1.1 Absolute Eosinophils 0.2 Absolute Basophils 0.1 Sodium Potassium Chloride Carbon Dioxide Anion Gap BUN Creatinine Est GFR ( Amer) Est GFR (Non-Af Amer) Glucose Calcium Transferrin Urine Color Urine Appearance Urine pH Ur Specific [place] Urine Protein Urine Glucose (UA) Urine Ketones Urine Blood Urine Nitrite Ur Leukocyte Esterase Urine WBC (Auto) Urine RBC (Auto) 10/21/17 15:55 Blood Blood Culture - Final NO GROWTH IN 5 DAYS 10/21/17 16:07 Blood Blood Culture - Final NO GROWTH IN 5 DAYS 10/21/17 10/21/17 10/21/17 15:55 15:55 22:24 Creatine Kinase 138 155 CK-MB (CK-2) 2.11 Troponin I 0.039 NT-Pro-B Natriuret Pep 10/21/17 10/22/17 10/22/17 22:24 04:40 04:40 Creatine Kinase 163 CK-MB (CK-2) 2.22 2.04 Troponin I 0.033 0.049 NT-Pro-B Natriuret Pep 10/22/17 10/23/17 10/24/17 04:40 05:00 02:16 Creatine Kinase CK-MB (CK-2) Troponin I NT-Pro-B Natriuret Pep 9840 H 8240 H 6040 H Impressions: Ankle X-Ray 10/21/17 10:37 IMPRESSION: SOFT TISSUE SWELLING. NO ACUTE BONY FINDINGS. Chest CT 10/21/17 14:09 IMPRESSION: 1. Multicentric pneumonia on the left, most prominently involving the anterior left upper lobe and lingula, but also involving the left lower lobe. Follow-up after treatment. 2. Small left pleural effusion. 3. Centrilobular emphysematous changes. 4. Linear atelectasis in the left upper lobe. Renal Ultrasound 10/22/17 13:15 IMPRESSION: No acute findings. Chest X-Ray 10/25/17 00:00 IMPRESSION: Borderline cardiomegaly without failure. Persist pneumonia in the left lung with no significant interval change. Assessment & Plan - Diagnosis (1) Multifocal pneumonia Is this a current diagnosis for this admission?: Yes Plan: Start the patient on IV cefepime and Levaquin (2) Acute on chronic renal failure Qualifiers: Chronic kidney disease stage: stage 3 (moderate) Is this a current diagnosis for this admission?: Yes Plan: Since potassium is five-point when we give her 1 more dose of Kayexalate (3) Acute respiratory failure with hypoxia Is this a current diagnosis for this admission?: Yes Plan: Due to the most likely the pneumoniaAnd follow with the Dr. Hathaway (4) Mayen's esophagus with dysplasia Is this a current diagnosis for this admission?: Yes Plan: Patient have a recently endoscopy done by Dr. Yoon currently on a PPI (5) COPD (chronic obstructive pulmonary disease) Qualifiers: COPD type: COPD with acute exacerbation Qualified Code(s): J44.1 - Chronic obstructive pulmonary disease with (acute) exacerbation Is this a current diagnosis for this admission?: Yes Plan: Continues to nebulizer treatment (6) Foot drop, right Is this a current diagnosis for this admission?: Yes Plan: This post AAA surgery (7) Hyperkalemia Is this a current diagnosis for this admission?: Yes Plan: 1 dose of Kayexalate (8) Hypertension Qualifiers: Hypertension type: essential hypertension Qualified Code(s): I10 - Essential (primary) hypertension Is this a current diagnosis for this admission?: Yes Plan: Currently stable (9) Pulmonary embolism Qualifiers: Pulmonary embolism type: other Chronicity: acute Acute cor pulmonale presence: without acute cor pulmonale Qualified Code(s): I26.99 - Other pulmonary embolism without acute cor pulmonale Is this a current diagnosis for this admission?: Yes Plan: Continues to Eliquis (10) Abdominal aortic aneurysm Qualifiers: Presence of rupture: without rupture Qualified Code(s): I71.4 - Abdominal aortic aneurysm, without rupture Plan: s/p repair (11) Elevated brain natriuretic peptide (BNP) level Is this a current diagnosis for this admission?: Yes Plan: Currently all stable - Time Time Spent with patient: 15-24 minutes Medications reviewed and adjusted accordingly: Yes Anticipated discharge: Other Within: Other - Inpatient Certification Medical Necessity: Need Close Monitoring Due to Risk of Patient Decompensation Post Hospital Care: D/C [facility] Documentation - Plan Summary Plan Summary: Continues to current medication
[2017-10-27] MEDS: DOCUSATE SODIUM 100 MG CAPSULE PO SCH ×2 (09:25→21:40)
[2017-10-27] MEDS: GUAIFENESIN 600 MG TABLET.SA PO SCH ×2 (09:25→21:40)
[2017-10-27] MEDS: METOPROLOL TARTRATE 100 MG TABLET PO SCH ×2 (09:26→21:43)
[2017-10-27] MEDS: APIXABAN 5 MG TABLET PO SCH ×2 (09:26→21:38)
[2017-10-27] MEDS: LEVOFLOXACIN 250 MG TABLET PO SCH (09:26)
[2017-10-27] MEDS: CYANOCOBALAMIN (VITAMIN B-12) INJ 1000 MCG/1 ML VIAL IM SCH (09:26)
[2017-10-27] MEDS ORDERED: SODIUM POLYSTYRENE SULFONATE 15 GM/60 ML PO ONE (13:15)
--- NOTE | 2017-10-27 15:37 | PDOC PROGRESS REPORT ---
Subjective Progress Note for:: 10/27/17 Subjective:: Patient was seen laying in his bed comfortably. At the time he denied chest pain , SOB, fevers, chills. He does still have a cough with minor amount of sputum production. Labs and vitals were reviewed with the patient. Reason For Visit: PNEUMONIA,HYPOXIA Physical Exam Vital Signs: Temp Pulse Resp BP Pulse Ox 98.4 F 71 18 138/58 H 95 10/27/17 11:22 10/27/17 13:12 10/27/17 13:12 10/27/17 11:22 10/27/17 13:12 Pulse Oximeter Continuous Start: 10/25/17 13: 03 Freq: RTQ4 Status: Active Document 10/27/17 12:39 TPO (Rec: 10/27/17 12:40 TPO [email or web address]) Pulse Oximetry Assessment Oxygen Saturation (92-100) 2 Oxygen Flow Rate (L/min) 28 Oxygen Delivery Method Nasal Cannula Fraction of Inspired Oxygen (FIO2) 93 Equipment Usage Equipment in Use Continuous SpO2 Machine # 3 Intake & Output 10/26/17 10/27/17 10/28/17 06:59 06:59 06:59 Intake Total 162 991 Output Total 300 575 Balance -138 416 Weight 91.9 kg 96.5 kg General appearance: PRESENT: no acute distress, well-developed, well-nourished Mouth exam: PRESENT: moist, neck supple Neck exam: PRESENT: full ROM. ABSENT: JVD, tracheal deviation Respiratory exam: PRESENT: clear to auscultation annelise. ABSENT: accessory muscle use, crackles, rales, rhonchi, wheezes Cardiovascular exam: PRESENT: RRR, +S1, +S2 GI/Abdominal exam: PRESENT: normal bowel sounds, soft. ABSENT: ascites, guarding, renal bruit, tenderness Extremities exam: PRESENT: pedal edema - -trace+. ABSENT: tenderness Musculoskeletal exam: PRESENT: normal inspection. ABSENT: tenderness Neurological exam: PRESENT: alert, awake, oriented to person, oriented to place , oriented to time, oriented to situation Skin exam: PRESENT: dry, intact, warm. ABSENT: cyanosis Results Laboratory Results: 10/27/17 06:18 10/27/17 06:18 10/26/17 10/27/17 10/27/17 05:14 06:18 06:18 WBC 6.5 RBC 3.75 L Hgb 9.2 L Hct 29.7 L MCV 79 L MCH 24.6 L MCHC 31.0 L RDW 17.4 H Plt Count 339 Seg Neutrophils % 73.3 Lymphocytes % 6.5 L Monocytes % 16.4 H Eosinophils % 2.9 Basophils % 0.9 Absolute Neutrophils 4.8 Absolute Lymphocytes 0.4 L Absolute Monocytes 1.1 Absolute Eosinophils 0.2 Absolute Basophils 0.1 Sodium 138.0 Potassium 5.1 H Chloride 100 Carbon Dioxide 31 H Anion Gap 7 BUN 31 H Creatinine 1.51 H Est GFR ( Amer) 55 L Est GFR (Non-Af Amer) 45 L Glucose 89 Calcium 8.5 Transferrin 189 L 10/21/17 15:55 Blood Blood Culture - Final NO GROWTH IN 5 DAYS 10/21/17 16:07 Blood Blood Culture - Final NO GROWTH IN 5 DAYS 10/21/17 10/21/17 10/21/17 15:55 15:55 22:24 Creatine Kinase 138 155 CK-MB (CK-2) 2.11 Troponin I 0.039 NT-Pro-B Natriuret Pep 10/21/17 10/22/17 10/22/17 22:24 04:40 04:40 Creatine Kinase 163 CK-MB (CK-2) 2.22 2.04 Troponin I 0.033 0.049 NT-Pro-B Natriuret Pep 10/22/17 10/23/17 10/24/17 04:40 05:00 02:16 Creatine Kinase CK-MB (CK-2) Troponin I NT-Pro-B Natriuret Pep 9840 H 8240 H 6040 H Impressions: Ankle X-Ray 10/21/17 10:37 IMPRESSION: SOFT TISSUE SWELLING. NO ACUTE BONY FINDINGS. Chest CT 10/21/17 14:09 IMPRESSION: 1. Multicentric pneumonia on the left, most prominently involving the anterior left upper lobe and lingula, but also involving the left lower lobe. Follow-up after treatment. 2. Small left pleural effusion. 3. Centrilobular emphysematous changes. 4. Linear atelectasis in the left upper lobe. Renal Ultrasound 10/22/17 13:15 IMPRESSION: No acute findings. Chest X-Ray 10/25/17 00:00 IMPRESSION: Borderline cardiomegaly without failure. Persist pneumonia in the left lung with no significant interval change. Assessment & Plan - Diagnosis (1) Multifocal pneumonia Is this a current diagnosis for this admission?: Yes Plan: currently on levofloxcin and cefepime, looks to be improving (2) Acute on chronic renal failure Qualifiers: Chronic kidney disease stage: stage 3 (moderate) Is this a current diagnosis for this admission?: Yes Plan: looks to be at baseline at this time. (3) Chronic kidney disease, stage III (moderate) Plan: at baseline of 1.5. (4) Hyperkalemia Is this a current diagnosis for this admission?: Yes Plan: currently still slightly elevated above normal. Discussed with him a low potassium diet (5) Anemia Qualifiers: Anemia type: iron deficiency Plan: received IV feraheme yesterday. Will look to see if hemoglobin starts to trend up tomorrow. (6) COPD (chronic obstructive pulmonary disease) Qualifiers: COPD type: COPD with acute exacerbation Qualified Code(s): J44.1 - Chronic obstructive pulmonary disease with (acute) exacerbation Is this a current diagnosis for this admission?: Yes (7) Hypertension Qualifiers: Hypertension type: essential hypertension Qualified Code(s): I10 - Essential (primary) hypertension Is this a current diagnosis for this admission?: Yes Plan: controlled (8) Pulmonary embolism Qualifiers: Pulmonary embolism type: other Chronicity: acute Acute cor pulmonale presence: without acute cor pulmonale Qualified Code(s): I26.99 - Other pulmonary embolism without acute cor pulmonale Is this a current diagnosis for this admission?: Yes Plan: currently on anticoagulation therapy. (9) Mayen's esophagus with dysplasia Is this a current diagnosis for this admission?: Yes Plan: on PPI - Notes Notes: case was discussed with Dr. Mratin
[2017-10-27 16:39] LABS: A/G RATIO 0.7 (0.7-1.7); ALBUMIN 2 2.4 g/dL (2.9-4.4); BETA GLOBULINS 0.9 g/dL (0.7-1.3); GAMMA GLOBULIN 1.1 g/dL (0.4-1.8); GLOBULIN TOTAL 3.4 g/dL (2.2-3.9); MONOCLONAL SPIKE Not Observed g/dL (Not Observed); PROTEIN TOTAL SERUM 5.8 g/dL (6.0-8.5)
[2017-10-27] MEDS: ATORVASTATIN CALCIUM 10 MG TABLET PO SCH (21:38)
[2017-10-28 05:00] LABS: ANION GAP 10 (5-19); BLOOD UREA NITROGEN 26 mg/dL (7-20); CALCIUM 8.5 mg/dL (8.4-10.2); CARBON DIOXIDE 30 mmol/L (22-30); CHLORIDE 98 mmol/L (98-107); GLUCOSE 97 mg/dL (75-110); POTASSIUM 4.2 mmol/L (3.6-5.0); SODIUM 138.4 mmol/L (137-145)
[2017-10-28] MEDS: CEFEPIME 1 GM/D5W RTU 1 GM/50 ML RTUPB IV SCH (06:47)
[2017-10-28] MEDS: LANSOPRAZOLE 30 MG TAB.RAP.DR PO SCH (06:48)
[2017-10-28] MEDS: HYDRALAZINE HCL 50 MG TABLET PO SCH ×3 (06:48→21:12)
[2017-10-28] MEDS: IPRATROPIUM/ALBUTEROL 0.5-2.5 MG/3 ML AMPUL NEB SCH ×3 (08:07→20:04)
[2017-10-28] MEDS: METOPROLOL TARTRATE 100 MG TABLET PO SCH ×2 (09:07→21:13)
[2017-10-28] MEDS: APIXABAN 5 MG TABLET PO SCH ×2 (09:07→21:10)
[2017-10-28] MEDS: DOCUSATE SODIUM 100 MG CAPSULE PO SCH ×2 (09:07→21:12)
[2017-10-28] MEDS: GUAIFENESIN 600 MG TABLET.SA PO SCH ×2 (09:08→21:12)
[2017-10-28] MEDS: CYANOCOBALAMIN (VITAMIN B-12) INJ 1000 MCG/1 ML VIAL IM SCH (09:08)
[2017-10-28] MEDS: LEVOFLOXACIN 250 MG TABLET PO SCH (09:08)
--- NOTE | 2017-10-28 09:30 | RADIOLOGY REPORT (SQ) ---
EXAM DESCRIPTION: CHEST PA/LAT COMPLETED DATE/TIME: 10/28/2017 8:41 am REASON FOR STUDY: pnemonia COMPARISON: Two-view chest 10/25/2017, AP chest 08/27/2017, 10/21/2017 CT chest 10/21/2017 EXAM PARAMETERS: NUMBER OF VIEWS: two views TECHNIQUE: Digital Frontal and Lateral radiographic views of the chest acquired. RADIATION DOSE: NA LIMITATIONS: none FINDINGS: LUNGS AND PLEURA: Right lung is grossly clear. Minimal right pleural fluid in the lateral and posterior costophrenic sulcus. There is persistent alveolar and interstitial infiltrate in the left mid lung perihilar region. This is partially cleared compared to CT chest 10/21/2017. New small left pleural effusion in the lateral and posterior costophrenic sulcus. No pneumothorax. MEDIASTINUM AND HILAR STRUCTURES: No masses or contour abnormalities. HEART AND VASCULAR STRUCTURES: Mild cardiomegaly BONES: No acute findings. HARDWARE: None in the chest. OTHER: No other significant finding. IMPRESSION: Slowly resolving left pneumonia. Further decrease in bilateral pleural fluid. TECHNICAL DOCUMENTATION: JOB ID: [id number] [employer]- All Rights Reserved Reading location - IP/workstation name: [email or web address]
[2017-10-28 11:03] LABS: ARTERIAL BLOOD BASE EXCESS 4.4 mmol/L; ARTERIAL BLOOD FIO2 28%; ARTERIAL BLOOD H2CO3 1.41 mmol/L (1.05-1.35); ARTERIAL BLOOD HCO3 29.5 mmol/L (20-26); ARTERIAL BLOOD O2 SATURATION 91.7 % (94-98); ARTERIAL BLOOD PCO2 46.8 mmHg (35-45); ARTERIAL BLOOD PH 7.42 (7.35-7.45); ARTERIAL BLOOD PO2 61.4 mmHg (80-100); ARTERIAL BLOOD TOTAL CO2 30.9 mmol/L (23-27)
--- NOTE | 2017-10-28 11:36 | PDOC PROGRESS REPORT ---
Subjective Progress Note for:: 10/28/17 Subjective:: Patient recently had come back from a chest x-ray. At the time he was eating he breakfast. He was wanting to go to rehab when he gets out of the hospital. According to the nurse he denies chest pain, SOB, n/v/d/c. He is still coughing with a little bit of sputum production. According to the nurse in charge of his care he is most likely being discharged tomorrow to a rehab facility. Reason For Visit: PNEUMONIA,HYPOXIA Physical Exam Vital Signs: Temp Pulse Resp BP Pulse Ox 97.8 F 79 16 125/41 L 92 10/28/17 07:38 10/28/17 08:07 10/28/17 08:07 10/28/17 07:38 10/28/17 11:20 Pulse Oximeter Continuous Start: 10/25/17 13: 03 Freq: RTQ4 Status: Active Document 10/28/17 11:20 TPO (Rec: 10/28/17 11:21 TPO [email or web address]) Pulse Oximetry Assessment Oxygen Saturation (92-100) 92 Oxygen Flow Rate (L/min) 2 Oxygen Delivery Method Nasal Cannula Fraction of Inspired Oxygen (FIO2) 28 Equipment Usage Equipment in Use Continuous SpO2 Machine # 3 Intake & Output 10/27/17 10/28/17 10/29/17 06:59 06:59 06:59 Intake Total 991 1503 Output Total 575 1375 Balance 416 128 Weight 96.5 kg 97.4 kg General appearance: PRESENT: no acute distress, well-developed, well-nourished Mouth exam: PRESENT: moist, neck supple Neck exam: PRESENT: full ROM. ABSENT: JVD Respiratory exam: PRESENT: clear to auscultation annelise. ABSENT: accessory muscle use, crackles, rales, rhonchi, wheezes Cardiovascular exam: PRESENT: RRR, +S1, +S2 GI/Abdominal exam: PRESENT: normal bowel sounds, soft. ABSENT: ascites, guarding, renal bruit, tenderness Extremities exam: PRESENT: pedal edema - -trace+. ABSENT: tenderness Musculoskeletal exam: PRESENT: normal inspection. ABSENT: tenderness Neurological exam: PRESENT: alert, awake, oriented to person, oriented to place , oriented to time, oriented to situation Skin exam: PRESENT: dry, intact, warm. ABSENT: cyanosis Results Laboratory Results: 10/27/17 06:18 10/28/17 04:31 10/26/17 10/28/17 10/28/17 05:14 04:31 10:47 Carbonic Acid 1.41 H HCO3/H2CO3 Ratio 20:1 ABG pH 7.42 ABG pCO2 46.8 H ABG pO2 61.4 L ABG HCO3 29.5 H ABG O2 Saturation 91.7 L ABG Base Excess 4.4 FiO2 28% Sodium 138.4 Potassium 4.2 Chloride 98 Carbon Dioxide 30 Anion Gap 10 BUN 26 H Creatinine 1.45 H Est GFR ( Amer) 57 L Est GFR (Non-Af Amer) 47 L Glucose 97 Calcium 8.5 Magnesium 1.5 L Total Protein 5.8 L Albumin 2.4 L 10/21/17 10/21/17 10/21/17 15:55 15:55 22:24 Creatine Kinase 138 155 CK-MB (CK-2) 2.11 Troponin I 0.039 NT-Pro-B Natriuret Pep 10/21/17 10/22/17 10/22/17 22:24 04:40 04:40 Creatine Kinase 163 CK-MB (CK-2) 2.22 2.04 Troponin I 0.033 0.049 NT-Pro-B Natriuret Pep 10/22/17 10/23/17 10/24/17 04:40 05:00 02:16 Creatine Kinase CK-MB (CK-2) Troponin I NT-Pro-B Natriuret Pep 9840 H 8240 H 6040 H Impressions: Ankle X-Ray 10/21/17 10:37 IMPRESSION: SOFT TISSUE SWELLING. NO ACUTE BONY FINDINGS. Chest CT 10/21/17 14:09 IMPRESSION: 1. Multicentric pneumonia on the left, most prominently involving the anterior left upper lobe and lingula, but also involving the left lower lobe. Follow-up after treatment. 2. Small left pleural effusion. 3. Centrilobular emphysematous changes. 4. Linear atelectasis in the left upper lobe. Renal Ultrasound 10/22/17 13:15 IMPRESSION: No acute findings. Chest X-Ray 10/28/17 00:00 IMPRESSION: Slowly resolving left pneumonia. Further decrease in bilateral pleural fluid. Assessment & Plan - Diagnosis (1) Multifocal pneumonia Is this a current diagnosis for this admission?: Yes Plan: currently on levofloxcin and cefepime, looks to be improving. Chest x-ray shows slight improvement. (2) Acute on chronic renal failure Qualifiers: Chronic kidney disease stage: stage 3 (moderate) Is this a current diagnosis for this admission?: Yes Plan: looks to be at baseline at this time. (3) Chronic kidney disease, stage III (moderate) Plan: at baseline of 1.5. Recommend once he is discharged to follow up in [address] Martin. (4) Hyperkalemia Is this a current diagnosis for this admission?: Yes Plan: currently stable (5) Anemia Qualifiers: Anemia type: iron deficiency Plan: stable without improvement (6) COPD (chronic obstructive pulmonary disease) Qualifiers: COPD type: COPD with acute exacerbation Qualified Code(s): J44.1 - Chronic obstructive pulmonary disease with (acute) exacerbation Is this a current diagnosis for this admission?: Yes (7) Hypertension Qualifiers: Hypertension type: essential hypertension Qualified Code(s): I10 - Essential (primary) hypertension Is this a current diagnosis for this admission?: Yes Plan: controlled (8) Pulmonary embolism Qualifiers: Pulmonary embolism type: other Chronicity: acute Acute cor pulmonale presence: without acute cor pulmonale Qualified Code(s): I26.99 - Other pulmonary embolism without acute cor pulmonale Is this a current diagnosis for this admission?: Yes Plan: currently on anticoagulation therapy. (9) Mayen's esophagus with dysplasia Is this a current diagnosis for this admission?: Yes Plan: on PPI
--- NOTE | 2017-10-28 12:45 | PDOC PROGRESS REPORT ---
Subjective Progress Note for:: 10/28/17 Subjective:: Patient is currently doing much better Patient's denied any chest pain denied any shortness of the breath Patient also using the BiPAP and also have a home setting also pulmonary Patient's denied any chest pain Reason For Visit: PNEUMONIA,HYPOXIA Physical Exam Vital Signs: Temp Pulse Resp BP Pulse Ox 98.1 F 61 16 124/51 L 92 10/28/17 11:29 10/28/17 11:29 10/28/17 11:29 10/28/17 11:29 10/28/17 11:29 Pulse Oximeter Continuous Start: 10/25/17 13: 03 Freq: RTQ4 Status: Active Document 10/28/17 11:20 TPO (Rec: 10/28/17 11:21 TPO [email or web address]) Pulse Oximetry Assessment Oxygen Saturation (92-100) 92 Oxygen Flow Rate (L/min) 2 Oxygen Delivery Method Nasal Cannula Fraction of Inspired Oxygen (FIO2) 28 Equipment Usage Equipment in Use Continuous SpO2 Machine # 3 Intake & Output 10/27/17 10/28/17 10/29/17 06:59 06:59 06:59 Intake Total 991 1503 Output Total 575 1375 Balance 416 128 Weight 96.5 kg 97.4 kg General appearance: PRESENT: no acute distress, well-developed, well-nourished Head exam: PRESENT: atraumatic, normocephalic Eye exam: PRESENT: conjunctiva pink, EOMI, PERRLA. ABSENT: scleral icterus Ear exam: PRESENT: normal external ear exam Mouth exam: PRESENT: moist, tongue midline Neck exam: PRESENT: full ROM. ABSENT: carotid bruit, JVD, lymphadenopathy, thyromegaly Respiratory exam: PRESENT: clear to auscultation annelise Cardiovascular exam: PRESENT: RRR. ABSENT: diastolic murmur, rubs, systolic murmur Pulses: PRESENT: normal dorsalis pedis pul, +2 pedal pulses bilateral Vascular exam: PRESENT: normal capillary refill GI/Abdominal exam: PRESENT: normal bowel sounds, soft. ABSENT: distended, guarding, mass, organolmegaly, rebound, tenderness Rectal exam: PRESENT: deferred Extremities exam: ABSENT: pedal edema Neurological exam: PRESENT: alert, awake, oriented to person, oriented to place , oriented to time, oriented to situation. ABSENT: motor sensory deficit Psychiatric exam: PRESENT: appropriate affect, normal mood. ABSENT: homicidal ideation, suicidal ideation Skin exam: PRESENT: dry, intact, warm. ABSENT: cyanosis, rash Results Laboratory Results: 10/27/17 06:18 10/28/17 04:31 10/26/17 10/28/17 10/28/17 05:14 04:31 10:47 Carbonic Acid 1.41 H HCO3/H2CO3 Ratio 20:1 ABG pH 7.42 ABG pCO2 46.8 H ABG pO2 61.4 L ABG HCO3 29.5 H ABG O2 Saturation 91.7 L ABG Base Excess 4.4 FiO2 28% Sodium 138.4 Potassium 4.2 Chloride 98 Carbon Dioxide 30 Anion Gap 10 BUN 26 H Creatinine 1.45 H Est GFR ( Amer) 57 L Est GFR (Non-Af Amer) 47 L Glucose 97 Calcium 8.5 Magnesium 1.5 L Total Protein 5.8 L Albumin 2.4 L 10/21/17 10/21/17 10/21/17 15:55 15:55 22:24 Creatine Kinase 138 155 CK-MB (CK-2) 2.11 Troponin I 0.039 NT-Pro-B Natriuret Pep 10/21/17 10/22/17 10/22/17 22:24 04:40 04:40 Creatine Kinase 163 CK-MB (CK-2) 2.22 2.04 Troponin I 0.033 0.049 NT-Pro-B Natriuret Pep 10/22/17 10/23/17 10/24/17 04:40 05:00 02:16 Creatine Kinase CK-MB (CK-2) Troponin I NT-Pro-B Natriuret Pep 9840 H 8240 H 6040 H Impressions: Ankle X-Ray 10/21/17 10:37 IMPRESSION: SOFT TISSUE SWELLING. NO ACUTE BONY FINDINGS. Chest CT 10/21/17 14:09 IMPRESSION: 1. Multicentric pneumonia on the left, most prominently involving the anterior left upper lobe and lingula, but also involving the left lower lobe. Follow-up after treatment. 2. Small left pleural effusion. 3. Centrilobular emphysematous changes. 4. Linear atelectasis in the left upper lobe. Renal Ultrasound 10/22/17 13:15 IMPRESSION: No acute findings. Chest X-Ray 10/28/17 00:00 IMPRESSION: Slowly resolving left pneumonia. Further decrease in bilateral pleural fluid. Assessment & Plan - Diagnosis (1) Multifocal pneumonia Is this a current diagnosis for this admission?: Yes Plan: DC the IV antibiotic chest x-ray is already improving continues to p.o. antibiotic (2) Acute on chronic renal failure Qualifiers: Chronic kidney disease stage: stage 3 (moderate) Is this a current diagnosis for this admission?: Yes Plan: Currently back to the baseline with creatinine is 1.5 (3) Acute respiratory failure with hypoxia Is this a current diagnosis for this admission?: Yes Plan: Due to the most likely the pneumoniaAnd follow with the Dr. Hathaway (4) Mayen's esophagus with dysplasia Is this a current diagnosis for this admission?: Yes Plan: Patient have a recently endoscopy done by Dr. Yoon currently on a PPI (5) COPD (chronic obstructive pulmonary disease) Qualifiers: COPD type: COPD with acute exacerbation Qualified Code(s): J44.1 - Chronic obstructive pulmonary disease with (acute) exacerbation Is this a current diagnosis for this admission?: Yes Plan: Continues to nebulizer treatment (6) Foot drop, right Is this a current diagnosis for this admission?: Yes Plan: This post AAA surgery (7) Hyperkalemia Is this a current diagnosis for this admission?: Yes Plan: 1 dose of Kayexalate (8) Hypertension Qualifiers: Hypertension type: essential hypertension Qualified Code(s): I10 - Essential (primary) hypertension Is this a current diagnosis for this admission?: Yes Plan: Currently stable (9) Pulmonary embolism Qualifiers: Pulmonary embolism type: other Chronicity: acute Acute cor pulmonale presence: without acute cor pulmonale Qualified Code(s): I26.99 - Other pulmonary embolism without acute cor pulmonale Is this a current diagnosis for this admission?: Yes Plan: Continues to Eliquis (10) Abdominal aortic aneurysm Qualifiers: Presence of rupture: without rupture Qualified Code(s): I71.4 - Abdominal aortic aneurysm, without rupture Plan: s/p repair (11) Elevated brain natriuretic peptide (BNP) level Is this a current diagnosis for this admission?: Yes - Time Time Spent with patient: 15-24 minutes Medications reviewed and adjusted accordingly: Yes Anticipated discharge: Other Within: when bed available, Other - Inpatient Certification Medical Necessity: Need Close Monitoring Due to Risk of Patient Decompensation, Need for IV Antibiotics Post Hospital Care: D/C Judo Instructor Documentation - Plan Summary Plan Summary: I think patients back to the baseline we discussed with the regarding the going home versus the rehab
[2017-10-28] MEDS: ATORVASTATIN CALCIUM 10 MG TABLET PO SCH (21:11)
[2017-10-28] MEDS: ACETAMINOPHEN 325 MG TABLET PO PRN (21:18)
[2017-10-29] MEDS: HYDRALAZINE HCL 50 MG TABLET PO SCH ×3 (06:40→22:49)
[2017-10-29] MEDS: LANSOPRAZOLE 30 MG TAB.RAP.DR PO SCH (06:40)
[2017-10-29] MEDS: IPRATROPIUM/ALBUTEROL 0.5-2.5 MG/3 ML AMPUL NEB SCH ×3 (08:16→19:51)
[2017-10-29] MEDS: METOPROLOL TARTRATE 100 MG TABLET PO SCH ×2 (10:34→22:47)
[2017-10-29] MEDS: DOCUSATE SODIUM 100 MG CAPSULE PO SCH ×2 (10:34→22:49)
[2017-10-29] MEDS: GUAIFENESIN 600 MG TABLET.SA PO SCH ×2 (10:34→22:40)
[2017-10-29] MEDS: APIXABAN 5 MG TABLET PO SCH ×2 (10:34→22:40)
[2017-10-29] MEDS: CYANOCOBALAMIN (VITAMIN B-12) INJ 1000 MCG/1 ML VIAL IM SCH (10:35)
--- NOTE | 2017-10-29 10:44 | PDOC PROGRESS REPORT ---
Subjective Progress Note for:: 10/29/17 Subjective:: Patient is currently doing better Patient's denied any chest pain denied any shortness of the breath Patient's back to the baseline's Patient is currently living the home situations was required to go to the upstairs and use the stairs which is difficult to do that and discussed with the today and the will talk to the meeting planner and possible going to the rehab Reason For Visit: PNEUMONIA,HYPOXIA Physical Exam Vital Signs: Temp Pulse Resp BP Pulse Ox 97.8 F 73 18 137/45 H 93 10/29/17 07:43 10/29/17 08:17 10/29/17 08:17 10/29/17 07:43 10/29/17 08:17 Pulse Oximeter Continuous Start: 10/25/17 13: 03 Freq: RTQ4 Status: Active Document 10/29/17 08:17 TPO (Rec: 10/29/17 08:30 TPO [email or web address]) Pulse Oximetry Assessment Oxygen Saturation (92-100) 93 Oxygen Flow Rate (L/min) 2 Oxygen Delivery Method Nasal Cannula Fraction of Inspired Oxygen (FIO2) 28 Equipment Usage Equipment in Use Continuous SpO2 Machine # 3 Intake & Output 10/28/17 10/29/17 10/30/17 06:59 06:59 06:59 Intake Total 1503 600 Output Total 1375 900 Balance 128 -300 Weight 97.4 kg 96.7 kg General appearance: PRESENT: no acute distress, well-developed, well-nourished Head exam: PRESENT: atraumatic, normocephalic Eye exam: PRESENT: conjunctiva pink, EOMI, PERRLA. ABSENT: scleral icterus Ear exam: PRESENT: normal external ear exam Mouth exam: PRESENT: moist, tongue midline Neck exam: PRESENT: full ROM. ABSENT: carotid bruit, JVD, lymphadenopathy, thyromegaly Respiratory exam: PRESENT: clear to auscultation annelise Cardiovascular exam: PRESENT: RRR. ABSENT: diastolic murmur, rubs, systolic murmur Pulses: PRESENT: normal dorsalis pedis pul, +2 pedal pulses bilateral Vascular exam: PRESENT: normal capillary refill GI/Abdominal exam: PRESENT: normal bowel sounds, soft. ABSENT: distended, guarding, mass, organolmegaly, rebound, tenderness Rectal exam: PRESENT: deferred Neurological exam: PRESENT: alert, awake, oriented to person, oriented to place , oriented to time, oriented to situation, CN II-XII grossly intact. ABSENT: motor sensory deficit Psychiatric exam: PRESENT: appropriate affect, normal mood. ABSENT: homicidal ideation, suicidal ideation Skin exam: PRESENT: dry, intact, warm. ABSENT: cyanosis, rash Results Laboratory Results: 10/27/17 06:18 10/28/17 04:31 10/28/17 10:47 Carbonic Acid 1.41 H HCO3/H2CO3 Ratio 20:1 ABG pH 7.42 ABG pCO2 46.8 H ABG pO2 61.4 L ABG HCO3 29.5 H ABG O2 Saturation 91.7 L ABG Base Excess 4.4 FiO2 28% 10/21/17 10/21/17 10/21/17 15:55 15:55 22:24 Creatine Kinase 138 155 CK-MB (CK-2) 2.11 Troponin I 0.039 NT-Pro-B Natriuret Pep 10/21/17 10/22/17 10/22/17 22:24 04:40 04:40 Creatine Kinase 163 CK-MB (CK-2) 2.22 2.04 Troponin I 0.033 0.049 NT-Pro-B Natriuret Pep 10/22/17 10/23/17 10/24/17 04:40 05:00 02:16 Creatine Kinase CK-MB (CK-2) Troponin I NT-Pro-B Natriuret Pep 9840 H 8240 H 6040 H Impressions: Ankle X-Ray 10/21/17 10:37 IMPRESSION: SOFT TISSUE SWELLING. NO ACUTE BONY FINDINGS. Chest CT 10/21/17 14:09 IMPRESSION: 1. Multicentric pneumonia on the left, most prominently involving the anterior left upper lobe and lingula, but also involving the left lower lobe. Follow-up after treatment. 2. Small left pleural effusion. 3. Centrilobular emphysematous changes. 4. Linear atelectasis in the left upper lobe. Renal Ultrasound 10/22/17 13:15 IMPRESSION: No acute findings. Chest X-Ray 10/28/17 00:00 IMPRESSION: Slowly resolving left pneumonia. Further decrease in bilateral pleural fluid. Assessment & Plan - Diagnosis (1) Multifocal pneumonia Is this a current diagnosis for this admission?: Yes Plan: DC the IV antibiotic chest x-ray is already improving continues to p.o. antibiotic (2) Acute on chronic renal failure Qualifiers: Chronic kidney disease stage: stage 3 (moderate) Is this a current diagnosis for this admission?: Yes Plan: Currently back to the baseline with creatinine is 1.5 (3) Acute respiratory failure with hypoxia Is this a current diagnosis for this admission?: Yes Plan: Due to the most likely the pneumoniaAnd follow with the Dr. Hathaway (4) Mayen's esophagus with dysplasia Is this a current diagnosis for this admission?: Yes Plan: Patient have a recently endoscopy done by Dr. Yoon currently on a PPI (5) COPD (chronic obstructive pulmonary disease) Qualifiers: COPD type: COPD with acute exacerbation Qualified Code(s): J44.1 - Chronic obstructive pulmonary disease with (acute) exacerbation Is this a current diagnosis for this admission?: Yes Plan: Continues to nebulizer treatment (6) Foot drop, right Is this a current diagnosis for this admission?: Yes Plan: This post AAA surgery (7) Hyperkalemia Is this a current diagnosis for this admission?: Yes Plan: 1 dose of Kayexalate (8) Hypertension Qualifiers: Hypertension type: essential hypertension Qualified Code(s): I10 - Essential (primary) hypertension Is this a current diagnosis for this admission?: Yes Plan: Currently stable (9) Pulmonary embolism Qualifiers: Pulmonary embolism type: other Chronicity: acute Acute cor pulmonale presence: without acute cor pulmonale Qualified Code(s): I26.99 - Other pulmonary embolism without acute cor pulmonale Is this a current diagnosis for this admission?: Yes Plan: Continues to Eliquis (10) Abdominal aortic aneurysm Qualifiers: Presence of rupture: without rupture Qualified Code(s): I71.4 - Abdominal aortic aneurysm, without rupture Plan: s/p repair (11) Elevated brain natriuretic peptide (BNP) level Is this a current diagnosis for this admission?: Yes - Time Time Spent with patient: 15-24 minutes Medications reviewed and adjusted accordingly: Yes Anticipated discharge: SNF, Acute Rehab Within: when bed available - Inpatient Certification Medical Necessity: Need Close Monitoring Due to Risk of Patient Decompensation Post Hospital Care: D/C Head Of History Documentation - Plan Summary Plan Summary: Very extensive discussions with the patient and the regarding the patient' s current conditions and is currently looking for the rehab will contact the meeting planner and discussed with the nurses taking care of the patient's
[2017-10-29] MEDS ORDERED: DIPHENHYDRAMINE HCL 25 MG/10 ML UDC PO ONE (22:30)
[2017-10-29] MEDS: ATORVASTATIN CALCIUM 10 MG TABLET PO SCH (22:40)
[2017-10-30] MEDS: HYDRALAZINE HCL 50 MG TABLET PO SCH ×3 (06:52→21:00)
[2017-10-30] MEDS: LANSOPRAZOLE 30 MG TAB.RAP.DR PO SCH (06:52)
[2017-10-30] MEDS: IPRATROPIUM/ALBUTEROL 0.5-2.5 MG/3 ML AMPUL NEB SCH ×3 (08:05→20:04)
[2017-10-30] MEDS: APIXABAN 5 MG TABLET PO SCH ×2 (10:24→21:01)
[2017-10-30] MEDS: DOCUSATE SODIUM 100 MG CAPSULE PO SCH ×2 (10:25→20:57)
[2017-10-30] MEDS: LEVOFLOXACIN 250 MG TABLET PO SCH (10:25)
[2017-10-30] MEDS: METOPROLOL TARTRATE 100 MG TABLET PO SCH ×2 (10:25→21:00)
[2017-10-30] MEDS: GUAIFENESIN 600 MG TABLET.SA PO SCH ×2 (10:25→21:00)
[2017-10-30] MEDS: CYANOCOBALAMIN (VITAMIN B-12) INJ 1000 MCG/1 ML VIAL IM SCH (10:26)
--- NOTE | 2017-10-30 12:32 | PDOC PROGRESS REPORT ---
Subjective Progress Note for:: 10/30/17 Subjective:: Patient is currently doing better Patient's denied any chest pain denied any shortness of the breath Patient's back to the baseline's Patient is currently living the home situations was required to go to the upstairs and use the stairs which is difficult to do that and discussed with the today and the will talk to the sales planner and possible going to the rehab Reason For Visit: PNEUMONIA,HYPOXIA Physical Exam Vital Signs: Temp Pulse Resp BP Pulse Ox 97.9 F 66 16 117/59 L 96 10/30/17 11:53 10/30/17 11:53 10/30/17 11:53 10/30/17 11:53 10/30/17 11:53 Pulse Oximeter Continuous Start: 10/25/17 13: 03 Freq: RTQ4 Status: Active Document 10/30/17 08:05 [facility] (Rec: 10/30/17 11:26 [facility] [email or web address]) Pulse Oximetry Assessment Oxygen Saturation (92-100) 94 Oxygen Flow Rate (L/min) 2 Oxygen Delivery Method Nasal Cannula Equipment Usage Equipment in Use Continuous SpO2 Machine # 3 Intake & Output 10/29/17 10/30/17 10/31/17 06:59 06:59 06:59 Intake Total 600 940 Output Total 900 1600 Balance -300 -660 Weight 96.7 kg 96.7 kg General appearance: PRESENT: no acute distress, well-developed, well-nourished Head exam: PRESENT: atraumatic, normocephalic Eye exam: PRESENT: conjunctiva pink, EOMI, PERRLA. ABSENT: scleral icterus Ear exam: PRESENT: normal external ear exam Mouth exam: PRESENT: moist, tongue midline Neck exam: PRESENT: full ROM. ABSENT: carotid bruit, JVD, lymphadenopathy, thyromegaly Respiratory exam: PRESENT: clear to auscultation annelise Cardiovascular exam: PRESENT: RRR. ABSENT: diastolic murmur, rubs, systolic murmur Pulses: PRESENT: normal dorsalis pedis pul, +2 pedal pulses bilateral Vascular exam: PRESENT: normal capillary refill GI/Abdominal exam: PRESENT: normal bowel sounds, soft. ABSENT: distended, guarding, mass, organolmegaly, rebound, tenderness Rectal exam: PRESENT: deferred Neurological exam: PRESENT: alert, awake, oriented to person, oriented to place , oriented to time, oriented to situation, CN II-XII grossly intact. ABSENT: motor sensory deficit Psychiatric exam: PRESENT: appropriate affect, normal mood. ABSENT: homicidal ideation, suicidal ideation Skin exam: PRESENT: dry, intact, warm. ABSENT: cyanosis, rash Results Laboratory Results: 10/27/17 06:18 10/28/17 04:31 10/21/17 10/21/17 10/21/17 15:55 15:55 22:24 Creatine Kinase 138 155 CK-MB (CK-2) 2.11 Troponin I 0.039 NT-Pro-B Natriuret Pep 10/21/17 10/22/17 10/22/17 22:24 04:40 04:40 Creatine Kinase 163 CK-MB (CK-2) 2.22 2.04 Troponin I 0.033 0.049 NT-Pro-B Natriuret Pep 10/22/17 10/23/17 10/24/17 04:40 05:00 02:16 Creatine Kinase CK-MB (CK-2) Troponin I NT-Pro-B Natriuret Pep 9840 H 8240 H 6040 H Impressions: Ankle X-Ray 10/21/17 10:37 IMPRESSION: SOFT TISSUE SWELLING. NO ACUTE BONY FINDINGS. Chest CT 10/21/17 14:09 IMPRESSION: 1. Multicentric pneumonia on the left, most prominently involving the anterior left upper lobe and lingula, but also involving the left lower lobe. Follow-up after treatment. 2. Small left pleural effusion. 3. Centrilobular emphysematous changes. 4. Linear atelectasis in the left upper lobe. Renal Ultrasound 10/22/17 13:15 IMPRESSION: No acute findings. Chest X-Ray 10/28/17 00:00 IMPRESSION: Slowly resolving left pneumonia. Further decrease in bilateral pleural fluid. Assessment & Plan - Diagnosis (1) Multifocal pneumonia Is this a current diagnosis for this admission?: Yes Plan: DC the IV antibiotic chest x-ray is already improving continues to p.o. antibiotic (2) Acute on chronic renal failure Qualifiers: Chronic kidney disease stage: stage 3 (moderate) Is this a current diagnosis for this admission?: Yes Plan: Currently back to the baseline with creatinine is 1.5 (3) Acute respiratory failure with hypoxia Is this a current diagnosis for this admission?: Yes Plan: Due to the most likely the pneumoniaAnd follow with the Dr. Hathaway (4) Mayen's esophagus with dysplasia Is this a current diagnosis for this admission?: Yes Plan: Patient have a recently endoscopy done by Dr. Yoon currently on a PPI (5) COPD (chronic obstructive pulmonary disease) Qualifiers: COPD type: COPD with acute exacerbation Qualified Code(s): J44.1 - Chronic obstructive pulmonary disease with (acute) exacerbation Is this a current diagnosis for this admission?: Yes Plan: Continues to nebulizer treatment (6) Foot drop, right Is this a current diagnosis for this admission?: Yes Plan: This post AAA surgery (7) Hyperkalemia Is this a current diagnosis for this admission?: Yes Plan: 1 dose of Kayexalate (8) Hypertension Qualifiers: Hypertension type: essential hypertension Qualified Code(s): I10 - Essential (primary) hypertension Is this a current diagnosis for this admission?: Yes Plan: Currently stable (9) Pulmonary embolism Qualifiers: Pulmonary embolism type: other Chronicity: acute Acute cor pulmonale presence: without acute cor pulmonale Qualified Code(s): I26.99 - Other pulmonary embolism without acute cor pulmonale Is this a current diagnosis for this admission?: Yes (10) Abdominal aortic aneurysm Qualifiers: Presence of rupture: without rupture Qualified Code(s): I71.4 - Abdominal aortic aneurysm, without rupture (11) Elevated brain natriuretic peptide (BNP) level Is this a current diagnosis for this admission?: Yes - Time Time Spent with patient: 15-24 minutes Medications reviewed and adjusted accordingly: Yes Anticipated discharge: Other Within: Other - Inpatient Certification Medical Necessity: Need Close Monitoring Due to Risk of Patient Decompensation Post Hospital Care: D/C Branch Store Manager Documentation - Plan Summary Plan Summary: he is waiting for the bed to go to the rehab
[2017-10-30] MEDS ORDERED: LACTULOSE SYRUP 20 GM/30 ML UDCUP PO SCH (18:00)
[2017-10-30] MEDS ORDERED: LACTULOSE SYRUP 20 GM/30 ML UDCUP PO PRN (18:00)
[2017-10-30] MEDS: ACETAMINOPHEN 325 MG TABLET PO PRN (20:56)
[2017-10-30] MEDS: ATORVASTATIN CALCIUM 10 MG TABLET PO SCH (21:00)
[2017-10-31] MEDS: HYDRALAZINE HCL 50 MG TABLET PO SCH ×3 (05:39→21:01)
[2017-10-31] MEDS: LANSOPRAZOLE 30 MG TAB.RAP.DR PO SCH (05:39)
[2017-10-31 07:09] LABS: ANION GAP 7 (5-19); BLOOD UREA NITROGEN 27 mg/dL (7-20); CALCIUM 8.5 mg/dL (8.4-10.2); CARBON DIOXIDE 30 mmol/L (22-30); CHLORIDE 104 mmol/L (98-107); GLUCOSE 85 mg/dL (75-110); POTASSIUM 4.7 mmol/L (3.6-5.0); SODIUM 141.1 mmol/L (137-145)
--- NOTE | 2017-10-31 07:09 | PDOC PROGRESS REPORT ---
Subjective Progress Note for:: 10/31/17 Subjective:: Patient is currently doing better Patient's denied any chest pain denied any shortness of the breath Patient's back to the baseline's Patient is currently living the home situations was required to go to the upstairs and use the stairs which is difficult to do that and discussed with the today and the will talk to the corporate planner and possible going to the rehab Reason For Visit: PNEUMONIA,HYPOXIA Physical Exam Vital Signs: Temp Pulse Resp BP Pulse Ox 98.0 F 70 16 136/63 H 95 10/31/17 04:00 10/31/17 04:00 10/31/17 04:00 10/31/17 04:00 10/31/17 04:00 Pulse Oximeter Continuous Start: 10/25/17 13: 03 Freq: RTQ4 Status: Active Document 10/31/17 04:00 [facility] (Rec: 10/31/17 04:22 [facility] [email or web address]) Pulse Oximetry Assessment Oxygen Saturation (92-100) 92 Oxygen Flow Rate (L/min) 2 Oxygen Delivery Method Nasal Cannula Fraction of Inspired Oxygen (FIO2) 28 Equipment Usage Equipment in Use Continuous SpO2 Machine # 3 Intake & Output 10/30/17 10/31/17 11/01/17 06:59 06:59 06:59 Intake Total 940 1380 Output Total 1600 1475 Balance -660 -95 Weight 96.7 kg 97.9 kg General appearance: PRESENT: no acute distress, well-developed, well-nourished Head exam: PRESENT: atraumatic, normocephalic Eye exam: PRESENT: conjunctiva pink, EOMI, PERRLA. ABSENT: scleral icterus Ear exam: PRESENT: normal external ear exam Mouth exam: PRESENT: moist, tongue midline Neck exam: PRESENT: full ROM. ABSENT: carotid bruit, JVD, lymphadenopathy, thyromegaly Respiratory exam: PRESENT: clear to auscultation annelise Cardiovascular exam: PRESENT: RRR. ABSENT: diastolic murmur, rubs, systolic murmur Pulses: PRESENT: normal dorsalis pedis pul, +2 pedal pulses bilateral Vascular exam: PRESENT: normal capillary refill GI/Abdominal exam: PRESENT: normal bowel sounds, soft. ABSENT: distended, guarding, mass, organolmegaly, rebound, tenderness Rectal exam: PRESENT: deferred Neurological exam: PRESENT: alert, awake, oriented to person, oriented to place , oriented to time, oriented to situation, CN II-XII grossly intact. ABSENT: motor sensory deficit Psychiatric exam: PRESENT: appropriate affect, normal mood. ABSENT: homicidal ideation, suicidal ideation Skin exam: PRESENT: dry, intact, warm. ABSENT: cyanosis, rash Results Laboratory Results: 10/27/17 06:18 10/21/17 10/21/17 10/21/17 15:55 15:55 22:24 Creatine Kinase 138 155 CK-MB (CK-2) 2.11 Troponin I 0.039 NT-Pro-B Natriuret Pep 10/21/17 10/22/17 10/22/17 22:24 04:40 04:40 Creatine Kinase 163 CK-MB (CK-2) 2.22 2.04 Troponin I 0.033 0.049 NT-Pro-B Natriuret Pep 10/22/17 10/23/17 10/24/17 04:40 05:00 02:16 Creatine Kinase CK-MB (CK-2) Troponin I NT-Pro-B Natriuret Pep 9840 H 8240 H 6040 H Impressions: Ankle X-Ray 10/21/17 10:37 IMPRESSION: SOFT TISSUE SWELLING. NO ACUTE BONY FINDINGS. Chest CT 10/21/17 14:09 IMPRESSION: 1. Multicentric pneumonia on the left, most prominently involving the anterior left upper lobe and lingula, but also involving the left lower lobe. Follow-up after treatment. 2. Small left pleural effusion. 3. Centrilobular emphysematous changes. 4. Linear atelectasis in the left upper lobe. Renal Ultrasound 10/22/17 13:15 IMPRESSION: No acute findings. Chest X-Ray 10/28/17 00:00 IMPRESSION: Slowly resolving left pneumonia. Further decrease in bilateral pleural fluid. Assessment & Plan - Diagnosis (1) Multifocal pneumonia Is this a current diagnosis for this admission?: Yes Plan: DC the IV antibiotic chest x-ray is already improving continues to p.o. antibiotic (2) Acute on chronic renal failure Qualifiers: Chronic kidney disease stage: stage 3 (moderate) Is this a current diagnosis for this admission?: Yes Plan: Currently back to the baseline with creatinine is 1.5 (3) Acute respiratory failure with hypoxia Is this a current diagnosis for this admission?: Yes Plan: Due to the most likely the pneumoniaAnd follow with the Dr. Hathaway (4) Mayen's esophagus with dysplasia Is this a current diagnosis for this admission?: Yes Plan: Patient have a recently endoscopy done by Dr. Yoon currently on a PPI (5) COPD (chronic obstructive pulmonary disease) Qualifiers: COPD type: COPD with acute exacerbation Qualified Code(s): J44.1 - Chronic obstructive pulmonary disease with (acute) exacerbation Is this a current diagnosis for this admission?: Yes Plan: Continues to nebulizer treatment (6) Foot drop, right Is this a current diagnosis for this admission?: Yes Plan: This post AAA surgery (7) Hyperkalemia Is this a current diagnosis for this admission?: Yes Plan: 1 dose of Kayexalate (8) Hypertension Qualifiers: Hypertension type: essential hypertension Qualified Code(s): I10 - Essential (primary) hypertension Is this a current diagnosis for this admission?: Yes Plan: Currently stable (9) Pulmonary embolism Qualifiers: Pulmonary embolism type: other Chronicity: acute Acute cor pulmonale presence: without acute cor pulmonale Qualified Code(s): I26.99 - Other pulmonary embolism without acute cor pulmonale Is this a current diagnosis for this admission?: Yes Plan: Continues to Eliquis (10) Abdominal aortic aneurysm Qualifiers: Presence of rupture: without rupture Qualified Code(s): I71.4 - Abdominal aortic aneurysm, without rupture Plan: s/p repair (11) Elevated brain natriuretic peptide (BNP) level Is this a current diagnosis for this admission?: Yes Plan: Currently all stable - Time Time Spent with patient: 15-24 minutes Medications reviewed and adjusted accordingly: Yes Anticipated discharge: SNF Within: within 24 hours - Inpatient Certification Medical Necessity: Need Close Monitoring Due to Risk of Patient Decompensation Post Hospital Care: D/C Filter Screen Cleaner Documentation - Plan Summary Plan Summary: Continues current medication
[2017-10-31] MEDS: IPRATROPIUM/ALBUTEROL 0.5-2.5 MG/3 ML AMPUL NEB SCH ×3 (08:11→20:08)
[2017-10-31] MEDS: METOPROLOL TARTRATE 100 MG TABLET PO SCH ×2 (10:30→21:01)
[2017-10-31] MEDS: APIXABAN 5 MG TABLET PO SCH ×2 (10:30→21:01)
[2017-10-31] MEDS: GUAIFENESIN 600 MG TABLET.SA PO SCH ×2 (10:32→21:01)
[2017-10-31] MEDS: LEVOFLOXACIN 250 MG TABLET PO SCH (10:32)
[2017-10-31] MEDS: DOCUSATE SODIUM 100 MG CAPSULE PO SCH ×2 (10:32→21:01)
[2017-10-31] MEDS: CYANOCOBALAMIN (VITAMIN B-12) INJ 1000 MCG/1 ML VIAL IM SCH (10:32)
[2017-10-31] MEDS: ATORVASTATIN CALCIUM 10 MG TABLET PO SCH (21:01)
[2017-11-01 05:47] LABS: ANION GAP 7 (5-19); BLOOD UREA NITROGEN 26 mg/dL (7-20); CALCIUM 8.4 mg/dL (8.4-10.2); CARBON DIOXIDE 29 mmol/L (22-30); CHLORIDE 104 mmol/L (98-107); GLUCOSE 81 mg/dL (75-110); POTASSIUM 4.8 mmol/L (3.6-5.0); SODIUM 140.4 mmol/L (137-145)
[2017-11-01] MEDS: LANSOPRAZOLE 30 MG TAB.RAP.DR PO SCH (06:45)
[2017-11-01] MEDS: HYDRALAZINE HCL 50 MG TABLET PO SCH ×2 (06:45→14:08)
[2017-11-01] MEDS: IPRATROPIUM/ALBUTEROL 0.5-2.5 MG/3 ML AMPUL NEB SCH ×2 (07:49→14:07)
[2017-11-01] MEDS: GUAIFENESIN 600 MG TABLET.SA PO SCH (09:20)
[2017-11-01] MEDS: DOCUSATE SODIUM 100 MG CAPSULE PO SCH (09:20)
[2017-11-01] MEDS: APIXABAN 5 MG TABLET PO SCH (09:21)
[2017-11-01] MEDS: METOPROLOL TARTRATE 100 MG TABLET PO SCH (09:21)
[2017-11-01] MEDS: LEVOFLOXACIN 250 MG TABLET PO SCH (09:21)
[2017-11-01] MEDS: CYANOCOBALAMIN (VITAMIN B-12) INJ 1000 MCG/1 ML VIAL IM SCH (09:21)
--- NOTE | 2017-11-01 11:27 | PDOC TRANSFER SUMMARY ---
General - Admit/Disc Date/PCP Admission Date/Primary Care Provider: 10/21/17 15:54 KENIA VYAS MD Discharge Date: 11/01/17 - Discharge Diagnosis (1) Multifocal pneumonia Is this a current diagnosis for this admission?: Yes Summary: Currently all resolving (2) Acute on chronic renal failure Is this a current diagnosis for this admission?: Yes Summary: Currently all stable with a creatinine is 1.39 and follow-up outpatients Dr. Martin (3) Acute respiratory failure with hypoxia Is this a current diagnosis for this admission?: Yes Summary: Currently all resolved continues use of BiPAP at night (4) Mayen's esophagus with dysplasia Is this a current diagnosis for this admission?: Yes Summary: Follow-up outpatients Dr. Yoon (5) COPD (chronic obstructive pulmonary disease) Is this a current diagnosis for this admission?: Yes Summary: Continues to nebulizer treatment (6) Foot drop, right Is this a current diagnosis for this admission?: Yes Summary: Follow with the physical therapy (7) Hyperkalemia Is this a current diagnosis for this admission?: Yes Summary: Currently all resolved low potassium in diet (8) Hypertension Is this a current diagnosis for this admission?: Yes Summary: [place] stable (9) Pulmonary embolism Is this a current diagnosis for this admission?: Yes Summary: Currently on Eliquis fall precautions (10) Abdominal aortic aneurysm Is this a current diagnosis for this admission?: Yes Summary: This post repair currently follow with the vascular surgery (11) Elevated brain natriuretic peptide (BNP) level Is this a current diagnosis for this admission?: Yes Summary: An echocardiogram is stable mild diastolic dysfunctions - Additional Information Resuscitation Status: Full Code Discharge Diet: Cardiac Discharge Activity: Activity As Tolerated Prescriptions: Cyanocobalamin (Vitamin B-12) [Vitamin B-12 1000 mcg Tablet] 1,000 mcg PO DAILY #30 tablet Guaifenesin [Mucinex Sr 600 mg Tablet.sa] 600 mg PO Q12 #60 tablet.sa Ipratropium/Albuterol Sulfate [Duoneb 3 ml Ampul] 3 ml NEB [id number] PRN #120 vial.neb PRN Reason: Levofloxacin [Levaquin 250 mg Tablet] 250 mg PO DAILY #7 tablet Home Medications: Apixaban [Eliquis 5 mg Tablet] 5 mg PO Q12 10/21/17 Hydralazine HCl [Apresoline 50 mg Tablet] 50 mg PO Q8 10/21/17 Metoprolol Tartrate [Lopressor 100 mg Tablet] 100 mg PO Q12 10/21/17 Pravastatin Sodium [Pravachol] 20 mg PO DAILY 10/21/17 Cyanocobalamin (Vitamin B-12) [Vitamin B-12 1000 mcg Tablet] 1,000 mcg PO DAILY #30 tablet 10/29/17 Guaifenesin [Mucinex Sr 600 mg Tablet.sa] 600 mg PO Q12 #60 tablet.sa 10/29/17 Ipratropium/Albuterol Sulfate [Duoneb 3 ml Ampul] 3 ml NEB [id number] PRN #120 vial.neb 10/29/17 Levofloxacin [Levaquin 250 mg Tablet] 250 mg PO DAILY #7 tablet 10/29/17 History of Present Illness Admission Date/PCP: 10/21/17 15:54 KENIA VYAS MD History of Present Illness: RASHI MC JR is a 77 year old male with history of CKD, hypertension, and hyperkalemia. He recently came switched to Dr. Vyas's practice from a practice in [place]. A month ago he was admitted into the hospital for the pulmonary embolism and Mayen esophagus. Patient was seen by Dr. Hathaway and Dr. Yoon and a discharge on anticoagulation therapy and oxygen. He came to the emergency department yesterday because of the patient fell from the bed while sleeping. He was complaining of left ankle pain. An x-ray was done and showed no fracture. In the ER the patient had an O2 sat of 88% on 2 L nasal cannula which patient usually run at home 2 L about 90%. Other than that patient does not have any symptoms but the patient's chest x-ray does have a questionable mass. A CT of the chest shows multifocal pneumonia and the patient NT BNP was elevated Patient's potassium is also 6.0 and patient's creatinine is 1.96 patient used to see a nephrology at [place] and currently have appointment to be seen in Dr. Martin office next week Patient's currently denied any cough no congestion's no chest pain Patient's denied any short of breath, fevers or chills. Hospital Course Hospital Course: This is a 77-year-old male present in the emergency department because of the fall and found the patient have a pneumonia and hypoxia and patient was admitting the hospital and patient was started on IV antibiotic and pulmonary was consulted Patient also found hyperkalemia and renal failure which patient have underlying chronic kidney disease and patients is seen by the Dr. Martin Patient's otherwise anemia and required a blood from the chronic kidney disease and recently a patient of a GI workup was done was all stable Patients require a BiPAP at night and patient has at home and I think patient is not using properly this with the patient's get more confused with elevated CO2 level Patients remain stable in the hospital in patients pretty much needed required to rehab because patients currently living situation is not favorable with this foot drops Very extensive discussions with the patient and the and patient's discharge to the rehab Physical Exam Vital Signs: Temp Pulse Resp BP Pulse Ox 98.0 F 61 18 124/54 L 96 11/01/17 08:00 11/01/17 08:00 11/01/17 08:00 11/01/17 08:00 11/01/17 08:00 Pulse Oximeter Continuous Start: 10/25/17 13: 03 Freq: RTQ4 Status: Active Document 11/01/17 04:00 LRO (Rec: 11/01/17 05:12 LRO [id number]) Pulse Oximetry Assessment Oxygen Saturation (92-100) 94 Oxygen Flow Rate (L/min) 2 Oxygen Delivery Method Nasal Cannula Fraction of Inspired Oxygen (FIO2) 28 Equipment Usage Equipment in Use Continuous SpO2 Machine # 3 Intake & Output 10/31/17 11/01/17 11/02/17 06:59 06:59 06:59 Intake Total 1380 1250 Output Total 1475 1850 Balance -95 -600 Weight 97.9 kg 97.9 kg General appearance: PRESENT: no acute distress, well-developed, well-nourished Head exam: PRESENT: atraumatic, normocephalic Eye exam: PRESENT: conjunctiva pink, EOMI, PERRLA. ABSENT: scleral icterus Ear exam: PRESENT: normal external ear exam Mouth exam: PRESENT: moist, tongue midline Neck exam: ABSENT: carotid bruit, JVD, lymphadenopathy, thyromegaly Respiratory exam: PRESENT: clear to auscultation annelise. ABSENT: rales, rhonchi, wheezes Cardiovascular exam: PRESENT: RRR. ABSENT: diastolic murmur, rubs, systolic murmur Pulses: PRESENT: normal dorsalis pedis pul Vascular exam: PRESENT: normal capillary refill GI/Abdominal exam: PRESENT: normal bowel sounds, soft. ABSENT: distended, guarding, mass, organolmegaly, rebound, tenderness Rectal exam: PRESENT: deferred Extremities exam: PRESENT: full ROM. ABSENT: calf tenderness, clubbing, pedal edema Neurological exam: PRESENT: alert, awake, oriented to person, oriented to place , oriented to time, oriented to situation. ABSENT: motor sensory deficit Psychiatric exam: PRESENT: appropriate affect, normal mood. ABSENT: homicidal ideation, suicidal ideation Skin exam: PRESENT: dry, intact, warm. ABSENT: cyanosis, rash Results Laboratory Results: 10/27/17 06:18 11/01/17 04:28 11/01/17 04:28 Sodium 140.4 Potassium 4.8 Chloride 104 Carbon Dioxide 29 Anion Gap 7 BUN 26 H Creatinine 1.36 H Est GFR ( Amer) > 60 Est GFR (Non-Af Amer) 51 L Glucose 81 Calcium 8.4 10/21/17 10/21/17 10/21/17 15:55 15:55 22:24 Creatine Kinase 138 155 CK-MB (CK-2) 2.11 Troponin I 0.039 NT-Pro-B Natriuret Pep 10/21/17 10/22/17 10/22/17 22:24 04:40 04:40 Creatine Kinase 163 CK-MB (CK-2) 2.22 2.04 Troponin I 0.033 0.049 NT-Pro-B Natriuret Pep 10/22/17 10/23/17 10/24/17 04:40 05:00 02:16 Creatine Kinase CK-MB (CK-2) Troponin I NT-Pro-B Natriuret Pep 9840 H 8240 H 6040 H Impressions: Ankle X-Ray 10/21/17 10:37 IMPRESSION: SOFT TISSUE SWELLING. NO ACUTE BONY FINDINGS. Chest CT 10/21/17 14:09 IMPRESSION: 1. Multicentric pneumonia on the left, most prominently involving the anterior left upper lobe and lingula, but also involving the left lower lobe. Follow-up after treatment. 2. Small left pleural effusion. 3. Centrilobular emphysematous changes. 4. Linear atelectasis in the left upper lobe. Renal Ultrasound 10/22/17 13:15 IMPRESSION: No acute findings. Chest X-Ray 10/28/17 00:00 IMPRESSION: Slowly resolving left pneumonia. Further decrease in bilateral pleural fluid. Transfer Plan - Time Spent with Patient Time spent with patient: Greater than 30 Minutes Qualifiers - * PATEINT BEING DISCHARGED WITH ANY OF THE FOLLOWING DIAGNOSIS?: No Plan Time Spent: Greater than 30 Minutes - Patient's discharge snf with the stable conditions Check a CBC and Chem-7 in 1 week Follow outpatients nephrology and pulmonary Use of BiPAP at home setting at night
[2017-11-01 16:16] VITALS: BP 110/54
--- NOTE | 2017-11-06 21:18 | PDOC CONSULTATION ---
Consultation Consult Date: 10/22/17 Attending physician:: KENIA VYAS Consult reason:: acute/chronic resp failure History of Present Illness Admission Date/PCP: 10/21/17 15:54 KENIA VYAS MD History of Present Illness: RASHI MC JR is a 77 year old male with history of CKD, hypertension, and hyperkalemia. He recently came switched to Dr. Vyas's practice from a practice in [place]. A month ago he was admitted into the hospital for the pulmonary embolism and Mayen esophagus. Patient was seen by Dr. Hathaway and Dr. Yoon and a discharge on anticoagulation therapy and oxygen. He came to the emergency department yesterday because of the patient fell from the bed while sleeping. He was complaining of left ankle pain. An x-ray was done and showed no fracture. In the ER the patient had an O2 sat of 88% on 2 L nasal cannula which patient usually run at home 2 L about 90%. Other than that patient does not have any symptoms but the patient's chest x-ray does have a questionable mass. A CT of the chest shows multifocal pneumonia and the patient NT BNP was elevated Patient's potassium is also 6.0 and patient's creatinine is 1.96 patient used to see a nephrology at [place] and currently have appointment to be seen in Dr. Martin office next week Patient's currently denied any cough no congestion's no chest pain Patient's denied any short of breath, fevers or chills. Past Medical History Cardiac Medical History: Reports: Hyperlipidema, Hypertension, Peripheral Vascular Disease - History of aortic aneurysm rupture and repair Pulmonary Medical History: Reports: Chronic Obstructive Pulmonary Disease (COPD) Neurological Medical History: Denies: Seizures Renal/ Medical History: Reports: Chronic Kidney Disease GI Medical History: Reports: Gastroesophageal Reflux Disease Skin Medical History: Denies: Eczema, Psoriasis Psychiatric Medical History: Reports: Dementia, Depression Traumatic Medical History: Denies: Traumatic Brain Injury Hematology: Denies: Sickle Cell Disease Past Surgical History Past Surgical History: Reports: Vascular Surgery, Other - states AAA few years ago Social History Smoking Status: Unknown if Ever Smoked Frequency of Alcohol Use: None Hx Recreational Drug Use: No Drugs: None Hx Prescription Drug Abuse: No - Advance Directive Resuscitation Status: Full Code Family History Family History: Hypertension. denies: CAD, DM Parental Family History Reviewed: Yes Children Family History Reviewed: Yes Sibling(s) Family History Reviewed.: Yes Medication/Allergy Home Medications: Apixaban [Eliquis 5 mg Tablet] 5 mg PO Q12 10/21/17 Hydralazine HCl [Apresoline 50 mg Tablet] 50 mg PO Q8 10/21/17 Metoprolol Tartrate [Lopressor 100 mg Tablet] 100 mg PO Q12 10/21/17 Pravastatin Sodium [Pravachol] 20 mg PO DAILY 10/21/17 Cyanocobalamin (Vitamin B-12) [Vitamin B-12 1000 mcg Tablet] 1,000 mcg PO DAILY #30 tablet 10/29/17 Guaifenesin [Mucinex Sr 600 mg Tablet.sa] 600 mg PO Q12 #60 tablet.sa 10/29/17 Ipratropium/Albuterol Sulfate [Duoneb 3 ml Ampul] 3 ml NEB [id number] PRN #120 vial.neb 10/29/17 Levofloxacin [Levaquin 250 mg Tablet] 250 mg PO DAILY #7 tablet 10/29/17 Allergies/Adverse Reactions: No Known Allergies Allergy (Verified 10/21/17 10:36) Review of Systems Constitutional: PRESENT: chills, fatigue, weakness Eyes: ABSENT: visual disturbances Ears: ABSENT: hearing changes Nose, Mouth, and Throat: PRESENT: sore throat Cardiovascular: ABSENT: palpitations Respiratory: ABSENT: hemoptysis Gastrointestinal: ABSENT: coffee ground emesis, dysphagia, heartburn, hematemesis, melena Genitourinary: ABSENT: dysuria, hematuria Musculoskeletal: ABSENT: deformity, joint swelling Integumentary: ABSENT: pruritus, rash Neurological: ABSENT: abnormal movements, abnormal speech, confusion, focal weakness, frequent falls, lack of coordination, memory loss Psychiatric: ABSENT: hallucinations, homidical ideation, suicidal ideation Endocrine: ABSENT: cold intolerance, heat intolerance, polydipsia, polyuria Hematologic/Lymphatic: PRESENT: easy bruising Physical Exam Vital Signs: Temp Pulse Resp BP Pulse Ox 97.8 F 74 18 116/42 L 92 10/23/17 07:34 10/23/17 07:48 10/23/17 07:48 10/23/17 07:34 10/23/17 07:48 Intake & Output 10/22/17 10/23/17 10/24/17 06:59 06:59 06:59 Intake Total 1000 Output Total 150 650 Balance -150 350 Weight 95.6 kg General appearance: PRESENT: no acute distress, cooperative, disheveled, obese Head exam: PRESENT: atraumatic, normocephalic Eye exam: PRESENT: conjunctiva pale, EOMI. ABSENT: nystagmus, periorbital swelling, scleral icterus Mouth exam: PRESENT: dry mucosa, neck supple, tongue midline Neck exam: ABSENT: carotid bruit, JVD, lymphadenopathy, thyromegaly, tracheal deviation, tracheostomy Respiratory exam: PRESENT: decreased breath sounds, prolonged expiratory phas, rales, rhonchi, symmetrical, unlabored, wheezes. ABSENT: retraction, stridor, tachypnea Cardiovascular exam: PRESENT: RRR, +S1, +S2 Pulses: PRESENT: normal radial pulses GI/Abdominal exam: PRESENT: diminished bowel sounds Extremities exam: ABSENT: calf tenderness, clubbing, joint swelling Musculoskeletal exam: ABSENT: deformity, dislocation Neurological exam: PRESENT: awake Psychiatric exam: PRESENT: flat affect Skin exam: PRESENT: dry, warm Results Laboratory Results: 10/23/17 05:00 10/23/17 05:00 10/23/17 10/23/17 10/23/17 05:00 05:00 10:16 WBC 7.7 RBC 3.22 L Hgb 7.8 L Hct 25.2 L MCV 78 L MCH 24.1 L MCHC 30.8 L RDW 17.1 H Plt Count 296 Seg Neutrophils % Not Reportable Lymphocytes % Not Reportable Monocytes % Not Reportable Eosinophils % Not Reportable Basophils % Not Reportable Absolute Neutrophils Not Reportable Absolute Lymphocytes Not Reportable Absolute Monocytes Not Reportable Absolute Eosinophils Not Reportable Absolute Basophils Not Reportable Carbonic Acid 1.83 H HCO3/H2CO3 Ratio 18:1 ABG pH 7.35 ABG pCO2 60.8 H ABG pO2 46.5 L ABG HCO3 33.0 H ABG O2 Saturation 79.2 L ABG Base Excess 6.3 FiO2 36% Sodium 139.0 Potassium 4.8 Chloride 96 L Carbon Dioxide 34 H Anion Gap 9 BUN 35 H Creatinine 2.00 H Est GFR ( Amer) 40 L Est GFR (Non-Af Amer) 33 L Glucose 102 Calcium 8.3 L Magnesium 2.6 H 10/21/17 10/21/17 10/21/17 15:55 15:55 22:24 Creatine Kinase 138 155 CK-MB (CK-2) 2.11 Troponin I 0.039 NT-Pro-B Natriuret Pep 10/21/17 10/22/17 10/22/17 22:24 04:40 04:40 Creatine Kinase 163 CK-MB (CK-2) 2.22 2.04 Troponin I 0.033 0.049 NT-Pro-B Natriuret Pep 10/22/17 10/23/17 04:40 05:00 Creatine Kinase CK-MB (CK-2) Troponin I NT-Pro-B Natriuret Pep 9840 H 8240 H Impressions: Ankle X-Ray 10/21/17 10:37 IMPRESSION: SOFT TISSUE SWELLING. NO ACUTE BONY FINDINGS. Chest CT 10/21/17 14:09 IMPRESSION: 1. Multicentric pneumonia on the left, most prominently involving the anterior left upper lobe and lingula, but also involving the left lower lobe. Follow-up after treatment. 2. Small left pleural effusion. 3. Centrilobular emphysematous changes. 4. Linear atelectasis in the left upper lobe. Renal Ultrasound 10/22/17 13:15 IMPRESSION: No acute findings. Chest X-Ray 10/23/17 06:00 IMPRESSION: Improving pneumonia. Assessment & Plan - Diagnosis (1) Abdominal aortic aneurysm Qualifiers: Presence of rupture: without rupture Qualified Code(s): I71.4 - Abdominal aortic aneurysm, without rupture Is this a current diagnosis for this admission?: Yes (2) Acute on chronic renal failure Qualifiers: Chronic kidney disease stage: stage 3 (moderate) Is this a current diagnosis for this admission?: Yes (3) COPD (chronic obstructive pulmonary disease) Qualifiers: COPD type: COPD with acute exacerbation Qualified Code(s): J44.1 - Chronic obstructive pulmonary disease with (acute) exacerbation Is this a current diagnosis for this admission?: Yes Plan: laba+lama+ mendy prn hold iccs +/-daliresp (4) Chronic kidney disease, stage III (moderate) Is this a current diagnosis for this admission?: Yes (5) Lobar pneumonia, unspecified organism Is this a current diagnosis for this admission?: Yes Plan: L sided primarily upper treat as CAP
== END 2017-11-01 18:18 | DRG 193 ==
LOC: ER 10:20 → EH 15:54 → 4N 10-22 18:07
PROVIDERS: ADMIT Family Medicine; ATTEND Family Medicine
PROC: 30233N1 Transfusion of Nonautologous Red Blood Cells into Peripheral Vein, Percutaneous Approach (ICD-10-PCS; principal; 2017-10-23)
PROC: 5A09557 Assistance with Respiratory Ventilation, Greater than 96 Consecutive Hours, Continuous Positive Airway Pressure (ICD-10-PCS; 2017-10-23)
DX: J18.9 Pneumonia, unspecified organism (principal); J96.22 Acute and chronic respiratory failure with hypercapnia; J96.21 Acute and chronic respiratory failure with hypoxia; J44.0 Chronic obstructive pulmonary disease with (acute) lower respiratory infection; J44.1 Chronic obstructive pulmonary disease with (acute) exacerbation; N17.9 Acute kidney failure, unspecified; Z86.711 Personal history of pulmonary embolism; I73.9 Peripheral vascular disease, unspecified; E78.00 Pure hypercholesterolemia, unspecified; I12.9 Hypertensive chronic kidney disease with stage 1 through stage 4 chronic kidney disease, or unspecified chronic kidney disease; N18.3 Chronic kidney disease, stage 3 (moderate); S99.912A Unspecified injury of left ankle, initial encounter; Z79.02 Long term (current) use of antithrombotics/antiplatelets; W06.XXXA Fall from bed, initial encounter; Y92.003 Bedroom of unspecified non-institutional (private) residence as the place of occurrence of the external cause; E78.5 Hyperlipidemia, unspecified; M21.371 Foot drop, right foot; F03.90 Unspecified dementia, unspecified severity, without behavioral disturbance, psychotic disturbance, mood disturbance, and anxiety; R79.89 Other specified abnormal findings of blood chemistry; F32.9 Major depressive disorder, single episode, unspecified; K22.719 Barrett's esophagus with dysplasia, unspecified; D50.9 Iron deficiency anemia, unspecified; E87.5 Hyperkalemia; D63.1 Anemia in chronic kidney disease; Z99.81 Dependence on supplemental oxygen; Z82.49 Family history of ischemic heart disease and other diseases of the circulatory system; Z83.3 Family history of diabetes mellitus
CPT/HCPCS: 36415; 36430; 36600; 71045; 71046; 71250; 76770; 80048; 80053; 81001; 82550; 82553; 82607; 82728; 82746; 82803; 83540; 83550; 83605; 83735; 83880; 84165; 84443; 84466; 84484; 85025; 85045; 86850; 86900; 86901; 86920; 87040; 87086; 93005; 93010; 94640; 94660; 94667; 94668; 94762; 99285; G8978-GP; G8979-GP; J0610; J0692; J1940; J1956; J3420; J3490; J7620; P9016; Q0138

== ENCOUNTER → 2017-12-22 | Outpatient (CLI) | payer MEDICARE, BC ==
[2017-12-22 17:39] LABS: HEMATOCRIT 36.7 % (37.9-51.0); HEMOGLOBIN 11.7 g/dL (13.5-17.0); MEAN CORPUSCULAR HEMOGLOBIN 26.4 pg (27.0-33.4); MEAN CORPUSCULAR HGB CONC 31.8 g/dL (32.0-36.0); MEAN CORPUSCULAR VOLUME 83 fl (80-97); PLATELET COUNT 324 10^3/uL (150-450); RED BLOOD COUNT 4.43 10^6/uL (4.35-5.55); WHITE BLOOD COUNT 7.6 10^3/uL (4.0-10.5)
[2017-12-22 17:45] LABS: APPEARANCE,URINE CLEAR; BILIRUBIN,URINE NEGATIVE (NEGATIVE); COLOR,URINE YELLOW; GLUCOSE, URINE NEGATIVE (NEGATIVE); KETONES,URINE NEGATIVE (NEGATIVE); LEUKOCYTE ESTERASE,URINE LARGE (NEGATIVE); NITRITE,URINE NEGATIVE (NEGATIVE); PROTEIN,URINE NEGATIVE (NEGATIVE); URINE SPECIFIC GRAVITY 1.015; UROBILINOGEN,URINE NEGATIVE mg/dL (<2.0)
[2017-12-22 17:57] LABS: ANION GAP 13 (5-19); BLOOD UREA NITROGEN 25 mg/dL (7-20); CARBON DIOXIDE 27 mmol/L (22-30); CHLORIDE 100 mmol/L (98-107); GLUCOSE 89 mg/dL (75-110); IRON(TIBC) 40.3 ug/dL (49-181); POTASSIUM 5.6 mmol/L (3.6-5.0); SODIUM 139.8 mmol/L (137-145)
[2017-12-24 16:40] LABS: ALBUMIN 2 3.6 g/dL (2.9-4.4); ALPHA-2-GLOBULIN 2 0.9 g/dL (0.4-1.0); GAMMA GLOBULIN 1.6 g/dL (0.4-1.8); GLOBULIN TOTAL 3.7 g/dL (2.2-3.9); MONOCLONAL SPIKE Not Observed g/dL (Not Observed); PROTEIN TOTAL SERUM 7.3 g/dL (6.0-8.5)
== END ==
LOC: OD 16:48
PROVIDERS: ATTEND Internal Medicine Nephrology
DX: I12.9 Hypertensive chronic kidney disease with stage 1 through stage 4 chronic kidney disease, or unspecified chronic kidney disease (principal); N18.3 Chronic kidney disease, stage 3 (moderate); D64.9 Anemia, unspecified
CPT/HCPCS: 36415; 80048; 81001; 82728; 83540; 83550; 84165; 84443; 85027

== ENCOUNTER → 2017-12-22 | Outpatient (CLI) | payer MEDICARE, BC ==
--- NOTE | 2017-12-22 17:05 | RADIOLOGY REPORT (SQ) ---
EXAM DESCRIPTION: CHEST PA/LATERAL COMPLETED DATE/TIME: 12/22/2017 4:58 pm REASON FOR STUDY: COPD J44.9 CHRONIC OBSTRUCTIVE PULMONARY DISEASE, UNSPECIFIED COMPARISON: 10/28/2017. NUMBER OF VIEWS: Two view. TECHNIQUE: Frontal and lateral radiographic views of the chest acquired. LIMITATIONS: None. FINDINGS: LUNGS AND PLEURA: Chronic interstitial changes. No focal infiltrates, masses or pneumotho rax. No pleural effusion. Attenuated blood vessels and flattened cody-diaphragms. MEDIASTINUM AND HILAR STRUCTURES: No masses. No contour abnormalities. HEART AND VASCULAR STRUCTURES: Heart normal in size and contour. No evidence for failure. BONES: No acute findings. HARDWARE: None in the chest. OTHER: No other significant finding. IMPRESSION: COPD. NO ACUTE RADIOGRAPHIC FINDING IN THE CHEST. TECHNICAL DOCUMENTATION: JOB ID: [id number] [employer]- All Rights Reserved Reading location - IP/workstation name: [email or web address]
== END ==
LOC: OD 16:43
PROVIDERS: ATTEND Physician Assistant
DX: J44.9 Chronic obstructive pulmonary disease, unspecified (principal)
CPT/HCPCS: 71046

== ENCOUNTER → 2017-12-24 | Outpatient (CLI) | payer MEDICARE, BC | LOC: OD 13:43 | PROVIDERS: ATTEND Physician Assistant Medical | DX: E87.5 Hyperkalemia (principal) | CPT/HCPCS: 36415; 84132 ==

== ENCOUNTER → 2018-02-04 | Outpatient (CLI) | payer MEDICARE, BC ==
[2018-02-04 11:21] LABS: HEMATOCRIT 37.8 % (37.9-51.0); HEMOGLOBIN 12.3 g/dL (13.5-17.0); MEAN CORPUSCULAR HGB CONC 32.5 g/dL (32.0-36.0); MEAN CORPUSCULAR VOLUME 83 fl (80-97); PLATELET COUNT 295 10^3/uL (150-450); RED BLOOD COUNT 4.54 10^6/uL (4.35-5.55); RED CELL DISTRIBUTION WIDTH 16.3 % (11.5-14.0); WHITE BLOOD COUNT 7.4 10^3/uL (4.0-10.5)
[2018-02-04 12:48] LABS: CHOLESTEROL 175.76 mg/dL (0-200); TRIGLYCERIDES 415 mg/dL (<150)
[2018-02-04 12:53] LABS: BLOOD UREA NITROGEN 18 mg/dL (7-20); CALCIUM 8.4 mg/dL (8.4-10.2); GLUCOSE 88 mg/dL (75-110)
[2018-02-04 12:54] LABS: ALANINE AMINOTRANSFERASE 19 U/L (21-72); ALBUMIN 4.1 g/dL (3.5-5.0); ALKALINE PHOSPHATASE 70 U/L (38-126); ANION GAP 9 (5-19); ASPARTATE AMINO TRANSFERASE 19 U/L (17-59); BILIRUBIN,DIRECT 0.4 mg/dL (0.0-0.4); BILIRUBIN,TOTAL 0.5 mg/dL (0.2-1.3); CARBON DIOXIDE 33 mmol/L (22-30); CHLORIDE 100 mmol/L (98-107); PHOSPHORUS 3.9 mg/dL (2.5-4.5); POTASSIUM 5.6 mmol/L (3.6-5.0); SODIUM 141.5 mmol/L (137-145)
[2018-02-04 12:55] LABS: TOTAL PROTEIN 7.6 g/dL (6.3-8.2)
[2018-02-04 13:23] LABS: DIRECT LDL 73 mg/dL (<100)
== END ==
LOC: OD 10:32
PROVIDERS: ATTEND Family Medicine
DX: I12.9 Hypertensive chronic kidney disease with stage 1 through stage 4 chronic kidney disease, or unspecified chronic kidney disease (principal); N18.3 Chronic kidney disease, stage 3 (moderate); D64.9 Anemia, unspecified; E78.4 Other hyperlipidemia
CPT/HCPCS: 36415; 80048; 80061; 80076; 83970; 84100; 85027

== ENCOUNTER → 2018-02-07 | Outpatient (CLI) | payer MEDICARE, BC ==
[2018-02-07 17:29] LABS: ANION GAP 11 (5-19); BLOOD UREA NITROGEN 17 mg/dL (7-20); CALCIUM 8.5 mg/dL (8.4-10.2); CARBON DIOXIDE 29 mmol/L (22-30); CHLORIDE 97 mmol/L (98-107); GLUCOSE 100 mg/dL (75-110); POTASSIUM 4.6 mmol/L (3.6-5.0)
== END ==
LOC: OD 16:42
PROVIDERS: ATTEND Internal Medicine Nephrology
DX: E87.5 Hyperkalemia (principal)
CPT/HCPCS: 36415; 80048; 84132

== ENCOUNTER 2018-02-13 14:02 | Emergency (ER) | payer MEDICARE, BC ==
[2018-02-13 15:35] LABS: ABSOLUTE EOSINOPHILS # (AUTO) 0.1 10^3/uL (0.0-0.6); ABSOLUTE LYMPHOCYTES (AUTO) 0.5 10^3/uL (0.5-4.7); ABSOLUTE MONOCYTES (AUTO) 0.8 10^3/uL (0.1-1.4); ABSOLUTE NEUT (AUTO) 6.1 10^3/uL (1.7-8.2); EOSINOPHILS % (AUTO) 1.8 % (0-6); HEMATOCRIT 37.7 % (37.9-51.0); LYMPHOCYTES % (AUTO) 6.8 % (13-45); MEAN CORPUSCULAR VOLUME 85 fl (80-97); MONOCYTES % (AUTO) 10.1 % (3-13); PLATELET COUNT 280 10^3/uL (150-450); RED BLOOD COUNT 4.46 10^6/uL (4.35-5.55); RED CELL DISTRIBUTION WIDTH 16.3 % (11.5-14.0); SEGMENTED NEUTROPHILS % (AUTO) 81.3 % (42-78); TOTAL CELLS COUNTED % (AUTO) 100 %; WHITE BLOOD COUNT 7.5 10^3/uL (4.0-10.5)
[2018-02-13 15:56] LABS: ALANINE AMINOTRANSFERASE 17 U/L (21-72); ALBUMIN 4.1 g/dL (3.5-5.0); ALKALINE PHOSPHATASE 70 U/L (38-126); ANION GAP 10 (5-19); ASPARTATE AMINO TRANSFERASE 17 U/L (17-59); BILIRUBIN,DIRECT 0.4 mg/dL (0.0-0.4); BILIRUBIN,TOTAL 0.4 mg/dL (0.2-1.3); BLOOD UREA NITROGEN 17 mg/dL (7-20); CALCIUM 8.6 mg/dL (8.4-10.2); CARBON DIOXIDE 33 mmol/L (22-30); CHLORIDE 100 mmol/L (98-107); GLUCOSE 123 mg/dL (75-110); POTASSIUM 4.8 mmol/L (3.6-5.0); SODIUM 143.2 mmol/L (137-145); TOTAL PROTEIN 7.8 g/dL (6.3-8.2)
--- NOTE | 2018-02-13 16:22 | ER Document Report ---
ED General - General Chief Complaint: Skin Problem Stated Complaint: RIGHT EYE PAIN Time Seen by Provider: 02/13/18 14:41 Notes: The patient is a 77-year-old male, past medical history PE on Xarelto, presents with 6 months of swelling lateral to his right eye that acutely worsened over the past 2 days[address] He has [address] Hernandez in the past to discuss removal, but no removal at that time due to his blood thinner use. Patient denies pain, pruritus, difficulty seeing, fevers, dental pain or injury. TRAVEL OUTSIDE OF THE [place] IN LAST 30 DAYS: No - Related Data Allergies/Adverse Reactions: No Known Allergies Allergy (Verified 02/13/18 14:03) Past Medical History - General Information source: Patient - Social History Smoking Status: Former Smoker Chew tobacco use (# tins/day): No Frequency of alcohol use: None Drug Abuse: None Family History: Hypertension. denies: CAD, DM Patient has suicidal ideation: No Patient has homicidal ideation: No - Past Medical History Cardiac Medical History: Reports: Hx Hypercholesterolemia, Hx Hypertension, Hx Peripheral Vascular Disease - History of aortic aneurysm rupture and repair Pulmonary Medical History: Reports: Hx COPD Neurological Medical History: Denies: Hx Seizures Renal/ Medical History: Reports: Hx Renal Insufficiency. Denies: Hx Peritoneal Dialysis GI Medical History: Reports: Hx Gastroesophageal Reflux Disease Skin Medical History: Denies Hx Eczema, Denies Hx Psoriasis Psychiatric Medical History: Reports: Hx Dementia, Hx Depression Traumatic Medical History: Denies: Hx Traumatic Brain Injury Past Surgical History: Reports: Hx Abdominal Surgery - Patient has a large scar in his RLQ he cannot recall what for. states, Hx Cardiac Surgery - AAA repair-(stent), Hx Vascular Surgery, Other - states AAA few years ago Review of Systems - Review of Systems Notes: REVIEW OF SYSTEMS: CONSTITUTIONAL: -fevers, -chills EENT: -eye pain, -difficulty swallowing, -nasal congestion CARDIOVASCULAR: -chest pain, -syncope. RESPIRATORY: -cough, -SOB SKIN: +right facial swelling HEMATOLOGIC: +easy bruising and bleeding. LYMPHATIC: -swollen, enlarged glands. NEUROLOGICAL: -altered mental status or loss of consciousness, -headache, - neurologic symptoms ALL OTHER SYSTEMS REVIEWED AND NEGATIVE. Physical Exam - Vital signs Vitals: Temp Pulse Resp BP Pulse Ox 97.6 F 59 L 16 162/70 H 98 02/13/18 14:07 02/13/18 14:07 02/13/18 14:07 02/13/18 14:07 02/13/18 14:07 - Notes Notes: PHYSICAL EXAMINATION: GENERAL: Well-appearing, well-nourished and in no acute distress. HEAD: Atraumatic, normocephalic. EYES: Pupils equal round and reactive to light, extraocular movements intact, sclera anicteric, conjunctiva are normal. ENT: nares patent, oropharynx clear without exudates. Moist mucous membranes. NECK: Normal range of motion, supple without lymphadenopathy LUNGS: Breath sounds clear to auscultation bilaterally and equal. No wheezes rales or rhonchi. HEART: Regular rate and rhythm without murmurs ABDOMEN: Soft, nontender, normoactive bowel sounds. No guarding, no rebound. No masses appreciated. EXTREMITIES: Normal range of motion, no pitting or edema. No cyanosis. NEUROLOGICAL: Cranial nerves grossly intact. Normal speech, normal gait. Normal sensory and motor exams. PSYCH: Normal mood, normal affect. SKIN: 4 cm fluctuant, non-tender, erythematous mass lateral to the right eye Course - Re-evaluation Re-evalutation: Risks and benefits of draining this lesion explained to the patient. Due to his blood thinner use and no eye involvement, decision was made to have patient follow-up with his plastic surgeon or pipe organ technician this week. Because it is acutely worsening, will begin Keflex for infected sebaceous cyst. No emergent need for drainage at this time. given strict return precautions and he understands. - Vital Signs Vital signs: Temp Pulse Resp BP Pulse Ox 97.6 F 59 L 16 162/70 H 98 02/13/18 14:07 02/13/18 14:07 02/13/18 14:07 02/13/18 14:07 02/13/18 14:07 - Laboratory Result Diagrams: 02/13/18 15:10 02/13/18 15:10 Laboratory results interpreted by me: 02/13/18 02/13/18 15:10 15:10 Hgb 12.0 L Hct 37.7 L RDW 16.3 H Seg Neutrophils % 81.3 H Lymphocytes % 6.8 L Carbon Dioxide 33 H Creatinine 1.90 H Est GFR ( Amer) 42 L Est GFR (Non-Af Amer) 35 L Glucose 123 H ALT 17 L - Diagnostic Test Radiology reviewed: Image reviewed, Reports reviewed Radiology results interpreted by me: CT Orbit: 2.6 cm cystic lesion lateral to the right orbit, this appears preseptal in location and has adjacent anterior-medial induration, possibly infected sebaceous cyst. Diffuse sinus disease throughout the left paranasal sinuses with complete opacification of the left maxillary and anterior ethmoid sinuses. The left ostiomeatal complex is completely occluded by soft tissue. Probable left sided inferior turbinate nasal polyps. Right-sided sinuses appear clear. Discharge - Discharge Clinical Impression: Infected sebaceous cyst Condition: Stable Disposition: HOME, SELF-CARE Additional Instructions: Take the full dose of antibiotics and follow-up with the plastic surgeon/ dermatology. Prescriptions: Cephalexin Monohydrate [Keflex 500 mg Capsule] 500 mg PO BID 7 Days capsule Forms: Elevated Blood Pressure Referrals: KENIA MAJOR MD [Primary Care Provider] - Follow up as needed [facility] [Outside] - Follow up as needed
--- NOTE | 2018-02-13 16:54 | RADIOLOGY REPORT (SQ) ---
EXAM DESCRIPTION: CT ORBIT/SELLA WITHOUT COMPLETED DATE/TIME: 02/13/2018 4:32 pm REASON FOR STUDY: right lateral orbit mass COMPARISON: None. TECHNIQUE: Noncontrasted images through the orbits windowed for bone and soft tissue. Additional co farhan and sagittal reconstructed images reviewed. All images stored on PACS. All CT scanners at this facility use dose modulation, iterative reconstruction, and/or weight based d osing when appropriate to reduce radiation dose to as low as reasonably achievable (ALARA). [facility]: Dose Right [facility]: CareDose [facility]: Dose Right [facility]: Teradose 4D [facility]: [employer] RADIATION DOSE: CT Rad equipment meets quality standard of care and radiation dose reduction techniq ues were employed. CTDIvol: 30.4 mGy. DLP: 397 mGy-cm. mGy. LIMITATIONS: None. FINDINGS: FACIAL BONES: No fracture or bone lesion. ORBITS: Intact. No fracture. Symmetric intact globes and retroorbital soft tissues. PARANASAL SINUSES: Diffuse sinus disease throughout the left paranasal sinuses with complete opacifi cation of the left maxillary and anterior ethmoid sinuses. The left ostiomeatal complex is completel y occluded by soft tissue. Probable left sided inferior turbinate nasal polyps. Right-sided sinuses appear clear. SOFT TISSUES: 2.6 cm cystic lesion lateral to the right orbit, this appears preseptal in location and has adjacent anterior-medial induration. INFERIOR BRAIN: Limited view. No acute findings. OTHER: No other significant finding. IMPRESSION: 2.6 cm cystic lesion lateral to the right orbit, this appears preseptal in location and has adjacent anterior-medial induration, possibly infected sebaceous cyst. Diffuse sinus disease throughout the left paranasal sinuses with complete opacification of the left m axillary and anterior ethmoid sinuses. The left ostiomeatal complex is completely occluded by soft t issue. Probable left sided inferior turbinate nasal polyps. Right-sided sinuses appear clear. TECHNICAL DOCUMENTATION: JOB ID: [id number] Quality ID # [id number]: Final reports with documentation of one or more dose reduction techniques (e.g., Au tomated exposure control, adjustment of the mA and/or kV according to patient size, use of iterative reconstruction technique) 2010 [employer]- All Rights Reserved Reading location - IP/workstation name: [email or web address]
[2018-02-13 17:10] VITALS: BP 159/77
== END 2018-02-13 17:10 | disposition home or self-care (01) ==
LOC: ER 14:02
DX: L72.3 Sebaceous cyst (principal); E78.00 Pure hypercholesterolemia, unspecified; H57.11 Ocular pain, right eye; I10 Essential (primary) hypertension; J44.9 Chronic obstructive pulmonary disease, unspecified
CPT/HCPCS: 36415; 70480; 80053; 85025; 99284

== ENCOUNTER → 2018-03-15 | Outpatient (CLI) | payer MEDICARE, BC | LOC: OD 17:06 | PROVIDERS: ATTEND Internal Medicine Nephrology | DX: N18.3 Chronic kidney disease, stage 3 (moderate) (principal); D64.9 Anemia, unspecified; E87.5 Hyperkalemia | CPT/HCPCS: 36415; 84132 ==

== ENCOUNTER → 2018-05-10 | Outpatient (CLI) | payer MEDICARE, BC ==
[2018-05-10 17:02] LABS: HEMATOCRIT 37.7 % (37.9-51.0); HEMOGLOBIN 12.3 g/dL (13.5-17.0); RED BLOOD COUNT 4.36 10^6/uL (4.35-5.55)
[2018-05-10 17:03] LABS: MEAN CORPUSCULAR HEMOGLOBIN 28.2 pg (27.0-33.4); MEAN CORPUSCULAR HGB CONC 32.7 g/dL (32.0-36.0); MEAN CORPUSCULAR VOLUME 86 fl (80-97); PLATELET COUNT 299 10^3/uL (150-450); RED CELL DISTRIBUTION WIDTH 15.6 % (11.5-14.0)
[2018-05-10 17:11] LABS: APPEARANCE,URINE CLEAR; BILIRUBIN,URINE NEGATIVE (NEGATIVE); COLOR,URINE YELLOW; GLUCOSE, URINE NEGATIVE (NEGATIVE); KETONES,URINE NEGATIVE (NEGATIVE); LEUKOCYTE ESTERASE,URINE LARGE (NEGATIVE); NITRITE,URINE NEGATIVE (NEGATIVE); PROTEIN,URINE NEGATIVE (NEGATIVE); URINE SPECIFIC GRAVITY 1.005; UROBILINOGEN,URINE NEGATIVE mg/dL (<2.0)
[2018-05-10 17:24] LABS: ANION GAP 12 (5-19); BLOOD UREA NITROGEN 23 mg/dL (7-20); CARBON DIOXIDE 27 mmol/L (22-30); CHLORIDE 97 mmol/L (98-107); GLUCOSE 125 mg/dL (75-110); SODIUM 135.6 mmol/L (137-145)
[2018-05-10 17:25] LABS: CALCIUM 8.1 mg/dL (8.4-10.2)
== END ==
LOC: OD 16:33
PROVIDERS: ATTEND Internal Medicine Nephrology
DX: N18.3 Chronic kidney disease, stage 3 (moderate) (principal); E87.5 Hyperkalemia; D64.9 Anemia, unspecified
CPT/HCPCS: 36415; 80048; 81001; 83970; 84100; 85027

== ENCOUNTER → 2018-09-09 | Outpatient (CLI) | payer MEDICARE, BC ==
[2018-09-09 15:47] LABS: HEMATOCRIT 37.2 % (37.9-51.0); HEMOGLOBIN 12.2 g/dL (13.5-17.0); MEAN CORPUSCULAR HEMOGLOBIN 28.7 pg (27.0-33.4); MEAN CORPUSCULAR HGB CONC 32.9 g/dL (32.0-36.0); MEAN CORPUSCULAR VOLUME 87 fl (80-97); PLATELET COUNT 308 10^3/uL (150-450); RED BLOOD COUNT 4.26 10^6/uL (4.35-5.55); RED CELL DISTRIBUTION WIDTH 14.9 % (11.5-14.0); WHITE BLOOD COUNT 6.7 10^3/uL (4.0-10.5)
[2018-09-09 16:02] LABS: ANION GAP 9 (5-19); BLOOD UREA NITROGEN 26 mg/dL (7-20); CALCIUM 8.1 mg/dL (8.4-10.2); CARBON DIOXIDE 32 mmol/L (22-30); CHLORIDE 97 mmol/L (98-107); GLUCOSE 88 mg/dL (75-110); PHOSPHORUS 4.4 mg/dL (2.5-4.5); POTASSIUM 5.5 mmol/L (3.6-5.0); SODIUM 138.3 mmol/L (137-145)
== END ==
LOC: OD 15:05
PROVIDERS: ATTEND Internal Medicine Nephrology
DX: I12.9 Hypertensive chronic kidney disease with stage 1 through stage 4 chronic kidney disease, or unspecified chronic kidney disease (principal); N18.3 Chronic kidney disease, stage 3 (moderate); E87.5 Hyperkalemia; D64.9 Anemia, unspecified
CPT/HCPCS: 36415; 80048; 83970; 84100; 85027

== ENCOUNTER → 2018-09-13 | Outpatient (CLI) | payer MEDICARE, BC | LOC: OD 16:32 | PROVIDERS: ATTEND Internal Medicine Nephrology | DX: E87.5 Hyperkalemia (principal) | CPT/HCPCS: 36415; 84132 ==

== ENCOUNTER → 2019-01-06 | Outpatient (CLI) | payer MEDICARE, BC ==
[2019-01-06 11:01] LABS: HEMATOCRIT 28.7 % (37.9-51.0); HEMOGLOBIN 9.1 g/dL (13.5-17.0); MEAN CORPUSCULAR HEMOGLOBIN 26.4 pg (27.0-33.4); MEAN CORPUSCULAR HGB CONC 31.6 g/dL (32.0-36.0); MEAN CORPUSCULAR VOLUME 83 fl (80-97); PLATELET COUNT 446 10^3/uL (150-450); RED BLOOD COUNT 3.44 10^6/uL (4.35-5.55); RED CELL DISTRIBUTION WIDTH 16.3 % (11.5-14.0); WHITE BLOOD COUNT 7.3 10^3/uL (4.0-10.5)
[2019-01-06 11:19] LABS: APPEARANCE,URINE CLEAR; BILIRUBIN,URINE NEGATIVE (NEGATIVE); COLOR,URINE YELLOW; GLUCOSE, URINE NEGATIVE (NEGATIVE); KETONES,URINE NEGATIVE (NEGATIVE); LEUKOCYTE ESTERASE,URINE LARGE (NEGATIVE); NITRITE,URINE NEGATIVE (NEGATIVE); PROTEIN,URINE NEGATIVE (NEGATIVE); UROBILINOGEN,URINE NEGATIVE mg/dL (<2.0)
[2019-01-06 11:27] LABS: ANION GAP 8 (5-19); BLOOD UREA NITROGEN 17 mg/dL (7-20); CALCIUM 8.6 mg/dL (8.4-10.2); CARBON DIOXIDE 30 mmol/L (22-30); CHLORIDE 102 mmol/L (98-107); GLUCOSE 86 mg/dL (75-110); PHOSPHORUS 3.4 mg/dL (2.5-4.5); POTASSIUM 5.1 mmol/L (3.6-5.0); SODIUM 139.8 mmol/L (137-145)
== END ==
LOC: OD 10:34
PROVIDERS: ATTEND Internal Medicine Nephrology
DX: N18.4 Chronic kidney disease, stage 4 (severe) (principal); D64.9 Anemia, unspecified; E87.5 Hyperkalemia
CPT/HCPCS: 36415; 80048; 81001; 83970; 84100; 85027

== ENCOUNTER 2019-05-15 14:12 | Inpatient (IN) | payer MEDICARE, BC ==
[2019-05-15 15:41] LABS: AMORPHOUS SEDIMENT,URINE TRACE /HPF; APPEARANCE,URINE SLIGHTLY-CLOUDY; BILIRUBIN,URINE NEGATIVE (NEGATIVE); COLOR,URINE YELLOW; GLUCOSE, URINE NEGATIVE (NEGATIVE); KETONES,URINE TRACE mg/dL (NEGATIVE); LEUKOCYTE ESTERASE,URINE LARGE (NEGATIVE); NITRITE,URINE NEGATIVE (NEGATIVE); PROTEIN,URINE 100 mg/dL (NEGATIVE); URINE SPECIFIC GRAVITY 1.016; UROBILINOGEN,URINE NEGATIVE mg/dL (<2.0)
[2019-05-15 15:50] LABS: ABSOLUTE BASOPHILS # (AUTO) 0.1 10^3/uL (0.0-0.2); ABSOLUTE EOSINOPHILS # (AUTO) 0.1 10^3/uL (0.0-0.6); ABSOLUTE LYMPHOCYTES (AUTO) 0.6 10^3/uL (0.5-4.7); ABSOLUTE MONOCYTES (AUTO) 0.7 10^3/uL (0.1-1.4); ABSOLUTE NEUT (AUTO) 5.5 10^3/uL (1.7-8.2); BASOPHILS % (AUTO) 0.9 % (0-2); HEMATOCRIT 31.1 % (37.9-51.0); HEMOGLOBIN 9.6 g/dL (13.5-17.0); LYMPHOCYTES % (AUTO) 8.5 % (13-45); MEAN CORPUSCULAR HEMOGLOBIN 25.5 pg (27.0-33.4); MEAN CORPUSCULAR HGB CONC 30.9 g/dL (32.0-36.0); MEAN CORPUSCULAR VOLUME 83 fl (80-97); MONOCYTES % (AUTO) 9.8 % (3-13); PLATELET COUNT 335 10^3/uL (150-450); RED BLOOD COUNT 3.77 10^6/uL (4.35-5.55); RED CELL DISTRIBUTION WIDTH 16.8 % (11.5-14.0); SEGMENTED NEUTROPHILS % (AUTO) 79.8 % (42-78); TOTAL CELLS COUNTED % (AUTO) 100 %; WHITE BLOOD COUNT 6.9 10^3/uL (4.0-10.5)
[2019-05-15 15:54] LABS: ALBUMIN 3.7 g/dL (3.5-5.0); ALKALINE PHOSPHATASE 41 U/L (38-126); ANION GAP 13 (5-19); ASPARTATE AMINO TRANSFERASE 24 U/L (17-59); BILIRUBIN,DIRECT 0.5 mg/dL (0.0-0.4); BILIRUBIN,TOTAL 0.5 mg/dL (0.2-1.3); BLOOD UREA NITROGEN 38 mg/dL (7-20); CARBON DIOXIDE 26 mmol/L (22-30); CHLORIDE 101 mmol/L (98-107); CREATINE KINASE 127 U/L (55-170); POTASSIUM 4.7 mmol/L (3.6-5.0)
[2019-05-15 16:06] LABS: CREATINE KINASE MB 1.97 ng/mL (<4.55)
[2019-05-15 16:07] LABS: GLUCOSE 65 mg/dL (75-110)
[2019-05-15 16:12] LABS: TROPONIN I 0.067 ng/mL
[2019-05-15 16:32] LABS: CALCIUM 5.8 mg/dL (8.4-10.2)
[2019-05-15] MEDS ORDERED: CALCIUM GLUCONATE 1000 MG/10 ML INJ IV ONE ×2 (16:55→17:26)
--- NOTE | 2019-05-15 17:04 | ER Document Report ---
ED Dizziness/Weakness - General Chief Complaint: General Weakness Stated Complaint: WEAKNESS Time Seen by Provider: 05/15/19 16:34 Notes: Patient is a 78-year-old male with a history of chronic kidney disease stage III, COPD, pneumonia, pulmonary embolism, hypertension, dementia who is O2 dependent who presents to the emergency department with a chief complaint of generalized weakness. reports that he was discharged from [facility] 1 week ago. She reports he was at the facility after being diagnosed for respiratory failure. She reports since being home he was able to go up and down the steps. She reports over the past 24 hours he has had a decline in physical activity and this morning could not get out of bed. She reports he continues to eat without vomiting or diarrhea but has a decreased appetite. She denies fever. Denies urinary symptoms. Denies abdominal pain. She reports he does have a history of pulmonary embolus that was diagnosed a little over 1 year ago. She reports he is on Eliquis daily for this. Patient is able to speak for himself and agrees with what his is saying. Patient does report having mid back pain. TRAVEL OUTSIDE OF THE [place] IN LAST 30 DAYS: No - Related Data Allergies/Adverse Reactions: No Known Allergies Allergy (Verified 02/13/18 14:03) Past Medical History - General Information source: Patient - Social History Smoking Status: Former Smoker Frequency of alcohol use: None Drug Abuse: None Lives with: Spouse/Significant other Family History: Hypertension. denies: CAD, DM Patient has suicidal ideation: No Patient has homicidal ideation: No - Past Medical History Cardiac Medical History: Reports: Hx Hypercholesterolemia, Hx Hypertension, Hx Peripheral Vascular Disease - History of aortic aneurysm rupture and repair Pulmonary Medical History: Reports: Hx COPD EENT Medical History: Reports: None Neurological Medical History: Reports: None. Denies: Hx Seizures Endocrine Medical History: Reports: None Renal/ Medical History: Reports: Hx End Stage Renal Disease, Hx Renal Insufficiency. Denies: Hx Peritoneal Dialysis Malignancy Medical History: Reports None GI Medical History: Reports: Hx Gastroesophageal Reflux Disease Musculoskeletal Medical History: Reports None Skin Medical History: Reports None, Denies Hx Eczema, Denies Hx Psoriasis Psychiatric Medical History: Reports: Hx Dementia, Hx Depression Traumatic Medical History: Reports: None. Denies: Hx Traumatic Brain Injury Infectious Medical History: Reports: None Past Surgical History: Reports: Hx Abdominal Surgery - Patient has a large scar in his RLQ he cannot recall what for. states, Hx Cardiac Surgery - AAA repair-(stent), Hx Vascular Surgery, Other - states AAA few years ago Review of Systems - Review of Systems Constitutional: See HPI EENT: No symptoms reported Cardiovascular: No symptoms reported Respiratory: No symptoms reported Gastrointestinal: No symptoms reported Genitourinary: No symptoms reported Male Genitourinary: No symptoms reported Musculoskeletal: No symptoms reported Skin: No symptoms reported Hematologic/Lymphatic: No symptoms reported Neurological/Psychological: No symptoms reported Physical Exam - Vital signs Vitals: Pulse Ox 99 05/15/19 14:17 - Notes Notes: GENERAL: Well-appearing, well-nourished and in no acute distress. HEAD: Atraumatic, normocephalic. EYES: Pupils equal round and reactive to light, extraocular movements intact, sclera anicteric, conjunctiva are normal. ENT: Nares patent, oropharynx clear without exudates. Moist mucous membranes. NECK: Normal range of motion, supple without lymphadenopathy or JVD. LUNGS: Breath sounds clear to auscultation bilaterally and equal. No wheezes rales or rhonchi. HEART: Regular rate and rhythm without murmurs, rubs or gallops. ABDOMEN: Soft, nontender, normoactive bowel sounds. No guarding, no rebound. No masses appreciated. BACK: No cervical, thoracic, lumbar midline tenderness. No saddle anesthesia, normal distal neurovascular exam. GENITOURINARY: Deferred. EXTREMITIES: No edema present, + right foot drop with RLE brace in place. NEUROLOGICAL: Cranial nerves II through XII grossly intact. Normal speech, did not test gait due to weakness. PSYCH: Normal mood, normal affect. SKIN: Warm, Dry, normal turgor, no rashes or lesions noted. Course - Vital Signs Vital signs: Temp Pulse Resp BP Pulse Ox 98.1 F 16 154/77 H 98 05/15/19 15:01 05/15/19 16:01 05/15/19 16:01 05/15/19 16:01 - Laboratory Result Diagrams: 05/15/19 15:03 05/15/19 15:03 Laboratory results interpreted by me: 05/15/19 05/15/19 05/15/19 15:03 15:03 15:03 RBC 3.77 L Hgb 9.6 L Hct 31.1 L MCH 25.5 L MCHC 30.9 L RDW 16.8 H Lymph % (Auto) 8.5 L Seg Neutrophils % 79.8 H BUN 38 H Creatinine 2.62 H Est GFR ( Amer) 29 L Est GFR (MDRD) Non-Af 24 L Glucose 65 L Calcium 5.8 L* Magnesium 0.5 L* Direct Bilirubin 0.5 H Urine Protein Urine Ketones Ur Leukocyte Esterase 05/15/19 15:19 RBC Hgb Hct MCH MCHC RDW Lymph % (Auto) Seg Neutrophils % BUN Creatinine Est GFR ( Amer) Est GFR (MDRD) Non-Af Glucose Calcium Magnesium Direct Bilirubin Urine Protein 100 H Urine Ketones TRACE H Ur Leukocyte Esterase LARGE H 05/15/19 18:30 Patient does not have a leukocytosis. Patient has hemoglobin of 9.6 and hematocrit of 31.1 which appears to be at his baseline it. Patient has normal potassium of 4.7. Patient's calcium is significantly low at 5.8. Patient's creatinine is 2.62 which is slightly above his baseline. Laboratory 05/15/19 05/15/19 05/15/19 15:03 15:03 15:03 WBC 6.9 RBC 3.77 L Hgb 9.6 L Hct 31.1 L MCV 83 MCH 25.5 L MCHC 30.9 L RDW 16.8 H Plt Count 335 Lymph % (Auto) 8.5 L [place] % (Auto) 9.8 Eos % (Auto) 1.0 Baso % (Auto) 0.9 Absolute Neuts (auto) 5.5 Absolute Lymphs (auto) 0.6 Absolute Monos (auto) 0.7 Absolute Eos (auto) 0.1 Absolute Basos (auto) 0.1 Seg Neutrophils % 79.8 H Sodium 140.4 Potassium 4.7 Chloride 101 Carbon Dioxide 26 Anion Gap 13 BUN 38 H Creatinine 2.62 H Est GFR ( Amer) 29 L Est GFR (MDRD) Non-Af 24 L Glucose 65 L Calcium 5.8 L* Magnesium Total Bilirubin 0.5 Direct Bilirubin 0.5 H Neonat Total Bilirubin Not Reportable Neonat Direct Bilirubin Not Reportable Neonat Indirect Bili Not Reportable AST 24 ALT 12 Alkaline Phosphatase 41 Creatine Kinase 127 CK-MB (CK-2) 1.97 Troponin I 0.067 Total Protein 7.0 Albumin 3.7 Urine Color Urine Appearance Urine pH Ur Specific [place] Urine Protein Urine Glucose (UA) Urine Ketones Urine Blood Urine Nitrite Urine Bilirubin Urine Urobilinogen Ur Leukocyte Esterase Urine WBC (Auto) Urine RBC (Auto) Urine Bacteria (Auto) Squamous Epi Cells Auto Amorphous Sediment Auto Urine Mucus (Auto) Urine Ascorbic Acid 05/15/19 05/15/19 15:03 15:19 WBC RBC Hgb Hct MCV MCH MCHC RDW Plt Count Lymph % (Auto) [place] % (Auto) Eos % (Auto) Baso % (Auto) Absolute Neuts (auto) Absolute Lymphs (auto) Absolute Monos (auto) Absolute Eos (auto) Absolute Basos (auto) Seg Neutrophils % Sodium Potassium Chloride Carbon Dioxide Anion Gap BUN Creatinine Est GFR ( Amer) Est GFR (MDRD) Non-Af Glucose Calcium Magnesium 0.5 L* Total Bilirubin Direct Bilirubin Neonat Total Bilirubin Neonat Direct Bilirubin Neonat Indirect Bili AST ALT Alkaline Phosphatase Creatine Kinase CK-MB (CK-2) Troponin I Total Protein Albumin Urine Color YELLOW Urine Appearance SLIGHTLY-CLOUDY Urine pH 7.0 Ur Specific [place] 1.016 Urine Protein 100 H Urine Glucose (UA) NEGATIVE Urine Ketones TRACE H Urine Blood NEGATIVE Urine Nitrite NEGATIVE Urine Bilirubin NEGATIVE Urine Urobilinogen NEGATIVE Ur Leukocyte Esterase LARGE H Urine WBC (Auto) 90 Urine RBC (Auto) 5 Urine Bacteria (Auto) 1+ Squamous Epi Cells Auto 1 Amorphous Sediment Auto TRACE Urine Mucus (Auto) RARE Urine Ascorbic Acid NEGATIVE - Diagnostic Test Radiology reviewed: Reports reviewed Discharge - Discharge Clinical Impression: Hypocalcemia, Weakness, Chronic kidney disease, stage III (moderate) Urinary tract infection Qualifiers: Urinary tract infection type: site unspecified Hematuria presence: without hematuria Qualified Code(s): N39.0 - Urinary tract infection, site not specified COPD (chronic obstructive pulmonary disease) Qualifiers: COPD type: unspecified COPD Qualified Code(s): J44.9 - Chronic obstructive pulmonary disease, unspecified Condition: Stable Disposition: ADMITTED INPATIENT Admitting Provider: Vyas Unit Admitted: [facility]
[2019-05-15] MEDS ORDERED: CEFEPIME 1 GM/D5W RTU 1 GM/50 ML RTUPB IV ONE ×2 (17:07→17:26)
[2019-05-15] MEDS ORDERED: ACETAMINOPHEN 325 MG TABLET PO PRN (17:18)
--- NOTE | 2019-05-15 17:35 | PDOC H&P ---
History of Present Illness Admission Date/PCP: 05/15/19 17:17 KENIA MAJOR MD Patient complains of: Generalized weakness History of Present Illness: RASHI MC is a 78 year old male This is a 78-year-old male with a history of the chronic kidney disease stage III with the baseline creatinine is 1.[address] Martin history of the chronic respiratory failure unable to use the BiPAP seen by Dr. Hathaway history of the hypertension's hyperlipidemia history of the Mayen's esophagus history of the pulmonary embolism currently see Dr. Saavedra and currently on Eliquis history of the GI bleed and multiple other comorbidity multiple hospital admissions recently admitting in the different area hospital stay in ICU for 2 days and then 2 days stay in the hospital for chronic respiratory failure [facility] came home last week and his brought him today because of the patient's feeling very weak unable to move much patient have a right foot drops usually use the walker but according to the still very weak and patient otherwise denied any chest pain no short of breath no abdominal pain no nausea no vomiting In the emergency department patient's calcium level was low and patient's creatinine was 2.62 Patient with some questionable urinary tract infections So the patient is in the ER patient is alert awake back to the baseline's denied any chest pain no abdominal pain no nausea no vomiting patient is asking for the dinner Patient initial blood works with hemoglobin is 9.6 and patient's white count is all normal Patient's chest x-ray and ABG still pending\patient is currently using the 2 L nasal cannula at home Dr. Hathaway suggest the patient's need a BiPAP due to the chronic respiratory failure but patients never use it and unable to use it to With the acute renal failure hypocalcemia and generalized weakness decided to admit in the hospital Very extensive discussions with the regarding the patient's current conditions and the and patient's expressed the DNR/DNI Past Medical History Cardiac Medical History: Reports: Hyperlipidema, Hypertension, Peripheral Vascular Disease - History of aortic aneurysm rupture and repair, Pulmonary Emb olism Pulmonary Medical History: Reports: Chronic Obstructive Pulmonary Disease (COPD) EENT Medical History: Reports: None Neurological Medical History: Reports: None Denies: Seizures Endocrine Medical History: Reports: None Renal/ Medical History: Reports: Chronic Kidney Disease, End Stage Renal Disease Malignancy Medical History: Reports: None GI Medical History: Reports: Gastroesophageal Reflux Disease Musculoskeltal Medical History: Reports: None Skin Medical History: Reports: None Denies: Eczema, Psoriasis Psychiatric Medical History: Reports: Dementia, Depression Traumatic Medical History: Reports: None Denies: Traumatic Brain Injury Hematology: Denies: Sickle Cell Disease Infectious Medical History: Reports: None Past Surgical History Past Surgical History: Reports: Vascular Surgery, Other - states AAA few years ago Social History Information Source: Patient, Relative Lives with: Spouse/Significant other Smoking Status: Former Smoker Frequency of Alcohol Use: None Hx Recreational Drug Use: No Drugs: None Hx Prescription Drug Abuse: No Family History Family History: Reviewed & Not Pertinent, Hypertension. denies: CAD, DM Parental Family History Reviewed: Yes Children Family History Reviewed: Yes Sibling(s) Family History Reviewed.: Yes Medication/Allergy Home Medications: Apixaban [Eliquis 5 mg Tablet] 5 mg PO Q12 10/21/17 Hydralazine HCl [Apresoline 50 mg Tablet] 50 mg PO Q8 10/21/17 Metoprolol Tartrate [Lopressor 100 mg Tablet] 100 mg PO Q12 10/21/17 Pravastatin Sodium [Pravachol] 20 mg PO DAILY 10/21/17 Cephalexin Monohydrate [Keflex 500 mg Capsule] 500 mg PO BID 7 Days capsule 02/13/18 Ferrous Sulfate 325 mg PO BID 02/13/18 Omeprazole 20 mg PO DAILY 02/13/18 Umeclidinium Brm/Vilanterol Tr [Anoro Ellipta 62.5-25 Mcg INH] 1 each IH DAILY 02/13/18 Allergies/Adverse Reactions: No Known Allergies Allergy (Verified 02/13/18 14:03) Review of Systems Constitutional: PRESENT: weakness. ABSENT: chills, fever(s), headache(s), weight gain, weight loss Eyes: ABSENT: visual disturbances Ears: ABSENT: hearing changes Cardiovascular: ABSENT: chest pain, dyspnea on exertion, edema, orthropnea, palpitations Respiratory: ABSENT: cough, hemoptysis Gastrointestinal: ABSENT: abdominal pain, constipation, diarrhea, hematemesis, hematochezia, nausea, vomiting Genitourinary: ABSENT: dysuria, hematuria Musculoskeletal: ABSENT: joint swelling Integumentary: ABSENT: rash, wounds Neurological: ABSENT: abnormal gait, abnormal speech, confusion, dizziness, focal weakness, syncope Psychiatric: ABSENT: anxiety, depression, homidical ideation, suicidal ideation Endocrine: ABSENT: cold intolerance, heat intolerance, menstrual abnormalities, polydipsia, polyuria Hematologic/Lymphatic: ABSENT: easy bleeding, easy bruising, lymphadenopathy Physical Exam Vital Signs: Temp Pulse Resp BP Pulse Ox 98.1 F 16 154/77 H 98 05/15/19 15:01 05/15/19 16:01 05/15/19 16:01 05/15/19 16:01 Intake & Output 05/14/19 05/15/19 05/16/19 06:59 06:59 06:59 Weight 94.347 kg General appearance: PRESENT: no acute distress, well-developed, well-nourished Head exam: PRESENT: atraumatic, normocephalic Eye exam: PRESENT: conjunctiva pink, EOMI, PERRLA. ABSENT: scleral icterus Ear exam: PRESENT: normal external ear exam Mouth exam: PRESENT: moist, tongue midline Neck exam: PRESENT: full ROM. ABSENT: carotid bruit, JVD, lymphadenopathy, thyromegaly Respiratory exam: PRESENT: clear to auscultation annelise Cardiovascular exam: PRESENT: RRR. ABSENT: diastolic murmur, rubs, systolic murmur Vascular exam: PRESENT: normal capillary refill GI/Abdominal exam: PRESENT: normal bowel sounds, soft. ABSENT: distended, guarding, mass, organolmegaly, rebound, tenderness Rectal exam: PRESENT: deferred Extremities exam: ABSENT: pedal edema Additional comments: Right sided foot drop with the brace is present Neurological exam: PRESENT: alert, awake, oriented to person, oriented to place, oriented to time, oriented to situation. ABSENT: motor sensory deficit Psychiatric exam: PRESENT: appropriate affect, normal mood. ABSENT: homicidal ideation, suicidal ideation Skin exam: PRESENT: dry, intact, warm. ABSENT: cyanosis, rash Results Laboratory Results: 05/15/19 15:03 05/15/19 15:03 05/15/19 05/15/19 05/15/19 15:03 15:03 15:19 WBC 6.9 RBC 3.77 L Hgb 9.6 L Hct 31.1 L MCV 83 MCH 25.5 L MCHC 30.9 L RDW 16.8 H Plt Count 335 Seg Neutrophils % 79.8 H Sodium 140.4 Potassium 4.7 Chloride 101 Carbon Dioxide 26 Anion Gap 13 BUN 38 H Creatinine 2.62 H Est GFR ( Amer) 29 L Glucose 65 L Calcium 5.8 L* Total Bilirubin 0.5 AST 24 Alkaline Phosphatase 41 Total Protein 7.0 Albumin 3.7 Urine Color YELLOW Urine Appearance SLIGHTLY-CLOUDY Urine pH 7.0 Ur Specific [place] 1.016 Urine Protein 100 H Urine Glucose (UA) NEGATIVE Urine Ketones TRACE H Urine Blood NEGATIVE Urine Nitrite NEGATIVE Ur Leukocyte Esterase LARGE H Urine WBC (Auto) 90 Urine RBC (Auto) 5 05/15/19 05/15/19 15:03 15:03 Creatine Kinase 127 CK-MB (CK-2) 1.97 Troponin I 0.067 Assessment & Plan - Diagnosis (1) Hypocalcemia Is this a current diagnosis for this admission?: Yes Plan: Received the IV calcium's Will continues to p.o. calcium's (2) Respiratory failure, chronic Qualifiers: Respiratory failure complication: hypoxia and hypercapnia Qualified Code(s): J96.11 - Chronic respiratory failure with hypoxia; J96.12 - Chronic respiratory failure with hypercapnia Is this a current diagnosis for this admission?: Yes Plan: Get the ABG Consult the Dr. Hathaway Get the sputum culture Respiratory treatments (3) Urinary tract infection Qualifiers: Urinary tract infection type: site unspecified Hematuria presence: without hematuria Qualified Code(s): N39.0 - Urinary tract infection, site not specified Is this a current diagnosis for this admission?: Yes Plan: In the urine for the culture (4) Weakness Is this a current diagnosis for this admission?: Yes Plan: The physical therapy (5) Acute on chronic renal failure Qualifiers: Chronic kidney disease stage: stage 3 (moderate) Is this a current diagnosis for this admission?: Yes Plan: Given IV fluids consult the nephrology (6) Anemia of chronic disease Is this a current diagnosis for this admission?: Yes Plan: Is currently getting the Procrit injections per Dr. Martin and also see the cost report clerk (7) Mayen's esophagus with dysplasia Is this a current diagnosis for this admission?: Yes Plan: Use the PPI (8) Foot drop, right Is this a current diagnosis for this admission?: Yes (9) Pulmonary embolism Qualifiers: Pulmonary embolism type: other Chronicity: acute Acute cor pulmonale presence: without acute cor pulmonale Qualified Code(s): I26.99 - Other pulmonary embolism without acute cor pulmonale Is this a current diagnosis for this admission?: No Plan: he is currently on Eliquis (10) Dementia Qualifiers: Dementia type: vascular dementia Dementia behavioral disturbance: without behavioral disturbance Qualified Code(s): F01.50 - Vascular dementia without behavioral disturbance Is this a current diagnosis for this admission?: Yes Plan: underlying vascular dementia's - Time Time Spent: 50 to 70 Minutes Medications reviewed and adjusted accordingly: Yes Anticipated discharge: SNF Within: Other - Inpatient Certification Based on my medical assessment, after consideration of the patient's comorbidities, presenting symptoms, or acuity I expect that the services needed warrant INPATIENT care.: Yes I certify that my determination is in accordance with my understanding of Medicare's requirements for reasonable and necessary INPATIENT services [42 CFR 412.3e].: Yes Medical Necessity: Significant Comorbidiites Make Outpatient Treatment Too Risky, Need For Continuous Telemetry Monitoring, Need for Nebulizer Therapy and Monitoring of Response, Need for IV Antibiotics Post Hospital Care: D/C Shuffle Board Operator Documentation - Plan Summary Plan Summary: Admit the patient in IMCU Discussed with the and the patient's regarding the current conditions Patient is currently DNR/DNI
--- NOTE | 2019-05-15 18:15 | EKG REPORT ---
SEVERITY:- ABNORMAL ECG - SINUS RHYTHM RIGHT BUNDLE BRANCH BLOCK : Confirmed by: Jace Johns MD 15-May-2019 18:09:20
--- NOTE | 2019-05-15 19:03 | RADIOLOGY REPORT (SQ) ---
EXAM DESCRIPTION: CHEST SINGLE VIEW COMPLETED DATE/TIME: 05/15/2019 6:47 pm REASON FOR STUDY: weakness COMPARISON: 10/28/2017 NUMBER OF VIEWS: One view. TECHNIQUE: Single frontal radiographic view of the chest acquired. LIMITATIONS: None. FINDINGS: LUNGS AND PLEURA: No opacities, masses or pneumothorax. No pleural effusion. MEDIASTINUM AND HILAR STRUCTURES: No masses or contour abnormality. HEART AND VASCULATURE: Cardiac enlargement. Vascular congestion. BONES: No acute findings. HARDWARE: None in the chest. OTHER: No other significant finding. IMPRESSION: CARDIAC ENLARGEMENT. VASCULAR CONGESTION. TECHNICAL DOCUMENTATION: JOB ID: [id number] [employer]- All Rights Reserved Reading location - IP/workstation name: [email or web address]
[2019-05-15 19:06] LABS: ARTERIAL BLOOD BASE EXCESS -2.1 mmol/L; ARTERIAL BLOOD H2CO3 1.98 mmol/L (1.05-1.35); ARTERIAL BLOOD HCO3 26.8 mmol/L (20-24); ARTERIAL BLOOD O2 SATURATION 94.4 % (94-98); ARTERIAL BLOOD PCO2 65.8 mmHg (35-45); ARTERIAL BLOOD PH 7.23 (7.35-7.45); ARTERIAL BLOOD PO2 86.1 mmHg (80-100); ARTERIAL BLOOD TOTAL CO2 28.8 mmol/L (23-27)
[2019-05-15 19:09] LABS: ARTERIAL BLOOD FIO2 3L
[2019-05-15 19:53] LABS: APPEARANCE,URINE CLOUDY; BILIRUBIN,URINE NEGATIVE (NEGATIVE); COLOR,URINE AMBER; GLUCOSE, URINE NEGATIVE (NEGATIVE); KETONES,URINE TRACE mg/dL (NEGATIVE); LEUKOCYTE ESTERASE,URINE LARGE (NEGATIVE); NITRITE,URINE NEGATIVE (NEGATIVE); PROTEIN,URINE 100 mg/dL (NEGATIVE); URINE SPECIFIC GRAVITY 1.018; UROBILINOGEN,URINE NEGATIVE mg/dL (<2.0)
[2019-05-15] MEDS: IPRATROPIUM/ALBUTEROL 0.5-2.5 MG/3 ML AMPUL NEB SCH (19:54)
[2019-05-15] MEDS: MAGNESIUM SULFATE/D5W 1 GM/100 ML RTUPB IV SCH ×2 (20:39→21:38)
[2019-05-15] MEDS ORDERED: INFLUENZA QUAD (6MOS+) 2019-20 VAC 0.5 ML SYR IM ONE (21:00)
[2019-05-15] MEDS: FAMOTIDINE 20 MG TABLET PO SCH (21:38)
[2019-05-15] MEDS: CALCIUM CARBONATE 500 MG TABLET PO SCH (21:38)
[2019-05-15] MEDS ORDERED: CEFEPIME 1 GM/D5W RTU 1 GM/50 ML RTUPB IV SCH (22:00)
[2019-05-16] MEDS: CALCIUM CARBONATE 500 MG TABLET PO SCH ×3 (05:10→21:32)
[2019-05-16] MEDS: CEFEPIME 1 GM/D5W RTU 1 GM/50 ML RTUPB IV SCH ×2 (05:11→17:20)
[2019-05-16 06:13] LABS: ABSOLUTE BASOPHILS # (AUTO) 0.1 10^3/uL (0.0-0.2); ABSOLUTE EOSINOPHILS # (AUTO) 0.1 10^3/uL (0.0-0.6); ABSOLUTE LYMPHOCYTES (AUTO) 0.4 10^3/uL (0.5-4.7); ABSOLUTE MONOCYTES (AUTO) 0.7 10^3/uL (0.1-1.4); ABSOLUTE NEUT (AUTO) 4.5 10^3/uL (1.7-8.2); BASOPHILS % (AUTO) 1.2 % (0-2); EOSINOPHILS % (AUTO) 1.1 % (0-6); HEMATOCRIT 28.7 % (37.9-51.0); HEMOGLOBIN 9.2 g/dL (13.5-17.0); LYMPHOCYTES % (AUTO) 7.4 % (13-45); MEAN CORPUSCULAR HEMOGLOBIN 25.8 pg (27.0-33.4); MEAN CORPUSCULAR HGB CONC 31.9 g/dL (32.0-36.0); MEAN CORPUSCULAR VOLUME 81 fl (80-97); MONOCYTES % (AUTO) 11.9 % (3-13); PLATELET COUNT 296 10^3/uL (150-450); RED BLOOD COUNT 3.55 10^6/uL (4.35-5.55); RED CELL DISTRIBUTION WIDTH 16.8 % (11.5-14.0); SEGMENTED NEUTROPHILS % (AUTO) 78.4 % (42-78); TOTAL CELLS COUNTED % (AUTO) 100 %; WHITE BLOOD COUNT 5.7 10^3/uL (4.0-10.5)
[2019-05-16 06:29] LABS: ALBUMIN 3.3 g/dL (3.5-5.0); ALKALINE PHOSPHATASE 42 U/L (38-126); ANION GAP 9 (5-19); ASPARTATE AMINO TRANSFERASE 23 U/L (17-59); BILIRUBIN,DIRECT 0.4 mg/dL (0.0-0.4); BILIRUBIN,TOTAL 0.4 mg/dL (0.2-1.3); BLOOD UREA NITROGEN 35 mg/dL (7-20); CARBON DIOXIDE 29 mmol/L (22-30); CHLORIDE 101 mmol/L (98-107); CREATINE KINASE 109 U/L (55-170); GLUCOSE 88 mg/dL (75-110); POTASSIUM 4.4 mmol/L (3.6-5.0); TOTAL PROTEIN 6.3 g/dL (6.3-8.2)
[2019-05-16 06:39] LABS: TROPONIN I 0.072 ng/mL
[2019-05-16 06:52] LABS: CALCIUM 6.4 mg/dL (8.4-10.2)
[2019-05-16] MEDS: MAGNESIUM SULFATE/D5W 1 GM/100 ML RTUPB IV SCH ×2 (08:05→09:28)
[2019-05-16] MEDS: IPRATROPIUM/ALBUTEROL 0.5-2.5 MG/3 ML AMPUL NEB SCH ×3 (08:15→20:56)
[2019-05-16] MEDS: DOCUSATE SODIUM 100 MG CAPSULE PO SCH (09:28)
[2019-05-16] MEDS: METOPROLOL TARTRATE 100 MG TABLET PO SCH ×2 (09:28→21:32)
[2019-05-16] MEDS: APIXABAN 2.5 MG TABLET PO SCH ×2 (09:28→21:33)
[2019-05-16] MEDS: FERROUS SULFATE 325 MG TABLET PO SCH ×2 (09:28→17:21)
[2019-05-16] MEDS: FAMOTIDINE 20 MG TABLET PO SCH ×2 (09:28→23:41)
[2019-05-16] MEDS: HYDRALAZINE HCL 50 MG TABLET PO SCH ×2 (13:41→21:31)
--- NOTE | 2019-05-16 13:43 | PDOC PROGRESS REPORT ---
Subjective Progress Note for:: 05/16/19 Subjective:: Patient is feeling much better She is alert awake oriented denied any symptoms No chest pain no short of breath His magnesium is low replace Reason For Visit: WEAKNESS,UTI,RESPIRATORY FAILURE Physical Exam Vital Signs: Temp Pulse Resp BP Pulse Ox 97.5 F 70 18 133/65 H 98 05/16/19 10:51 05/16/19 10:51 05/16/19 10:51 05/16/19 10:51 05/16/19 10:51 Intake & Output 05/15/19 05/16/19 05/17/19 06:59 06:59 06:59 Intake Total 298 680 Output Total 315 500 Balance -17 180 Weight 92.3 kg General appearance: PRESENT: no acute distress, well-developed, well-nourished Head exam: PRESENT: atraumatic, normocephalic Eye exam: PRESENT: conjunctiva pink, EOMI, PERRLA. ABSENT: scleral icterus Ear exam: PRESENT: normal external ear exam Mouth exam: PRESENT: moist, tongue midline Neck exam: PRESENT: full ROM. ABSENT: carotid bruit, JVD, lymphadenopathy, thyromegaly Respiratory exam: PRESENT: clear to auscultation annelise Cardiovascular exam: PRESENT: RRR. ABSENT: diastolic murmur, rubs, systolic murmur Vascular exam: PRESENT: normal capillary refill GI/Abdominal exam: PRESENT: normal bowel sounds, soft. ABSENT: distended, guarding, mass, organolmegaly, rebound, tenderness Rectal exam: PRESENT: deferred Neurological exam: PRESENT: alert, awake, oriented to person, oriented to place, oriented to time, oriented to situation. ABSENT: motor sensory deficit Psychiatric exam: PRESENT: appropriate affect, normal mood. ABSENT: homicidal ideation, suicidal ideation Skin exam: PRESENT: dry, intact, warm. ABSENT: cyanosis, rash Results Laboratory Results: 05/16/19 05:52 05/16/19 05:52 05/15/19 05/15/19 05/15/19 15:03 15:03 15:03 WBC 6.9 RBC 3.77 L Hgb 9.6 L Hct 31.1 L MCV 83 MCH 25.5 L MCHC 30.9 L RDW 16.8 H Plt Count 335 Seg Neutrophils % 79.8 H Carbonic Acid HCO3/H2CO3 Ratio ABG pH ABG pCO2 ABG pO2 ABG HCO3 ABG O2 Saturation ABG Base Excess FiO2 Sodium 140.4 Potassium 4.7 Chloride 101 Carbon Dioxide 26 Anion Gap 13 BUN 38 H Creatinine 2.62 H Est GFR ( Amer) 29 L Glucose 65 L Lactic Acid Calcium 5.8 L* Magnesium 0.5 L* Total Bilirubin 0.5 AST 24 Alkaline Phosphatase 41 Total Protein 7.0 Albumin 3.7 PTH Intact Urine Color Urine Appearance Urine pH Ur Specific [place] Urine Protein Urine Glucose (UA) Urine Ketones Urine Blood Urine Nitrite Ur Leukocyte Esterase Urine WBC (Auto) Urine RBC (Auto) 05/15/19 05/15/19 05/15/19 15:03 15:19 18:30 WBC RBC Hgb Hct MCV MCH MCHC RDW Plt Count Seg Neutrophils % Carbonic Acid HCO3/H2CO3 Ratio ABG pH ABG pCO2 ABG pO2 ABG HCO3 ABG O2 Saturation ABG Base Excess FiO2 Sodium Potassium Chloride Carbon Dioxide Anion Gap BUN Creatinine Est GFR ( Amer) Glucose Lactic Acid 0.6 L Calcium Magnesium Total Bilirubin AST Alkaline Phosphatase Total Protein Albumin PTH Intact 42.1 Urine Color YELLOW Urine Appearance SLIGHTLY-CLOUDY Urine pH 7.0 Ur Specific [place] 1.016 Urine Protein 100 H Urine Glucose (UA) NEGATIVE Urine Ketones TRACE H Urine Blood NEGATIVE Urine Nitrite NEGATIVE Ur Leukocyte Esterase LARGE H Urine WBC (Auto) 90 Urine RBC (Auto) 5 05/15/19 05/15/19 05/16/19 18:36 19:15 05:52 WBC 5.7 RBC 3.55 L Hgb 9.2 L Hct 28.7 L MCV 81 MCH 25.8 L MCHC 31.9 L RDW 16.8 H Plt Count 296 Seg Neutrophils % 78.4 H Carbonic Acid 1.98 H HCO3/H2CO3 Ratio 13:1 ABG pH 7.23 L ABG pCO2 65.8 H ABG pO2 86.1 ABG HCO3 26.8 H ABG O2 Saturation 94.4 ABG Base Excess -2.1 FiO2 3L Sodium Potassium Chloride Carbon Dioxide Anion Gap BUN Creatinine Est GFR ( Amer) Glucose Lactic Acid Calcium Magnesium Total Bilirubin AST Alkaline Phosphatase Total Protein Albumin PTH Intact Urine Color [place] Urine Appearance CLOUDY Urine pH 8.0 Ur Specific [place] 1.018 Urine Protein 100 H Urine Glucose (UA) NEGATIVE Urine Ketones TRACE H Urine Blood NEGATIVE Urine Nitrite NEGATIVE Ur Leukocyte Esterase LARGE H Urine WBC (Auto) 111 Urine RBC (Auto) 9 05/16/19 05:52 WBC RBC Hgb Hct MCV MCH MCHC RDW Plt Count Seg Neutrophils % Carbonic Acid HCO3/H2CO3 Ratio ABG pH ABG pCO2 ABG pO2 ABG HCO3 ABG O2 Saturation ABG Base Excess FiO2 Sodium 138.6 Potassium 4.4 Chloride 101 Carbon Dioxide 29 Anion Gap 9 BUN 35 H Creatinine 2.27 H Est GFR ( Amer) 34 L Glucose 88 Lactic Acid Calcium 6.4 L* Magnesium 0.9 L* Total Bilirubin 0.4 AST 23 Alkaline Phosphatase 42 Total Protein 6.3 Albumin 3.3 L PTH Intact Urine Color Urine Appearance Urine pH Ur Specific [place] Urine Protein Urine Glucose (UA) Urine Ketones Urine Blood Urine Nitrite Ur Leukocyte Esterase Urine WBC (Auto) Urine RBC (Auto) 05/15/19 05/15/19 05/16/19 15:03 15:03 05:52 Creatine Kinase 127 109 CK-MB (CK-2) 1.97 Troponin I 0.067 NT-Pro-B Natriuret Pep 05/16/19 05:52 Creatine Kinase CK-MB (CK-2) Troponin I 0.072 NT-Pro-B Natriuret Pep 94643 H Impressions: Chest X-Ray 05/15/19 16:36 IMPRESSION: CARDIAC ENLARGEMENT. VASCULAR CONGESTION. Assessment & Plan - Diagnosis (1) Hypocalcemia Is this a current diagnosis for this admission?: Yes Plan: Continues to Replace the calcium (2) Respiratory failure, chronic Qualifiers: Respiratory failure complication: hypoxia and hypercapnia Qualified Code(s): J96.11 - Chronic respiratory failure with hypoxia; J96.12 - Chronic respiratory failure with hypercapnia Is this a current diagnosis for this admission?: Yes Plan: Get the ABG Consult the Dr. Hathaway Get the sputum culture Respiratory treatments (3) Urinary tract infection Qualifiers: Urinary tract infection type: site unspecified Hematuria presence: without hematuria Qualified Code(s): N39.0 - Urinary tract infection, site not specified Is this a current diagnosis for this admission?: Yes Plan: In the urine for the culture (4) Weakness Is this a current diagnosis for this admission?: Yes Plan: The physical therapy (5) Acute on chronic renal failure Qualifiers: Chronic kidney disease stage: stage 3 (moderate) Is this a current diagnosis for this admission?: Yes Plan: Currently all improving (6) Anemia of chronic disease Is this a current diagnosis for this admission?: Yes Plan: Is currently getting the Procrit injections per Dr. Martin and also see the waste elimination (7) Mayen's esophagus with dysplasia Is this a current diagnosis for this admission?: Yes Plan: Use the PPI (8) Foot drop, right Is this a current diagnosis for this admission?: Yes (9) Pulmonary embolism Qualifiers: Pulmonary embolism type: other Chronicity: acute Acute cor pulmonale presence: without acute cor pulmonale Qualified Code(s): I26.99 - Other pulmonary embolism without acute cor pulmonale Is this a current diagnosis for this admission?: No Plan: he is currently on Eliquis (10) Dementia Qualifiers: Dementia type: vascular dementia Dementia behavioral disturbance: without behavioral disturbance Qualified Code(s): F01.50 - Vascular dementia without behavioral disturbance Is this a current diagnosis for this admission?: Yes Plan: underlying vascular dementia's (11) Hypomagnesemia Is this a current diagnosis for this admission?: Yes Plan: Replace the magnesium's - Time Time Spent with patient: 15-24 minutes Medications reviewed and adjusted accordingly: Yes Anticipated discharge: Home with Homehealth Within: Other - Plan Summary Plan Summary: Patients wants to go home but I think the wants to send the patient's to the [facility] with the patient in and out from the hospital for so many times in the last 1 years
[2019-05-16] MEDS ORDERED: NORMAL SALINE 1000 ML 1,000 ML IV SCH (15:30)
--- NOTE | 2019-05-16 15:55 | PDOC CONSULTATION ---
Consultation Consult Date: 05/16/19 Provider Consulted: VIVIAN DIXON History of Present Illness Admission Date/PCP: 05/15/19 17:17 KENIA VYAS MD History of Present Illness: RASHI MC is a 78 year old male with history of chronic kidney disease baseline stage III followed by Dr. Jn Martin, chronic respiratory failure who refuses to use BiPAP as per recommendation by Dr. Hathaway, hypertension, hyperlipidemia, Mayen's esophagus, pulmonary embolism on Eliquis, and history of GI bleed who presented and get admitted yesterday because of generalized weakness. Patient was at [facility] for a couple weeks and just got discharged last week Wednesday. Patient's at who is currently at bedside told me that while at [facility] the patient is being giving Lasix for unknown reason. Upon discharge the patient's did not really give the Lasix at home anymore. While the patient was at [facility] he started having some shaking and jerking movements already. Patient claims that he is eating good at home and he has been drinking fluids except for the last couple of days prior to admission. At home that shaking and jerking movements has gotten worse. also confirms that the patient had decreased urine output with dark urine which started at [facility] and has gotten worse while he was at home. He has some low back pain which started about 2 weeks ago. He denies any dysuria, urgency, frequency, nor pain over his bladder or his kidneys directly. He denies any fever. He denies any diarrhea, nausea or vomiting. He admits some muscle weakness and muscle aches. states that he has had hyperkalemia in the past. He has been on iron supplements but stopped it because of diarrhea. He currently denies any chest pains, shortness of breath, nor leg swelling. Initial evaluation in the emergency room upon presentation include a calcium of 5.8, magnesium of 0.5, BUN of 38, creatinine of 2.62 and hemoglobin of 9.2. Urinalysis showed specific gravity 1.018 with 100 protein, negative glucose, trace ketones, negative for blood, large leukocyte esterase, WBC of 111 and RBC of 9. Urine culture is currently positive with gram-negative rods. Chest x-ray showed cardiac enlargement with vascular congestion. Reported urine output was 315 from admission from yesterday and currently has about 500 mL so far. Patient was started on cefepime IV 1 g every 12 hours. Blood cultures are still pending. PTH is normal. Review of records revealed that his baseline BUN ranges anywhere between 20 to 30s, creatinine ranges anywhere between 1.8-2.0 with baseline chronic kidney disease stage III. Past Medical History Cardiac Medical History: Reports: Abdominal Aortic Aneurysm, Hyperlipidemia, Hypertension-primary, Peripheral Vascular Disease - History of aortic aneurysm rupture and repair, Pulmonary Embolism Pulmonary Medical History: Reports: Chronic Obstructive Pulmonary Disease (COPD), Respiratory Failure - Chronic Renal/ Medical History: Reports: Chronic Kidney Disease Stage III GI Medical History: Reports: Gastroesophageal Reflux Disease Hematology Medical History: Reports Anemia of Chronic Kidney Disease, Reports Iron Deficiency Anemia Past Surgical History Past Surgical History: Reports: Vascular Surgery, Other - Evacuation of abdominal hematoma post AAA repair Social History Information Source: Patient, Relative Occupation: Retired security project manager company. Lives with: Spouse/Significant other Smoking Status: Former Smoker Cigarettes Packs Per Day: 4 Number of Years Smokin Last Time Smoked: 10 years ago Frequency of Alcohol Use: Rare Hx Recreational Drug Use: No Drugs: None Hx Prescription Drug Abuse: No - Advance Directive Resuscitation Status: Do Not Resuscitate Family History Family History: End Stage Renal Disease - Nephew is on dialysis, sister is on dialysis, and another sister not yet on dialysis Parental Family History Reviewed: Yes Children Family History Reviewed: NA Sibling(s) Family History Reviewed.: Yes Medication/Allergy Home Medications: Apixaban [Eliquis 2.5 mg Tablet] 2.5 mg PO Q12 05/15/19 Calcitriol [Rocaltrol 0.25 mcg Capsule] 0.25 mcg PO MOWE@1000 05/15/19 Fenofibrate Nanocrystallized [Tricor 145 mg Tablet] 145 mg PO WSUPPER 05/15/19 Ferrous Sulfate [Feosol 325 mg Tablet] 325 mg PO BID 05/15/19 Hydralazine HCl [Apresoline 50 mg Tablet] 50 mg PO Q8 05/15/19 Metoprolol Tartrate [Lopressor 100 mg Tablet] 100 mg PO Q12 05/15/19 Pravastatin Sodium [Pravachol] 20 mg PO DAILY 05/15/19 Allergies/Adverse Reactions: No Known Allergies Allergy (Verified 02/13/18 14:03) Review of Systems All systems: reviewed and no additional remarkable complaints except as stated Review of Systems: Constitutional: ABSENT: chills, fatigue, fever(s), headache(s), weight gain, weight loss; admits generalized weakness Eyes: ABSENT: visual disturbances Ears: ABSENT: hearing changes Cardiovascular: ABSENT: chest pain, dyspnea on exertion, edema, orthropnea, palpitations Respiratory: ABSENT: cough, dyspnea, hemoptysis Gastrointestinal: ABSENT: abdominal pain, constipation, diarrhea, hematemesis, hematochezia, nausea, vomiting Genitourinary: ABSENT: dysuria, hematuria; admits to decreased urine output with dark urine Musculoskeletal: ABSENT: joint swelling Integumentary: ABSENT: rash, wounds Neurological: ABSENT: abnormal gait, abnormal speech, confusion, dizziness, focal weakness, numbness, syncope; reports shaking and jerking movements Psychiatric: ABSENT: anxiety, depression Endocrine: ABSENT: cold intolerance, heat intolerance, polydipsia, polyuria Hematologic/Lymphatic: ABSENT: easy bleeding, easy bruising, lymphadenopathy Physical Exam Vital Signs: Temp Pulse Resp BP Pulse Ox 97.5 F 61 16 133/65 H 95 05/16/19 10:51 05/16/19 13:50 05/16/19 13:50 05/16/19 10:51 05/16/19 13:50 Intake & Output 05/15/19 05/16/19 05/17/19 06:59 06:59 06:59 Intake Total 298 680 Output Total 315 500 Balance -17 180 Weight 92.3 kg Exam: General appearance: No acute distress, cooperative, well-developed, well-nourish ed Head exam: PRESENT: atraumatic, normocephalic Eye exam: PRESENT: Conjunctiva pale, EOMI, PERRLA. ABSENT: conjunctival injection, scleral icterus Mouth exam: PRESENT: moist, neck supple, tongue midline Neck exam: PRESENT: full ROM. ABSENT: carotid bruit, JVD, lymphadenopathy, thyromegaly Respiratory exam: PRESENT: clear to auscultation bilaterally. ABSENT: rales, rhonchi, stridor, wheezes Cardiovascular exam: PRESENT: RRR, +S1, +S2. ABSENT: systolic murmur Pulses: PRESENT: normal radial pulses, normal dorsalis pedis pulses GI/Abdominal exam: PRESENT: normal bowel sounds, soft. ABSENT: guarding, mass, tenderness Rectal exam: Deferred Extremities exam: PRESENT: full ROM. ABSENT: calf tenderness, pedal edema Musculoskeletal: PRESENT: full ROM. ABSENT: deformity Neurological exam: PRESENT: alert, Awake, Oriented to person, Oriented to place, Oriented to time, reflexes normal, CN II-XII grossly intact. ABSENT: motor sensory deficit Psychiatric exam: PRESENT: appropriate affect, normal mood. ABSENT: homicidal ideation, suicidal ideation Skin exam: PRESENT: intact, dry, warm. ABSENT: rash Results Laboratory Results: 05/16/19 05:52 05/16/19 05:52 05/15/19 05/15/19 05/15/19 15:03 15:03 15:03 WBC 6.9 RBC 3.77 L Hgb 9.6 L Hct 31.1 L MCV 83 MCH 25.5 L MCHC 30.9 L RDW 16.8 H Plt Count 335 Seg Neutrophils % 79.8 H Carbonic Acid HCO3/H2CO3 Ratio ABG pH ABG pCO2 ABG pO2 ABG HCO3 ABG O2 Saturation ABG Base Excess FiO2 Sodium 140.4 Potassium 4.7 Chloride 101 Carbon Dioxide 26 Anion Gap 13 BUN 38 H Creatinine 2.62 H Est GFR ( Amer) 29 L Glucose 65 L Lactic Acid Calcium 5.8 L* Magnesium 0.5 L* Total Bilirubin 0.5 AST 24 Alkaline Phosphatase 41 Total Protein 7.0 Albumin 3.7 PTH Intact Urine Color Urine Appearance Urine pH Ur Specific [place] Urine Protein Urine Glucose (UA) Urine Ketones Urine Blood Urine Nitrite Ur Leukocyte Esterase Urine WBC (Auto) Urine RBC (Auto) 05/15/19 05/15/19 05/15/19 15:03 15:19 18:30 WBC RBC Hgb Hct MCV MCH MCHC RDW Plt Count Seg Neutrophils % Carbonic Acid HCO3/H2CO3 Ratio ABG pH ABG pCO2 ABG pO2 ABG HCO3 ABG O2 Saturation ABG Base Excess FiO2 Sodium Potassium Chloride Carbon Dioxide Anion Gap BUN Creatinine Est GFR ( Amer) Glucose Lactic Acid 0.6 L Calcium Magnesium Total Bilirubin AST Alkaline Phosphatase Total Protein Albumin PTH Intact 42.1 Urine Color YELLOW Urine Appearance SLIGHTLY-CLOUDY Urine pH 7.0 Ur Specific [place] 1.016 Urine Protein 100 H Urine Glucose (UA) NEGATIVE Urine Ketones TRACE H Urine Blood NEGATIVE Urine Nitrite NEGATIVE Ur Leukocyte Esterase LARGE H Urine WBC (Auto) 90 Urine RBC (Auto) 5 05/15/19 05/15/19 05/16/19 18:36 19:15 05:52 WBC 5.7 RBC 3.55 L Hgb 9.2 L Hct 28.7 L MCV 81 MCH 25.8 L MCHC 31.9 L RDW 16.8 H Plt Count 296 Seg Neutrophils % 78.4 H Carbonic Acid 1.98 H HCO3/H2CO3 Ratio 13:1 ABG pH 7.23 L ABG pCO2 65.8 H ABG pO2 86.1 ABG HCO3 26.8 H ABG O2 Saturation 94.4 ABG Base Excess -2.1 FiO2 3L Sodium Potassium Chloride Carbon Dioxide Anion Gap BUN Creatinine Est GFR ( Amer) Glucose Lactic Acid Calcium Magnesium Total Bilirubin AST Alkaline Phosphatase Total Protein Albumin PTH Intact Urine Color [place] Urine Appearance CLOUDY Urine pH 8.0 Ur Specific [place] 1.018 Urine Protein 100 H Urine Glucose (UA) NEGATIVE Urine Ketones TRACE H Urine Blood NEGATIVE Urine Nitrite NEGATIVE Ur Leukocyte Esterase LARGE H Urine WBC (Auto) 111 Urine RBC (Auto) 9 05/16/19 05:52 WBC RBC Hgb Hct MCV MCH MCHC RDW Plt Count Seg Neutrophils % Carbonic Acid HCO3/H2CO3 Ratio ABG pH ABG pCO2 ABG pO2 ABG HCO3 ABG O2 Saturation ABG Base Excess FiO2 Sodium 138.6 Potassium 4.4 Chloride 101 Carbon Dioxide 29 Anion Gap 9 BUN 35 H Creatinine 2.27 H Est GFR ( Amer) 34 L Glucose 88 Lactic Acid Calcium 6.4 L* Magnesium 0.9 L* Total Bilirubin 0.4 AST 23 Alkaline Phosphatase 42 Total Protein 6.3 Albumin 3.3 L PTH Intact Urine Color Urine Appearance Urine pH Ur Specific [place] Urine Protein Urine Glucose (UA) Urine Ketones Urine Blood Urine Nitrite Ur Leukocyte Esterase Urine WBC (Auto) Urine RBC (Auto) 05/15/19 05/15/19 05/16/19 15:03 15:03 05:52 Creatine Kinase 127 109 CK-MB (CK-2) 1.97 Troponin I 0.067 NT-Pro-B Natriuret Pep 05/16/19 05:52 Creatine Kinase CK-MB (CK-2) Troponin I 0.072 NT-Pro-B Natriuret Pep [id number] H Impressions: Chest X-Ray 05/15/19 16:36 IMPRESSION: CARDIAC ENLARGEMENT. VASCULAR CONGESTION. Assessment & Plan - Diagnosis (1) Acute kidney injury superimposed on CKD Is this a current diagnosis for this admission?: Yes Plan: Patient is currently nonoliguric although there was a report of decreased urine output for a few days at least. Patient's kidney function is slowly improving. I think the patient has some prerenal azotemia and possibly slow overdiuresis from [place] with initiation of Lasix. I would give some IV fluids on this patient as his probably slightly volume depleted at least clinically even though his BNP appears to be elevated. Continue to monitor kidney function and electrolytes. Avoid nephrotoxic medications and adjust medications accordingly depending on kidney function. Hold diuretics at this time. Patient does not need any emergent renal replacement therapy. (2) Hypocalcemia Is this a current diagnosis for this admission?: Yes Plan: Symptomatic which could be related to hypomagnesemia. Continue replacements per Dr. Vyas. Check vitamin D level and phosphorus level. PTH is normal. (3) Hypomagnesemia Is this a current diagnosis for this admission?: Yes Plan: Could be diuretic induced with previous Lasix at [facility]. Continue replacements. (4) Anemia in chronic kidney disease (CKD) Is this a current diagnosis for this admission?: Yes Plan: We will check iron panel. (5) Chronic kidney disease, stage III (moderate) Is this a current diagnosis for this admission?: No (6) Respiratory failure, chronic Qualifiers: Respiratory failure complication: hypoxia and hypercapnia Qualified Code(s): J96.11 - Chronic respiratory failure with hypoxia; J96.12 - Chronic respiratory failure with hypercapnia Is this a current diagnosis for this admission?: Yes Plan: Patient seems to be comfortable just on nasal cannula. (7) Urinary tract infection Qualifiers: Urinary tract infection type: site unspecified Hematuria presence: without hematuria Qualified Code(s): N39.0 - Urinary tract infection, site not specified Is this a current diagnosis for this admission?: Yes Plan: Due to gram-negative rods. On cefepime. (8) Weakness Is this a current diagnosis for this admission?: Yes Plan: Likely due to electrolyte abnormalities with hypocalcemia and hypomagnesemia with relative volume depletion causing acute kidney injury. (9) Hypertension Qualifiers: Hypertension type: essential hypertension Qualified Code(s): I10 - Essential (primary) hypertension Is this a current diagnosis for this admission?: Yes - Notes Notes: Thank you very much for this consultation. We will follow patient with you. - Time Time Spent: Greater than 70 Minutes
[2019-05-16 16:16] LABS: ANION GAP 11 (5-19); BLOOD UREA NITROGEN 34 mg/dL (7-20); CARBON DIOXIDE 29 mmol/L (22-30); CHLORIDE 99 mmol/L (98-107); GLUCOSE 120 mg/dL (75-110); POTASSIUM 4.8 mmol/L (3.6-5.0)
[2019-05-16 16:35] LABS: CALCIUM 6.8 mg/dL (8.4-10.2)
[2019-05-16] MEDS: FENOFIBRATE NANOCRYSTALLIZED 145 MG TABLET PO SCH (17:21)
[2019-05-16] MEDS: ATORVASTATIN CALCIUM 10 MG TABLET PO SCH (21:31)
[2019-05-16] MEDS: MELATONIN 5 MG TABLET PO SCH (21:33)
[2019-05-17 04:59] LABS: ABSOLUTE EOSINOPHILS # (AUTO) 0.1 10^3/uL (0.0-0.6); ABSOLUTE LYMPHOCYTES (AUTO) 0.3 10^3/uL (0.5-4.7); ABSOLUTE MONOCYTES (AUTO) 0.8 10^3/uL (0.1-1.4); ABSOLUTE NEUT (AUTO) 4.5 10^3/uL (1.7-8.2); ABSOLUTE RETICS # 0.026 10^6/uL (0.028-0.122); BASOPHILS % (AUTO) 0.8 % (0-2); EOSINOPHILS % (AUTO) 0.9 % (0-6); HEMATOCRIT 28.1 % (37.9-51.0); HEMOGLOBIN 8.9 g/dL (13.5-17.0); MEAN CORPUSCULAR HEMOGLOBIN 25.6 pg (27.0-33.4); MEAN CORPUSCULAR HGB CONC 31.7 g/dL (32.0-36.0); MEAN CORPUSCULAR VOLUME 81 fl (80-97); MONOCYTES % (AUTO) 13.4 % (3-13); PLATELET COUNT 283 10^3/uL (150-450); RED BLOOD COUNT 3.49 10^6/uL (4.35-5.55); RETICULOCYTE COUNT (AUTO) 0.74 % (0.66-2.85); SEGMENTED NEUTROPHILS % (AUTO) 78.9 % (42-78); TOTAL CELLS COUNTED % (AUTO) 100 %; WHITE BLOOD COUNT 5.7 10^3/uL (4.0-10.5)
[2019-05-17 05:16] LABS: ANION GAP 6 (5-19); BLOOD UREA NITROGEN 30 mg/dL (7-20); CARBON DIOXIDE 30 mmol/L (22-30); CHLORIDE 103 mmol/L (98-107); GLUCOSE 95 mg/dL (75-110); IRON(TIBC) 23.6 ug/dL (49-181); PHOSPHORUS 3.6 mg/dL (2.5-4.5); POTASSIUM 4.2 mmol/L (3.6-5.0)
[2019-05-17 05:33] LABS: CALCIUM 6.8 mg/dL (8.4-10.2)
[2019-05-17] MEDS: CEFEPIME 1 GM/D5W RTU 1 GM/50 ML RTUPB IV SCH ×2 (05:46→17:23)
[2019-05-17] MEDS: CALCIUM CARBONATE 500 MG TABLET PO SCH ×3 (05:47→22:52)
[2019-05-17] MEDS: HYDRALAZINE HCL 50 MG TABLET PO SCH ×3 (05:47→22:50)
[2019-05-17] MEDS: IPRATROPIUM/ALBUTEROL 0.5-2.5 MG/3 ML AMPUL NEB SCH ×3 (08:00→19:59)
[2019-05-17] MEDS: APIXABAN 2.5 MG TABLET PO SCH ×2 (09:13→22:53)
[2019-05-17] MEDS: METOPROLOL TARTRATE 100 MG TABLET PO SCH ×2 (09:13→22:52)
[2019-05-17] MEDS: FERROUS SULFATE 325 MG TABLET PO SCH ×2 (09:13→17:21)
[2019-05-17] MEDS: FAMOTIDINE 20 MG TABLET PO SCH ×2 (09:13→22:53)
[2019-05-17] MEDS: MAGNESIUM SULFATE 1 GM/D5W 100 ML IV SCH ×2 (09:13→10:55)
[2019-05-17] MEDS: DOCUSATE SODIUM 100 MG CAPSULE PO SCH (09:13)
[2019-05-17] MEDS ORDERED: CALCITRIOL 0.25 MCG CAPSULE PO SCH (10:00)
--- NOTE | 2019-05-17 12:42 | PDOC PROGRESS REPORT ---
Subjective Progress Note for:: 05/17/19 Subjective:: Patient is currently doing much better Is denied any chest pain to than any shortness of the breath Patient's I do not think so can go home because of the living situations with ongoing worsening the conditions patients probably get the best way to go to the rehab facilities Patient's magnesium is also getting better calcium is stable's Vitamin B12 is low Reason For Visit: WEAKNESS,UTI,RESPIRATORY FAILURE Physical Exam Vital Signs: Temp Pulse Resp BP Pulse Ox 97.6 F 61 18 111/57 L 96 05/17/19 11:16 05/17/19 11:16 05/17/19 11:16 05/17/19 11:16 05/17/19 11:16 Intake & Output 05/16/19 05/17/19 05/18/19 06:59 06:59 06:59 Intake Total 298 1305 100 Output Total 315 1290 Balance -17 15 100 Weight 92.3 kg 92.9 kg General appearance: PRESENT: no acute distress, well-developed, well-nourished Head exam: PRESENT: atraumatic, normocephalic Eye exam: PRESENT: conjunctiva pink, EOMI, PERRLA. ABSENT: scleral icterus Ear exam: PRESENT: normal external ear exam Mouth exam: PRESENT: moist, tongue midline Neck exam: PRESENT: full ROM. ABSENT: carotid bruit, JVD, lymphadenopathy, thyromegaly Respiratory exam: PRESENT: clear to auscultation annelise Cardiovascular exam: PRESENT: RRR. ABSENT: diastolic murmur, rubs, systolic murmur Vascular exam: PRESENT: normal capillary refill GI/Abdominal exam: PRESENT: normal bowel sounds, soft. ABSENT: distended, guarding, mass, organolmegaly, rebound, tenderness Rectal exam: PRESENT: deferred Neurological exam: PRESENT: alert, awake, oriented to person, oriented to place, oriented to time. ABSENT: motor sensory deficit Psychiatric exam: PRESENT: appropriate affect, normal mood. ABSENT: homicidal ideation, suicidal ideation Skin exam: PRESENT: dry, intact, warm. ABSENT: cyanosis, rash Results Laboratory Results: 05/17/19 04:42 05/17/19 04:42 05/16/19 05/17/19 05/17/19 14:40 04:42 04:42 WBC 5.7 RBC 3.49 L Hgb 8.9 L Hct 28.1 L MCV 81 MCH 25.6 L MCHC 31.7 L RDW 17.0 H Plt Count 283 Seg Neutrophils % 78.9 H Retic Count (auto) 0.74 Sodium 138.5 139.2 Potassium 4.8 4.2 Chloride 99 103 Carbon Dioxide 29 30 Anion Gap 11 6 BUN 34 H 30 H Creatinine 2.28 H 2.07 H Est GFR ( Amer) 34 L 38 L Glucose 120 H 95 Calcium 6.8 L* 6.8 L* Phosphorus 3.6 Magnesium 1.6 1.3 L Iron 23.6 L TIBC 346 % Saturation 7 Ferritin 55.00 Vitamin B12 227.0 L Folate 15.00 05/15/19 05/15/19 05/16/19 15:03 15:03 05:52 Creatine Kinase 127 109 CK-MB (CK-2) 1.97 Troponin I 0.067 NT-Pro-B Natriuret Pep 05/16/19 05:52 Creatine Kinase CK-MB (CK-2) Troponin I 0.072 NT-Pro-B Natriuret Pep 84070 H Impressions: Chest X-Ray 05/15/19 16:36 IMPRESSION: CARDIAC ENLARGEMENT. VASCULAR CONGESTION. Assessment & Plan - Diagnosis (1) Hypocalcemia Is this a current diagnosis for this admission?: Yes Plan: Continues to Replace the calcium (2) Respiratory failure, chronic Qualifiers: Respiratory failure complication: hypoxia and hypercapnia Qualified Code(s): J96.11 - Chronic respiratory failure with hypoxia; J96.12 - Chronic respiratory failure with hypercapnia Is this a current diagnosis for this admission?: Yes Plan: Get the ABG Consult the Dr. Hathaway Get the sputum culture Respiratory treatments (3) Urinary tract infection Qualifiers: Urinary tract infection type: site unspecified Hematuria presence: without hematuria Qualified Code(s): N39.0 - Urinary tract infection, site not specified Is this a current diagnosis for this admission?: Yes Plan: In the urine for the culture (4) Weakness Is this a current diagnosis for this admission?: Yes Plan: The physical therapy (5) Acute on chronic renal failure Qualifiers: Chronic kidney disease stage: stage 3 (moderate) Is this a current diagnosis for this admission?: Yes Plan: Currently all improving (6) Anemia of chronic disease Is this a current diagnosis for this admission?: Yes Plan: Is currently getting the Procrit injections per Dr. Martin and also see the offender job retention specialist (7) Mayen's esophagus with dysplasia Is this a current diagnosis for this admission?: Yes Plan: Use the PPI (8) Foot drop, right Is this a current diagnosis for this admission?: Yes (9) Pulmonary embolism Qualifiers: Pulmonary embolism type: other Chronicity: acute Acute cor pulmonale presence: without acute cor pulmonale Qualified Code(s): I26.99 - Other pulmonary embolism without acute cor pulmonale Is this a current diagnosis for this admission?: No Plan: he is currently on Eliquis (10) Dementia Qualifiers: Dementia type: vascular dementia Dementia behavioral disturbance: without behavioral disturbance Qualified Code(s): F01.50 - Vascular dementia without behavioral disturbance Is this a current diagnosis for this admission?: Yes Plan: underlying vascular dementia's (11) Hypomagnesemia Is this a current diagnosis for this admission?: Yes Plan: Replace the magnesium's (12) Vitamin B12 deficiency Is this a current diagnosis for this admission?: Yes Plan: Please start the vitamin B12 injections - Time Time Spent with patient: 25-34 minutes Medications reviewed and adjusted accordingly: Yes Anticipated discharge: SNF Within: within 24 hours - Plan Summary Plan Summary: See MD orders
[2019-05-17] MEDS: CYANOCOBALAMIN (VITAMIN B-12) INJ 1000 MCG/1 ML VIAL IM SCH (13:44)
[2019-05-17] MEDS: FENOFIBRATE NANOCRYSTALLIZED 145 MG TABLET PO SCH (17:23)
--- NOTE | 2019-05-17 20:46 | PDOC PROGRESS REPORT ---
Subjective Progress Note for:: 05/17/19 Subjective:: Patient appears to be clinically better. He does not want to be disturbed much while he is sleeping. He did wake up for me but did not say much no have any new complaints. He just wants to be left alone. Reason For Visit: WEAKNESS,UTI,RESPIRATORY FAILURE Physical Exam Vital Signs: Temp Pulse Resp BP Pulse Ox 97.6 F 61 16 111/57 L 96 05/17/19 11:16 05/17/19 13:29 05/17/19 13:29 05/17/19 11:16 05/17/19 13:29 Intake & Output 05/16/19 05/17/19 05/18/19 06:59 06:59 06:59 Intake Total 298 1305 560 Output Total 315 1290 100 Balance -17 15 460 Weight 92.3 kg 92.9 kg Exam: General appearance: PRESENT: no acute distress, cooperative, well-developed, well-nourished Head exam: PRESENT: atraumatic, normocephalic Eye exam: PRESENT: conjunctiva pale, PERRLA. ABSENT: scleral icterus Neck exam: ABSENT: JVD Respiratory exam: PRESENT: Normal breath sounds. ABSENT: crackles, rales, rhonchi, unlabored, wheezes Cardiovascular exam: PRESENT: Regular rate rhythm -+S1, +S2. ABSENT: diastolic murmur, systolic murmur GI/Abdominal exam: PRESENT: normal bowel sounds, soft. ABSENT: guarding, mass, tenderness Extremities exam: ABSENT: No edema Neurological exam: PRESENT: alert, awake, oriented to person, place and time. Skin exam: PRESENT: dry, warm, Results Laboratory Results: 05/17/19 04:42 05/17/19 04:42 05/16/19 05/17/19 05/17/19 14:40 04:42 04:42 WBC 5.7 RBC 3.49 L Hgb 8.9 L Hct 28.1 L MCV 81 MCH 25.6 L MCHC 31.7 L RDW 17.0 H Plt Count 283 Seg Neutrophils % 78.9 H Retic Count (auto) 0.74 Sodium 138.5 139.2 Potassium 4.8 4.2 Chloride 99 103 Carbon Dioxide 29 30 Anion Gap 11 6 BUN 34 H 30 H Creatinine 2.28 H 2.07 H Est GFR ( Amer) 34 L 38 L Glucose 120 H 95 Calcium 6.8 L* 6.8 L* Phosphorus 3.6 Magnesium 1.6 1.3 L Iron 23.6 L TIBC 346 % Saturation 7 Ferritin 55.00 Vitamin B12 227.0 L Folate 15.00 05/15/19 05/15/19 05/16/19 15:03 15:03 05:52 Creatine Kinase 127 109 CK-MB (CK-2) 1.97 Troponin I 0.067 NT-Pro-B Natriuret Pep 05/16/19 05:52 Creatine Kinase CK-MB (CK-2) Troponin I 0.072 NT-Pro-B Natriuret Pep [id number] H Impressions: Chest X-Ray 05/15/19 16:36 IMPRESSION: CARDIAC ENLARGEMENT. VASCULAR CONGESTION. Assessment & Plan - Diagnosis (1) Acute kidney injury superimposed on CKD Is this a current diagnosis for this admission?: Yes Plan: Patient's kidney function is almost at baseline. He tolerated limited IV fluids. (2) Hypocalcemia Is this a current diagnosis for this admission?: Yes Plan: On calcium replacement. (3) Hypomagnesemia Is this a current diagnosis for this admission?: Yes Plan: On replacement per Dr. Vyas. (4) Anemia in chronic kidney disease (CKD) Is this a current diagnosis for this admission?: Yes Plan: Patient also has underlying iron deficiency which needs to be corrected. Probably needs to be on Retacrit. (5) Iron deficiency anemia Is this a current diagnosis for this admission?: Yes Plan: We will give a dose of IV Injectafer. (6) Chronic kidney disease, stage III (moderate) Is this a current diagnosis for this admission?: No Plan: Currently at baseline. (7) Respiratory failure, chronic Qualifiers: Respiratory failure complication: hypoxia and hypercapnia Qualified Code(s): J96.11 - Chronic respiratory failure with hypoxia; J96.12 - Chronic respiratory failure with hypercapnia Is this a current diagnosis for this admission?: Yes (8) Urinary tract infection Qualifiers: Urinary tract infection type: site unspecified Hematuria presence: without hematuria Qualified Code(s): N39.0 - Urinary tract infection, site not specified Is this a current diagnosis for this admission?: Yes Plan: On IV cefepime. (9) Weakness Is this a current diagnosis for this admission?: Yes Plan: Improving. (10) Hypertension Qualifiers: Hypertension type: essential hypertension Qualified Code(s): I10 - Essent ial (primary) hypertension Is this a current diagnosis for this admission?: Yes - Time Time with patient: 15-25 minutes
[2019-05-17] MEDS ORDERED: FERRIC CARBOXYMALTOSE 750 MG in NORMAL SALINE 100 ML IV ONE (22:00)
[2019-05-17] MEDS: ATORVASTATIN CALCIUM 10 MG TABLET PO SCH (22:52)
[2019-05-17] MEDS: MELATONIN 5 MG TABLET PO SCH (22:54)
[2019-05-18] MEDS: HYDRALAZINE HCL 50 MG TABLET PO SCH ×3 (06:20→21:12)
[2019-05-18] MEDS: CALCIUM CARBONATE 500 MG TABLET PO SCH ×3 (06:20→21:13)
[2019-05-18] MEDS: CEFEPIME 1 GM/D5W RTU 1 GM/50 ML RTUPB IV SCH ×2 (06:20→18:16)
[2019-05-18] MEDS: IPRATROPIUM/ALBUTEROL 0.5-2.5 MG/3 ML AMPUL NEB SCH ×3 (07:47→20:11)
[2019-05-18 09:23] LABS: HEMATOCRIT 29.4 % (37.9-51.0); HEMOGLOBIN 9.2 g/dL (13.5-17.0); MEAN CORPUSCULAR HEMOGLOBIN 25.8 pg (27.0-33.4); MEAN CORPUSCULAR HGB CONC 31.4 g/dL (32.0-36.0); MEAN CORPUSCULAR VOLUME 82 fl (80-97); PLATELET COUNT 290 10^3/uL (150-450); RED BLOOD COUNT 3.58 10^6/uL (4.35-5.55); RED CELL DISTRIBUTION WIDTH 17.1 % (11.5-14.0); WHITE BLOOD COUNT 6.8 10^3/uL (4.0-10.5)
[2019-05-18 09:41] LABS: ANION GAP 6 (5-19); BLOOD UREA NITROGEN 25 mg/dL (7-20); CALCIUM 8.2 mg/dL (8.4-10.2); CARBON DIOXIDE 29 mmol/L (22-30); CHLORIDE 103 mmol/L (98-107); GLUCOSE 149 mg/dL (75-110); POTASSIUM 4.8 mmol/L (3.6-5.0)
[2019-05-18 09:54] LABS: ABSOLUTE LYMPHOCYTES# (MANUAL) 0.2 10^3/uL (0.5-4.7); ABSOLUTE MONOCYTES # (MANUAL) 0.4 10^3/uL (0.1-1.4); BAND NEUTROPHILS % (MANUAL) 1 % (3-5); BASOPHILS % (MANUAL) 1 % (0-2); EOSINOPHILS % (MANUAL) 1 % (0-6); LYMPHOCYTES % (MANUAL) 3 % (13-45); METAMYELOCYTES % (MANUAL) 1 % (0); MONOCYTES % (MANUAL) 6 % (3-13); SEGMENTED NEUTROPHILS % (MAN) 87 % (42-78); TOTAL CELLS COUNTED 100
[2019-05-18 09:55] LABS: ANISOCYTOSIS 1+; OVALOCYTES 1+; PLATELET COMMENT ADEQUATE; POIKILOCYTOSIS 1+
[2019-05-18] MEDS: FERROUS SULFATE 325 MG TABLET PO SCH ×2 (10:03→18:16)
[2019-05-18] MEDS: APIXABAN 2.5 MG TABLET PO SCH ×2 (10:03→21:13)
[2019-05-18] MEDS: METOPROLOL TARTRATE 100 MG TABLET PO SCH ×2 (10:03→21:12)
[2019-05-18] MEDS: FAMOTIDINE 20 MG TABLET PO SCH ×2 (10:03→21:13)
[2019-05-18] MEDS: DOCUSATE SODIUM 100 MG CAPSULE PO SCH (10:03)
[2019-05-18] MEDS: CYANOCOBALAMIN (VITAMIN B-12) INJ 1000 MCG/1 ML VIAL IM SCH (10:03)
--- NOTE | 2019-05-18 15:23 | PDOC PROGRESS REPORT ---
Subjective Progress Note for:: 05/18/19 Subjective:: Patient is currently doing much better Is denied any chest pain to than any shortness of the breath Patient's I do not think so can go home because of the living situations with ongoing worsening the conditions patients probably get the best way to go to the rehab facilities Patient's magnesium is also getting better calcium is stable's Vitamin B12 is low Reason For Visit: WEAKNESS,UTI,RESPIRATORY FAILURE Physical Exam Vital Signs: Temp Pulse Resp BP Pulse Ox 97.9 F 82 16 149/64 H 92 05/18/19 11:25 05/18/19 13:33 05/18/19 13:33 05/18/19 11:25 05/18/19 13:33 Intake & Output 05/17/19 05/18/19 05/19/19 06:59 06:59 06:59 Intake Total 1305 850 170 Output Total 1290 675 400 Balance 15 175 -230 Weight 92.9 kg 91.1 kg General appearance: PRESENT: no acute distress, well-developed, well-nourished Head exam: PRESENT: atraumatic, normocephalic Eye exam: PRESENT: conjunctiva pink, EOMI, PERRLA. ABSENT: scleral icterus Ear exam: PRESENT: normal external ear exam Mouth exam: PRESENT: moist, tongue midline Neck exam: PRESENT: full ROM. ABSENT: carotid bruit, JVD, lymphadenopathy, thyromegaly Cardiovascular exam: PRESENT: RRR. ABSENT: diastolic murmur, rubs, systolic murmur Vascular exam: PRESENT: normal capillary refill GI/Abdominal exam: PRESENT: normal bowel sounds, soft. ABSENT: distended, g uarding, mass, organolmegaly, rebound, tenderness Rectal exam: PRESENT: deferred Neurological exam: PRESENT: alert, awake, oriented to person, oriented to place, oriented to time, oriented to situation, CN II-XII grossly intact. ABSENT: motor sensory deficit Psychiatric exam: PRESENT: appropriate affect, normal mood. ABSENT: homicidal ideation, suicidal ideation Skin exam: PRESENT: dry, intact, warm. ABSENT: cyanosis, rash Results Laboratory Results: 05/18/19 08:45 05/18/19 08:45 05/18/19 05/18/19 08:45 08:45 WBC 6.8 RBC 3.58 L Hgb 9.2 L Hct 29.4 L MCV 82 MCH 25.8 L MCHC 31.4 L RDW 17.1 H Plt Count 290 Seg Neutrophils % Not Reportable Sodium 138.3 Potassium 4.8 Chloride 103 Carbon Dioxide 29 Anion Gap 6 BUN 25 H Creatinine 1.87 H Est GFR ( Amer) 43 L Glucose 149 H Calcium 8.2 L 05/15/19 19:15 Clean Catch Midstream Urine Culture - Final Proteus Mirabilis 05/15/19 05/15/19 05/16/19 15:03 15:03 05:52 Creatine Kinase 127 109 CK-MB (CK-2) 1.97 Troponin I 0.067 NT-Pro-B Natriuret Pep 05/16/19 05:52 Creatine Kinase CK-MB (CK-2) Troponin I 0.072 NT-Pro-B Natriuret Pep [id number] H Impressions: Chest X-Ray 05/15/19 16:36 IMPRESSION: CARDIAC ENLARGEMENT. VASCULAR CONGESTION. Assessment & Plan - Diagnosis (1) Hypocalcemia Is this a current diagnosis for this admission?: Yes Plan: Continues to Replace the calcium (2) Respiratory failure, chronic Qualifiers: Respiratory failure complication: hypoxia and hypercapnia Qualified Code(s): J96.11 - Chronic respiratory failure with hypoxia; J96.12 - Chronic respiratory failure with hypercapnia Is this a current diagnosis for this admission?: Yes Plan: Get the ABG Consult the Dr. Hathaway Get the sputum culture Respiratory treatments (3) Urinary tract infection Qualifiers: Urinary tract infection type: site unspecified Hematuria presence: without hematuria Qualified Code(s): N39.0 - Urinary tract infection, site not specified Is this a current diagnosis for this admission?: Yes Plan: In the urine for the culture (4) Weakness Is this a current diagnosis for this admission?: Yes Plan: The physical therapy (5) Acute on chronic renal failure Qualifiers: Chronic kidney disease stage: stage 3 (moderate) Is this a current diagnosis for this admission?: Yes Plan: Currently all improving (6) Anemia of chronic disease Is this a current diagnosis for this admission?: Yes Plan: Is currently getting the Procrit injections per Dr. Martin and also see the director specialty (7) Mayen's esophagus with dysplasia Is this a current diagnosis for this admission?: Yes Plan: Use the PPI (8) Foot drop, right Is this a current diagnosis for this admission?: Yes (9) Pulmonary embolism Qualifiers: Pulmonary embolism type: other Chronicity: acute Acute cor pulmonale presence: without acute cor pulmonale Qualified Code(s): I26.99 - Other pulmonary embolism without acute cor pulmonale Is this a current diagnosis for this admission?: No Plan: he is currently on Eliquis (10) Dementia Qualifiers: Dementia type: vascular dementia Dementia behavioral disturbance: without behavioral disturbance Qualified Code(s): F01.50 - Vascular dementia without behavioral disturbance Is this a current diagnosis for this admission?: Yes Plan: underlying vascular dementia's (11) Hypomagnesemia Is this a current diagnosis for this admission?: Yes Plan: Replace the magnesium's (12) Vitamin B12 deficiency Is this a current diagnosis for this admission?: Yes - Time Time Spent with patient: 15-24 minutes Medications reviewed and adjusted accordingly: Yes Anticipated discharge: SNF Within: within 24 hours - Plan Summary Plan Summary: Plan to discharge to the nursing facility tomorrow
[2019-05-18] MEDS: FENOFIBRATE NANOCRYSTALLIZED 145 MG TABLET PO SCH (18:16)
[2019-05-18] MEDS: ATORVASTATIN CALCIUM 10 MG TABLET PO SCH (21:11)
[2019-05-18] MEDS: MELATONIN 5 MG TABLET PO SCH (21:12)
[2019-05-19 04:09] VITALS: BP 164/90
[2019-05-19 05:55] LABS: ANION GAP 5 (5-19); BLOOD UREA NITROGEN 26 mg/dL (7-20); CALCIUM 8.8 mg/dL (8.4-10.2); CARBON DIOXIDE 30 mmol/L (22-30); CHLORIDE 104 mmol/L (98-107); GLUCOSE 99 mg/dL (75-110); POTASSIUM 5.2 mmol/L (3.6-5.0)
[2019-05-19] MEDS: HYDRALAZINE HCL 50 MG TABLET PO SCH (06:58)
[2019-05-19] MEDS: CALCIUM CARBONATE 500 MG TABLET PO SCH (06:59)
[2019-05-19] MEDS: CEFEPIME 1 GM/D5W RTU 1 GM/50 ML RTUPB IV SCH (07:48)
[2019-05-19] MEDS: IPRATROPIUM/ALBUTEROL 0.5-2.5 MG/3 ML AMPUL NEB SCH ×2 (07:53→14:03)
--- NOTE | 2019-05-19 07:59 | PDOC TRANSFER SUMMARY ---
Impression - Admit/DC Date/PCP Admission Date/Primary Care Provider: 05/15/19 17:17 KENIA MAJOR MD Discharge Date: 05/19/19 - Discharge Diagnosis (1) Hypocalcemia Is this a current diagnosis for this admission?: Yes (2) Respiratory failure, chronic Is this a current diagnosis for this admission?: Yes (3) Urinary tract infection Is this a current diagnosis for this admission?: Yes (4) Weakness Is this a current diagnosis for this admission?: Yes (5) Acute on chronic renal failure Is this a current diagnosis for this admission?: Yes (6) Anemia of chronic disease Is this a current diagnosis for this admission?: Yes (7) Mayen's esophagus with dysplasia Is this a current diagnosis for this admission?: Yes (8) Foot drop, right Is this a current diagnosis for this admission?: Yes (9) Pulmonary embolism Is this a current diagnosis for this admission?: No (10) Dementia Is this a current diagnosis for this admission?: Yes (11) Hypomagnesemia Is this a current diagnosis for this admission?: Yes (12) Vitamin B12 deficiency Is this a current diagnosis for this admission?: Yes - Assessment Summary: This is a 78-year-old male with a significant multiple medical problems multiple hospital admissions worsening the dementia came to the emergency departments because of not feeling well with the patient's diagnosed with the urinary tract infections hypocalcemia hypomagnesemia and renal failure In the hospital patient received some IV fluid IV calciums and IV magnesium's and IV antibiotic Patient urine cultures grew out the Proteus which is sensitive to all antibiotics patient received the IV cefepime in the hospital Patient was put on a Keflex and a discharge Patient's white count is normal Patients remain afebrile Patient seen by the nephrology Patient's calcium is normalized and magnesium is normalized Patient's at this point suggest the low potassium diet Continue supplement of the calcium some magnesium's Recheck the Chem-7 and magnesium in 1 week Patient's other medical problem is stable's Patient is currently on Eliquis for the pulmonary embolisms currently see a chlorinator operator as outpatient Dr. Forbes Patients need a fall precaution due to the Eliquis Patient's also worsening the dementia's need to further evaluations will be considered for the Namenda At this point very extensive discussions with the patient's regarding the patient's current conditions with the patient's primary to long-term facilities with the ongoing multiple comorbidity Patient does not have a good prognosis expressed the patient's to be a DNR Again the DNR issue with the facility physician discussed the and the patient's again Patients need a physical therapy fall precautions Follow outpatients nephrology in 1 to 2 weeks Patients have a chronic respiratory issue with chronic oxygen 2 L Patient supposed to need a BiPAP as per the respiratory evaluation in the past but patients refused to do that - Additional Information Resuscitation Status: Do Not Resuscitate Discharge Diet: Cardiac Discharge Activity: Activity As Tolerated Referrals: KENIA MAJOR MD [Primary Care Provider] - Follow up as needed (f/u with nephrology 1 wk ) Prescriptions: Cephalexin Monohydrate [Keflex 500 mg Capsule] 500 mg PO TID #21 capsule Magnesium Oxide [Magnesium] 400 mg PO BID #60 tablet Calcium Carbonate [Os-Dawson 500 mg Tablet (Oyster-Shell)] 500 mg PO Q8 #90 tablet Cyanocobalamin/Folic Acid [Ra Vit B-12 1,000 Mcg Lozenge] 1 each SL DAILY #30 lozenge Home Medications: Apixaban [Eliquis 2.5 mg Tablet] 2.5 mg PO Q12 05/15/19 Calcitriol [Rocaltrol 0.25 mcg Capsule] 0.25 mcg PO MOWE@1000 05/15/19 Fenofibrate Nanocrystallized [Tricor 145 mg Tablet] 145 mg PO WSUPPER 05/15/19 Ferrous Sulfate [Feosol 325 mg Tablet] 325 mg PO BID 05/15/19 Hydralazine HCl [Apresoline 50 mg Tablet] 50 mg PO Q8 05/15/19 Metoprolol Tartrate [Lopressor 100 mg Tablet] 100 mg PO Q12 05/15/19 Pravastatin Sodium [Pravachol] 20 mg PO DAILY 05/15/19 Calcium Carbonate [Os-Dawson 500 mg Tablet (Oyster-Shell)] 500 mg PO Q8 #90 tablet 05/19/19 Cephalexin Monohydrate [Keflex 500 mg Capsule] 500 mg PO TID #21 capsule 05/19/19 Cyanocobalamin/Folic Acid [Ra Vit B-12 1,000 Mcg Lozenge] 1 each SL DAILY #30 lozenge 05/19/19 Magnesium Oxide [Magnesium] 400 mg PO BID #60 tablet 05/19/19 History of Present Illiness History of Present Illness: RASHI MC is a 78 year old male This is a 78-year-old male with a history of the chronic kidney disease stage III with the baseline creatinine is 1.[address] Mratin history of the chronic respiratory failure unable to use the BiPAP seen by Dr. Hathaway history of the hypertension's hyperlipidemia history of the Mayen's esophagus history of the pulmonary embolism currently see Dr. Saavedra and currently on Eliquis history of the GI bleed and multiple other comorbidity multiple hospital admissions recently admitting in the different area hospital stay in ICU for 2 days and then 2 days stay in the hospital for chronic respiratory failure [facility] came home last week and his brought him today because of the patient's feeling very weak unable to move much patient have a right foot drops usually use the walker but according to the still very weak and patient otherwise denied any chest pain no short of breath no abdominal pain no nausea no vomiting In the emergency department patient's calcium level was low and patient's creatinine was 2.62 Patient with some questionable urinary tract infections So the patient is in the ER patient is alert awake back to the baseline's denied any chest pain no abdominal pain no nausea no vomiting patient is asking for the dinner Patient initial blood works with hemoglobin is 9.6 and patient's white count is all normal Patient's chest x-ray and ABG still pending\patient is currently using the 2 L nasal cannula at home Dr. Hathaway suggest the patient's need a BiPAP due to the chronic respiratory failure but patients never use it and unable to use it to With the acute renal failure hypocalcemia and generalized weakness decided to admit in the hospital Very extensive discussions with the regarding the patient's current conditions and the and patient's expressed the DNR/DNI Physical Exam Vital Signs: Temp Pulse Resp BP Pulse Ox 98.6 F 69 20 164/90 H 88 L 05/19/19 03:06 05/19/19 03:06 05/19/19 03:06 05/19/19 03:06 05/19/19 03:06 Intake & Output 05/18/19 05/19/19 05/20/19 06:59 06:59 06:59 Intake Total 900 660 Output Total 675 1300 Balance 225 -640 Weight 91.1 kg 89.1 kg Results Laboratory Results: WBC 6.8 10^3/uL (4.0-10.5) 05/18/19 08:45 RBC 3.58 10^6/uL (4.35-5.55) L 05/18/19 08:45 Hgb 9.2 g/dL (13.5-17.0) L 05/18/19 08:45 Hct 29.4 % (37.9-51.0) L 05/18/19 08:45 MCV 82 fl (80-97) 05/18/19 08:45 MCH 25.8 pg (27.0-33.4) L 05/18/19 08:45 MCHC 31.4 g/dL (32.0-36.0) L 05/18/19 08:45 RDW 17.1 % (11.5-14.0) H 05/18/19 08:45 Plt Count 290 10^3/uL (150-450) 05/18/19 08:45 Lymph % (Auto) Not Reportable 05/18/19 08:45 [place] % (Auto) Not Reportable 05/18/19 08:45 Eos % (Auto) Not Reportable 05/18/19 08:45 Baso % (Auto) Not Reportable 05/18/19 08:45 Reticulocyte # 0.026 10^6/uL (0.028-0.122) L 05/17/19 04:42 Absolute Neuts (auto) Not Reportable 05/18/19 08:45 Absolute Lymphs (auto) Not Reportable 05/18/19 08:45 Absolute Monos (auto) Not Reportable 05/18/19 08:45 Absolute Eos (auto) Not Reportable 05/18/19 08:45 Absolute Basos (auto) Not Reportable 05/18/19 08:45 Total Counted 100 05/18/19 08:45 Seg Neutrophils % Not Reportable 05/18/19 08:45 Seg Neuts % (Manual) 87 % (42-78) H 05/18/19 08:45 Band Neutrophils % 1 % (3-5) L 05/18/19 08:45 Lymphocytes % (Manual) 3 % (13-45) L 05/18/19 08:45 Monocytes % (Manual) 6 % (3-13) 05/18/19 08:45 Eosinophils % (Manual) 1 % (0-6) 05/18/19 08:45 Basophils % (Manual) 1 % (0-2) 05/18/19 08:45 Metamyelocytes % 1 % (0) H 05/18/19 08:45 Abs Neuts (Manual) 6.1 10^3/uL (1.7-8.2) 05/18/19 08:45 Abs Lymphs (Manual) 0.2 10^3/uL (0.5-4.7) L 05/18/19 08:45 Abs Monocytes (Manual) 0.4 10^3/uL (0.1-1.4) 05/18/19 08:45 Absolute Eos (Manual) 0.1 10^3/uL (0.0-0.6) 05/18/19 08:45 Abs Basophils (Manual) 0.1 10^3/uL (0.0-0.2) 05/18/19 08:45 Platelet Comment ADEQUATE 05/18/19 08:45 Poikilocytosis 1+ 05/18/19 08:45 Anisocytosis 1+ 05/18/19 08:45 Ovalocytes 1+ 05/18/19 08:45 Retic Count (auto) 0.74 % (0.66-2.85) 05/17/19 04:42 Carbonic Acid 1.98 mmol/L (1.05-1.35) H 05/15/19 18:36 HCO3/H2CO3 Ratio 13:1 05/15/19 18:36 ABG pH 7.23 (7.35-7.45) L 05/15/19 18:36 ABG pCO2 65.8 mmHg (35-45) H 05/15/19 18:36 ABG pO2 86.1 mmHg (80-100) 05/15/19 18:36 ABG HCO3 26.8 mmol/L (20-24) H 05/15/19 18:36 ABG Total CO2 28.8 mmol/L (23-27) H 05/15/19 18:36 ABG O2 Saturation 94.4 % (94-98) 05/15/19 18:36 ABG Base Excess -2.1 mmol/L 05/15/19 18:36 FiO2 3L 05/15/19 18:36 Sodium 139.0 mmol/L (137-145) 05/19/19 05:03 Potassium 5.2 mmol/L (3.6-5.0) H 05/19/19 05:03 Chloride 104 mmol/L (98-107) 05/19/19 05:03 Carbon Dioxide 30 mmol/L (22-30) 05/19/19 05:03 Anion Gap 5 (5-19) 05/19/19 05:03 BUN 26 mg/dL (7-20) H 05/19/19 05:03 Creatinine 1.86 mg/dL (0.52-1.25) H 05/19/19 05:03 Est GFR ( Amer) 43 (>60) L 05/19/19 05:03 Est GFR (MDRD) Non-Af 35 (>60) L 05/19/19 05:03 Glucose 99 mg/dL (75-110) 05/19/19 05:03 Lactic Acid 0.6 mmol/L (0.7-2.1) L 05/15/19 15:03 Calcium 8.8 mg/dL (8.4-10.2) 05/19/19 05:03 Phosphorus 3.6 mg/dL (2.5-4.5) 05/17/19 04:42 Magnesium 1.3 mg/dL (1.6-2.3) L 05/17/19 04:42 Iron 23.6 ug/dL (49-181) L 05/17/19 04:42 TIBC 346 ug/dL (250-450) 05/17/19 04:42 % Saturation 7 % 05/17/19 04:42 Ferritin 55.00 ng/mL (17.9-464.0) 05/17/19 04:42 Total Bilirubin 0.4 mg/dL (0.2-1.3) 05/16/19 05:52 Direct Bilirubin 0.4 mg/dL (0.0-0.4) 05/16/19 05:52 Neonat Total Bilirubin Not Reportable 05/16/19 05:52 Neonat Direct Bilirubin Not Reportable 05/16/19 05:52 Neonat Indirect Bili Not Reportable 05/16/19 05:52 AST 23 U/L (17-59) 05/16/19 05:52 ALT 12 U/L (<50) 05/16/19 05:52 Alkaline Phosphatase 42 U/L (38-126) 05/16/19 05:52 Creatine Kinase 109 U/L (55-170) 05/16/19 05:52 CK-MB (CK-2) 1.97 ng/mL (<4.55) 05/15/19 15:03 Troponin I 0.072 ng/mL 05/16/19 05:52 NT-Pro-B Natriuret Pep 64342 pg/mL (<450) H 05/16/19 05:52 Total Protein 6.3 g/dL (6.3-8.2) 05/16/19 05:52 Albumin 3.3 g/dL (3.5-5.0) L 05/16/19 05:52 Vitamin B12 227.0 pg/mL (239-931) L 05/17/19 04:42 Vitamin D 25-Hydroxy 38.0 ng/mL (14.7-68.3) 05/17/19 04:42 Folate 15.00 ng/mL (>2.76) 05/17/19 04:42 PTH Intact 42.1 pg/mL (10.0-65.0) 05/15/19 18:30 Urine Color HELENA 05/15/19 19:15 Urine Appearance CLOUDY 05/15/19 19:15 Urine pH 8.0 (5.0-9.0) 05/15/19 19:15 Ur Specific [place] 1.018 05/15/19 19:15 Urine Protein 100 mg/dL (NEGATIVE) H 05/15/19 19:15 Urine Glucose (UA) NEGATIVE mg/dL (NEGATIVE) 05/15/19 19:15 Urine Ketones TRACE mg/dL (NEGATIVE) H 05/15/19 19:15 Urine Blood NEGATIVE (NEGATIVE) 05/15/19 19:15 Urine Nitrite NEGATIVE (NEGATIVE) 05/15/19 19:15 Urine Bilirubin NEGATIVE (NEGATIVE) 05/15/19 19:15 Urine Urobilinogen NEGATIVE mg/dL (<2.0) 05/15/19 19:15 Ur Leukocyte Esterase LARGE (NEGATIVE) H 05/15/19 19:15 Urine WBC (Auto) 111 /HPF 05/15/19 19:15 Urine RBC (Auto) 9 /HPF 05/15/19 19:15 Urine Bacteria (Auto) 1+ /HPF 05/15/19 19:15 Squamous Epi Cells Auto 2 /HPF 05/15/19 19:15 Amorphous Sediment Auto TRACE /HPF 05/15/19 15:19 Urine Mucus (Auto) RARE /LPF 05/15/19 19:15 Urine Ascorbic Acid NEGATIVE (NEGATIVE) 05/15/19 19:15 05/15/19 05/16/19 15:03 05:52 CK-MB (CK-2) 1.97 Troponin I 0.067 0.072 NT-Pro-B Natriuret Pep [id number] H Impressions: Chest X-Ray 05/15/19 16:36 IMPRESSION: CARDIAC ENLARGEMENT. VASCULAR CONGESTION. Stroke Is this a Stroke Patient?: No Acute Heart Failure - Is this a Heart Failure Patient?: No
[2019-05-19] MEDS: CYANOCOBALAMIN (VITAMIN B-12) INJ 1000 MCG/1 ML VIAL IM SCH (10:15)
[2019-05-19] MEDS: FAMOTIDINE 20 MG TABLET PO SCH (10:16)
[2019-05-19] MEDS: APIXABAN 2.5 MG TABLET PO SCH (10:16)
[2019-05-19] MEDS: DOCUSATE SODIUM 100 MG CAPSULE PO SCH (10:16)
[2019-05-19] MEDS: FERROUS SULFATE 325 MG TABLET PO SCH (10:16)
[2019-05-19] MEDS: METOPROLOL TARTRATE 100 MG TABLET PO SCH (10:16)
--- NOTE | 2019-05-20 19:25 | XCELERA REPORT ---
[address] [address] Transthoracic Echocardiogram Report Name: RASHI MC Age: 78 yrs Gender: Male : 1940 Patient Status: Inpatient Patient Location: [facility]^A Study Date: 05/16/2019 06:16 PM Height: 72 in Weight: 208 lb BSA: 2.2 m2 Procedure: A two-dimensional transthoracic echocardiogram with color flow and Doppler was performed. The study was technically difficult with many images being suboptimal in quality. Reason For Study: chf History: CHF. Ordering Physician: KENIA MAJOR Performed By: Patricia Rosen Interpretation Summary The left ventricle is normal in size. There is mild concentric left ventricular hypertrophy. LV EF is 60% The left ventricular ejection fraction is within normal limits. Doppler measurements suggest pseudonormalized left ventricular relaxation, which is associated with grade II/IV or mild to moderate diastolic dysfunction The left ventricular wall motion is normal. There is no thrombus. Cannot assess ASD ,VSD , or PFO. The right ventricle is mild to moderately dilated. The right ventricle is not well visualized secondary to technical limitations The right atrium is normal. There is no evidence of mitral valve prolapse. There is no vegetation seen on the mitral valve. There is no mitral valve stenosis. There is a mild amount of mitral regurgitation There is no aortic valve stenosis No aortic regurgitation is present. There is aortic sclerosis without aortic stenosis. There is a mild to moderate amount of tricuspid regurgitation There is no tricuspid stenosis. There is moderate pulmonary hypertension by echo RVSP is 50 mm o Hg , with RA mean of 10. There is no pulmonic valvular stenosis. There is no pulmonic valvular regurgitation. The aortic root is not well visualized but is probably normal size. The inferior vena cava was not well visualized There is no pericardial effusion. MMode/2D Measurements & Calculations RVDd: 3.1 cm LVIDd: 4.6 cm FS: 18.1 % Ao root diam: 3.1 cm IVSd: 1.3 cm LVIDs: 3.7 cm EDV(Teich): 95.1 ml Ao root area: 7.7 cm2 LVPWd: 1.2 cm ESV(Teich): 59.3 ml LA dimension: 3.7 cm EF(Teich): 37.6 % Doppler Measurements & Calculations MV E max ting: MV P1/2t max ting: Ao V2 max: LV V1 max P.1 cm/sec 126.2 cm/sec 167.0 cm/sec 3.8 mmHg MV A max ting: MV P1/2t: 49.5 msec Ao max PG: LV V1 max: 60.2 cm/sec MVA(P1/2t): 4.4 cm2 11.1 mmHg 97.9 cm/sec MV E/A: 1.8 MV dec slope: 746.4 cm/sec2 MV dec time: 0.23 sec PA V2 max: TR max ting: MV P1/2t-pr_phl: 112.7 cm/sec 317.6 cm/sec 49.5 msec PA max P.1 mmHg TR max P.4 mmHg Left Ventricle The left ventricle is normal in size. There is mild concentric left ventricular hypertrophy. LV EF is 60%. The left ventricular ejection fraction is within normal limits. Doppler measurements suggest pseudonormalized left ventricular relaxation, which is associated with grade II/IV or mild to moderate diastolic dysfunction. The left ventricular wall motion is normal. There is no thrombus. Cannot assess ASD ,VSD , or PFO. Right Ventricle The right ventricle is mild to moderately dilated. The right ventricle is not well visualized secondary to technical limitations. Atria The right atrium is normal. The left atrial size is normal. Mitral Valve There is no evidence of mitral valve prolapse. There is no vegetation seen on the mitral valve. There is no mitral valve stenosis. There is a mild amount of mitral regurgitation. Aortic Valve There is no aortic valve stenosis. There is aortic sclerosis without aortic stenosis. No aortic regurgitation is present. Tricuspid Valve There is no tricuspid stenosis. There is a mild to moderate amount of tricuspid regurgitation. There is moderate pulmonary hypertension by echo. RVSP is 50 mm o Hg , with RA mean of 10. Pulmonic Valve There is no pulmonic valvular stenosis. There is no pulmonic valvular regurgitation. Great Vessels The aortic root is not well visualized but is probably normal size. The inferior vena cava was not well visualized. Effusions There is no pericardial effusion. : KENIA MAJOR Lakshmi
--- NOTE | 2019-05-30 10:54 | PDOC CONSULTATION ---
Consultation Consult Date: 05/16/19 Attending physician:: KENIA MAJOR Provider Consulted: ALFREDITO HORVATH Consult reason:: Chronic hypoxic hypercapnic respiratory failure History of Present Illness Admission Date/PCP: 05/15/19 17:17 KENIA MAJOR MD History of Present Illness: RASHI MC is a 78 year old male, chronic respiratory failure chronic renal failure came to the emergency room by spouse increasing weakness and some disorientation which improved after initial therapy in the emergency room where he was found to be hypercapnic and hypocalcemic with a creatinine to 2.6 Past Medical History Cardiac Medical History: Reports: Hyperlipidema, Hypertension, Peripheral Vascular Disease - History of aortic aneurysm rupture and repair, Pulmonary Embolism Pulmonary Medical History: Reports: Chronic Obstructive Pulmonary Disease (COPD), Respiratory Failure - Chronic EENT Medical History: Reports: None Neurological Medical History: Reports: None Denies: Seizures Endocrine Medical History: Reports: None Renal/ Medical History: Reports: Chronic Kidney Disease, End Stage Renal Disease Malignancy Medical History: Reports: None GI Medical History: Reports: Gastroesophageal Reflux Disease Musculoskeltal Medical History: Reports: None Skin Medical History: Reports: None Denies: Eczema, Psoriasis Psychiatric Medical History: Reports: Dementia, Depression Traumatic Medical History: Reports: None Denies: Traumatic Brain Injury Hematology: Denies: Sickle Cell Disease Infectious Medical History: Reports: None Past Surgical History Past Surgical History: Reports: Vascular Surgery, Other - Evacuation of abdominal hematoma post AAA repair Social History Information Source: [facility] Records Lives with: Spouse/Significant other Smoking Status: Former Smoker Cigarettes Packs Per Day: 4 Number of Years Smokin Last Time Smoked: 10 years ago Passive smoke exposure as: Both Frequency of Alcohol Use: Rare Hx Recreational Drug Use: No Drugs: None Hx Prescription Drug Abuse: No Do you have pets?: No Have you had any respiratory illnesses as a child?: No Have you been exposed to any sick contacts recently?: No Have you had any recent respiratory illnesses?: No Have you travelled outside of [place] in the past 12 months?: No - Advance Directive Resuscitation Status: Do Not Resuscitate Family History Family History: Hypertension. denies: CAD, DM Parental Family History Reviewed: No Children Family History Reviewed: No Sibling(s) Family History Reviewed.: No Medication/Allergy Home Medications: Apixaban [Eliquis 2.5 mg Tablet] 2.5 mg PO Q12 05/15/19 Calcitriol [Rocaltrol 0.25 mcg Capsule] 0.25 mcg PO MOWE@1000 05/15/19 Fenofibrate Nanocrystallized [Tricor 145 mg Tablet] 145 mg PO WSUPPER 05/15/19 Ferrous Sulfate [Feosol 325 mg Tablet] 325 mg PO BID 05/15/19 Hydralazine HCl [Apresoline 50 mg Tablet] 50 mg PO Q8 05/15/19 Metoprolol Tartrate [Lopressor 100 mg Tablet] 100 mg PO Q12 05/15/19 Pravastatin Sodium [Pravachol] 20 mg PO DAILY 05/15/19 Calcium Carbonate [Os-Dawson 500 mg Tablet (Oyster-Shell)] 500 mg PO Q8 #90 tablet 05/19/19 Cephalexin Monohydrate [Keflex 500 mg Capsule] 500 mg PO TID #21 capsule 05/19/19 Cyanocobalamin/Folic Acid [Ra Vit B-12 1,000 Mcg Lozenge] 1 each SL DAILY #30 lozenge 05/19/19 Magnesium Oxide [Magnesium] 400 mg PO BID #60 tablet 05/19/19 Allergies/Adverse Reactions: No Known Allergies Allergy (Verified 02/13/18 14:03) Review of Systems All systems: reviewed and no additional remarkable complaints except as stated Physical Exam Vital Signs: Temp Pulse Resp BP Pulse Ox 98.6 F 86 20 164/90 H 92 05/19/19 03:06 05/19/19 07:53 05/19/19 07:53 05/19/19 03:06 05/19/19 07:53 General appearance: PRESENT: no acute distress, cooperative, disheveled Head exam: PRESENT: atraumatic, normocephalic Eye exam: PRESENT: conjunctiva pale, EOMI. ABSENT: nystagmus, periorbital swel ling Mouth exam: PRESENT: dry mucosa, neck supple, tongue midline Neck exam: ABSENT: carotid bruit, full ROM, JVD, lymphadenopathy, meningismus, tenderness, thyromegaly, tracheal deviation, tracheostomy, other Respiratory exam: PRESENT: decreased breath sounds, prolonged expiratory phas, rhonchi, symmetrical, unlabored, wheezes. ABSENT: stridor, tachypnea Cardiovascular exam: PRESENT: RRR, +S1, +S2, tachycardia Pulses: PRESENT: normal radial pulses GI/Abdominal exam: PRESENT: soft. ABSENT: distended, guarding, mass, rebound, tenderness Extremities exam: ABSENT: calf tenderness, clubbing, joint swelling Musculoskeletal exam: ABSENT: ambulatory, deformity, dislocation Neurological exam: PRESENT: altered, awake Psychiatric exam: PRESENT: flat affect Skin exam: PRESENT: dry, warm Results Laboratory Results: 05/18/19 08:45 05/19/19 05:03 05/15/19 05/15/19 05/16/19 15:03 15:03 05:52 Creatine Kinase 127 109 CK-MB (CK-2) 1.97 Troponin I 0.067 NT-Pro-B Natriuret Pep 05/16/19 05:52 Creatine Kinase CK-MB (CK-2) Troponin I 0.072 NT-Pro-B Natriuret Pep [id number] H Impressions: Chest X-Ray 05/15/19 16:36 IMPRESSION: CARDIAC ENLARGEMENT. VASCULAR CONGESTION. Assessment & Plan - Diagnosis (1) Acute and chronic respiratory failure with hypercapnia Is this a current diagnosis for this admission?: Yes Plan: needs some form of noninvasive positive pressure ventilation (2) Acute and chronic respiratory failure with hypoxia Is this a current diagnosis for this admission?: Yes Plan: Supplemental oxygen titrate judiciously she did not have a sat greater than 94 or less 90 (3) COPD (chronic obstructive pulmonary disease) Qualifiers: COPD type: unspecified COPD Qualified Code(s): J44.9 - Chronic obstructive pulmonary disease, unspecified Is this a current diagnosis for this admission?: Yes Plan: Continue current bronchodilator therapy as you have initiated
== END 2019-05-19 16:17 | DRG 640 ==
LOC: ER 14:12 → EH 17:17 → 3W 19:00
PROVIDERS: ADMIT Family Medicine; ATTEND Family Medicine
PROC: 3E0234Z Introduction of Serum, Toxoid and Vaccine into Muscle, Percutaneous Approach (ICD-10-PCS; principal; 2019-05-19)
DX: E83.51 Hypocalcemia (principal); I26.99 Other pulmonary embolism without acute cor pulmonale; N17.9 Acute kidney failure, unspecified; N39.0 Urinary tract infection, site not specified; J96.11 Chronic respiratory failure with hypoxia; Z66 Do not resuscitate; I12.9 Hypertensive chronic kidney disease with stage 1 through stage 4 chronic kidney disease, or unspecified chronic kidney disease; N18.3 Chronic kidney disease, stage 3 (moderate); J44.9 Chronic obstructive pulmonary disease, unspecified; K21.9 Gastro-esophageal reflux disease without esophagitis; E78.00 Pure hypercholesterolemia, unspecified; B96.4 Proteus (mirabilis) (morganii) as the cause of diseases classified elsewhere; D63.1 Anemia in chronic kidney disease; E83.42 Hypomagnesemia; I73.9 Peripheral vascular disease, unspecified; K22.719 Barrett's esophagus with dysplasia, unspecified; M21.371 Foot drop, right foot; F01.50 Vascular dementia, unspecified severity, without behavioral disturbance, psychotic disturbance, mood disturbance, and anxiety; Z79.01 Long term (current) use of anticoagulants; Z23 Encounter for immunization
CPT/HCPCS: 36415; 71045; 80048; 80053; 81001; 82306; 82550; 82553; 82607; 82728; 82746; 82803; 83540; 83550; 83605; 83735; 83880; 83970; 84100; 84484; 85025; 85045; 87040; 87086; 87088; 87186; 90686; 93005; 93010; 93306; 94640; 99285; J0610; J0692; J1439; J3420; J3475; J3490; J7050; J7620